=== PATIENT | male | born 1955 | race Caucasian/White ===

== ENCOUNTER 2020-01-02 09:05 | Outpatient (REF) | payer MEDICARE, SELFPAY ==
[2020-01-02 09:57] LABS: MANUAL DIFF FLAG NO
[2020-01-02 10:21] LABS: Basophils Percent Auto 0.5 % (0-2); Eosinophils Absolute Auto 0.1 X10*3/uL (0.0-0.4); Eosinophils Percent Auto 2.8 % (0-4); Hematocrit 46.1 % (42-52); Imm Gran Abs Auto 0.01 X10*3/uL (0.00-0.03); Imm Gran Pct Auto 0.3 % (0.0-0.4); Lymphocytes Absolute Auto 1.3 X10*3/uL (1.2-4.9); Lymphocytes Percent Auto 31.5 % (20-40); Mean Corpuscular HGB Conc 32.5 g/dl (31.0-36.0); Mean Corpuscular Hemoglobin 30.4 pg (27.0-33.0); Mean Corpuscular Volume 93.3 fL (80-98); Mean Platelet Volume 9.4 fL (9.4-12.4); Monocytes Absolute Auto 0.3 X10*3/uL (0.1-1.2); Monocytes Percent Auto 7.8 % (2-11); Neutrophils Absolute Auto 2.3 X10*3/uL (2.0-8.3); Neutrophils Percent Auto 57.1 % (45-73); Platelet Count 260 X10*3/uL (160-400); Red Blood Count 4.94 X10*6/uL (4.60-5.80); Red Cell Distribution Width 12.6 % (11.0-16.0)
[2020-01-02 11:13] LABS: Alanine Aminotransferase 25 U/L (0-40); Albumin Level 4.1 g/dL (3.5-5.0); Alkaline Phosphatase 100 U/L (39-117); Anion Gap 10 (12-20); Aspartate Amino Transferase 18 U/L (5-37); Bilirubin Total 1.7 mg/dL (0.0-1.0); Blood Urea Nitrogen 19 mg/dL (9-16); Carbon Dioxide 29 mmol/L (22-29); Chloride 106 mmol/L (96-108); Cholesterol 129 mg/dL; Estimated Glomerular Filt Rate > 60; Glucose Fasting 96 mg/dL (60-99); HDL Cholesterol 42 mg/dL; LDL Cholesterol Calculated 65 mg/dl; Potassium 4.7 mmol/l (3.3-5.1); Sodium 140 mmol/L (135-145); Total Protein 6.7 g/dL (6.5-8.0); Triglycerides 111 mg/dL
[2020-01-02 11:38] LABS: Vitamin D 25-OH Total 38.1 ng/mL (>30)
[2020-01-04 05:11] LABS: Folate 9.7 ng/mL (> or = 4.0); Vitamin B12 363 pg/mL (200-900)
== END 2020-01-02 09:06 | disposition home or self-care (01) ==
LOC: HO.LAB 09:05
PROVIDERS: PCP Internal Medicine; Visit Provider Internal Medicine
DX: E78.5 Hyperlipidemia, unspecified (principal); E53.8 Deficiency of other specified B group vitamins; R20.2 Paresthesia of skin; K50.90 Crohn's disease, unspecified, without complications; E55.9 Vitamin D deficiency, unspecified
CPT/HCPCS: 36415; 80053; 80061; 82306; 82607; 82746; 85025

== ENCOUNTER 2020-04-21 07:30 | Outpatient (REF) | payer MEDICARE, SELFPAY ==
[2020-04-21 07:58] LABS: MANUAL DIFF FLAG NO
[2020-04-21 08:06] LABS: Basophils Percent Auto 0.4 % (0-2); Eosinophils Absolute Auto 0.1 X10*3/uL (0.0-0.4); Eosinophils Percent Auto 1.9 % (0-4); Hematocrit 48.2 % (42-52); Hemoglobin 16.2 g/dl (14.0-18.0); Lymphocytes Absolute Auto 1.6 X10*3/uL (1.2-4.9); Lymphocytes Percent Auto 33.4 % (20-40); Mean Corpuscular HGB Conc 33.6 g/dl (31.0-36.0); Mean Corpuscular Hemoglobin 30.9 pg (27.0-33.0); Mean Corpuscular Volume 91.8 fL (80-98); Mean Platelet Volume 9.1 fL (9.4-12.4); Monocytes Absolute Auto 0.5 X10*3/uL (0.1-1.2); Monocytes Percent Auto 9.8 % (2-11); Neutrophils Absolute Auto 2.6 X10*3/uL (2.0-8.3); Neutrophils Percent Auto 54.5 % (45-73); Platelet Count 278 X10*3/uL (160-400); Red Blood Count 5.25 X10*6/uL (4.60-5.80); Red Cell Distribution Width 12.7 % (11.0-16.0); White Blood Count 4.7 X10*3/uL (4.8-10.8)
[2020-04-21 08:20] LABS: Alanine Aminotransferase 29 U/L (0-40); Albumin Level 4.3 g/dL (3.5-5.0); Alkaline Phosphatase 111 U/L (39-117); Anion Gap 10 (12-20); Aspartate Amino Transferase 20 U/L (5-37); Bilirubin Total 1.8 mg/dL (0.0-1.0); Blood Urea Nitrogen 19 mg/dL (9-16); Calcium 9.2 mg/dL (8.4-10.2); Carbon Dioxide 28 mmol/L (22-29); Chloride 105 mmol/L (96-108); Cholesterol 140 mg/dL; Estimated Glomerular Filt Rate > 60; Glucose Fasting 109 mg/dL (60-99); HDL Cholesterol 46 mg/dL; LDL Cholesterol Calculated 70 mg/dl; Potassium 4.4 mmol/L (3.3-5.1); Sodium 139 mmol/L (135-145); Triglycerides 121 mg/dL
[2020-04-21 08:40] LABS: TSH reflex Free T4 1.29 uIU/mL (0.32-4.0)
[2020-04-21 10:00] LABS: Folate 11.8 ng/mL (> or = 4.0); Vitamin B12 357 pg/mL (200-900)
== END 2020-04-21 07:31 | disposition home or self-care (01) ==
LOC: HO.LAB 07:30
PROVIDERS: Visit Provider Internal Medicine
DX: D51.0 Vitamin B12 deficiency anemia due to intrinsic factor deficiency (principal); K50.919 Crohn's disease, unspecified, with unspecified complications; E78.00 Pure hypercholesterolemia, unspecified; E66.3 Overweight
CPT/HCPCS: 36415; 80053; 80061; 82607; 82746; 84443; 85025

== ENCOUNTER → 2020-06-22 08:14 | Outpatient (REF) | payer MEDICARE, SELFPAY ==
--- NOTE | ~2020-06-22 | CT_ITS ---
EXAMINATION: CT ANGIOGRAM CHEST CLINICAL INFORMATION: 64-year-old male with a history of a bicuspid aortic valve and ascending aortic aneurysm. Follow-up study. COMPARISON: Multiple CTAs of the chest, most recent 10/02/2019. TECHNIQUE: Multiple axial images were obtained through the chest after the administration of 70 mL of Omnipaque 350 intravenous contrast. Extensive vascular post-processing including two-dimensional and three-dimensional reformatted images were created and reviewed on an independent workstation. DLP: 161 mGy-cm FINDINGS: Plaster Maker: Unremarkable Heart/Aorta: The heart is enlarged. There does appear to be a bicuspid aortic valve. The coronary arteries appear patent. The ascending thoracic aorta is enlarged but stable in size measuring up to 4.5 x 4.6 cm in the midportion. The ascending aorta tapers to normal caliber at the level of the arch. There is no evidence of aortic dissection, intramural hematoma, or atherosclerotic penetrating ulcer. There is a two-vessel aortic arch. The arch vessels are patent. The aortic arch measures 2.8 x 2.7 cm in diameter. The descending thoracic aorta is normal in caliber measuring 2.8 x 3.0 cm just below the level catracho. Other Cardiovascular: The pulmonary arteries are patent and normal in caliber. There is no pericardial effusion or pericardial thickening. Mediastinum/Cheryl: There are no pathologically enlarged mediastinal or hilar lymph nodes. Pleura: The pleural surfaces are normal bilaterally. There is no pleural effusion. There is no pneumothorax. Lungs: The lung parenchyma is normal bilaterally. There is no pulmonary parenchymal mass, consolidation, ground-glass attenuation, or discrete suspicious pulmonary nodule. Airways: The central airways are patent. The peripheral airways are normal. There is no bronchiectasis. Upper Abdomen: The incompletely imaged upper abdomen is unremarkable. Musculoskeletal: There is no aggressive osseous lesion. The structures of the chest wall, including the bones, are normal for age. CT/CT angio chest IMPRESSION: Stable ascending thoracic aortic aneurysm with a maximum diameter of 4.6 cm. The maximum normal diameter of the ascending aorta for a patient this age is 4.2 cm. Normal aortic diameters (in millimeters) Ascending aorta: 31+0.16 x age. Descending aorta: 21+0.16 x age. Reference: Scandinavian Cardiovascular J 2005; 40 (3): 175-178.
--- NOTE | 2020-06-22 08:30 | CA_ITS ---
Transthoracic Echocardiogram Patient (Last, First, Middle): Jasen White A Gender: Male Date of : 1955 Age: 64 Procedure Date: 06/22/2020 Procedure Type: Transthoracic Echocardiogram Location: OP Height: 185.42 cm Weight: 86.18 kg BSA: 2.11 m2 Heart Rate: bpm BP: 110 / 60 mmHg [employer]: DIOGENES Ortega MD: Efraín Sanford MD [employer]ourer: Dez Holder MD Symptoms: I71.2 ASCENDING AA, Q23.1 BISCUSPID AV Study Quality: Good ECG Rhythm: Sinus Conclusions: - 1. Moderately dilated ascending aorta at 4.5 centimetres 2. Normal LV systolic and diastolic function 3. Bicuspid aortic valve with mild aortic regurgitation 4. Normal RV systolic pressure 5. No pericardial effusion Findings Left Ventricle Normal left ventricular size, thickness, and systolic function. The visually estimated ejection fraction is between 60-65%. Diastolic function is normal for age. Right Ventricle Normal right ventricular cavity size and systolic function. Atria Both atria are normal in size. There is no evidence of interatrial shunt. Aortic Valve There is a bicuspid aortic valve. There is no aortic valve stenosis. There is mild aortic valve regurgitation. Mitral Valve Normal mitral valve structure and function. There is trace mitral valve regurgitation. There is no mitral valve stenosis. Pulmonic Valve The pulmonic valve is likely normal. Tricuspid Valve Normal tricuspid valve structure. There is trace tricuspid valve regurgitation. The right ventricular systolic pressure is normal. The right ventricular systolic pressure is 15 mmHg. Normal right atrial pressure. There is no evidence of pulmonary hypertension. Great Vessels The pulmonary artery was not well visualized. There is moderate dilatation of the ascending aorta measuring 4.50 cm. Venous The inferior vena cava is normal in size and collapses greater than 50% with inspiration. Pericardium/Pleural There is no evidence of pericardial effusion. Prior Study Comparison No significant change compared to prior study dated: 09/28/2019. Measurements 2D Linear Measurements IVSd: 1.16 0.6-0.9/0.6-1.0 cm LVIDd: 4.15 3.9-5.3/4.2-5.9 cm LVIDd Index: 1.97 2.4-3.2/2.2-3.1 cm/m2 LVIDs: 2.67 2.0-3.6 cm LVPWd: 1.10 0.7-1.1 cm Ao Root: 4.30 2.1-3.5 cm LA Diam: 3.10 2.7-3.8/3.0-4.0 cm LAIDs Index: 1.47 1.5-2.3 cm/m2 LV Mass: 199.58 67-162/88-224 g LV Mass Index: 94.59 43-95/49-115 g/m2 LVOT Diam: 2.40 3.0+(-)1.3 cm 2D Systolic Function EF 4C: 66.90 >55% EF 2C: 55.10 >55% EF BiP: 62.90 >55% Mitral Valve MV Pk E: 0.83 MV PK A: 0.56 MV Decel Time: 365.00 E/A: 1.50 E'Lateral: 9.57 E'Medial: 9.25 E/E' Med: 9.00 E/E' Lat: 8.70 PHT: 107.00 MVA PHT: 2.06 Decel [place]: 2.28 Aortic Valve AoV Pk Blake: 1.78 AoV Mn Blake: 1.13 AoV VTI: 0.36 AoV Pk Grad: 13.00 Aov Mn Grad: 6.00 MAGNUS Cont.VTI: 3.18 LVOT LVOT Pk Blake: 1.05 LVOT Mn Blake: 0.73 LVOT VTI: 0.25 LVOT Pk Grad: 4.00 LVOT Mn Grad: 2.00 LVOT Diam: 2.40 LVOT Area: 4.52 Diastolic Function MV Pk E: 0.83 MV Pk A: 0.56 E/A: 1.50 E'Medial: 9.25 E/E' Med: 9.00 E' Laterial: 9.57 E/E' Lat: 8.70 Tricuspid Valve TR Pk Blake: 1.75 TR Pk Grad: 12.00 RA Press: 3.00 RVSP: 15.00 Great Vessels Aorta Ao Root-2D: 4.30 2.0-3.7 cm Ao Asc: 4.50 2.1-3.4 cm Ao Arch: 3.70 Updated in Other Vendor System with Status of Final Dez Holder MD electronically signed on 06/22/2020 5:36:46 PM with status of Final
== END ==
LOC: HO.CARD 08:14
PROVIDERS: Visit Provider Internal Medicine
DX: I71.2 Thoracic aortic aneurysm, without rupture (principal); Q23.1 Congenital insufficiency of aortic valve
CPT/HCPCS: 71275; 93306; Q9967

== ENCOUNTER → 2020-07-07 08:04 | Outpatient (BNVA) | payer MEDICARE, SELFPAY | PROVIDERS: PCP Internal Medicine; Visit Provider Internal Medicine | DX: I71.2 Thoracic aortic aneurysm, without rupture (principal); Q23.1 Congenital insufficiency of aortic valve | CPT/HCPCS: 93005; 99212 ==

== ENCOUNTER 2020-08-09 06:51 | Outpatient (REF) | payer MEDICARE, SELFPAY ==
[2020-08-09 08:24] LABS: MANUAL DIFF FLAG NO
[2020-08-09 08:39] LABS: Basophils Percent Auto 0.7 % (0-2); Eosinophils Absolute Auto 0.1 X10*3/uL (0.0-0.4); Eosinophils Percent Auto 3.3 % (0-4); Hematocrit 47.5 % (42-52); Hemoglobin 15.6 g/dl (14.0-18.0); Imm Gran Abs Auto 0.01 X10*3/uL (0.00-0.03); Imm Gran Pct Auto 0.2 % (0.0-0.4); Lymphocytes Absolute Auto 1.3 X10*3/uL (1.2-4.9); Lymphocytes Percent Auto 30.3 % (20-40); Mean Corpuscular HGB Conc 32.8 g/dl (31.0-36.0); Mean Corpuscular Hemoglobin 30.3 pg (27.0-33.0); Mean Corpuscular Volume 92.2 fL (80-98); Mean Platelet Volume 9.6 fL (9.4-12.4); Monocytes Absolute Auto 0.4 X10*3/uL (0.1-1.2); Monocytes Percent Auto 8.9 % (2-11); Neutrophils Absolute Auto 2.4 X10*3/uL (2.0-8.3); Neutrophils Percent Auto 56.6 % (45-73); Platelet Count 259 X10*3/uL (160-400); Red Blood Count 5.15 X10*6/uL (4.60-5.80); Red Cell Distribution Width 12.6 % (11.0-16.0); White Blood Count 4.3 X10*3/uL (4.8-10.8)
[2020-08-09 08:56] LABS: Alanine Aminotransferase 25 U/L (0-40); Albumin Level 4.1 g/dL (3.5-5.0); Alkaline Phosphatase 107 U/L (39-117); Anion Gap 12 (12-20); Aspartate Amino Transferase 21 U/L (5-37); Bilirubin Total 1.8 mg/dL (0.0-1.0); Blood Urea Nitrogen 16 mg/dL (9-16); Calcium 9.3 mg/dL (8.4-10.2); Carbon Dioxide 26 mmol/L (22-29); Chloride 105 mmol/L (96-108); Cholesterol 129 mg/dL; Estimated Glomerular Filt Rate > 60; Glucose Fasting 94 mg/dL (60-99); HDL Cholesterol 45 mg/dL; LDL Cholesterol Calculated 64 mg/dl; Potassium 4.5 mmol/L (3.3-5.1); Sodium 138 mmol/L (135-145); Total Protein 6.8 g/dL (6.5-8.0); Triglycerides 101 mg/dL
[2020-08-09 09:37] LABS: Vitamin B12 312 pg/mL (200-900)
== END 2020-08-09 06:52 | disposition home or self-care (01) ==
LOC: HO.LAB 06:51
PROVIDERS: PCP Internal Medicine; Visit Provider Internal Medicine
DX: D51.0 Vitamin B12 deficiency anemia due to intrinsic factor deficiency (principal); K50.919 Crohn's disease, unspecified, with unspecified complications; E78.00 Pure hypercholesterolemia, unspecified; E80.6 Other disorders of bilirubin metabolism; R73.01 Impaired fasting glucose
CPT/HCPCS: 36415; 80053; 80061; 82607; 82746; 85025

== ENCOUNTER 2020-12-10 09:09 | Outpatient (REF) | payer MEDICARE, SELFPAY ==
[2020-12-10 09:39] LABS: MANUAL DIFF FLAG NO
[2020-12-10 09:42] LABS: Basophils Percent Auto 0.5 % (0-2); Eosinophils Absolute Auto 0.2 X10*3/uL (0.0-0.4); Eosinophils Percent Auto 3.7 % (0-4); Hematocrit 48.8 % (42-52); Hemoglobin 15.7 g/dl (14.0-18.0); Imm Gran Abs Auto 0.01 X10*3/uL (0.00-0.03); Imm Gran Pct Auto 0.2 % (0.0-0.4); Lymphocytes Absolute Auto 1.2 X10*3/uL (1.2-4.9); Lymphocytes Percent Auto 28.6 % (20-40); Mean Corpuscular HGB Conc 32.2 g/dl (31.0-36.0); Mean Corpuscular Hemoglobin 29.7 pg (27.0-33.0); Mean Corpuscular Volume 92.4 fL (80-98); Monocytes Absolute Auto 0.4 X10*3/uL (0.1-1.2); Monocytes Percent Auto 8.7 % (2-11); Neutrophils Absolute Auto 2.5 X10*3/uL (2.0-8.3); Neutrophils Percent Auto 58.3 % (45-73); Platelet Count 252 X10*3/uL (160-400); Red Blood Count 5.28 X10*6/uL (4.60-5.80); Red Cell Distribution Width 12.6 % (11.0-16.0); White Blood Count 4.3 X10*3/uL (4.8-10.8)
[2020-12-10 10:02] LABS: Estimated Average Glucose 103 mg/dL; Hemoglobin A1C 129.9534 umol/L; Hemoglobin A1c % 5.2 %
[2020-12-10 10:08] LABS: Alanine Aminotransferase 23 U/L (0-40); Albumin Level 4.2 g/dL (3.5-5.0); Alkaline Phosphatase 97 U/L (39-117); Anion Gap 10 (12-20); Aspartate Amino Transferase 17 U/L (5-37); Bilirubin Total 1.7 mg/dL (0.0-1.0); Blood Urea Nitrogen 16 mg/dL (9-16); Calcium 9.4 mg/dL (8.4-10.2); Carbon Dioxide 26 mmol/L (22-29); Chloride 108 mmol/L (96-108); Cholesterol 132 mg/dL; Estimated Glomerular Filt Rate > 60; Glucose Fasting 104 mg/dL (60-99); HDL Cholesterol 46 mg/dL; LDL Cholesterol Calculated 63 mg/dl; Potassium 4.4 mmol/L (3.3-5.1); Sodium 140 mmol/L (135-145); Triglycerides 116 mg/dL
[2020-12-10 10:29] LABS: TSH reflex Free T4 1.42 uIU/mL (0.32-4.0)
[2020-12-10 10:43] LABS: Appearance Urine CLEAR; Color Urine YELLOW; Glucose Urine UA NEG (NEG); Leukocyte Esterase Urine NEG (NEG); Nitrite Urine NEG (NEG); PH 6.5 (5.0-8.0); Specific Gravity - Urine 1.025 (1.005-1.025); Urine Blood NEG (NEG); Urine Ketones NEG (NEG); Urine Protein NEG (NEG-TRACE)
[2020-12-12 10:13] LABS: Folate 9.3 ng/mL (> or = 4.0); Vitamin B12 289 pg/mL (200-900)
== END 2020-12-10 09:10 | disposition home or self-care (01) ==
LOC: HO.LAB 09:09
PROVIDERS: PCP Internal Medicine; Visit Provider Internal Medicine
DX: D51.0 Vitamin B12 deficiency anemia due to intrinsic factor deficiency (principal); K50.919 Crohn's disease, unspecified, with unspecified complications; E78.00 Pure hypercholesterolemia, unspecified; R73.01 Impaired fasting glucose; E80.6 Other disorders of bilirubin metabolism; E66.3 Overweight; M51.36 Other intervertebral disc degeneration, lumbar region
CPT/HCPCS: 36415; 80053; 80061; 81003; 82607; 82746; 83036; 84443; 85025

== ENCOUNTER 2021-01-05 07:50 | Outpatient (REF) | payer MEDICARE, SELFPAY ==
--- NOTE | ~2021-01-05 | CT_ITS ---
EXAMINATION: CT ANGIOGRAM CHEST CLINICAL INFORMATION: Aneurysm of the ascending aorta. COMPARISON: 06/22/2020 TECHNIQUE: Multiple axial images were obtained through the chest after the administration of 70 mL of Omnipaque 350 intravenous contrast. Extensive vascular post-processing including two-dimensional and three-dimensional reformatted images were created and reviewed on an independent workstation. This CT examination was performed using dose optimization techniques as appropriate, variously including the following: *Automated exposure control *Adjustment of mA and/or kV according to patient size (this includes techniques or standardized protocols for targeted exams where dose is matched to indication/reason for exam; i.e. extremities or head) *Use of iterative reconstruction technique DLP: 188 mGy-cm VASCULAR FINDINGS: Once again seen is aneurysmal dilatation of the ascending aorta. Maximal dimension of the ascending aorta at the level of the right main pulmonary artery is 4.6 cm and is completely unchanged when compared to the prior study. No aortic dissection is seen. A two-vessel branching pattern of the aortic arch is noted with a common trunk of the innominate artery and left carotid artery. The great vessels are widely patent. Although not carried out for evaluation of the pulmonary arteries or pulmonary veins, no abnormalities are seen. Pulmonary artery vasculature not well opacified to evaluate for pulmonary emboli. The small visualized portion of the abdominal aorta is unremarkable. NONVASCULAR FINDINGS: Lungs: The lungs are clear with no evidence of inflammation or worrisome nodules. An unchanged 2 mm calcified granuloma is noted in the left lower lobe ([id number]:361). Mediastinum: The mediastinum is unremarkable. Pleura: There is no pleural effusion. No pleural mass or thickening. Axilla: There is a new enlarged lymph node measuring 1.9 x 1.3 x 1.8 cm in the right axilla. Previously this measured at most 5 mm. A few other smaller lymph nodes are seen. Upper Abdomen: Unremarkable. Osseous Structures: Unremarkable. CT/CT angio chest aorta IMPRESSION: Aneurysmal dilatation of ascending aorta is stable at 4.6 cm. There is a new mildly enlarged right axillary lymph node present measuring 1.9 x 1.3 x 1.8 cm. This should be followed on future studies and correlated with physical exam.
[2021-01-05] MEDS: iohexoL 350 MG/ML 100 ML INFUS..BTL 70 ML IV (08:48)
== END 2021-01-05 07:51 | disposition home or self-care (01) ==
LOC: HO.CT 07:50
PROVIDERS: PCP Internal Medicine; Visit Provider Internal Medicine
DX: I71.2 Thoracic aortic aneurysm, without rupture (principal)
CPT/HCPCS: 71275; Q9967

== ENCOUNTER 2021-01-31 17:56 | Outpatient (REF) | payer MEDICARE, SELFPAY ==
--- NOTE | ~2021-01-31 | MR_ITS ---
EXAMINATION: MR LUMBAR SPINE WITHOUT CONTRAST CLINICAL INFORMATION: Intervertebral disc degeneration COMPARISON: CT scan of the abdomen and pelvis 09/11/2018. MRI scan of the lumbar spine 07/29/2012. TECHNIQUE: MRI of the lumbar spine was obtained using routine sequences without contrast. FINDINGS: VERTEBRAL BODIES AND PARASPINAL STRUCTURES: The study redemonstrates mild retrolistheses of L4 on L5 and L5 on S1. There is narrowing of intervertebral disc height at multiple levels, most severe at L4-L5 and L5-S1. There are degenerative endplate contour changes with edematous signal at L2-L3 toward the right and at L3-L4 posteriorly toward the left. Mild fatty endplate signal changes are seen at L4-L5 and L5-S1. There are Schmorl's nodes at adjacent endplates at multiple levels. Vertebral body heights are maintained. There are no acute fractures. The visualized retroperitoneal and pelvic structures are unremarkable. There are degenerative changes of the sacroiliac joints bilaterally. CONUS MEDULLARIS AND CAUDA EQUINA: Normal, terminating at the level of L1-L2. The lower thoracic spinal cord appears normal. The cauda equina nerve roots appear normal. There is mild fatty signal in a non-thickened filum terminale. SPINAL LEVELS: L1-L2: There is mild bilateral facet arthropathy. Disc contour is normal. There is no central stenosis or foraminal narrowing. L2-L3: There is mild bilateral facet arthropathy with ligamenta flava hypertrophy and facet joint effusions. There is a mild posterior disc protrusion extending into the neural foramina bilaterally without definite exiting nerve root impingement. There is slight narrowing of the subarticular recesses. There is no central stenosis. L3-L4: There is moderate bilateral facet arthropathy with ligamenta flava hypertrophy. There is a posterior disc protrusion extending into the inferior neural foramina bilaterally without definite exiting nerve root impingement. There is narrowing of the left subarticular recess. There is no central stenosis. L4-L5: There is moderate bilateral facet arthropathy. There appear to be sequelae of a right-sided hemilaminectomy There is a broad-based posterior disc protrusion which extends into the neural foramina bilaterally with impingement on the exiting L4 nerve roots. There is mild narrowing of the bilateral subarticular recesses. There is no central stenosis. L5-S1: There is mild bilateral facet arthropathy. There is a posterior disc osteophyte complex with osteophytic spurs extending into the inferior neural foramina bilaterally with mild impingement on the exiting L5 nerve roots. There is no central stenosis. MR/MR lumbar spine wo con IMPRESSION: 1. There appear to be sequelae of a right-sided hemilaminectomy at L4-L5. There is a posterior disc protrusion impinging on the exiting L4 nerve roots and there is mild narrowing of the subarticular recesses. There is no central stenosis. 2. At L5-S1 there is facet arthropathy. There is a posterior disc osteophyte complex with osteophytic spurs extending into the neural foramina with impingement on the exiting L5 nerve roots. There is no stenosis. 3. At L2-L3 there are edematous endplate signal changes. There is mild posterior disc protrusion without foraminal nerve root impingement. There is mild narrowing of the subarticular recesses. There is no central stenosis. 4. Spondylitic and facet arthropathic changes are also demonstrated at other levels as described above.
== END 2021-01-31 17:57 | disposition home or self-care (01) ==
LOC: HO.MRI 17:56
PROVIDERS: Visit Provider Internal Medicine
DX: M51.36 Other intervertebral disc degeneration, lumbar region (principal); M54.17 Radiculopathy, lumbosacral region; R29.898 Other symptoms and signs involving the musculoskeletal system
CPT/HCPCS: 72148

== ENCOUNTER → 2021-02-23 08:05 | Outpatient (BNVA) | payer MEDICARE, SELFPAY | PROVIDERS: PCP Internal Medicine; Referring Provider Internal Medicine; Visit Provider Internal Medicine | DX: I71.2 Thoracic aortic aneurysm, without rupture (principal); Q23.1 Congenital insufficiency of aortic valve; R59.9 Enlarged lymph nodes, unspecified | CPT/HCPCS: 99212 ==

== ENCOUNTER → 2021-03-28 08:47 | Outpatient (BNVA) | payer MEDICARE, SELFPAY | PROVIDERS: PCP Internal Medicine; Referring Provider Internal Medicine; Visit Provider Surgery | DX: R59.9 Enlarged lymph nodes, unspecified (principal) | CPT/HCPCS: 99202 ==

== ENCOUNTER 2021-04-18 08:39 | Outpatient (REF) | payer MEDICARE, SELFPAY ==
--- NOTE | ~2021-04-18 | US_ITS ---
EXAMINATION: US-GUIDED FINE-NEEDLE ASPIRATION CLINICAL INFORMATION: Right axillary enlarged lymph node. COMPARISON: CT chest 01/06/2021 TECHNIQUE: Following explaining ultrasound-guided right axillary lymph node biopsy procedure, benefits and risk, a written consent was obtained. Patient was placed supine and right shoulder raised above the neck. Preliminary ultrasound imaging was performed through the right axillary large lymph node. An optimal site was selected and marked on the skin. The marked skin was cleaned and draped in the usual sterile manner. 1% lidocaine was injected at 2 puncture sites. Initially, a 22-gauge needle attached to a syringe was inserted under sterile ultrasound guidance into the axillary node and a 3-pass biopsy aspiration was performed. Subsequently, an 18-gauge needle was advanced through a slightly medial location and a 2-pass biopsy aspiration was performed. Postprocedure complete hemosiderin achieved and sterile Band-Aid applied at the puncture site. Patient tolerated procedure extremely well. FINDINGS: On preliminary ultrasound imaging, there is a large mixed density axillary lymph node consisting of fluid and solid component. Slightly hemorrhagic fluid was aspirated from this right axillary lymph node. Preliminary pathology confirmed lymph node tissue within the aspirated biopsy. US/US guided fine needle asp IMPRESSION: Successful ultrasound-guided right axillary lymph node fine-needle aspiration biopsy performed.
[2021-04-18] MEDS: Lidocaine HCl 1 % MPF 5 ML VIAL 4 ML SUBCUT (10:18)
== END 2021-04-18 08:40 | disposition home or self-care (01) ==
LOC: HO.US 08:39
PROVIDERS: Radiology Diagnostic Radiology; PCP Internal Medicine; Visit Provider Surgery
DX: R59.0 Localized enlarged lymph nodes (principal); C96.9 Malignant neoplasm of lymphoid, hematopoietic and related tissue, unspecified
CPT/HCPCS: 10005; 36415; 81210; 81272; 81275; 81276; 81311; 81403; 88172; 88173; 88177; 88184; 88185; 88300; 88305; 88341; 88342

== ENCOUNTER → 2021-04-25 09:12 | Outpatient (BNVA) | payer MEDICARE, SELFPAY | PROVIDERS: PCP Internal Medicine; Referring Provider Internal Medicine; Visit Provider Surgery | DX: C43.9 Malignant melanoma of skin, unspecified (principal); C77.3 Secondary and unspecified malignant neoplasm of axilla and upper limb lymph nodes | CPT/HCPCS: 99212 ==

== ENCOUNTER → 2021-05-02 08:45 | Outpatient (BNV) | payer MEDICARE, SELFPAY | PROVIDERS: PCP Internal Medicine; Referring Provider Surgery; Visit Provider Internal Medicine | DX: C43.59 Malignant melanoma of other part of trunk (principal) | CPT/HCPCS: 99204; 99212; 99213; 99214; G2211 ==

== ENCOUNTER 2021-05-02 09:48 | Outpatient (REF) | payer MEDICARE, SELFPAY ==
--- NOTE | ~2021-05-02 | PE_ITS ---
EXAMINATION: Fluorine-18 FDG PET/CT Scan CLINICAL INDICATION: Initial treatment management. Metastatic melanoma, staging. PROCEDURE: 86 minutes following the intravenous administration of 18.0 mCi of fluorine 18 FDG, images of the whole body were obtained using a combined PET/CT scanner with CT scan based attenuation correction. No oral contrast was administered. No intravenous contrast was administered. Transverse, coronal, sagittal, and volume reconstruction projections were obtained. The patient's blood glucose as determined by a finger stick, was 89 mg/dl immediately prior to injection. Total CT exam dose-length product 1113.87 mGy-cm * These CT images were obtained using dose optimization techniques as appropriate, variously including the following: Automated exposure control * Adjustment of mA and/or kV according to patient size (this includes techniques or standardized protocols for targeted exams where dose is matched to indication/reason for exam; i.e. extremities or head) * Use of iterative reconstruction technique COMPARISON: No previous PET/CT scan is available for comparison. CT angiogram of the chest dated 01/05/2021 FINDINGS: (Slice numbers described in this report are numbered superiorly to inferiorly with slice #1 in the head) NECK AND HEAD: No foci of abnormal FDG activity are noted. The distribution of FDG activity is physiological. There is no cervical lymphadenopathy. THORAX: There is intense abnormal FDG activity in an enlarged right axillary lymph node, SUVmax 15.3, slice 123/311. This measures 4.8 x 2.7 cm in largest transverse dimensions on the CT images. No additional foci of abnormal FDG activity are present in the chest. No pulmonary nodules are visualized. A 0.2 cm calcified granuloma visualized in the left lower lobe on the [address] scan is not apparent on these nondiagnostic CT images. That nodule is much too small to be characterized on the FDG PET images. There is no pleural or pericardial fluid, or pneumothorax. There is no mediastinal, supraclavicular or left axillary lymphadenopathy or additional right axillary lymphadenopathy. ABDOMEN AND PELVIS: There is mildly increased FDG activity in the left anterolateral lower lower pelvic musculature in the left groin region, SUVmax 4.5, slice 267/311. This is associated with a soft tissue density in the musculature at this site that measures 2.4 x 2.1 cm in largest transverse dimensions. This is not at all changed in appearance when compared to the CT scan dated 09/11/2018, and probably represents inflammatory changes at the site of postoperative changes probably related to prior left inguinal hernia surgery. No other foci of abnormal FDG activity are present in the abdomen or pelvis. There is mild FDG activity present in the gastrointestinal tract without a suspicious focal component. There is diverticulosis without evidence of diverticulitis. The hollow viscera are otherwise unremarkable. There is a 1.8 x 1.0 cm peripelvic cyst in the upper pole of the left kidney unchanged in appearance from 09/11/2018 CT scan. A nonobstructing 0.3 densely calcified calculus in the upper pole of the right kidney is noted and this also appears unchanged from 09/11/2018. The kidneys are otherwise unremarkable. The liver, gallbladder, spleen, adrenal glands and pancreas are unremarkable. There is no retroperitoneal, mesenteric, pelvic or inguinal lymphadenopathy. A small fat-containing periumbilical hernia is present and there is a small fat-containing right inguinal hernia. MUSCULOSKELETAL: No foci of abnormal FDG activity are present in the osseous structures. There are degenerative changes in the spine but no suspicious sclerotic or lytic lesions are visualized. VASCULAR: There is aneurysmal dilatation of the ascending thoracic aorta, now measuring 5.1 cm in largest AP diameter, slightly larger than on the diagnostic 01/05/2021 CT angiogram of the chest when this measured 4.6 cm. No other significant vascular abnormalities are noted. PET/PET CT fusion whole body IMPRESSION: 1. An intensely FDG avid enlarged right axillary lymph node is most likely malignant in etiology. 2. Mild FDG activity associated with stable appearing soft tissue density in the left inguinal region, most likely due to inflammatory changes, possibly at the site of prior left inguinal hernia surgery. Clinical correlation is recommended. 3. No additional abnormalities suspicious for metastatic or other malignant lesions are noted. 4. Ascending thoracic aortic aneurysm slightly larger than on 01/05/2021, as described above.
== END 2021-05-02 09:49 | disposition home or self-care (01) ==
LOC: HO.PET 09:48
PROVIDERS: Visit Provider Surgery
DX: Z13.89 Encounter for screening for other disorder (principal)

== ENCOUNTER → 2021-05-10 08:24 | Outpatient (REF) | payer MEDICARE, SELFPAY ==
--- NOTE | 2021-05-10 08:26 | CA_ITS ---
Transthoracic Echocardiogram Patient (Last, First, Middle): Jasen White A Gender: Male Date of : 1955 Age: 65 Procedure Date: 05/10/2021 Procedure Type: Transthoracic Echocardiogram Location: OP Height: 182.88 cm Weight: 86.18 kg BSA: 2.08 m2 Heart Rate: bpm BP: 118 / 60 mmHg Edge Molder: Referring MD: Efraín Sanford MD Symptoms: Q23.1 - Congenital insufficiency of aortic valve Study Quality: Fair ECG Rhythm: Sinus Conclusions: - The left ventricular systolic function is normal. The calculated ejection fraction is 60% by biplane method. - There is a bicuspid aortic valve. There is no aortic valve stenosis. There is mild aortic valve regurgitation. - There is mild dilatation of the sinuses of Valsalva measuring 4.10 cm and moderate dilatation of the ascending aorta measuring 4.70 cm. Findings Left Ventricle Normal left ventricular cavity size. There is normal left ventricular wall thickness. The left ventricular systolic function is normal. The calculated ejection fraction is 60% by biplane method. There is no evidence of regional wall motion abnormalities. Diastolic function is normal for age. Right Ventricle Normal right ventricular cavity size and systolic function. Atria Both atria are normal in size. Aortic Valve There is a bicuspid aortic valve. There is no aortic valve stenosis. There is mild aortic valve regurgitation. Mitral Valve The mitral valve appears normal. There is trace mitral valve regurgitation. There is no mitral valve stenosis. Pulmonic Valve The pulmonic valve is likely normal. Tricuspid Valve Normal tricuspid valve structure. There is no tricuspid valve regurgitation. The pulmonary artery systolic pressure is normal. Great Vessels There is mild dilatation of the sinuses of Valsalva measuring 4.10 cm and moderate dilatation of the ascending aorta measuring 4.70 cm. Venous The inferior vena cava is mildly dilated and collapses less than 50% with inspiration. Pericardium/Pleural There is no evidence of pericardial effusion. Prior Study Comparison Changes noted compared to prior study dated: 06/22/2020. Slight increase in ascending aortic size, but could also be technical. Measurements 2D Linear Measurements IVSd: 1.30 0.6-0.9/0.6-1.0 cm LVIDd: 4.85 3.9-5.3/4.2-5.9 cm LVIDd Index: 2.33 2.4-3.2/2.2-3.1 cm/m2 LVIDs: 2.98 2.0-3.6 cm LVPWd: 1.35 0.7-1.1 cm Ao Root: 4.10 2.1-3.5 cm LA Diam: 3.60 2.7-3.8/3.0-4.0 cm LAIDs Index: 1.73 1.5-2.3 cm/m2 LV Mass: 320.10 67-162/88-224 g LV Mass Index: 153.90 43-95/49-115 g/m2 LVOT Diam: 2.60 3.0+(-)1.3 cm 2D Systolic Function EF 4C: 64.20 >55% EF 2C: 57.60 >55% EF BiP: 60.40 >55% Mitral Valve MV Pk E: 0.74 MV PK A: 0.67 MV Decel Time: 222.00 E/A: 1.10 E'Lateral: 8.81 E'Medial: 5.66 E/E' Med: 13.00 E/E' Lat: 8.40 PHT: 65.00 MVA PHT: 3.38 Decel [place]: 3.32 Aortic Valve AoV Pk Blake: 1.80 AoV Mn Blake: 1.24 AoV VTI: 0.43 AoV Pk Grad: 13.00 Aov Mn Grad: 7.00 MAGNUS Cont.VTI: 3.42 LVOT LVOT Pk Blake: 1.10 LVOT Mn Blake: 0.79 LVOT VTI: 0.28 LVOT Pk Grad: 5.00 LVOT Mn Grad: 3.00 LVOT Diam: 2.60 LVOT Area: 5.31 Diastolic Function MV Pk E: 0.74 MV Pk A: 0.67 E/A: 1.10 E'Medial: 5.66 E/E' Med: 13.00 E' Laterial: 8.81 E/E' Lat: 8.40 Right Ventricle TAPSE (mm): 24.00 Tricuspid Valve TR Pk Blake: 1.85 TR Pk Grad: 14.00 RA Press: 15.00 RVSP: 29.00 Great Vessels Aorta Ao Root-2D: 4.10 2.0-3.7 cm Sinus of Valsalva: 4.10 2.0-3.5 cm Ao Asc: 4.70 2.1-3.4 cm Pulmonary Valve PV Pk Blake: 0.90 Peak PV Grad: 3.00 Updated in Other Vendor System with Status of Final Efraín Sanford MD electronically signed on 05/12/2021 3:37:21 PM with status of Final
== END ==
LOC: HO.CARD 08:24
PROVIDERS: PCP Internal Medicine; Visit Provider Internal Medicine Cardiovascular Disease
DX: Q23.1 Congenital insufficiency of aortic valve (principal)
CPT/HCPCS: 93306

== ENCOUNTER 2021-05-15 08:16 | Outpatient (REF) | payer MEDICARE, SELFPAY ==
[2021-05-15 09:48] LABS: MANUAL DIFF FLAG NO
[2021-05-15 10:03] LABS: COVID-19 Test Negative (Negative)
[2021-05-15 10:13] LABS: Basophils Percent Auto 0.4 % (0-2); Eosinophils Absolute Auto 0.1 X10*3/uL (0.0-0.4); Eosinophils Percent Auto 2.6 % (0-4); Hematocrit 46.7 % (42.0-52.0); Hemoglobin 15.6 g/dl (14.0-18.0); Imm Gran Abs Auto 0.01 X10*3/uL (0.00-0.03); Imm Gran Pct Auto 0.2 % (0.0-0.4); Lymphocytes Absolute Auto 1.1 X10*3/uL (1.2-4.9); Lymphocytes Percent Auto 20.9 % (20-40); Mean Corpuscular HGB Conc 33.4 g/dl (31.0-36.0); Mean Corpuscular Hemoglobin 30.4 pg (27.0-33.0); Mean Corpuscular Volume 90.9 fL (80.0-98.0); Mean Platelet Volume 9.2 fL (9.4-12.4); Monocytes Absolute Auto 0.5 X10*3/uL (0.1-1.2); Monocytes Percent Auto 9.6 % (2-11); Neutrophils Absolute Auto 3.5 x10*3/uL (2.0-8.3); Neutrophils Percent Auto 66.3 % (45-73); Platelet Count 249 X10*3/uL (160-400); Red Blood Count 5.14 X10*6/uL (4.60-5.80); Red Cell Distribution Width 12.5 % (11.0-16.0); White Blood Count 5.3 X10*3/uL (4.8-10.8)
[2021-05-15 10:23] LABS: Prothrombin Time 11.2 SEC (9.9-13.0)
[2021-05-15 10:45] LABS: Alanine Aminotransferase 18 U/L (0-40); Albumin Level 4.1 g/dL (3.5-5.0); Alkaline Phosphatase 99 U/L (39-117); Anion Gap 12 (12-20); Aspartate Amino Transferase 14 U/L (5-37); Blood Urea Nitrogen 16 mg/dL (9-16); Calcium 9.8 mg/dL (8.4-10.2); Carbon Dioxide 27 mmol/L (22-29); Chloride 105 mmol/L (96-108); Cholesterol 142 mg/dL; Estimated Glomerular Filt Rate > 60; Glucose Fasting 114 mg/dL (60-99); HDL Cholesterol 44 mg/dL; LDL Cholesterol Calculated 61 mg/dl; Potassium 4.4 mmol/L (3.3-5.1); Sodium 140 mmol/L (135-145); Total Protein 6.9 g/dL (6.5-8.0); Triglycerides 186 mg/dL
[2021-05-15 10:57] LABS: TSH reflex Free T4 1.47 uIU/mL (0.32-4.0); Vitamin D 25-OH Total 28.2 ng/mL (>30)
[2021-05-15 11:00] LABS: Appearance Urine CLEAR; Color Urine YELLOW; Glucose Urine UA NEG (NEG); Leukocyte Esterase Urine NEG (NEG); Nitrite Urine NEG (NEG); Specific Gravity - Urine 1.025 (1.005-1.025); Urine Blood NEG (NEG); Urine Ketones NEG (NEG); Urine Protein NEG (NEG-TRACE)
[2021-05-15 12:07] LABS: Folate 9.1 ng/mL (> or = 4.0); Vitamin B12 336 pg/mL (200-900)
== END 2021-05-15 08:17 | disposition home or self-care (01) ==
LOC: HO.LAB 08:16
PROVIDERS: PCP Internal Medicine; Referring Provider Internal Medicine; Visit Provider Internal Medicine
DX: Z01.810 Encounter for preprocedural cardiovascular examination (principal); Z20.822 Contact with and (suspected) exposure to COVID-19; I10 Essential (primary) hypertension; E55.9 Vitamin D deficiency, unspecified; E78.00 Pure hypercholesterolemia, unspecified; E53.8 Deficiency of other specified B group vitamins; I71.2 Thoracic aortic aneurysm, without rupture; R59.9 Enlarged lymph nodes, unspecified; Q23.1 Congenital insufficiency of aortic valve
CPT/HCPCS: 36415; 80053; 80061; 81003; 82306; 82607; 82746; 84443; 85025; 85610; 87635; 93005; 99212

== ENCOUNTER 2021-05-29 05:57 | Day surgery (SDC) | payer MEDICARE, SELFPAY ==
[2021-05-23 10:26] VITALS: BMI 26.4
--- NOTE | 2021-05-26 08:11 | P.CONAN_ITS ---
Documented by User: Marie Lopez NP 05/26/21 08:18 HPI - Anesthesia Eval Consult details Narrative: 65yo M for Right Axillary Node Dissection Cardiac optimized: Cardiac catheterization with normal coronaries. Cardiac surgery consultation noted. May proceed with lymph node dissection surgery. Low to intermediate cardiac risk. Avoid any lori-operative hypertension. Thoracic surgery cleared (images from PET scan reviewed and does not believe the aneurysm has increased in size) [facility] Active Problems Active Problems: All Active Problems (Updated 05/23/21 @ 10:13 by Roula Gutierrez RN) Left lumbosacral radiculopathy (Acute) Weakness of left lower extremity (Acute) Lymph node enlargement (Acute) Preoperative cardiovascular examination (Acute) Metastatic melanoma (Acute) Hyperpigmented skin lesion (Acute) Bicuspid aortic valve (Acute) Ascending aortic aneurysm (Acute) Hyperbilirubinemia (Acute) Impaired fasting glucose (Acute) Overweight (BMI 25.0-29.9) (Acute) Pernicious anemia (Acute) Degenerative joint disease of cervical spine (Acute) Lumbar degenerative disc disease (Acute) Migraine (Acute) Pure hypercholesterolemia (Acute) Crohn's disease (Acute) Past Medical History Medical History Ascending aortic aneurysm Bicuspid aortic valve COVID-19 vaccine series completed Crohn's disease Degenerative joint disease of cervical spine History of nephrolithiasis History of rectal abscess Hyperbilirubinemia Hyperpigmented skin lesion Impaired fasting glucose Lumbar degenerative disc disease Metastatic melanoma Migraine Overweight (BMI 25.0-29.9) Pernicious anemia Pure hypercholesterolemia Family History Family History Father Medical history unknown Mother Hypertension Diabetes Surgical History Surgical History H/O colonoscopy History of back surgery History of esophagogastroduodenoscopy (EGD) History of inguinal hernia repair History of partial colectomy Hx of cardiac catheterization Social History Social History Housing: House Are you a primary customer care specialist to a significant other at home: No Do you presently have visiting nurse or other home services: No Alcohol intake: current Alcohol intake frequency: a few times a month Alcohol type: hard liquor Patient Tobacco Use Status: Never used Tobacco Tobacco use type: Cigarette Second Hand Smoke Exposure: Yes Use of substances other than those prescribed or required for medical reasons: Yes Substance Use Type Other:: advised to hold pre-op Substance Use Frequency: Occasionally Have you been hit, kicked, punched, or otherwise hurt by someone within the past year? If so, by whom?: No Are you DNR?: No Advance Directives: Yes (HCP) Advance Directives Information Provided: Yes Advance Directives on File: Yes Advance Directives Date on File: 01/08/19 Recently lost weight without trying: No Eating poorly because of decreased appetite: No Nutrition Risks: No Nutritional Risk Poor oral hygiene: No (upper & lower denture) service: No Current occupational status: retired Meds Allergies Allergy/AdvReac Type Severity Reaction Status Date / Time codeine [Codeine] Allergy Severe HIVES,GI Verified 05/29/21 06:06 UPSET Home Medications Medication Instructions Recorded Confirmed Last Taken Type cholestyramine (with sugar) 4 gram 2 g PO DAILY 01/07/20 05/29/21 Unknown History oral powder hydrocodone 7.5 mg-acetaminophen 1 tab PO Q6-8H PRN tab 05/22/21 05/22/21 Unknown History 750 mg tablet Exam Exam Date and Time: May 26, 2021 0811 Height,Weight and Vital Signs: Height 6 ft Weight 88.451 kg Narrative Narrative: EKG 04/2021 sinus rhythm at 66/Min; LVH versus normal variant; cannot exclude old inferior infarct; normal MA/QTc ECHO 04/2021 Conclusions: - The left ventricular systolic function is normal.? The ? calculated ejection fraction is 60% by biplane method. ? - There is a bicuspid aortic valve.? There is no aortic valve? ? stenosis.? There is mild aortic valve regurgitation. ? - There is mild dilatation of the sinuses of Valsalva measuring? 4.10 cm and moderate dilatation of the ascending aorta measuring 4.70 cm.? Assessment and Plan Assessment Anesthesia Assessment: Chart Reviewed Documented by User: Jacky Vazquez MD 05/29/21 07:24 PMFSH Past Medical History Medical History Ascending aortic aneurysm Bicuspid aortic valve COVID-19 vaccine series completed Crohn's disease Degenerative joint disease of cervical spine History of nephrolithiasis History of rectal abscess Hyperbilirubinemia Hyperpigmented skin lesion Impaired fasting glucose Lumbar degenerative disc disease Metastatic melanoma Migraine Overweight (BMI 25.0-29.9) Pernicious anemia Pure hypercholesterolemia Family History Family History Father Medical history unknown Mother Hypertension Diabetes Family history of problems with anesthesia: No Surgical History Surgical History H/O colonoscopy History of back surgery History of esophagogastroduodenoscopy (EGD) History of inguinal hernia repair History of partial colectomy Hx of cardiac catheterization History of Problems with Anesthesia: No Social History Social History Housing: House Are you a primary customer care specialist to a significant other at home: No Do you presently have visiting nurse or other home services: No Alcohol intake: current Alcohol intake frequency: a few times a month Alcohol type: hard liquor Patient Tobacco Use Status: Never used Tobacco Tobacco use type: Cigarette Second Hand Smoke Exposure: Yes Use of substances other than those prescribed or required for medical reasons: Yes Substance Use Type Other:: advised to hold pre-op Substance Use Frequency: Occasionally Have you been hit, kicked, punched, or otherwise hurt by someone within the past year? If so, by whom?: No Are you DNR?: No Advance Directives: Yes (HCP) Advance Directives Information Provided: Yes Advance Directives on File: Yes Advance Directives Date on File: 01/08/19 Recently lost weight without trying: No Eating poorly because of decreased appetite: No Nutrition Risks: No Nutritional Risk Poor oral hygiene: No (upper & lower denture) service: No Current occupational status: retired Meds Allergies Allergy/AdvReac Type Severity Reaction Status Date / Time codeine [Codeine] Allergy Severe HIVES,GI Verified 05/29/21 06:06 UPSET Home Medications Medication Instructions Recorded Confirmed Last Taken Type cholestyramine (with sugar) 4 gram 2 g PO DAILY 01/07/20 05/29/21 Unknown History oral powder hydrocodone 7.5 mg-acetaminophen 1 tab PO Q6-8H PRN tab 05/22/21 05/22/21 Unknown History 750 mg tablet Exam Airway Mallampati Class: II TM Dist: >3cm Neck ROM: Full Denture: Upper and Lower Loose/Missing/Broken Teeth: Yes Heart: [id number] Lungs: cta b/l Assessment and Plan Assessment Anesthesia Assessment: Anesthesia Plan Discussed Final Anesthetic Review Family History of Problems with Anesthesia: No History of Problems with Anesthesia: No NPO: Yes ASA Class: III Final Preanesthetic Review: No Changes in Pt Med Stat, Meds/Allgs Chart Reviewed, Consent Obtained/Reviewed and Anes Risks/Benef Reviewed Patient Risk: Intermediate Procedure Risk: Intermediate Assessment/Block/Sedation in SS: Assess/Block/Sedation-SS Anesthetic Plan Anesthetic Plan: GA and Agree w/ Assess. and Plan Disposition: Standard PACU
[2021-05-29] VITALS (23 sets, daily range): BP systolic 96–139; BP diastolic 46–84; PULSE 57–78; RESP 12–20; TEMP 36.2–36.7; O2SAT 90–98
[2021-05-29] MEDS: Lactated Ringers 1,000 ML 100 ML IVCONT (06:38)
--- NOTE | 2021-05-29 09:16 | P.HPSUR_ITS ---
Pre-Procedural Eval Section A Date of Service: 05/29/21 The patient is an INPATIENT: No Changes since office visit: Yes Patient answered all questions; No Cold of Flu in the past 2 weeks, No New Medical Problems and No Changes in Medication The History & Physical has been completed within 30 days and I have reviewed it.: No Section B Chief Complaint: Metastatic melanoma Relevant Family History (Specify if Yes): No Relevant Social History: None Present Medications: see Short Stay Collaborative assessment Medical History: No relevant PMH History of Previous Operations: No relevant previous surgery Allergies: Allergies Allergy/AdvReac Type Severity Reaction Status Date / Time codeine [Codeine] Allergy Severe HIVES,GI Verified 05/29/21 06:06 UPSET Review of Systems Sugical H&P ROS: Negative: Constitution, Cardiovascular, Respiratory, Neurological, Psychiatric, Hem-Onc, Allergic/Immunologic, Gastrointestinal, Genitourinary, Musculoskeletal, Integumentary, Endocrine and Eyes /Ears/Nose/Throat Exam Surgical H&P Exam: Normal: HEENT, Normal: Heart, Normal: Lungs, Normal: Extremities, Normal: Abdomen, Normal: Skin and Normal: Neurological Plan Diagnosis/Plan: Unchanged I reviewed the pathology, procedure, alternatives and risks of the right axillary node dissection in detail today. He gives his consent for the procedure. I have reviewed the history and physical and performed a pertinent physical examination on my patient. No changes have occurred unless specified.
--- NOTE | 2021-05-29 09:17 | P.OP_ITS ---
Operative Note Operative Note Date of Service: 05/29/21 Narrative: Preoperative diagnosis:Metastatic melanoma right axilla Postoperative diagnosis:same Procedure:Right axillary node dissection Surgeon: Mark Mark MD Division [employer] Chief: Violet Darby PA-C Anesthesia:general LMA Indications for procedure:65 year old male patient found to have an enlarging lymph node in the right axilla, s/p us biopsy, positive for metastatic melanoma. Patient presents today for a right axillary node dissection Operative findings:Multiple enlarged black nodes suggestive of metastatic malignant melanoma Specimen:right axillary node dissection Estimated blood loss:20 mls Complications:none Procedure details: Patient was brought to the OR and placed in a supine position with the right arm extended out. After administering general anesthesia, the right axilla was prepped with chloraprep and draped in a sterile fashion. A surgical timeout was called and the consent confirmed. Patient received preoperative antibiotics and venodyne boots were applied. Local consisting of Sensorcaine 0.5 % was infiltrated and an incision was made along the lower portion of the right axilla. This was carried down to the clavipectoral fascia which was entered and the axillary compartment was exposed. A large black node was immediately identified. Dissection was continued superiorly to the pectoratis muscle and inferiorly to the Lat dorsi muscle. Dissection was continued superiorly to the axillary vein. A superficial axillary vein and artery branch was identified entering the specimen. Dissection was continued posterior to these vessels and the thoracodorsal vessels were identifed. The thoracodorsal nerve and long thoracic nerves were identified and preserved. Dissection was continued over the thoracodorsal vessels and long thoracic nerve from lateral to medial. Dissection continued below the pectoralis minor muscle to include level 2 and 3 nodes. Hemostasis was assured using 3-0 polysorb ties. The specimen was removed and sent to pathology for further examination. Wounds were irrigated with sterile water and adequate hemostasis was assured. A # 7 VITA drain was then placed through a small incision and secured with a 3-0 nylon suture. Clavipectoral fascia was reapproximated with 3-0 Polysorb sutures. Dermis was reapproximated with 3-0 Polysorb and the skin closed with a subcuticular 4-0 Polysorb suture. Sterile dressings were applied. The patient tolerated the procedure well. Sponge, needle and instruments were reported as correct. He was transfered to PACU in stable condition. Breast Axillary Dissection Resection was performed within the boundaries of the axillary vein, chest wall (serratus anterior), and latissimus dorsi: Yes The long thoracic and thoracodorsal nerves were spared during dissection: Yes Attempts were made to spare the intercostobrachial nerves during dissection if possible: Yes If one or more level III nodes is/are removed, then document why: metastatic melanoma General Surg. - Synoptic Notes Breast Axillary Dissection Resection was performed within the boundaries of the axillary vein, chest wall (serratus anterior), and latissimus dorsi: Yes The long thoracic and thoracodorsal nerves were spared during dissection: Yes Attempts were made to spare the intercostobrachial nerves during dissection if possible: Yes If one or more level III nodes is/are removed, then document why: metastatic melanoma
[2021-05-29] MEDS: fentaNYL citrate/PF 100 MCG/2 ML VIAL 50 MCG IVPUSH ×2 (09:50→09:59)
[2021-05-29] MEDS: oxyCODONE HCl Immed Release 5 MG TABLET 10 MG PO (09:50)
[2021-05-29] MEDS: HYDROmorphone HCl 0.5 MG/0.5 ML SYRINGE IVPUSH ×2 (10:16→10:27)
--- NOTE | 2021-05-29 11:41 | PC.NURSE ---
attempted to get patient up and dressed became lightheaded. Assisted back to stretcher to rest. soa2 95% RA HR 63. Continue to monitor
[2021-05-29] MEDS: ondansetron HCL 4 MG/2 ML VIAL IVPUSH (12:21)
--- NOTE | 2021-05-29 13:17 | PC.NURSE ---
patient remains naeseated medicated with phenergan
== END 2021-05-29 14:24 | disposition home or self-care (01) ==
PROVIDERS: PCP Internal Medicine; Visit Provider Surgery
PROC: (CPT 38740; principal; 2021-05-29 07:30)
DX: C77.3 Secondary and unspecified malignant neoplasm of axilla and upper limb lymph nodes (principal); C80.1 Malignant (primary) neoplasm, unspecified; R59.0 Localized enlarged lymph nodes; E78.00 Pure hypercholesterolemia, unspecified; I71.2 Thoracic aortic aneurysm, without rupture; Q23.1 Congenital insufficiency of aortic valve; Z98.890 Other specified postprocedural states; Z79.899 Other long term (current) drug therapy; Z88.8 Allergy status to other drugs, medicaments and biological substances; Z87.891 Personal history of nicotine dependence
CPT/HCPCS: 38740; 88307; J0690; J1100; J1170; J2250; J2405; J2550; J3010

== ENCOUNTER → 2021-06-06 09:54 | Outpatient (BNVA) | payer MEDICARE, SELFPAY | PROVIDERS: PCP Internal Medicine; Referring Provider Internal Medicine; Visit Provider Surgery | DX: Z48.3 Aftercare following surgery for neoplasm (principal); C79.9 Secondary malignant neoplasm of unspecified site | CPT/HCPCS: 99212 ==

== ENCOUNTER 2021-06-27 09:11 | Outpatient (REF) | payer MEDICARE, SELFPAY ==
--- NOTE | ~2021-06-27 | CT_ITS ---
EXAMINATION: CT ANGIOGRAM CHEST CLINICAL INFORMATION: Thoracic aortic aneurysm COMPARISON: CTA chest on 01/05/2021, PET/CT on 05/02/2021 TECHNIQUE: Multiple axial images were obtained through the chest after the administration of 70 mL of Omnipaque 350 intravenous contrast. Extensive vascular post-processing including two-dimensional and three-dimensional reformatted images were created and reviewed on an independent workstation. This CT examination was performed using dose optimization techniques as appropriate, variously including the following: *Automated exposure control *Adjustment of mA and/or kV according to patient size (this includes techniques or standardized protocols for targeted exams where dose is matched to indication/reason for exam; i.e. extremities or head) *Use of iterative reconstruction technique DLP: 157 mGy-cm FINDINGS: Heart/Aorta: The heart is globally normal in size. The coronary arteries arise from the expected coronary sinuses; there is no anomaly of coronary arterial origin. The thoracic aorta is enlarged. There is no evidence of aortic dissection, intramural hematoma, or atherosclerotic penetrating ulcer. There is a two-vessel aortic arch. The thoracic aorta measures up to 4.6 cm in the midportion. Other Cardiovascular: The main pulmonary artery is normal in caliber. The well opacified portions of the pulmonary arterial system are patent. There is no pericardial effusion or pericardial thickening. Mediastinum/Cheryl: There are no pathologically enlarged mediastinal or hilar lymph nodes. Pleura: The pleural surfaces are normal bilaterally. There is no pleural effusion. There is no pneumothorax. Lungs: The lung parenchyma is normal bilaterally. There is no pulmonary parenchymal mass, consolidation, ground-glass attenuation, or discrete suspicious pulmonary nodule. Calcified granuloma in the left lower lobe. Airways: The central airways are patent. The peripheral airways are normal. There is no bronchiectasis. Upper Abdomen: The incompletely imaged upper abdomen is unremarkable. Musculoskeletal: There is no aggressive osseous lesion. The structures of the chest wall, including the bones, are normal for age. In the right axilla, there is a 4.5 x 4.1 cm low-density fluid collection with surrounding soft tissue stranding. CT/CT angio chest aorta IMPRESSION: 1. Stable ascending thoracic aortic aneurysm measuring 4.6 cm. 2. Low-density fluid collection in the right axilla in the area of the prior enlarged lymph nodes may be a postoperative seroma/lymphocele after excision. Recommend correlation with surgical history.
[2021-06-27] MEDS: iohexoL 350 MG/ML 100 ML INFUS..BTL IV (09:59)
== END 2021-06-27 09:12 | disposition home or self-care (01) ==
LOC: HO.CT 09:11
PROVIDERS: PCP Internal Medicine; Visit Provider Internal Medicine
DX: I71.2 Thoracic aortic aneurysm, without rupture (principal)
CPT/HCPCS: 71275; Q9967

== ENCOUNTER → 2021-07-07 12:55 | Outpatient (BNVA) | payer MEDICARE, SELFPAY | PROVIDERS: PCP Internal Medicine; Referring Provider Internal Medicine; Visit Provider Surgery | DX: Z48.817 Encounter for surgical aftercare following surgery on the skin and subcutaneous tissue (principal); Z87.2 Personal history of diseases of the skin and subcutaneous tissue | CPT/HCPCS: 99211 ==

== ENCOUNTER → 2021-08-31 08:04 | Outpatient (BNVA) | payer MEDICARE, SELFPAY | PROVIDERS: PCP Internal Medicine; Referring Provider Internal Medicine; Visit Provider Internal Medicine | DX: Q23.1 Congenital insufficiency of aortic valve (principal); I71.2 Thoracic aortic aneurysm, without rupture | CPT/HCPCS: 99212 ==

== ENCOUNTER 2021-09-04 08:51 | Outpatient (REF) | payer MEDICARE, SELFPAY ==
--- NOTE | ~2021-09-04 | XR_ITS ---
EXAMINATION: XR CHEST CLINICAL INFORMATION: Persistent cough COMPARISON: Chest radiograph 06/04/2014, CT chest for 03/06/2022 TECHNIQUE: 2 views of the chest were obtained. FINDINGS: Fine linear scar left lateral base similar to prior exams. Lungs otherwise clear. Vascularity normal. Heart size normal. Costophrenic sulci are clear. The hilar and mediastinal contours and bony structures are unremarkable. XR/XR chest 2V IMPRESSION: -No infiltrate or effusion. -Fine linear scar left lateral base.
== END 2021-09-04 08:52 | disposition home or self-care (01) ==
LOC: HO.XRAY 08:51
PROVIDERS: PCP Internal Medicine; Visit Provider Internal Medicine
DX: R05.9 Cough, unspecified (principal)
CPT/HCPCS: 71046

== ENCOUNTER → 2021-09-05 07:23 | Outpatient (REF) | payer MEDICARE, SELFPAY ==
--- NOTE | 2021-09-05 07:25 | CA_ITS ---
Transthoracic Echocardiogram Patient (Last, First, Middle): Jasen White A Gender: Male Date of : 1955 Age: 65 Procedure Date: 09/05/2021 Procedure Type: Transthoracic Echocardiogram Location: OP Height: 182.88 cm Weight: 87.09 kg BSA: 2.09 m2 Heart Rate: bpm BP: 124 / 78 mmHg Test Architect: JULIEN Referring MD: Cate Treviño MD Symptoms: on cardiotoxic meds Study Quality: Adequate Conclusions: - Normal LV systolic and diastolic function with LVEF of 60 65% Findings Left Ventricle Normal left ventricular size, thickness, and systolic function. The visually estimated ejection fraction is between 60-65%. Diastolic function is normal for age. Peak GLS is -22.3%, within normal limits Prior Study Comparison No significant change compared to prior study dated: 05/10/2021. Measurements 2D Linear Measurements IVSd: 1.18 0.6-0.9/0.6-1.0 cm LVIDd: 4.94 3.9-5.3/4.2-5.9 cm LVIDd Index: 2.36 2.4-3.2/2.2-3.1 cm/m2 LVIDs: 3.36 2.0-3.6 cm LVPWd: 1.20 0.7-1.1 cm LA Diam: 3.10 2.7-3.8/3.0-4.0 cm LAIDs Index: 1.48 1.5-2.3 cm/m2 LV Mass: 282.54 67-162/88-224 g LV Mass Index: 135.18 43-95/49-115 g/m2 2D Systolic Function EF 4C: 60.50 >55% EF 2C: 64.10 >55% EF BiP: 62.60 >55% Mitral Valve MV Pk E: 0.89 MV PK A: 0.58 MV Decel Time: 280.00 E/A: 1.50 E'Lateral: 8.27 E'Medial: 7.62 E/E' Med: 11.70 E/E' Lat: 10.80 PHT: 82.00 MVA PHT: 2.68 Decel [place]: 3.18 Diastolic Function MV Pk E: 0.89 MV Pk A: 0.58 E/A: 1.50 E'Medial: 7.62 E/E' Med: 11.70 E' Laterial: 8.27 E/E' Lat: 10.80 Tricuspid Valve TR Pk [place]: 1.93 TR Pk Grad: 15.00 Updated in Other Vendor System with Status of Final Dez Holder MD electronically signed on 09/05/2021 4:29:26 PM with status of Final
== END ==
LOC: HO.CARD 07:23
PROVIDERS: PCP Internal Medicine; Visit Provider Internal Medicine
DX: C79.9 Secondary malignant neoplasm of unspecified site (principal)
CPT/HCPCS: 93308; 93356

== ENCOUNTER 2021-09-29 07:19 | Outpatient (REF) | payer MEDICARE, SELFPAY ==
[2021-09-29 07:36] LABS: MANUAL DIFF FLAG NO
[2021-09-29 08:13] LABS: Basophils Percent Auto 0.6 % (0-2); Eosinophils Absolute Auto 0.3 X10*3/uL (0.0-0.4); Eosinophils Percent Auto 5.9 % (0-4); Hematocrit 44.6 % (42.0-52.0); Hemoglobin 14.8 g/dl (14.0-18.0); Imm Gran Abs Auto 0.01 X10*3/uL (0.00-0.03); Imm Gran Pct Auto 0.2 % (0.0-0.4); Lymphocytes Absolute Auto 1.5 X10*3/uL (1.2-4.9); Lymphocytes Percent Auto 31.2 % (20-40); Mean Corpuscular HGB Conc 33.2 g/dl (31.0-36.0); Mean Corpuscular Hemoglobin 30.8 pg (27.0-33.0); Mean Corpuscular Volume 92.9 fL (80.0-98.0); Monocytes Absolute Auto 0.4 X10*3/uL (0.1-1.2); Monocytes Percent Auto 7.9 % (2-11); Neutrophils Absolute Auto 2.7 x10*3/uL (2.0-8.3); Neutrophils Percent Auto 54.2 % (45-73); Platelet Count 232 X10*3/uL (160-400); Red Cell Distribution Width 13.3 % (11.0-16.0); White Blood Count 4.9 X10*3/uL (4.8-10.8)
[2021-09-29 09:03] LABS: Alanine Aminotransferase 21 U/L (0-40); Albumin Level 3.7 g/dL (3.5-5.0); Alkaline Phosphatase 116 U/L (39-117); Anion Gap 10 (12-20); Aspartate Amino Transferase 20 U/L (5-37); Bilirubin Total 0.7 mg/dL (0.0-1.0); Blood Urea Nitrogen 21 mg/dL (9-16); Calcium 8.5 mg/dL (8.4-10.2); Carbon Dioxide 27 mmol/L (22-29); Chloride 107 mmol/L (96-108); Cholesterol 155 mg/dL; Estimated Glomerular Filt Rate > 60; Glucose Fasting 102 mg/dL (60-99); HDL Cholesterol 53 mg/dL; LDL Cholesterol Calculated 87 mg/dl; Potassium 4.3 mmol/L (3.3-5.1); Sodium 140 mmol/L (135-145); Total Protein 6.4 g/dL (6.5-8.0); Triglycerides 79 mg/dL
[2021-09-29 09:08] LABS: TSH reflex Free T4 2.27 uIU/mL (0.32-4.0); Vitamin D 25-OH Total 31.6 ng/mL (>30)
[2021-09-29 09:21] LABS: Appearance Urine CLEAR; Color Urine YELLOW; Glucose Urine UA NEG (NEG); Leukocyte Esterase Urine NEG (NEG); Nitrite Urine NEG (NEG); Specific Gravity - Urine >= 1.030 (1.005-1.025); Urine Blood NEG (NEG); Urine Ketones NEG (NEG); Urine Protein NEG (NEG-TRACE)
== END 2021-09-29 07:20 | disposition home or self-care (01) ==
LOC: HO.LAB 07:19
PROVIDERS: PCP Internal Medicine; Visit Provider Internal Medicine
DX: E78.00 Pure hypercholesterolemia, unspecified (principal); E55.9 Vitamin D deficiency, unspecified; I10 Essential (primary) hypertension
CPT/HCPCS: 36415; 80053; 80061; 81003; 82306; 84443; 85025

== ENCOUNTER 2021-10-23 09:57 | Outpatient (REF) | payer MEDICARE, SELFPAY ==
--- NOTE | ~2021-10-23 | US_ITS ---
EXAMINATION: US VENOUS WITH DOPPLER UPPER EXTREMITY, RIGHT CLINICAL INFORMATION: Swelling. Status post right axillary dissection. COMPARISON: None. TECHNIQUE: Ultrasound of the upper extremity is performed using compression sonography and color and pulse Doppler flow with assessment of augmentation of flow. There is also imaging and Doppler assessment of the jugular and subclavian veins. Spectral analysis with color-flow imaging is performed. FINDINGS: There is slow flow and thrombus visualized occupying the right subclavian vein suggestive of partial occlusion. The right axillary, brachial, cubital, and radial and ulnar veins are patent. The right internal jugular vein is patent. Right cephalic and basilic veins are patent. There is no visible deep or superficial thrombophlebitis. If the patient's symptoms progress, a followup ultrasound in 5 -7 days might be of value to exclude proximal propagation from a nonvisualized distal arm vein. 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 The right internal jugular and rest of the right upper extremity veins are patent. Results were called by phone and discussed with Dr. Treviño at 11:00 AM.
== END 2021-10-23 09:58 | disposition home or self-care (01) ==
LOC: HO.US 09:57
PROVIDERS: Visit Provider Internal Medicine
DX: R60.0 Localized edema (principal); M79.601 Pain in right arm; M79.89 Other specified soft tissue disorders
CPT/HCPCS: 93971

== ENCOUNTER 2021-11-02 14:47 | Outpatient (REF) | payer MEDICARE, SELFPAY ==
--- NOTE | ~2021-11-02 | US_ITS ---
EXAMINATION: US VENOUS WITH DOPPLER UPPER EXTREMITY, RIGHT CLINICAL INFORMATION: Follow-up DVT. COMPARISON: 10/23/2021. TECHNIQUE: Ultrasound of the upper extremity is performed using compression sonography and color and pulse Doppler flow with assessment of augmentation of flow. There is also imaging and Doppler assessment of the jugular and subclavian veins. Spectral analysis with color-flow imaging is performed. FINDINGS: Respiratory variation, normal compression, and augmented flow are noted in the including the internal jugular, subclavian, axillary, brachial, basilic, and radial and ulnar veins. There is slow flow in the right subclavian vein but the vein is patent. There is no visible deep or superficial thrombophlebitis. US/US venous duplex UE RT IMPRESSION: No DVT demonstrated in the right upper extremity. There is slow flow in the right subclavian vein but the vein is patent.
== END 2021-11-02 14:48 | disposition home or self-care (01) ==
LOC: HO.US 14:47
PROVIDERS: PCP Internal Medicine; Visit Provider Internal Medicine Medical Oncology
DX: I82.621 Acute embolism and thrombosis of deep veins of right upper extremity (principal)
CPT/HCPCS: 93971

== ENCOUNTER 2022-02-02 15:17 | Inpatient (IN) | payer MEDICARE, SELFPAY ==
--- NOTE | ~2022-02-02 | CT_ITS ---
EXAMINATION: CT ABDOMEN AND PELVIS WITHOUT CONTRAST CLINICAL INFORMATION: Lower abdominal pain. History of stones and small bowel obstruction as well as Crohn's disease. COMPARISON: CT abdomen pelvis 09/11/2018 TECHNIQUE: Multidetector volumetric imaging was performed from the superior aspect of the liver through the pubic symphysis. Sagittal and coronal reformatted images were obtained on the technologist's workstation. This CT examination was performed using dose optimization techniques as appropriate, variously including the following: *Automated exposure control *Adjustment of mA and/or kV according to patient size (this includes techniques or standardized protocols for targeted exams where dose is matched to indication/reason for exam; i.e. extremities or head) *Use of iterative reconstruction technique DLP: 676 mGy-cm FINDINGS: LUNG BASES: Minimal subsegmental atelectasis in the lung bases. LIVER, GALLBLADDER, AND BILIARY TREE: Normal hepatic attenuation. Subcentimeter hypodense lesion in the lateral segment left liver lobe likely a tiny cyst but too small to characterize. No other liver lesion. No biliary ductal dilation. The gallbladder is unremarkable with no evidence of radiopaque gallstones, gallbladder wall thickening, or obvious pericholecystic inflammatory changes. PANCREAS: Unremarkable. SPLEEN: Unremarkable. ADRENAL GLANDS: Unremarkable. KIDNEYS AND URETERS: 2 mm nonobstructing right upper pole renal calculus. No additional renal calculi. No hydronephrosis. Small left-sided parapelvic renal cysts. Couple small low-density hypodense right renal lesions, likely tiny cysts at the limited assessment. Mild symmetric bilateral perirenal fascial stranding/edema, unchanged and nonspecific. BLADDER: Unremarkable. GASTROINTESTINAL TRACT: Colonic diverticulosis. No evidence of acute diverticulitis. Status post prior ileocecectomy. There is short segment chronic mural thickening of the neoterminal ileum with submucosal fat deposition. The immediately adjacent neoterminal ileum is distended with fluid or semisolid material measuring 4.5 cm in diameter. There are nondilated fluid-filled bowel loops slightly more proximal to this. Mild mesenteric edema in the right lower quadrant. No additional bowel wall thickening. No free air. Trace ascites tracking into the pelvis. ABDOMINAL WALL: Umbilical hernia containing a small amount of free fluid. Status post left inguinal herniorrhaphy. Small fat-containing right inguinal hernia. LYMPH NODES: No lymphadenopathy. VASCULAR: Normal caliber bilaterally tortuous abdominal aorta. PELVIC VISCERA: Unremarkable. OSSEOUS STRUCTURES: No acute fracture or suspicious osseous lesion. Multilevel degenerative disc disease most advanced at L4-L5 and L5-S1. CT/CT abdomen pelvis wo IV con IMPRESSION: 1. Status post ileocecectomy with chronic mural thickening of the neoterminal ileum compatible with known Crohn's disease. The immediately adjacent medial terminal ileum is distended measuring up to 4.5 cm in diameter with fluid-filled nondilated small bowel loops slightly proximal to this. Findings are concerning for low-grade partial small bowel obstruction or early developing obstruction presumably from fibrostenotic Crohn's disease. 2. Colonic diverticulosis. No evidence of acute diverticulitis. 3. 2 mm nonobstructing right upper pole renal calculus. No hydronephrosis. 4. Trace ascites and mild right lower quadrant mesenteric edema.
--- NOTE | ~2022-02-02 | FL_ITS ---
EXAMINATION: FL SMALL BOWEL SERIES CLINICAL INFORMATION: Partial small bowel obstruction. History of Crohn's disease and previous ileocecectomy COMPARISON: Previous CT of the abdomen and pelvis most recent 02/02/2022 TECHNIQUE: Following a bank messenger image of the abdomen, Gastrografin contrast was administered orally, and interval abdominal radiographs were performed to assess for contrast progression through the small bowel at 30 and 45 minutes. FINDINGS: Lead Painter image of the abdomen demonstrates a normal bowel gas pattern. There are surgical staple line seen in the right mid abdomen. There is normal transit time of contrast material through the small bowel, with contrast present in the colon by 30 minutes. No evidence of bowel dilatation. No evidence of active laboratory bowel disease is seen. There is a 6 stool in the colon. There is no evidence of free air. There are mild degenerative changes of the spine and hip joints. FLUOROSCOPY TIME: No fluoroscopy performed. 9 overhead images obtained. FL/FL small bowel follow through IMPRESSION: No evidence of small bowel obstruction.
[2022-02-02 15:20] VITALS: BP 125/76; PULSE 82; RESP 22; TEMP 36.8; O2SAT 99; BMI 25.7
--- NOTE | 2022-02-02 16:00 | ECG_ITS ---
Test Reason : STOMACH PAIN Blood Pressure : / mmHG Vent. Rate : 060 BPM Atrial Rate : 060 BPM P-R Int : 182 ms QRS Dur : 094 ms QT Int : 406 ms P-R-T Axes : 036 -11 026 degrees QTc Int : 406 ms Normal sinus rhythm Left axis deviation Otherwise normal ECG When compared with ECG of 07-JAN-2019 07:54, No significant changes seen Referred By: Luiza Rao Electronically Signed By:ABDIRAHMAN LEWIS MD
--- NOTE | 2022-02-02 16:17 | ED.ABDPAIN ---
HPI - Abdominal Pain General Chief Complaint: Abdominal Pain Stated Complaint: Stomach Pain Time Seen by Provider: 02/02/22 15:48 Source: patient Mode of arrival: ambulatory Limitations: no limitations History of Present Illness HPI narrative: Patient comes to the emergency room complaining of severe abdominal pain in both lower quadrants. Patient states it started approximately 6 hours ago, very sudden, constant, nonradiating. Patient has history of kidney stones and small bowel obstructions, patient states that the pain feels like both. Patient denies any vomiting or diarrhea, a bit nauseous. Patient denies fever chills, no hematuria or dysuria, no chest pain or shortness of breath. Denies flank pain Related Data Home Medications Medication Instructions Recorded Confirmed cholestyramine (with sugar) 4 gram 4 g PO DAILY 01/07/20 02/02/22 oral powder (Questran) tamsulosin 0.4 mg capsule 1 cap PO BEDTIME 02/02/22 02/02/22 trametinib 2 mg tablet 2 mg PO BEDTIME 02/02/22 02/02/22 Previous Rx's Medication Instructions Recorded atorvastatin 20 mg tablet 20 mg PO DAILY 90 days #90 tabs 01/20/21 cyanocobalamin (vitamin B-12) 1,000 mcg IM Q4W 90 days #3 mL 09/14/21 1,000 mcg/mL injection solution apixaban 5 mg tablet (Eliquis) 5 mg PO BID #60 tabs 11/07/21 dabrafenib 75 mg capsule (Tafinlar) 150 mg PO BID #120 caps 01/31/22 Allergies Allergy/AdvReac Type Severity Reaction Status Date / Time codeine [Codeine] Allergy Severe HIVES,GI Verified 02/02/22 15:23 UPSET Review of Systems Review of Systems Constitutional : No Weight loss, No Fever, No Chills, No Night Sweats, No Fatigue, No Malaise ENT/Mouth : No Hearing loss, No Ear Pain, No Nasal Congestion, No Sinus Pain, No Hoarseness, No sore throat, No Rhinorrhea, No Swallowing Difficulty Eyes: No Eye Pain, No Swelling, No Redness, No Foreign Body, No Discharge, No Vision Changes Cardiovascular : No Chest Pain, No SOB, No Dyspnea on Exertion, No Orthopnea, No Edema, No Palpitations Respiratory : No Cough, No Sputum, No Wheezing, No Smoke Exposure, No Dyspnea Gastrointestinal : complaining of nausea, no vomiting or diarrhea, no constipation or diarrhea, complaining of bilateral lower quadrant pain, severe, nonradiating Genitourinary : no irregular bleeding, No Dysuria, No Urinary Frequency, No Hematuria, No Urinary Incontinence, No Urgency, No Flank Pain, No Urinary Flow Changes, No Hesitancy Musculoskeletal : No joint pain, No Myalgias, No Joint Swelling Skin : No Skin Lesions, No rash Neuro : No Weakness, No Numbness, No Paresthesias, No Loss of Consciousness, No Dizziness, No Headache Psych : No Anxiety/Panic, No Depression, No SI/HI/AH/VH, No Social Issues, Heme/Lymph: No Bruising, No Bleeding,No Lymphadenopathy Endocrine : No Polyuria, No Polydipsia, No Temperature Intolerance [facility] Past Medical History Medical History Ascending aortic aneurysm Bicuspid aortic valve COVID-19 vaccine series completed Crohn's disease Degenerative joint disease of cervical spine History of nephrolithiasis History of rectal abscess Hyperbilirubinemia Hyperpigmented skin lesion Impaired fasting glucose Lumbar degenerative disc disease Metastatic melanoma Migraine Overweight (BMI 25.0-29.9) Pernicious anemia Pure hypercholesterolemia Surgical History H/O colonoscopy History of back surgery History of esophagogastroduodenoscopy (EGD) History of inguinal hernia repair History of lymph node excision History of partial colectomy Hx of cardiac catheterization Family History Family History Father Medical history unknown Mother Hypertension Diabetes Social History Social History Household Members: Spouse Housing: House Are you a primary manager critical care unit to a significant other at home: No Do you presently have visiting nurse or other home services: No Alcohol intake: current Alcohol intake frequency: a few times a month Alcohol type: hard liquor Patient Tobacco Use Status: Never used Tobacco Tobacco use type: Cigarette Second Hand Smoke Exposure: Yes Substance Use Type: Marijuana Advance Directives: Yes Advance Directives Information Provided: No Advance Directives on File: No Advance Directives Date on File: 01/08/19 service: No Current occupational status: retired Cognitive needs: No Hearing needs: No Vision needs: Yes Physical Exam ED Vital Signs: Vital Signs - 24 hr 02/02/22 15:20 Temperature 98.3 F Pulse Rate 82 Respiratory Rate 22 H Blood Pressure 125/76 Pulse Oximetry 99 Oxygen Delivery Method Room Air BMI result Body Mass Index 25.7 Const Other: Appearance: Alert. Oriented X3. seems uncomfortable Eyes: Pupils equal, round and reactive to light. ENT: Pharynx normal. Neck: Normal inspection. Neck supple. No lymph nodes noted. No crepitus CVS: Normal heart rate and rhythm. Pulses normal. Normal S1 and S2 Respiratory: No respiratory distress. Breath sounds normal. No Wheezing. No rales Abdomen: Soft , complaining of tenderness to palpation in bilateral lower quadrants, no guarding, no rebound Skin: Skin warm and dry. Normal skin color. Normal skin turgor. Extremities: No lower extremity edema. No Lacerations. No Rash Neuro: Oriented X 3. No motor deficit. No sensory deficit. Moving all extremities. No slurred speech. CN 2 through 12 grossly intact Psych: calm, cooperative, normal affect Course Course Course Narrative: patient is receiving IV fluids, Zofran and morphine. All of patient's labs and imaging pending. patient may have a baking of a small-bowel obstruction. Patient will be admitted. Patient may also have a possible Crohn's exacerbation. I discussed the patient with Dr. Bowie, we will give 60 mg of methylprednisolone, no more steroids, patient will be evaluated by Gastroenterology in the morning. If the patient vomits throughout the night, he may need an NG tube, if patient has diarrhea, she will need stool cultures at this time, patient feels much better, not nauseous, has not vomited, no diarrhea. Dr. Flores will be admitting the patient Medications Administered Discontinued Medications Generic Name Dose Route Start Last Admin Trade Name Freq PRN Reason Stop Dose Admin Sodium Chloride 1,000 mls @ 999 mls/hr 02/02/22 16:00 02/02/22 17:34 Ns IVCONT 02/02/22 17:00 Infused .Q1H1M ONE Infusion Methylprednisolone Sodium Succinate 60 mg 02/02/22 20:19 02/02/22 20:31 Methylprednisolone Sod Succ 125 Mg/2 Ml Vial IVPUSH 02/02/22 20:20 60 mg ONCE ONE Administration Morphine Sulfate 4 mg 02/02/22 16:00 02/02/22 16:30 Morphine Sulfate 4 Mg/Ml Cartridge IVPUSH 02/02/22 16:01 4 mg ONCE ONE Administration Protocol Ondansetron HCl 4 mg 02/02/22 16:00 02/02/22 16:31 Ondansetron Hcl 4 Mg/2 Ml Vial IVPUSH 02/02/22 16:01 4 mg ONCE ONE Administration MDM - Abdominal Pain Lab Data Result diagrams: 02/02/22 17:21 02/02/22 17:21 Labs: Lab Results 02/02/22 02/02/22 02/02/22 Range/Units 17:21 17:21 17:22 WBC 8.1 (4.8-10.8) X10*3/uL RBC 4.42 L (4.60-5.80) X10*6/uL Hgb 13.5 L (14.0-18.0) g/dl Hct 41.6 L (42.0-52.0) % MCV 94.1 (80.0-98.0) fL MCH 30.5 (27.0-33.0) pg MCHC 32.5 (31.0-36.0) g/dl RDW 12.8 (11.0-16.0) % Plt Count 230 (160-400) X10*3/uL MPV 9.1 L (9.4-12.4) fL Immature Gran % (Auto) 0.4 (0.0-0.4) % Neut % (Auto) 79.6 H (45-73) % Lymph % (Auto) 11.6 L (20-40) % [place] % (Auto) 7.4 (2-11) % Eos % (Auto) 0.9 (0-4) % Baso % (Auto) 0.1 (0-2) % Lymph # (Auto) 0.9 L (1.2-4.9) X10*3/uL [place] # (Auto) 0.6 (0.1-1.2) X10*3/uL Eos # (Auto) 0.1 (0.0-0.4) X10*3/uL Baso # (Auto) 0.0 (0.0-0.2) X10*3/uL Abs Immat Gran (auto) 0.03 (0.00-0.03) X10*3/uL Absolute Neuts (auto) 6.5 (2.0-8.3) x10*3/uL Absolute Nucleated RBC 0.000 (0.0-0.012) X10*3/uL Nucleated RBC % (auto) 0.0 (0.0-0.2) /100WBC Sodium 141 (135-145) mmol/L Potassium 4.1 (3.3-5.1) mmol/L Chloride 109 H (96-108) mmol/L Carbon Dioxide 25 (22-29) mmol/L Anion Gap 11 L (12-20) BUN 16 (9-16) mg/dL Creatinine 0.89 (0.5-1.4) mg/dL Estim Creat Clear Calc 87.1 Estimated GFR > 60 Random Glucose 98 (60-115) mg/dL Lactic Acid (0.5-2.0) mmol/L Calcium 8.3 L D (8.4-10.2) mg/dL Total Bilirubin 0.4 (0.0-1.0) mg/dL Direct Bilirubin < 0.2 (0.0-0.5) mg/dL AST 17 (5-37) U/L ALT 14 (0-40) U/L Alkaline Phosphatase 96 (39-117) U/L C-Reactive Protein 0.26 (< or = 0.50) mg/dL Total Protein 5.7 L (6.5-8.0) g/dL Albumin 3.2 L (3.5-5.0) g/dL Urine Color Urine Appearance Urine pH (5.0-9.0) Ur Specific [place] (1.005-1.025) Urine Protein (Neg-Trace) mg/dL Urine Glucose (UA) (Negative) mg/dL Urine Ketones (Negative) mg/dL Urine Blood (Negative) Urine Nitrite (Negative) Ur Leukocyte Esterase (Negative) COVID-19 ([facility]OBERT) Negative (Negative) COVID-19 Clin Com See Note 02/02/22 02/02/22 Range/Units 17:24 18:13 WBC (4.8-10.8) X10*3/uL RBC (4.60-5.80) X10*6/uL Hgb (14.0-18.0) g/dl Hct (42.0-52.0) % MCV (80.0-98.0) fL MCH (27.0-33.0) pg MCHC (31.0-36.0) g/dl RDW (11.0-16.0) % Plt Count (160-400) X10*3/uL MPV (9.4-12.4) fL Immature Gran % (Auto) (0.0-0.4) % Neut % (Auto) (45-73) % Lymph % (Auto) (20-40) % [place] % (Auto) (2-11) % Eos % (Auto) (0-4) % Baso % (Auto) (0-2) % Lymph # (Auto) (1.2-4.9) X10*3/uL [place] # (Auto) (0.1-1.2) X10*3/uL Eos # (Auto) (0.0-0.4) X10*3/uL Baso # (Auto) (0.0-0.2) X10*3/uL Abs Immat Gran (auto) (0.00-0.03) X10*3/uL Absolute Neuts (auto) (2.0-8.3) x10*3/uL Absolute Nucleated RBC (0.0-0.012) X10*3/uL Nucleated RBC % (auto) (0.0-0.2) /100WBC Sodium (135-145) mmol/L Potassium (3.3-5.1) mmol/L Chloride (96-108) mmol/L Carbon Dioxide (22-29) mmol/L Anion Gap (12-20) BUN (9-16) mg/dL Creatinine (0.5-1.4) mg/dL Estim Creat Clear Calc Estimated GFR Random Glucose (60-115) mg/dL Lactic Acid 1.1 (0.5-2.0) mmol/L Calcium (8.4-10.2) mg/dL Total Bilirubin (0.0-1.0) mg/dL Direct Bilirubin (0.0-0.5) mg/dL AST (5-37) U/L ALT (0-40) U/L Alkaline Phosphatase (39-117) U/L C-Reactive Protein (< or = 0.50) mg/dL Total Protein (6.5-8.0) g/dL Albumin (3.5-5.0) g/dL Urine Color Yellow Urine Appearance Cloudy Urine pH 7.0 (5.0-9.0) Ur Specific [place] 1.020 (1.005-1.025) Urine Protein Negative (Neg-Trace) mg/dL Urine Glucose (UA) Negative (Negative) mg/dL Urine Ketones Negative (Negative) mg/dL Urine Blood Negative (Negative) Urine Nitrite Negative (Negative) Ur Leukocyte Esterase Negative (Negative) COVID-19 ([facility]ERT) (Negative) COVID-19 Clin Com Discharge Plan Discharge Clinical Impression: Exacerbation of Crohn's disease, SBO (small bowel obstruction) Patient Disposition: Admitted As Inpatient
[2022-02-02] MEDS: Morphine Sulfate 4 MG/ML CARTRIDGE IVPUSH (16:30)
[2022-02-02] MEDS: ondansetron HCL 4 MG/2 ML VIAL IVPUSH (16:31)
[2022-02-02] MEDS: 0.9 % Sodium Chloride 1,000 ML 999 ML IVCONT (16:31)
[2022-02-02 17:32] LABS: MANUAL DIFF FLAG NO
[2022-02-02 17:42] LABS: Basophils Percent Auto 0.1 % (0-2); Eosinophils Absolute Auto 0.1 X10*3/uL (0.0-0.4); Eosinophils Percent Auto 0.9 % (0-4); Hematocrit 41.6 % (42.0-52.0); Hemoglobin 13.5 g/dl (14.0-18.0); Imm Gran Abs Auto 0.03 X10*3/uL (0.00-0.03); Imm Gran Pct Auto 0.4 % (0.0-0.4); Lymphocytes Absolute Auto 0.9 X10*3/uL (1.2-4.9); Lymphocytes Percent Auto 11.6 % (20-40); Mean Corpuscular HGB Conc 32.5 g/dl (31.0-36.0); Mean Corpuscular Hemoglobin 30.5 pg (27.0-33.0); Mean Corpuscular Volume 94.1 fL (80.0-98.0); Mean Platelet Volume 9.1 fL (9.4-12.4); Monocytes Absolute Auto 0.6 X10*3/uL (0.1-1.2); Monocytes Percent Auto 7.4 % (2-11); Neutrophils Absolute Auto 6.5 x10*3/uL (2.0-8.3); Neutrophils Percent Auto 79.6 % (45-73); Platelet Count 230 X10*3/uL (160-400); Red Blood Count 4.42 X10*6/uL (4.60-5.80); Red Cell Distribution Width 12.8 % (11.0-16.0); White Blood Count 8.1 X10*3/uL (4.8-10.8)
[2022-02-02 17:48] LABS: Lactic Acid 1.1 mmol/L (0.5-2.0)
[2022-02-02 17:53] LABS: Alanine Aminotransferase 14 U/L (0-40); Albumin Level 3.2 g/dL (3.5-5.0); Alkaline Phosphatase 96 U/L (39-117); Anion Gap 11 (12-20); Aspartate Amino Transferase 17 U/L (5-37); Bilirubin Direct < 0.2 mg/dL (0.0-0.5); Bilirubin Total 0.4 mg/dL (0.0-1.0); Blood Urea Nitrogen 16 mg/dL (9-16); Calcium 8.3 mg/dL (8.4-10.2); Carbon Dioxide 25 mmol/L (22-29); Chloride 109 mmol/L (96-108); Creatinine Clr Calc Pharmacy 87.1; Estimated Glomerular Filt Rate > 60; Glucose Random 98 mg/dL (60-115); Potassium 4.1 mmol/L (3.3-5.1); Sodium 141 mmol/L (135-145); Total Protein 5.7 g/dL (6.5-8.0)
[2022-02-02 18:10] LABS: COVID-19 Test Negative (Negative); IDNOW Serial# 16C4AD1C
[2022-02-02 18:21] LABS: Appearance Urine Cloudy; Color Urine Yellow; Glucose Urine UA Negative (Negative); Leukocyte Esterase Urine Negative (Negative); Nitrite Urine Negative (Negative); Urine Blood Negative (Negative); Urine Ketones Negative (Negative); Urine Protein Negative (Neg-Trace)
[2022-02-02 20:00] VITALS: BP 108/62; PULSE 64; TEMP 36.7; O2SAT 96
--- NOTE | 2022-02-02 20:14 | PHA.MEDREC ---
Pharmacy Consult ? Medication Reconciliation Pharmacy has completed the medication reconciliation.
[2022-02-02] MEDS: methylPREDNISolone Sod Succ 125 MG/2 ML VIAL 60 MG IVPUSH (20:31)
[2022-02-02 20:36] LABS: C Reactive Protein 0.26 mg/dL (< or = 0.50)
--- NOTE | 2022-02-02 20:41 | PM.IMHP ---
History of Present Illness Date of Service: 02/02/22 Chief Complaint: Abdominal Pain This is a 66-year-old male with pertinent history of malignant melanoma, Crohn's disease, DVT on Eliquis, mixed hyperlipidemia who presents to the emergency department for evaluation of abdominal discomfort. Patient states it started around 11:00, Sudden in onset, sharp, located in bilateral lower quadrant, nonradiating and progressive. Patient states he has a history of Crohn's disease and it felt like it although it was much worse this time. Unable to take p.o. intake due to the pain and states he has not had anything throughout the day. No relieving factors. Patient denies nausea, vomiting, fever, chills, chest discomfort, palpitations, shortness of breath, changes in urinary or bowel habits. In the ER, imaging was concerning for low-grade partial small-bowel obstruction from fibrostenotic Crohn's disease. Review of Systems Constitutional: Constitutional: Reports no additional constitutional complaints Cardiovascular: Cardiovascular: Reports no additional cardiovascular complaints Respiratory: Respiratory: Reports no additional respiratory complaints Gastrointestinal: Gastrointestinal: Reports abdominal pain Genitourinary: Genitourinary: Reports no additional male genitourinary complaints [facility] Medical History Ascending aortic aneurysm Bicuspid aortic valve COVID-19 vaccine series completed Crohn's disease Degenerative joint disease of cervical spine History of nephrolithiasis History of rectal abscess Hyperbilirubinemia Hyperpigmented skin lesion Impaired fasting glucose Lumbar degenerative disc disease Metastatic melanoma Migraine Overweight (BMI 25.0-29.9) Pernicious anemia Pure hypercholesterolemia Family History Father Medical history unknown Mother Hypertension Diabetes Surgical History H/O colonoscopy History of back surgery History of esophagogastroduodenoscopy (EGD) History of inguinal hernia repair History of lymph node excision History of partial colectomy Hx of cardiac catheterization Social History Household Members: Spouse Housing: House Are you a primary home care scheduler to a significant other at home: No Do you presently have visiting nurse or other home services: No Alcohol intake: current Alcohol intake frequency: a few times a month Alcohol type: hard liquor Patient Tobacco Use Status: Never used Tobacco Tobacco use type: Cigarette Second Hand Smoke Exposure: Yes Substance Use Type: Marijuana Advance Directives: Yes Advance Directives Information Provided: No Advance Directives on File: No Advance Directives Date on File: 01/08/19 service: No Current occupational status: retired Cognitive needs: No Hearing needs: No Vision needs: Yes Meds Allergies Allergy/AdvReac Type Severity Reaction Status Date / Time codeine [Codeine] Allergy Severe HIVES,GI Verified 02/02/22 15:23 UPSET Active Medications: Current Medications Acetaminophen (Acetaminophen 325 Mg Tablet) 650 mg PO Q6H PRN PRN Reason: Pain, Mild (Pain Scale 1-3) Melatonin (Melatonin 3 Mg Tablet) 6 mg PO BEDTIME PRN PRN Reason: Insomnia Morphine Sulfate (Morphine Sulfate 4 Mg/Ml Cartridge) 4 mg IVPUSH Q4H PRN; Protocol PRN Reason: Pain, Severe (Pain Scale 7-10) Ondansetron HCl (Ondansetron Hcl 4 Mg/2 Ml Vial) 4 mg IVPUSH Q8H PRN PRN Reason: Nausea and Vomiting Pharmacy Consult (Consult Rx Perform Med Rec) 1 each MISCELLANE ONCE PRN PRN Reason: Consult order Sodium Chloride (0.9 % Sodium Chloride Flush 3 Ml Syringe) 3 ml IVFLUSH [facility] Home Medications Medication Instructions Recorded Confirmed Last Taken Type cholestyramine (with sugar) 4 gram 4 g PO DAILY 01/07/20 02/02/22 02/02/22 History oral powder (Questran) tamsulosin 0.4 mg capsule 1 cap PO BEDTIME 02/02/22 02/02/22 02/01/22 History trametinib 2 mg tablet 2 mg PO BEDTIME 02/02/22 02/02/22 02/01/22 History Physical Exam Vital Signs and Narrative: Vital Signs: Last Vital Signs Temp 98.0 F 02/02/22 20:00 Pulse 64 02/02/22 20:00 Resp 22 H 02/02/22 15:20 BP 108/62 02/02/22 20:00 Pulse Ox 96 02/02/22 20:00 O2 Del Method 02/02/22 20:00 BMI result Body Mass Index 25.7 Middle-aged male lying in bed in no distress Neck supple, no JVD Regular rate and rhythm, S1-S2 heard Regular breath sounds bilaterally, no wheezing or crackles appreciated Abdomen soft nontender, no guarding, no rigidity , no rebound tenderness Patient is awake, alert and oriented to self, place, time and person ; no focal motor deficit Psych: Normal mood No pedal edema Results Labs CBC and Chem 7: 02/02/22 17:21 02/02/22 17:21 Labs: Laboratory Results - last 24 hr 02/02/22 02/02/22 02/02/22 17:21 17:21 17:22 MCV 94.1 MCH 30.5 MCHC 32.5 RDW 12.8 Plt Count 230 MPV 9.1 L Immature Gran % (Auto) 0.4 Neut % (Auto) 79.6 H Lymph % (Auto) 11.6 L [place] % (Auto) 7.4 Eos % (Auto) 0.9 Baso % (Auto) 0.1 Lymph # (Auto) 0.9 L [place] # (Auto) 0.6 Eos # (Auto) 0.1 Baso # (Auto) 0.0 Abs Immat Gran (auto) 0.03 Absolute Neuts (auto) 6.5 Absolute Nucleated RBC 0.000 Nucleated RBC % (auto) 0.0 Anion Gap 11 L Estim Creat Clear Calc 87.1 Estimated GFR > 60 Random Glucose 98 Lactic Acid Calcium 8.3 L D Total Bilirubin 0.4 Direct Bilirubin < 0.2 AST 17 ALT 14 Alkaline Phosphatase 96 C-Reactive Protein 0.26 Total Protein 5.7 L Albumin 3.2 L Urine Color Urine Appearance Urine pH Ur Specific [place] Urine Protein Urine Glucose (UA) Urine Ketones Urine Blood Urine Nitrite Ur Leukocyte Esterase COVID-19 ([facility]ERT) Negative COVID-19 Clin Com See Note 02/02/22 02/02/22 17:24 18:13 MCV MCH MCHC RDW Plt Count MPV Immature Gran % (Auto) Neut % (Auto) Lymph % (Auto) [place] % (Auto) Eos % (Auto) Baso % (Auto) Lymph # (Auto) [place] # (Auto) Eos # (Auto) Baso # (Auto) Abs Immat Gran (auto) Absolute Neuts (auto) Absolute Nucleated RBC Nucleated RBC % (auto) Anion Gap Estim Creat Clear Calc Estimated GFR Random Glucose Lactic Acid 1.1 Calcium Total Bilirubin Direct Bilirubin AST ALT Alkaline Phosphatase C-Reactive Protein Total Protein Albumin Urine Color Yellow Urine Appearance Cloudy Urine pH 7.0 Ur Specific [place] 1.020 Urine Protein Negative Urine Glucose (UA) Negative Urine Ketones Negative Urine Blood Negative Urine Nitrite Negative Ur Leukocyte Esterase Negative COVID-19 ([facility]OBERT) COVID-19 Clin Com Imaging Radiologist's Impressions: Impressions Abdomen/Pelvis CT 02/02/22 17:52 IMPRESSION: 1. Status post ileocecectomy with chronic mural thickening of the neoterminal ileum compatible with known Crohn's disease. The immediately adjacent medial terminal ileum is distended measuring up to 4.5 cm in diameter with fluid-filled nondilated small bowel loops slightly proximal to this. Findings are concerning for low-grade partial small bowel obstruction or early developing obstruction presumably from fibrostenotic Crohn's disease. 2. Colonic diverticulosis. No evidence of acute diverticulitis. 3. 2 mm nonobstructing right upper pole renal calculus. No hydronephrosis. 4. Trace ascites and mild right lower quadrant mesenteric edema. Assessment and Plan (1) Small bowel obstruction: Status: Acute (2) Crohn's disease: Qualifiers: Digestive disease complication type: unspecified complication Gastrointestinal tract location: unspecified location Qualified Code(s): K50.919 - Crohn's disease, unspecified, with unspecified complications Status: Acute (3) DVT (deep venous thrombosis): Status: Acute (4) Pure hypercholesterolemia: Status: Acute (5) Metastatic melanoma: Status: Chronic Plan This is a 66-year-old male with pertinent history of malignant melanoma, Crohn's disease, DVT on Eliquis, mixed hyperlipidemia who presents to the emergency department for evaluation of abdominal discomfort. #. Partial SBO due to Crohn's disease -Will admit patient for conservative management. Resuscitated with IV crystalloids in the ER. Ordered IV Solu-Medrol 60 mg x 1. GI was consulted from the ER, appreciate assistance. Defer NG tube as patient without nausea/ vomiting. Will keep NPO for bowel rest, advance as tolerated. #. Malignant melanoma -continue trametinib and tafinlar. #. H/o of DVT -on eliquis #. BPH -on flomax #. HLD -on statin. on cholestyramine DVT prophylaxis: Eliquis Full code NPO Admit as inpatient and will require two night minimum hospital stay for management of SBO in a patient witjh Crohn's disease. GI consult pending Quality Stroke Does the patient have a stroke diagnosis?: No VTE Prior VTE?: Yes VTE Risk Level:: Medical - moderate - high VTE Device Contraindication: Patient Refused VTE Drug Contraindication: N/A - Med Ordered
[2022-02-02 21:13] LABS: Erythrocyte Sedimentation Rate 10 MM/HR (0-15)
[2022-02-02] MEDS: Tamsulosin HCL 0.4 MG CAPSULE PO (21:33)
[2022-02-02] MEDS: Apixaban 5 MG TABLET PO (21:33)
[2022-02-02 22:07] VITALS: BP 125/66; PULSE 61; RESP 17; TEMP 36.6; O2SAT 96
[2022-02-02 22:16] VITALS: BMI 25.8
[2022-02-02] MEDS: 0.9 % Sodium Chloride Flush 3 ML SYRINGE IVFLUSH (22:21)
[2022-02-03] VITALS (7 sets, daily range): BP systolic 109–134; BP diastolic 60–69; PULSE 53–65; RESP 16–19; TEMP 36–36.9; O2SAT 95–96
[2022-02-03 06:33] LABS: MANUAL DIFF FLAG NO
[2022-02-03 06:48] LABS: Basophils Percent Auto 0.2 % (0-2); Hematocrit 40.4 % (42.0-52.0); Hemoglobin 13.3 g/dl (14.0-18.0); Imm Gran Abs Auto 0.01 X10*3/uL (0.00-0.03); Imm Gran Pct Auto 0.2 % (0.0-0.4); Lymphocytes Absolute Auto 0.8 X10*3/uL (1.2-4.9); Lymphocytes Percent Auto 18.6 % (20-40); Mean Corpuscular HGB Conc 32.9 g/dl (31.0-36.0); Mean Corpuscular Hemoglobin 30.8 pg (27.0-33.0); Mean Corpuscular Volume 93.5 fL (80.0-98.0); Mean Platelet Volume 8.8 fL (9.4-12.4); Monocytes Absolute Auto 0.2 X10*3/uL (0.1-1.2); Monocytes Percent Auto 4.4 % (2-11); Neutrophils Absolute Auto 3.2 x10*3/uL (2.0-8.3); Neutrophils Percent Auto 76.6 % (45-73); Platelet Count 240 X10*3/uL (160-400); Red Blood Count 4.32 X10*6/uL (4.60-5.80); White Blood Count 4.1 X10*3/uL (4.8-10.8)
[2022-02-03 07:08] LABS: Anion Gap 10 (12-20); Blood Urea Nitrogen 14 mg/dL (9-16); Calcium 8.4 mg/dL (8.4-10.2); Carbon Dioxide 25 mmol/L (22-29); Chloride 108 mmol/L (96-108); Creatinine Clr Calc Pharmacy 91.2; Estimated Glomerular Filt Rate > 60; Glucose Random 117 mg/dL (60-115); Potassium 4.7 mmol/L (3.3-5.1); Sodium 138 mmol/L (135-145)
[2022-02-03] MEDS: Cholestyramine (With Sugar) 4 GM POWD.PACK PO (09:31)
[2022-02-03] MEDS: Apixaban 5 MG TABLET PO (09:31)
[2022-02-03] MEDS: 0.9 % Sodium Chloride Flush 3 ML SYRINGE IVFLUSH ×3 (09:31→22:06)
[2022-02-03] MEDS: methylPREDNISolone Sod Succ 40 MG/ML VIAL IVPUSH ×2 (09:31→22:03)
[2022-02-03] MEDS: Atorvastatin Calcium 20 MG TABLET PO (09:31)
--- NOTE | 2022-02-03 12:39 | HO.PM.IMPN ---
Subjective Subjective Date of Service: 02/03/22 Interval History: the patient was seen and evaluated this morning Laying in bed, feels comfortable overall Abdominal pain improving with no associated nausea No reported other overnight events. Systemic review: No fever, chills or weakness No chest pain, palpitation No shortness of breath or coughing Improving abdominal pain, nausea or vomiting No urinary symptoms No reported rash Physical Exam Vital Signs: Vital Signs: Last Vital Signs Temp 97.0 F 02/03/22 08:00 Pulse 53 02/03/22 08:00 Resp 18 02/03/22 08:00 BP 110/66 02/03/22 08:00 Pulse Ox 95 02/03/22 08:00 O2 Del Method 02/03/22 08:00 BMI result Body Mass Index 25.8 Const: Other: Constitutional : Awake, interactive, not in distress Neck : Normal inspection, Supple Cardiovascular : RRR, no JVP, no lower extremity edema Respiratory : good bilateral air entry, no crackles, wheezes or rhonchi Gastrointestinal: soft, lax, Normal bowel sounds, left lower quadrant mild tender with palpation Skin : Warm, Dry Neurological : Alert & oriented x3, No focal deficit Objective Data Active Medications Acetaminophen (Acetaminophen 325 Mg Tablet) 650 mg PO Q6H PRN PRN Reason: Pain, Mild (Pain Scale 1-3) Apixaban (Apixaban 5 Mg Tablet) 5 mg PO BID [facility] Last Admin: 02/03/22 09:31 Dose: 5 mg Documented By: [email or web address] Atorvastatin Calcium (Atorvastatin Calcium 20 Mg Tablet) 20 mg PO DAILY [facility] Last Admin: 02/03/22 09:31 Dose: 20 mg Documented By: [email or web address] Cholestyramine Resin (Cholestyramine (With Sugar) 4 Gm Powd.Pack) 4 gm PO DAILY [facility] Last Admin: 02/03/22 09:31 Dose: 4 gm Documented By: [email or web address] Cyanocobalamin (Cyanocobalamin (Vitamin B-12) 1,000 Mcg/Ml Vial) 1,000 mcg IM Q28D [facility] Melatonin (Melatonin 3 Mg Tablet) 6 mg PO BEDTIME PRN PRN Reason: Insomnia Methylprednisolone Sodium Succinate (Methylprednisolone Sod Succ 40 Mg/Ml Vial) 40 mg IVPUSH Q12H [facility] Last Admin: 02/03/22 09:31 Dose: 40 mg Documented By: [email or web address] Morphine Sulfate (Morphine Sulfate 4 Mg/Ml Cartridge) 4 mg IVPUSH Q4H PRN; Protocol PRN Reason: Pain, Severe (Pain Scale 7-10) Non-Formulary Medication (Dabrafenib [Tafinlar]) 150 mg PO BID [facility] Non-Formulary Medication (Trametinib) 2 mg PO BEDTIME [facility] Ondansetron HCl (Ondansetron Hcl 4 Mg/2 Ml Vial) 4 mg IVPUSH Q8H PRN PRN Reason: Nausea and Vomiting Pharmacy Consult (Consult Rx Perform Med Rec) 1 each MISCELLANE ONCE PRN PRN Reason: Consult order Sodium Chloride (0.9 % Sodium Chloride Flush 3 Ml Syringe) 3 ml IVFLUSH QSHIFT [facility] Last Admin: 02/03/22 09:31 Dose: 3 ml Documented By: JORGE Tamsulosin HCl (Tamsulosin Hcl 0.4 Mg Capsule) 0.4 mg PO BEDTIME [facility] Last Admin: 02/02/22 21:33 Dose: 0.4 mg Documented By: WERNER Labs CBC & Chem 7: 02/03/22 06:12 02/03/22 06:12 Labs: Laboratory Results - last 24 hr 02/02/22 02/02/22 02/02/22 17:21 17:21 17:21 MCV 94.1 MCH 30.5 MCHC 32.5 RDW 12.8 Plt Count 230 MPV 9.1 L Immature Gran % (Auto) 0.4 Neut % (Auto) 79.6 H Lymph % (Auto) 11.6 L [place] % (Auto) 7.4 Eos % (Auto) 0.9 Baso % (Auto) 0.1 Lymph # (Auto) 0.9 L [place] # (Auto) 0.6 Eos # (Auto) 0.1 Baso # (Auto) 0.0 Abs Immat Gran (auto) 0.03 Absolute Neuts (auto) 6.5 Absolute Nucleated RBC 0.000 Nucleated RBC % (auto) 0.0 ESR 10 Anion Gap 11 L Estim Creat Clear Calc 87.1 Estimated GFR > 60 Random Glucose 98 Lactic Acid Calcium 8.3 L D Total Bilirubin 0.4 Direct Bilirubin < 0.2 AST 17 ALT 14 Alkaline Phosphatase 96 C-Reactive Protein 0.26 Total Protein 5.7 L Albumin 3.2 L Urine Color Urine Appearance Urine pH Ur Specific [place] Urine Protein Urine Glucose (UA) Urine Ketones Urine Blood Urine Nitrite Ur Leukocyte Esterase COVID-19 ([facility]) COVID-19 Clin Com 02/02/22 02/02/22 02/02/22 17:22 17:24 18:13 MCV MCH MCHC RDW Plt Count MPV Immature Gran % (Auto) Neut % (Auto) Lymph % (Auto) [place] % (Auto) Eos % (Auto) Baso % (Auto) Lymph # (Auto) [place] # (Auto) Eos # (Auto) Baso # (Auto) Abs Immat Gran (auto) Absolute Neuts (auto) Absolute Nucleated RBC Nucleated RBC % (auto) ESR Anion Gap Estim Creat Clear Calc Estimated GFR Random Glucose Lactic Acid 1.1 Calcium Total Bilirubin Direct Bilirubin AST ALT Alkaline Phosphatase C-Reactive Protein Total Protein Albumin Urine Color Yellow Urine Appearance Cloudy Urine pH 7.0 Ur Specific [place] 1.020 Urine Protein Negative Urine Glucose (UA) Negative Urine Ketones Negative Urine Blood Negative Urine Nitrite Negative Ur Leukocyte Esterase Negative COVID-19 ([facility]) Negative COVID-19 Clin Com See Note 02/03/22 02/03/22 06:12 06:12 MCV 93.5 MCH 30.8 MCHC 32.9 RDW 13.0 Plt Count 240 MPV 8.8 L Immature Gran % (Auto) 0.2 Neut % (Auto) 76.6 H Lymph % (Auto) 18.6 L [place] % (Auto) 4.4 Eos % (Auto) 0.0 Baso % (Auto) 0.2 Lymph # (Auto) 0.8 L [place] # (Auto) 0.2 Eos # (Auto) 0.0 Baso # (Auto) 0.0 Abs Immat Gran (auto) 0.01 Absolute Neuts (auto) 3.2 Absolute Nucleated RBC 0.000 Nucleated RBC % (auto) 0.0 ESR Anion Gap 10 L Estim Creat Clear Calc 91.2 Estimated GFR > 60 Random Glucose 117 H Lactic Acid Calcium 8.4 Total Bilirubin Direct Bilirubin AST ALT Alkaline Phosphatase C-Reactive Protein Total Protein Albumin Urine Color Urine Appearance Urine pH Ur Specific [place] Urine Protein Urine Glucose (UA) Urine Ketones Urine Blood Urine Nitrite Ur Leukocyte Esterase COVID-19 ([facility]) COVID-19 Clin Com Assessment and Plan (1) Exacerbation of Crohn's disease: Status: Acute (2) Small bowel obstruction: Status: Acute Plan This is a 66-year-old male with pertinent history of malignant melanoma, Crohn's disease, DVT on Eliquis, mixed hyperlipidemia who presents to the emergency department for evaluation of abdominal discomfort. # Partial SBO due to Crohn's disease flare up Continue gentle hydration Continue IV steroids Pending GI consult Start clear liquids and monitor response Zofran for nausea # Malignant melanoma continue trametinib and tafinlar. # H/o of DVT Continue eliquis # BPH Continue flomax # HLD Continue statin. on cholestyramine DVT prophylaxis: Eliquis The patient will need overnight hospital stay for management of SBO in a patient witjh Crohn's disease. GI consult pending Quality Stroke Does the patient have a stroke diagnosis?: No VTE Prior VTE?: Yes VTE Risk Level:: Medical - moderate - high VTE Device Contraindication: Patient Refused VTE Drug Contraindication: N/A - Med Ordered
--- NOTE | 2022-02-03 13:12 | P.CNGI_ITS ---
History of Present Illness Data of Consult Service Date: 02/03/22 Requesting physician: Brad Flores Primary Care Provider: Anil Luna MD [facility] Reason for consult: Partial SBO This is a 66y.o M with PMH of Crohn's disease s/p ileocecectomy in , histological remission 06/2019 not on any therapy, recently metastatic melanoma to axillary node on Dabrafenib 150 b.i.d. plus trametinib 2 mg since 07/07, DVT 10/2021 on Eliquis, who presented to the hospital for abdominal pain and was found to have partial small bowel obstruction. Patient reports having gradual onset of abdominal pain and cramping yesterday morning around 11 am. He initially attributed it to having a different breakfast that day. However gradually through the day the pain progressed and became localised to RLQ, associated with nausea and constipation. He typically has to take cholestyramine to avoid diarrhea. Has only been able to pass some flatus. He presented to the ER last evening due to severity of pain as he thought he had a kidney stone. Reports some improvement of pain spontaeously within a few hours of arriving to the hospital and then had further relief with morphine. On initial presentation was noted to be hemodynamically stable and afebrile. Labs notable for leukopenia and anemia. Inflammatory markers ESR and CRP normal. Imaging shows rico-TI stricture as transition point with prox small bowel dilation. In terms of Crohns disease, longstanding history diagnosed > 30 y ago. Required ileocecectomy for what sounds like a SBO when he was 33 y.o Recalls taking Imuran for a few years post-op but for the past 30 y has only required intermittent systemic steroids for flares. Last colo 2019 noted ileocolonic anastomosis but neoterminal ileum could not be identified/intubated. Path with histological remission/no chronic colitis. Strong fam hx of crohns disease (sister, daughter). No fam hx of CRC. Review of Systems Review of Systems: Yes all other systems are reviewed and are negative [facility] Past Medical History Medical History Ascending aortic aneurysm Bicuspid aortic valve COVID-19 vaccine series completed Crohn's disease Degenerative joint disease of cervical spine History of nephrolithiasis History of rectal abscess Hyperbilirubinemia Hyperpigmented skin lesion Impaired fasting glucose Lumbar degenerative disc disease Metastatic melanoma Migraine Overweight (BMI 25.0-29.9) Pernicious anemia Pure hypercholesterolemia Family History Family History Father Medical history unknown Mother Hypertension Diabetes Surgical History Surgical History H/O colonoscopy History of back surgery History of esophagogastroduodenoscopy (EGD) History of inguinal hernia repair History of lymph node excision History of partial colectomy Hx of cardiac catheterization Social History Social History Household Members: Spouse Housing: House Are you a primary care provider to a significant other at home: No Do you presently have visiting nurse or other home services: No Alcohol intake: current Alcohol intake frequency: a few times a month Alcohol type: hard liquor Patient Tobacco Use Status: Never used Tobacco Tobacco use type: Cigarette Second Hand Smoke Exposure: Yes Substance Use Type: Marijuana Advance Directives Date on File: 01/08/19 service: No Current occupational status: retired Cognitive needs: No Hearing needs: No Vision needs: Yes Meds Allergies Allergy/AdvReac Type Severity Reaction Status Date / Time codeine [Codeine] Allergy Severe HIVES,GI Verified 02/02/22 15:23 UPSET Active Medications: Current Medications Acetaminophen (Acetaminophen 325 Mg Tablet) 650 mg PO Q6H PRN PRN Reason: Pain, Mild (Pain Scale 1-3) Apixaban (Apixaban 5 Mg Tablet) 5 mg PO BID [facility] Last Admin: 02/03/22 09:31 Dose: 5 mg Atorvastatin Calcium (Atorvastatin Calcium 20 Mg Tablet) 20 mg PO DAILY [facility] Last Admin: 02/03/22 09:31 Dose: 20 mg Cholestyramine Resin (Cholestyramine (With Sugar) 4 Gm Powd.Pack) 4 gm PO DAILY [facility] Last Admin: 02/03/22 09:31 Dose: 4 gm Cyanocobalamin (Cyanocobalamin (Vitamin B-12) 1,000 Mcg/Ml Vial) 1,000 mcg IM Q28D [facility] Melatonin (Melatonin 3 Mg Tablet) 6 mg PO BEDTIME PRN PRN Reason: Insomnia Methylprednisolone Sodium Succinate (Methylprednisolone Sod Succ 40 Mg/Ml Vial) 40 mg IVPUSH Q12H [facility] Last Admin: 02/03/22 09:31 Dose: 40 mg Morphine Sulfate (Morphine Sulfate 4 Mg/Ml Cartridge) 4 mg IVPUSH Q4H PRN; Protocol PRN Reason: Pain, Severe (Pain Scale 7-10) Non-Formulary Medication (Dabrafenib [Tafinlar]) 150 mg PO BID [facility] Non-Formulary Medication (Trametinib) 2 mg PO BEDTIME [facility] Ondansetron HCl (Ondansetron Hcl 4 Mg/2 Ml Vial) 4 mg IVPUSH Q8H PRN PRN Reason: Nausea and Vomiting Pharmacy Consult (Consult Rx Perform Med Rec) 1 each MISCELLANE ONCE PRN PRN Reason: Consult order Sodium Chloride (0.9 % Sodium Chloride Flush 3 Ml Syringe) 3 ml IVFLUSH QSHIFT [facility] Last Admin: 02/03/22 09:31 Dose: 3 ml Tamsulosin HCl (Tamsulosin Hcl 0.4 Mg Capsule) 0.4 mg PO BEDTIME [facility] Last Admin: 02/02/22 21:33 Dose: 0.4 mg Home Medications Medication Instructions Recorded Confirmed Last Taken Type cholestyramine (with sugar) 4 gram 4 g PO DAILY 01/07/20 02/02/22 02/02/22 History oral powder (Questran) tamsulosin 0.4 mg capsule 1 cap PO BEDTIME 02/02/22 02/02/22 02/01/22 History trametinib 2 mg tablet 2 mg PO BEDTIME 02/02/22 02/02/22 02/01/22 History Physical Exam Vital Signs: Vital Signs: Last Vital Signs Temp 98.0 F 02/03/22 12:00 Pulse 63 02/03/22 12:00 Resp 18 02/03/22 12:00 BP 120/69 02/03/22 12:00 Pulse Ox 96 02/03/22 12:00 O2 Del Method 02/03/22 12:00 BMI result Body Mass Index 25.8 Gen appear: Non toxic appearing HEENT: no icterus, no cervical lymphadenopathy Chest: No overt resp distress Abd: soft, tender to palpation in RLQ with voluntary guarding, mildly distended Psych: Stable affect, answering questions appropriately Neuro: A/Ox3 noted to move all extremities spontaneously Ext: no peripheral edema Results Labs CBC & Chem 7: 02/03/22 06:12 02/03/22 06:12 Labs: Short CBC 02/02/22 02/03/22 Range/Units 17:21 06:12 WBC 8.1 4.1 L (4.8-10.8) X10*3/uL Hgb 13.5 L 13.3 L (14.0-18.0) g/dl Hct 41.6 L 40.4 L (42.0-52.0) % Plt Count 230 240 (160-400) X10*3/uL BMP 02/02/22 02/03/22 17:21 06:12 Sodium 141 138 Potassium 4.1 4.7 Chloride 109 H 108 Carbon Dioxide 25 25 BUN 16 14 Creatinine 0.89 0.85 Calcium 8.3 L D 8.4 Liver Function 02/02/22 Range/Units 17:21 Total Bilirubin 0.4 (0.0-1.0) mg/dL Direct Bilirubin < 0.2 (0.0-0.5) mg/dL AST 17 (5-37) U/L ALT 14 (0-40) U/L Alkaline Phosphatase 96 (39-117) U/L Albumin 3.2 L (3.5-5.0) g/dL Urine 02/02/22 Range/Units 18:13 Urine Color Yellow Urine Appearance Cloudy Urine pH 7.0 (5.0-9.0) Ur Specific [place] 1.020 (1.005-1.025) Urine Protein Negative (Neg-Trace) mg/dL Urine Glucose (UA) Negative (Negative) mg/dL Assessment and Plan (1) SBO (small bowel obstruction): Status: Acute (2) Crohn's disease: Qualifiers: Digestive disease complication type: unspecified complication Gastrointestinal tract location: unspecified location Qualified Code(s): K50.919 - Crohn's disease, unspecified, with unspecified complications Status: Acute Plan Overall presentation consistent with partial small bowel obstruction secondary to fibrostenotic stricture of rico-TI. No evidence of acute inflammatory process based on labs and imaging. Recommend NPO and serial abd exams. NGT placement if develops nausea/vomiting. Low threshold to reimage for change in abd exam to r/o small bowel ischemia. Okay to continue IV methylpred for now at 40 to 60mg/day. However if there is no improvement in 24-48h may need surgical intervention for the fibrotic stricture. DVT prophylaxis. Thank you for allowing me to participate in his care. Please do not hesitate to contact for any questions or concerns. Procedures Date of Service Date of Service: 02/03/22
--- NOTE | 2022-02-03 13:44 | PM.CNGS ---
History of Present Illness Consult details Consult date: 02/03/22 Reason for consult: abdominal pain Requesting physician: Ramos Fofana Narrative: 66-year-old gentleman with a history of Crohn's disease and melanoma who presents with a bowel obstruction. He has a PMH of Crohn's disease s/p ileocecectomy around age [age]y , histological remission 06/2019 not on any therapy, recently metastatic melanoma to axillary node on Dabrafenib 150 b.i.d. plus trametinib 2 mg since 07/07, new DVT 10/2021 on Eliquis, who presented to the hospital for abdominal pain and was found to have partial small bowel obstruction. He has been taking cholestyramine intermittently to control his diarrhea prn and not chronically on any immunosuppressive agent. Patient reports that yesterday he had acute onset of abdominal pain similar to his kidney stones, however in his abdomen. He denies any nausea or vomiting and, at this time, he denies any diarrhea, rectal bleeding, flatus or bowel movements at all. He is on a clear liquid diet and while he is tolerating and he notes ongoing pain. He is on Eliquis for new DVT Oct 2021. Review of Systems Review of Systems: Yes all other systems are reviewed and are negative Constitutional: Constitutional: Reports as per HPI [facility] Past Medical History Medical History Ascending aortic aneurysm Bicuspid aortic valve COVID-19 vaccine series completed Crohn's disease Degenerative joint disease of cervical spine History of nephrolithiasis History of rectal abscess Hyperbilirubinemia Hyperpigmented skin lesion Impaired fasting glucose Lumbar degenerative disc disease Metastatic melanoma Migraine Overweight (BMI 25.0-29.9) Pernicious anemia Pure hypercholesterolemia Family History Family History Father Medical history unknown Mother Hypertension Diabetes Surgical History Surgical History H/O colonoscopy History of back surgery History of esophagogastroduodenoscopy (EGD) History of inguinal hernia repair History of lymph node excision History of partial colectomy Hx of cardiac catheterization Social History Social History Household Members: Spouse Housing: House Are you a primary daycare provider to a significant other at home: No Do you presently have visiting nurse or other home services: No Alcohol intake: current Alcohol intake frequency: a few times a month Alcohol type: hard liquor Patient Tobacco Use Status: Never used Tobacco Tobacco use type: Cigarette Second Hand Smoke Exposure: Yes Substance Use Type: Marijuana Advance Directives Date on File: 01/08/19 service: No Current occupational status: retired Cognitive needs: No Hearing needs: No Vision needs: Yes Meds Allergies Allergy/AdvReac Type Severity Reaction Status Date / Time codeine [Codeine] Allergy Severe HIVES,GI Verified 02/02/22 15:23 UPSET Active Medications: Current Medications Acetaminophen (Acetaminophen 325 Mg Tablet) 650 mg PO Q6H PRN PRN Reason: Pain, Mild (Pain Scale 1-3) Apixaban (Apixaban 5 Mg Tablet) 5 mg PO BID [facility] Last Admin: 02/03/22 09:31 Dose: 5 mg Atorvastatin Calcium (Atorvastatin Calcium 20 Mg Tablet) 20 mg PO DAILY [facility] Last Admin: 02/03/22 09:31 Dose: 20 mg Cholestyramine Resin (Cholestyramine (With Sugar) 4 Gm Powd.Pack) 4 gm PO DAILY [facility] Last Admin: 02/03/22 09:31 Dose: 4 gm Cyanocobalamin (Cyanocobalamin (Vitamin B-12) 1,000 Mcg/Ml Vial) 1,000 mcg IM Q28D [facility] Melatonin (Melatonin 3 Mg Tablet) 6 mg PO BEDTIME PRN PRN Reason: Insomnia Methylprednisolone Sodium Succinate (Methylprednisolone Sod Succ 40 Mg/Ml Vial) 40 mg IVPUSH Q12H [facility] Last Admin: 02/03/22 09:31 Dose: 40 mg Morphine Sulfate (Morphine Sulfate 4 Mg/Ml Cartridge) 4 mg IVPUSH Q4H PRN; Protocol PRN Reason: Pain, Severe (Pain Scale 7-10) Non-Formulary Medication (Dabrafenib [Tafinlar]) 150 mg PO BID [facility] Non-Formulary Medication (Trametinib) 2 mg PO BEDTIME [facility] Ondansetron HCl (Ondansetron Hcl 4 Mg/2 Ml Vial) 4 mg IVPUSH Q8H PRN PRN Reason: Nausea and Vomiting Pharmacy Consult (Consult Rx Perform Med Rec) 1 each MISCELLANE ONCE PRN PRN Reason: Consult order Sodium Chloride (0.9 % Sodium Chloride Flush 3 Ml Syringe) 3 ml IVFLUSH QSHIFT [facility] Last Admin: 02/03/22 09:31 Dose: 3 ml Tamsulosin HCl (Tamsulosin Hcl 0.4 Mg Capsule) 0.4 mg PO BEDTIME [facility] Last Admin: 02/02/22 21:33 Dose: 0.4 mg Home Medications Medication Instructions Recorded Confirmed Last Taken Type cholestyramine (with sugar) 4 gram 4 g PO DAILY 01/07/20 02/02/22 02/02/22 History oral powder (Questran) tamsulosin 0.4 mg capsule 1 cap PO BEDTIME 02/02/22 02/02/22 02/01/22 History trametinib 2 mg tablet 2 mg PO BEDTIME 02/02/22 02/02/22 02/01/22 History Physical Exam Vital Signs: Vital Signs: Last Vital Signs Temp 98.0 F 02/03/22 12:00 Pulse 63 02/03/22 12:00 Resp 18 02/03/22 12:00 BP 120/69 02/03/22 12:00 Pulse Ox 96 02/03/22 12:00 O2 Del Method 02/03/22 12:00 BMI result Body Mass Index 25.8 The patient is non-toxic & in good spirits NC/AT, PERRLA, EOMI Mood, affect & judgment all appear appropriate Sclera anicteric conjunctiva pink and moist Oropharynx is clear with no aphthous ulcers, Mallampati class 3, mucous membranes moist Neck is supple with no masses, adenopathy or bruits Heart is regular, normal S1-S2 no rubs or murmurs Lungs are clear and equal anteriorly with no audible wheezing, rubs or dullness to percussion Abdomen is overweight with no demonstrable hernias. No HSM, rebound, rigidity, guarding, masses or bruits are present. Rectal exam is deferred Skin has good turgor and is free of rashes Extremities free of cyanosis clubbing edema Results Labs Result diagrams: 02/03/22 06:12 02/03/22 06:12 Labs: Abnormal lab results 02/02/22 02/02/22 02/03/22 Range/Units 17:21 17:21 06:12 WBC 4.1 L (4.8-10.8) X10*3/uL RBC 4.42 L 4.32 L (4.60-5.80) X10*6/uL Hgb 13.5 L 13.3 L (14.0-18.0) g/dl Hct 41.6 L 40.4 L (42.0-52.0) % MPV 9.1 L 8.8 L (9.4-12.4) fL Neut % (Auto) 79.6 H 76.6 H (45-73) % Lymph % (Auto) 11.6 L 18.6 L (20-40) % Lymph # (Auto) 0.9 L 0.8 L (1.2-4.9) X10*3/uL Chloride 109 H (96-108) mmol/L Anion Gap 11 L (12-20) Random Glucose (60-115) mg/dL Calcium 8.3 L D (8.4-10.2) mg/dL Total Protein 5.7 L (6.5-8.0) g/dL Albumin 3.2 L (3.5-5.0) g/dL 02/03/22 Range/Units 06:12 WBC (4.8-10.8) X10*3/uL RBC (4.60-5.80) X10*6/uL Hgb (14.0-18.0) g/dl Hct (42.0-52.0) % MPV (9.4-12.4) fL Neut % (Auto) (45-73) % Lymph % (Auto) (20-40) % Lymph # (Auto) (1.2-4.9) X10*3/uL Chloride (96-108) mmol/L Anion Gap 10 L (12-20) Random Glucose 117 H (60-115) mg/dL Calcium (8.4-10.2) mg/dL Total Protein (6.5-8.0) g/dL Albumin (3.5-5.0) g/dL Short CBC 02/02/22 02/03/22 Range/Units 17:21 06:12 WBC 8.1 4.1 L (4.8-10.8) X10*3/uL Hgb 13.5 L 13.3 L (14.0-18.0) g/dl Hct 41.6 L 40.4 L (42.0-52.0) % Plt Count 230 240 (160-400) X10*3/uL BMP 02/02/22 02/03/22 17:21 06:12 Sodium 141 138 Potassium 4.1 4.7 Chloride 109 H 108 Carbon Dioxide 25 25 BUN 16 14 Creatinine 0.89 0.85 Calcium 8.3 L D 8.4 Liver Function 02/02/22 Range/Units 17:21 Total Bilirubin 0.4 (0.0-1.0) mg/dL Direct Bilirubin < 0.2 (0.0-0.5) mg/dL AST 17 (5-37) U/L ALT 14 (0-40) U/L Alkaline Phosphatase 96 (39-117) U/L Albumin 3.2 L (3.5-5.0) g/dL Urine 02/02/22 Range/Units 18:13 Urine Color Yellow Urine Appearance Cloudy Urine pH 7.0 (5.0-9.0) Ur Specific [place] 1.020 (1.005-1.025) Urine Protein Negative (Neg-Trace) mg/dL Urine Glucose (UA) Negative (Negative) mg/dL All other labs normal. Imaging Abdomen CT scan report/results: report reviewed and image reviewed CT scan - pelvis: report reviewed and image reviewed Assessment and Plan (1) Exacerbation of Crohn's disease: Status: Acute (2) SBO (small bowel obstruction): Status: Acute (3) Small bowel obstruction: Status: Acute (4) DVT (deep venous thrombosis): Status: Acute (5) Metastatic melanoma: Status: Chronic (6) Bicuspid aortic valve: Status: Acute (7) Overweight (BMI 25.0-29.9): Status: Acute (8) Anticoagulation adequate: Status: Acute Plan The patient is anticoagulated due to his recent DVT diagnosis in October, & nhas been transitioned to Lovenox. At this time, I would recommend non-operative management to allow the steroids to work & the pt to declare himself. His comorbidities increase operative risk. He may have a high-grade stricture in the ileal region that might require resection/plasty, or adhesiolysis depending on clinical progress. Agree with Dr. Hartman. Call for worsening abd pain, vomiting or questions. Would keep him NPO except for meds; IV hydration. Crohn's management as per Dr. Hartman/GI. NG tube for bloating/vomiting. Will follow. Procedures Date of Service Date of Service: 02/03/22
--- NOTE | 2022-02-03 14:25 | MHC.CM.PN ---
PT REPORTS HE LIVES AT HOME WITH HIS AND IS INDEPENDENT WITH CARE PT DENIES USE OF DME OR HOME SERVICES PT HAS A HCP ON FILE HE IS COVID [id number], NO BOOSTER PCP: KEN YANEZ DELIVERED CURRENT DCP, HOME NO SERVICES TO TRANSPORT
[2022-02-03] MEDS: Lactated Ringers 1,000 ML 100 ML IVCONT ×2 (16:20→23:42)
[2022-02-03] MEDS: Enoxaparin Sodium 100 MG/ML SYRINGE 90 MG SUBCUT (22:03)
[2022-02-03] MEDS: Melatonin 3 MG TABLET 6 MG PO (22:04)
[2022-02-03] MEDS: Tamsulosin HCL 0.4 MG CAPSULE PO (22:04)
[2022-02-04 03:11] VITALS: BP 108/56; PULSE 75; RESP 16; TEMP 36.4; O2SAT 93
[2022-02-04 06:24] LABS: Hematocrit 40.5 % (42.0-52.0); Hemoglobin 13.2 g/dl (14.0-18.0); Mean Corpuscular HGB Conc 32.6 g/dl (31.0-36.0); Mean Corpuscular Hemoglobin 30.5 pg (27.0-33.0); Mean Corpuscular Volume 93.5 fL (80.0-98.0); Platelet Count 211 X10*3/uL (160-400); Red Blood Count 4.33 X10*6/uL (4.60-5.80); Red Cell Distribution Width 12.8 % (11.0-16.0); White Blood Count 4.1 X10*3/uL (4.8-10.8)
[2022-02-04 06:48] LABS: Anion Gap 11 (12-20); Blood Urea Nitrogen 12 mg/dL (9-16); Calcium 8.6 mg/dL (8.4-10.2); Carbon Dioxide 25 mmol/L (22-29); Chloride 108 mmol/L (96-108); Creatinine Clr Calc Pharmacy 93.4; Estimated Glomerular Filt Rate > 60; Glucose Random 117 mg/dL (60-115); Potassium 4.3 mmol/L (3.3-5.1); Sodium 140 mmol/L (135-145)
[2022-02-04 08:00] VITALS: BP 122/64; PULSE 58; RESP 16; TEMP 35.8; O2SAT 96
[2022-02-04] MEDS: Enoxaparin Sodium 100 MG/ML SYRINGE 90 MG SUBCUT ×2 (09:20→22:00)
[2022-02-04] MEDS: Lactated Ringers 1,000 ML 100 ML IVCONT ×2 (09:20→19:22)
[2022-02-04] MEDS: Atorvastatin Calcium 20 MG TABLET PO (09:21)
[2022-02-04] MEDS: methylPREDNISolone Sod Succ 40 MG/ML VIAL IVPUSH (09:21)
[2022-02-04 11:09] VITALS: BP 123/65; PULSE 56; RESP 16; TEMP 36.7; O2SAT 96
--- NOTE | 2022-02-04 11:57 | HO.PM.IMPN ---
Subjective Subjective Date of Service: 02/04/22 Interval History: the patient was seen and evaluated this morning Laying in bed, feels comfortable overall Abdominal pain improving with no associated nausea No reported other overnight events. Systemic review: No fever, chills or weakness No chest pain, palpitation No shortness of breath or coughing Improving abdominal pain, nausea or vomiting No urinary symptoms No reported rash Physical Exam Vital Signs: Vital Signs: Last Vital Signs Temp 98.1 F 02/04/22 11:09 Pulse 56 02/04/22 11:09 Resp 16 02/04/22 11:09 BP 123/65 02/04/22 11:09 Pulse Ox 96 02/04/22 11:09 O2 Del Method 02/04/22 11:09 BMI result Body Mass Index 25.8 Const: Other: Constitutional : Awake, interactive, not in distress Neck : Normal inspection, Supple Cardiovascular : RRR, no JVP, no lower extremity edema Respiratory : good bilateral air entry, no crackles, wheezes or rhonchi Gastrointestinal: soft, lax, Normal bowel sounds, left lower quadrant mild tender with palpation Skin : Warm, Dry Neurological : Alert & oriented x3, No focal deficit Objective Data Active Medications Acetaminophen (Acetaminophen 325 Mg Tablet) 650 mg PO Q6H PRN PRN Reason: Pain, Mild (Pain Scale 1-3) Atorvastatin Calcium (Atorvastatin Calcium 20 Mg Tablet) 20 mg PO DAILY [facility] Last Admin: 02/04/22 09:21 Dose: 20 mg Documented By: COTEMA Cholestyramine Resin (Cholestyramine (With Sugar) 4 Gm Powd.Pack) 4 gm PO DAILY@1200 [facility] Last Admin: 02/04/22 11:06 Dose: Not Given Documented By: COTEMA Non-Admin Reason: Patient Refused Cyanocobalamin (Cyanocobalamin (Vitamin B-12) 1,000 Mcg/Ml Vial) 1,000 mcg IM Q28D [facility] Enoxaparin Sodium (Enoxaparin Sodium 100 Mg/Ml Syringe) 90 mg 1 mg/kg (90 mg) SUBCUT Q12H [facility] Last Admin: 02/04/22 09:20 Dose: 90 mg Documented By: COTEMA Lactated Ringer's (Lr) 1,000 mls @ 100 mls/hr IVCONT .Q10H [facility] Last Admin: 02/04/22 09:20 Dose: 100 mls/hr Documented By: JORGE Melatonin (Melatonin 3 Mg Tablet) 6 mg PO BEDTIME PRN PRN Reason: Insomnia Last Admin: 02/03/22 22:04 Dose: 6 mg Documented By: CARROL Methylprednisolone Sodium Succinate (Methylprednisolone Sod Succ 40 Mg/Ml Vial) 40 mg IVPUSH Q12H [facility] Last Admin: 02/04/22 09:21 Dose: 40 mg Documented By: COTEMA Morphine Sulfate (Morphine Sulfate 4 Mg/Ml Cartridge) 4 mg IVPUSH Q4H PRN; Protocol PRN Reason: Pain, Severe (Pain Scale 7-10) Pt Own (Dabrafenib [ Tafinlar] 75 Mg Capsule) 150 mg PO Q12H [facility] Last Admin: 02/04/22 05:57 Dose: 150 mg Documented By: CARROL Pt Own (Trametinib 2 (Mg Tablet)) 2 mg PO BEDTIME [facility] Last Admin: 02/03/22 22:06 Dose: 2 mg Documented By: CARROL Ondansetron HCl (Ondansetron Hcl 4 Mg/2 Ml Vial) 4 mg IVPUSH Q8H PRN PRN Reason: Nausea and Vomiting Pharmacy Consult (Consult Rx Perform Med Rec) 1 each MISCELLANE ONCE PRN PRN Reason: Consult order Sodium Chloride (0.9 % Sodium Chloride Flush 3 Ml Syringe) 3 ml IVFLUSH QSHIFT [facility] Last Admin: 02/04/22 07:11 Dose: Not Given Documented By: JORGE Non-Admin Reason: IV Running Tamsulosin HCl (Tamsulosin Hcl 0.4 Mg Capsule) 0.4 mg PO BEDTIME [facility] Last Admin: 02/03/22 22:04 Dose: 0.4 mg Documented By: CARROL Labs CBC & Chem 7: 02/04/22 06:08 02/04/22 06:08 Labs: Laboratory Results - last 24 hr 02/04/22 02/04/22 06:08 06:08 MCV 93.5 MCH 30.5 MCHC 32.6 RDW 12.8 Plt Count 211 MPV 9.0 L Absolute Nucleated RBC 0.000 Nucleated RBC % (auto) 0.0 Anion Gap 11 L Estim Creat Clear Calc 93.4 Estimated GFR > 60 Random Glucose 117 H Calcium 8.6 Microbiology Microbiology Results: Microbiology 02/02/22 19:59 Blood Culture - Preliminary Blood - Venous No growth after 24 hours. 02/02/22 17:21 Blood Culture - Preliminary Blood - Venous No growth after 24 hours. Assessment and Plan (1) Exacerbation of Crohn's disease: Status: Acute (2) Anticoagulation adequate: Status: Acute (3) SBO (small bowel obstruction): Status: Acute Plan This is a 66-year-old male with pertinent history of malignant melanoma, Crohn's disease, DVT on Eliquis, mixed hyperlipidemia who presents to the emergency department for evaluation of abdominal discomfort. # Partial SBO due to Crohn's disease flare up Continue gentle hydration Continue IV steroids GI input appreciated, continue steroids in CT surgery evaluation for possible fibrotic stricture Changed to NPO Surgery input appreciated, monitor for need of intervention for stricture Zofran for nausea # Malignant melanoma continue trametinib and tafinlar. # H/o of DVT Continue eliquis # BPH Continue flomax # HLD Continue statin. on cholestyramine DVT prophylaxis: Eliquis The patient will need overnight hospital stay for management of SBO in a patient [facility] Crohn's disease Quality Stroke Does the patient have a stroke diagnosis?: No VTE Prior VTE?: Yes VTE Risk Level:: Medical - moderate - high VTE Device Contraindication: Patient Refused VTE Drug Contraindication: N/A - Med Ordered
--- NOTE | 2022-02-04 15:34 | PM.GIPN ---
Subjective Subjective Date of Service: 02/04/22 Interval History: Reports improvement in abd pain wth bowel rest but continues with constipation and passing minimal flatus. No nausea or vomiting. Critical Care Time (minutes): 0 Physical Exam Vital Signs: Vital Signs: Last Vital Signs Temp 98.1 F 02/04/22 11:09 Pulse 56 02/04/22 11:09 Resp 16 02/04/22 11:09 BP 123/65 02/04/22 11:09 Pulse Ox 96 02/04/22 11:09 O2 Del Method 02/04/22 11:09 BMI result Body Mass Index 25.8 Gen appear: NAD Abd: soft, distended, nontender, bowel sounds + Objective Data Labs CBC & Chem 7: 02/04/22 06:08 02/04/22 06:08 Labs: Laboratory Results - last 24 hr 02/04/22 02/04/22 06:08 06:08 WBC 4.1 L RBC 4.33 L Hgb 13.2 L Hct 40.5 L MCV 93.5 MCH 30.5 MCHC 32.6 RDW 12.8 Plt Count 211 MPV 9.0 L Absolute Nucleated RBC 0.000 Nucleated RBC % (auto) 0.0 Sodium 140 Potassium 4.3 Chloride 108 Carbon Dioxide 25 Anion Gap 11 L BUN 12 Creatinine 0.83 Estim Creat Clear Calc 93.4 Estimated GFR > 60 Random Glucose 117 H Calcium 8.6 Microbiology Microbiology Results: Microbiology 02/02/22 19:59 Blood - Venous Blood Culture - Preliminary No growth after 24 hours. 02/02/22 17:21 Blood - Venous Blood Culture - Preliminary No growth after 24 hours. Procedures Date of Service Date of Service: 02/04/22 Progress Note: A&P Assessment and plan (1) SBO (small bowel obstruction): Status: Acute (2) Crohn's disease: Status: Acute Plan Without significant improvement from before. Cont NPO and serial abd exams. NGT placement if develops nausea/vomiting. Recommend interval imaging, SBFT vs contrasted CT - deferred to surgery Continue IV methylpred for now at 40mg/day. Discontinue cholestyramine DVT prophylaxis. Time Spent With Patient Time: Total time spent is greater than 50% in coordination of care (as documented) at patient's floor/unit and/or counseling patient: Quality Stroke Does the patient have a stroke diagnosis?: No VTE Prior VTE?: Yes VTE Risk Level:: Medical - moderate - high VTE Device Contraindication: Patient Refused VTE Drug Contraindication: N/A - Med Ordered
--- NOTE | 2022-02-04 15:37 | P.PNGS_ITS ---
Subjective Subjective Date of Service: 02/04/22 Patient reports: no new complaints Interval history: The patient reports that he has had some flatus in the past 24 hours but no bowel movement. Overall, he is a little better but still having crampy abdominal pain with no nausea or vomiting. He is still NPO. He otherwise denies interval change including chest pain, difficulty breathing or shortness of breath. Physical Exam Vital Signs: Vital Signs: Last Vital Signs Temp 98.1 F 02/04/22 11:09 Pulse 56 02/04/22 11:09 Resp 16 02/04/22 11:09 BP 123/65 02/04/22 11:09 Pulse Ox 96 02/04/22 11:09 O2 Del Method 02/04/22 11:09 BMI result Body Mass Index 25.8 Abdomen remains overweight distended with tympany but no rebound, rigidity or guarding His right paramedian RLQ incision is well healed without any obvious hernia His umbilical hernia remains reducible and minimally tender. He is nontoxic and is sclera are anicteric Objective Data Active Medications Acetaminophen (Acetaminophen 325 Mg Tablet) 650 mg PO Q6H PRN PRN Reason: Pain, Mild (Pain Scale 1-3) Atorvastatin Calcium (Atorvastatin Calcium 20 Mg Tablet) 20 mg PO DAILY [facility] Last Admin: 02/04/22 09:21 Dose: 20 mg Documented By: COTEMA Enoxaparin Sodium (Enoxaparin Sodium 100 Mg/Ml Syringe) 90 mg 1 mg/kg (90 mg) SUBCUT Q12H [facility] Last Admin: 02/04/22 09:20 Dose: 90 mg Documented By: COTEMA Lactated Ringer's (Lr) 1,000 mls @ 100 mls/hr IVCONT .Q10H [facility] Last Admin: 02/04/22 09:20 Dose: 100 mls/hr Documented By: COTEMA Melatonin (Melatonin 3 Mg Tablet) 6 mg PO BEDTIME PRN PRN Reason: Insomnia Last Admin: 02/03/22 22:04 Dose: 6 mg Documented By: CARROL Methylprednisolone Sodium Succinate (Methylprednisolone Sod Succ 40 Mg/Ml Vial) 40 mg IVPUSH Q12H [facility] Last Admin: 02/04/22 09:21 Dose: 40 mg Documented By: COTEMA Morphine Sulfate (Morphine Sulfate 4 Mg/Ml Cartridge) 4 mg IVPUSH Q4H PRN; Protocol PRN Reason: Pain, Severe (Pain Scale 7-10) Pt Own (Dabrafenib [ Tafinlar] 75 Mg Capsule) 150 mg PO Q12H [facility] Last Admin: 02/04/22 05:57 Dose: 150 mg Documented By: CARROL Pt Own (Trametinib 2 (Mg Tablet)) 2 mg PO BEDTIME [facility] Last Admin: 02/03/22 22:06 Dose: 2 mg Documented By: CARROL Ondansetron HCl (Ondansetron Hcl 4 Mg/2 Ml Vial) 4 mg IVPUSH Q8H PRN PRN Reason: Nausea and Vomiting Pharmacy Consult (Consult Rx Perform Med Rec) 1 each MISCELLANE ONCE PRN PRN Reason: Consult order Sodium Chloride (0.9 % Sodium Chloride Flush 3 Ml Syringe) 3 ml IVFLUSH QSHIFT [facility] Last Admin: 02/04/22 14:44 Dose: Not Given Documented By: COTEMA Non-Admin Reason: IV Running Tamsulosin HCl (Tamsulosin Hcl 0.4 Mg Capsule) 0.4 mg PO BEDTIME [facility] Last Admin: 02/03/22 22:04 Dose: 0.4 mg Documented By: CARROL Labs CBC & Chem 7: 02/04/22 06:08 02/04/22 06:08 Labs: Laboratory Results - last 24 hr 02/04/22 02/04/22 06:08 06:08 MCV 93.5 MCH 30.5 MCHC 32.6 RDW 12.8 Plt Count 211 MPV 9.0 L Absolute Nucleated RBC 0.000 Nucleated RBC % (auto) 0.0 Anion Gap 11 L Estim Creat Clear Calc 93.4 Estimated GFR > 60 Random Glucose 117 H Calcium 8.6 Microbiology Microbiology Results: Microbiology 02/02/22 19:59 Blood Culture - Preliminary Blood - Venous No growth after 24 hours. 02/02/22 17:21 Blood Culture - Preliminary Blood - Venous No growth after 24 hours. Procedures Date of Service Date of Service: 02/04/22 Progress Note: A&P Assessment and plan (1) Anticoagulation adequate: Status: Acute (2) Exacerbation of Crohn's disease: Status: Acute (3) SBO (small bowel obstruction): Status: Acute (4) Small bowel obstruction: Status: Acute (5) DVT (deep venous thrombosis): Status: Acute Plan While the patient has had some flatus, it is unclear whether or not the steroids are working at this time. Will allow and other 24 hours and if he is not experiencing any decreased abdominal bloating or bowel movement, will order a Gastrografin small-bowel study for tomorrow, 02/05/2022. If the patient decompensates in the meantime, I should be contacted to reassess operative intervention. Differential remains adhesive band versus Crohn's stricture, less likely would be metastatic melanoma since there is no evidence of a mass on CT, however, this is a possibility. Time Spent With Patient Time: Total time spent is greater than 50% in coordination of care (as documented) at patient's floor/unit and/or counseling patient: Quality Stroke Does the patient have a stroke diagnosis?: No VTE Prior VTE?: Yes VTE Risk Level:: Medical - moderate - high VTE Device Contraindication: Patient Refused VTE Drug Contraindication: N/A - Med Ordered
[2022-02-04 15:44] VITALS: BP 129/78; PULSE 63; RESP 16; TEMP 36.5; O2SAT 95
[2022-02-04 19:49] VITALS: BP 140/74; PULSE 56; RESP 12; TEMP 36.8; O2SAT 97
[2022-02-04] MEDS: Melatonin 3 MG TABLET 6 MG PO (21:59)
[2022-02-04] MEDS: Tamsulosin HCL 0.4 MG CAPSULE PO (22:00)
[2022-02-04 23:52] VITALS: BP 130/66; PULSE 53; RESP 16; TEMP 36.7; O2SAT 95
[2022-02-05] MEDS: Lactated Ringers 1,000 ML 100 ML IVCONT (03:03)
[2022-02-05 03:37] VITALS: BP 109/67; PULSE 63; RESP 16; TEMP 36.2; O2SAT 95
[2022-02-05 06:38] LABS: Hematocrit 39.1 % (42.0-52.0); Mean Corpuscular HGB Conc 33.2 g/dl (31.0-36.0); Mean Corpuscular Hemoglobin 30.7 pg (27.0-33.0); Mean Corpuscular Volume 92.4 fL (80.0-98.0); Mean Platelet Volume 9.4 fL (9.4-12.4); Platelet Count 197 X10*3/uL (160-400); Red Blood Count 4.23 X10*6/uL (4.60-5.80); Red Cell Distribution Width 12.5 % (11.0-16.0); White Blood Count 3.9 X10*3/uL (4.8-10.8)
[2022-02-05 07:06] LABS: Anion Gap 10 (12-20); Blood Urea Nitrogen 13 mg/dL (9-16); Calcium 8.4 mg/dL (8.4-10.2); Carbon Dioxide 29 mmol/L (22-29); Chloride 106 mmol/L (96-108); Creatinine Clr Calc Pharmacy 95.8; Estimated Glomerular Filt Rate > 60; Glucose Random 84 mg/dL (60-115); Sodium 141 mmol/L (135-145)
--- NOTE | 2022-02-05 07:47 | PM.PNGS ---
Subjective Subjective Date of Service: 02/05/22 Patient reports: no new complaints, feels better and no bowel movement Interval history: The patient reports that overall, he is feeling better. He has had some flatus but still no bowel movement yet. He reports no bloating, nausea or vomiting. He is actually hungry and asking with the next step is regarding his personal history of Crohn's that was quiescent on endoscopic biopsy, history of ileocecectomy, and recent diagnosis of melanoma being treated. I explained to the patient that I would like to obtain a Gastrografin small-bowel follow-through and it has been ordered. We discussed the pros and cons and reasons. I also offered input from Dr. Mark, who had operated on the patient for his melanoma, but the patient declined this at this point stating he was comfortable with my plan in his care. Physical Exam Vital Signs: Vital Signs: Last Vital Signs Temp 97.1 F 02/05/22 03:37 Pulse 63 02/05/22 03:37 Resp 16 02/05/22 03:37 BP 109/67 02/05/22 03:37 Pulse Ox 95 02/05/22 03:37 O2 Del Method 02/05/22 03:37 BMI result Body Mass Index 25.8 Patient is nontoxic and in good spirits Sclera remain anicteric PERRLA, EOMI Abdomen is soft with some tympany but no peritoneal sign to percussion. Vague, non localized discomfort is noted in the lower abdomen, particularly in the right lower quadrant. No incisional hernia is present in the patient's right paramedian incision. His umbilical hernia remains soft, nontender and reducible and no inguinal hernia appreciated on today's exam. Objective Data Active Medications Acetaminophen (Acetaminophen 325 Mg Tablet) 650 mg PO Q6H PRN PRN Reason: Pain, Mild (Pain Scale 1-3) Atorvastatin Calcium (Atorvastatin Calcium 20 Mg Tablet) 20 mg PO DAILY [facility] Last Admin: 02/04/22 09:21 Dose: 20 mg Documented By: COTEMA Enoxaparin Sodium (Enoxaparin Sodium 100 Mg/Ml Syringe) 90 mg 1 mg/kg (90 mg) SUBCUT Q12H [facility] Last Admin: 02/04/22 22:00 Dose: 90 mg Documented By: CARROL Lactated Ringer's (Lr) 1,000 mls @ 100 mls/hr IVCONT .Q10H [facility] Last Admin: 02/05/22 03:03 Dose: 100 mls/hr Documented By: CARROL Melatonin (Melatonin 3 Mg Tablet) 6 mg PO BEDTIME PRN PRN Reason: Insomnia Last Admin: 02/04/22 21:59 Dose: 6 mg Documented By: CARROL Methylprednisolone Sodium Succinate (Methylprednisolone Sod Succ 40 Mg/Ml Vial) 40 mg IVPUSH Q24H [facility] Morphine Sulfate (Morphine Sulfate 2 Mg/Ml Cartridge) 4 mg IVPUSH Q4H PRN; Protocol PRN Reason: Pain, Severe (Pain Scale 7-10) Pt Own (Dabrafenib [ Tafinlar] 75 Mg Capsule) 150 mg PO Q12H [facility] Last Admin: 02/05/22 06:05 Dose: 150 mg Documented By: CARROL Pt Own (Trametinib 2 (Mg Tablet)) 2 mg PO BEDTIME [facility] Last Admin: 02/04/22 22:01 Dose: 2 mg Documented By: CARROL Ondansetron HCl (Ondansetron Hcl 4 Mg/2 Ml Vial) 4 mg IVPUSH Q8H PRN PRN Reason: Nausea and Vomiting Pharmacy Consult (Consult Rx Perform Med Rec) 1 each MISCELLANE ONCE PRN PRN Reason: Consult order Sodium Chloride (0.9 % Sodium Chloride Flush 3 Ml Syringe) 3 ml IVFLUSH QSHIFT [facility] Last Admin: 02/04/22 22:01 Dose: Not Given Documented By: CARROL Non-Admin Reason: IV Running Tamsulosin HCl (Tamsulosin Hcl 0.4 Mg Capsule) 0.4 mg PO BEDTIME [facility] Last Admin: 02/04/22 22:00 Dose: 0.4 mg Documented By: CARROL Labs CBC & Chem 7: 02/05/22 05:42 02/05/22 05:42 Labs: Laboratory Results - last 24 hr 02/05/22 02/05/22 05:42 05:42 MCV 92.4 MCH 30.7 MCHC 33.2 RDW 12.5 Plt Count 197 MPV 9.4 Absolute Nucleated RBC 0.000 Nucleated RBC % (auto) 0.0 Anion Gap 10 L Estim Creat Clear Calc 95.8 Estimated GFR > 60 Random Glucose 84 Calcium 8.4 Microbiology Microbiology Results: Microbiology 02/02/22 19:59 Blood Culture - Preliminary Blood - Venous No growth after 48 hours. 02/02/22 17:21 Blood Culture - Preliminary Blood - Venous No growth after 48 hours. Procedures Date of Service Date of Service: 02/05/22 Progress Note: A&P Assessment and plan (1) Anticoagulation adequate: Status: Acute (2) Exacerbation of Crohn's disease: Status: Acute (3) SBO (small bowel obstruction): Status: Acute (4) Small bowel obstruction: Status: Acute (5) DVT (deep venous thrombosis): Status: Acute Plan I have ordered a Gastrografin small-bowel follow-through. The other option of just an empiric trial of clears was offered to the patient but given the need to discern whether not he needs operative intervention, the patient is deferring to my judgment. Continue NPO except for the Gastrografin study. Will reassess patient later today. Please contact me if he has worsening abdominal pain bloating or vomiting during the study. Time Spent With Patient Time: Total time spent is greater than 50% in coordination of care (as documented) at patient's floor/unit and/or counseling patient: Quality Stroke Does the patient have a stroke diagnosis?: No VTE Prior VTE?: Yes VTE Risk Level:: Medical - moderate - high VTE Device Contraindication: Patient Refused VTE Drug Contraindication: N/A - Med Ordered
[2022-02-05] MEDS: methylPREDNISolone Sod Succ 40 MG/ML VIAL IVPUSH (08:03)
[2022-02-05 08:19] VITALS: BP 114/64; PULSE 51; RESP 18; TEMP 35.9; O2SAT 95
[2022-02-05 11:45] VITALS: BP 121/67; PULSE 52; RESP 18; TEMP 36.2; O2SAT 93
--- NOTE | 2022-02-05 13:01 | P.PNIM_ITS ---
Subjective Subjective Date of Service: 02/06/22 Interval History: the patient was seen and evaluated this morning Laying in bed, feels comfortable overall Abdominal pain improving with no associated nausea not passing much of gas No reported other overnight events. Systemic review: No fever, chills or weakness No chest pain, palpitation No shortness of breath or coughing Improving abdominal pain, nausea or vomiting No urinary symptoms No reported rash Physical Exam Vital Signs: Vital Signs: Last Vital Signs Temp 97.2 F 02/05/22 11:45 Pulse 52 02/05/22 11:45 Resp 18 02/05/22 11:45 BP 121/67 02/05/22 11:45 Pulse Ox 93 02/05/22 11:45 O2 Del Method 02/05/22 11:45 BMI result Body Mass Index 25.8 Const: Other: Constitutional : Awake, interactive, not in distress Neck : Normal inspection, Supple Cardiovascular : RRR, no JVP, no lower extremity edema Respiratory : good bilateral air entry, no crackles, wheezes or rhonchi Gastrointestinal: soft, lax, Normal bowel sounds, left lower quadrant mild tend er with palpation Skin : Warm, Dry Neurological : Alert & oriented x3, No focal deficit Objective Data Active Medications Acetaminophen (Acetaminophen 325 Mg Tablet) 650 mg PO Q6H PRN PRN Reason: Pain, Mild (Pain Scale 1-3) Atorvastatin Calcium (Atorvastatin Calcium 20 Mg Tablet) 20 mg PO DAILY [facility] Last Admin: 02/05/22 08:03 Dose: Not Given Documented By: OREN Non-Admin Reason: NPO Enoxaparin Sodium (Enoxaparin Sodium 100 Mg/Ml Syringe) 90 mg 1 mg/kg (90 mg) SUBCUT Q12H [facility] Last Admin: 02/05/22 08:04 Dose: Not Given Documented By: OREN Non-Admin Reason: POSS. SURGERY Lactated Ringer's (Lr) 1,000 mls @ 100 mls/hr IVCONT .Q10H [facility] Last Infusion: 02/05/22 09:23 Dose: 0 mls/hr Documented By: OREN Melatonin (Melatonin 3 Mg Tablet) 6 mg PO BEDTIME PRN PRN Reason: Insomnia Last Admin: 02/04/22 21:59 Dose: 6 mg Documented By: CARROL Methylprednisolone Sodium Succinate (Methylprednisolone Sod Succ 40 Mg/Ml Vial) 40 mg IVPUSH Q24H [facility] Last Admin: 02/05/22 08:03 Dose: 40 mg Documented By: OREN Morphine Sulfate (Morphine Sulfate 2 Mg/Ml Cartridge) 4 mg IVPUSH Q4H PRN; Protocol PRN Reason: Pain, Severe (Pain Scale 7-10) Pt Own (Dabrafenib [ Tafinlar] 75 Mg Capsule) 150 mg PO Q12H [facility] Last Admin: 02/05/22 06:05 Dose: 150 mg Documented By: CARROL Pt Own (Trametinib 2 (Mg Tablet)) 2 mg PO BEDTIME [facility] Last Admin: 02/04/22 22:01 Dose: 2 mg Documented By: CARROL Ondansetron HCl (Ondansetron Hcl 4 Mg/2 Ml Vial) 4 mg IVPUSH Q8H PRN PRN Reason: Nausea and Vomiting Pharmacy Consult (Consult Rx Perform Med Rec) 1 each MISCELLANE ONCE PRN PRN Reason: Consult order Sodium Chloride (0.9 % Sodium Chloride Flush 3 Ml Syringe) 3 ml IVFLUSH QSHIFT [facility] Last Admin: 02/05/22 08:03 Dose: Not Given Documented By: OREN Non-Admin Reason: IV Running Tamsulosin HCl (Tamsulosin Hcl 0.4 Mg Capsule) 0.4 mg PO BEDTIME [facility] Last Admin: 02/04/22 22:00 Dose: 0.4 mg Documented By: CARROL Labs CBC & Chem 7: 02/05/22 05:42 02/05/22 05:42 Labs: Laboratory Results - last 24 hr 02/05/22 02/05/22 05:42 05:42 MCV 92.4 MCH 30.7 MCHC 33.2 RDW 12.5 Plt Count 197 MPV 9.4 Absolute Nucleated RBC 0.000 Nucleated RBC % (auto) 0.0 Anion Gap 10 L Estim Creat Clear Calc 95.8 Estimated GFR > 60 Random Glucose 84 Calcium 8.4 Microbiology Microbiology Results: Microbiology 02/02/22 19:59 Blood Culture - Preliminary Blood - Venous No growth after 48 hours. 02/02/22 17:21 Blood Culture - Preliminary Blood - Venous No growth after 48 hours. Assessment and Plan (1) Exacerbation of Crohn's disease: Status: Acute (2) SBO (small bowel obstruction): Status: Resolved Plan This is a 66-year-old male with pertinent history of malignant melanoma, Crohn's disease, DVT on Eliquis, mixed hyperlipidemia who presents to the emergency department for evaluation of abdominal discomfort. # Partial SBO due to Crohn's disease flare up Continue gentle hydration Continue IV steroids GI input appreciated, continue steroids in CT surgery evaluation for possible fibrotic stricture NPO Surgery input appreciated, monitor for need of intervention for stricture, to do SBFT Zofran for nausea # Malignant melanoma continue trametinib and tafinlar. # H/o of DVT Continue eliquis # BPH Continue flomax # HLD Continue statin. on cholestyramine DVT prophylaxis: Eliquis The patient will need overnight hospital stay for management of SBO in a patient witjh Crohn's disease Quality Stroke Does the patient have a stroke diagnosis?: No VTE Prior VTE?: Yes VTE Risk Level:: Medical - moderate - high VTE Device Contraindication: Patient Refused VTE Drug Contraindication: N/A - Med Ordered
--- NOTE | 2022-02-05 15:15 | MHC.CM.PN ---
Addendum entered by Katharine Corona RN 02/06/22 12:37: PATIENT IS RETURNING HOME TODAY WITH NO NEED FOR SERVICES. IMM 02/05 IN CHART IS ON HER WAY TO TRANSPORT Original Note: POSSIBLE DISCHARGE BY Saturday02/07/22
[2022-02-05 15:31] VITALS: BP 128/66; PULSE 54; RESP 20; TEMP 36.2; O2SAT 95
--- NOTE | 2022-02-05 15:43 | PM.GIPN ---
Subjective Subjective Date of Service: 02/05/22 Interval History: Reports no abd pain. Had SBFT earlier today. Has had 13 BMs since then. Critical Care Time (minutes): 0 Physical Exam Vital Signs: Vital Signs: Last Vital Signs Temp 97.1 F 02/05/22 15:31 Pulse 54 02/05/22 15:31 Resp 20 02/05/22 15:31 BP 128/66 02/05/22 15:31 Pulse Ox 95 02/05/22 15:31 O2 Del Method 02/05/22 15:31 BMI result Body Mass Index 25.8 Gen appear: NAD Abd: soft, nontender, nondistended Objective Data Labs CBC & Chem 7: 02/05/22 05:42 02/05/22 05:42 Labs: Laboratory Results - last 24 hr 02/05/22 02/05/22 05:42 05:42 WBC 3.9 L RBC 4.23 L Hgb 13.0 L Hct 39.1 L MCV 92.4 MCH 30.7 MCHC 33.2 RDW 12.5 Plt Count 197 MPV 9.4 Absolute Nucleated RBC 0.000 Nucleated RBC % (auto) 0.0 Sodium 141 Potassium 4.0 Chloride 106 Carbon Dioxide 29 Anion Gap 10 L BUN 13 Creatinine 0.81 Estim Creat Clear Calc 95.8 Estimated GFR > 60 Random Glucose 84 Calcium 8.4 Imaging Small bowel follow through: Radiologist's impression: There is normal transit time of contrast material through the small bowel, with contrast present in the colon by 30 minutes. No evidence of bowel dilatation. No evidence of active laboratory bowel disease is seen. There is a 6 stool in the colon. There is no evidence of free air. There are mild degenerative changes of the spine and hip joints. Microbiology Microbiology Results: Microbiology 02/02/22 19:59 Blood - Venous Blood Culture - Preliminary No growth after 48 hours. 02/02/22 17:21 Blood - Venous Blood Culture - Preliminary No growth after 48 hours. Procedures Date of Service Date of Service: 02/05/22 Progress Note: A&P Assessment and plan (1) SBO (small bowel obstruction): Status: Resolved (2) Crohn's disease: Status: Chronic Plan Gastrograffin SBFT shows resolution of partial SBO. Pt clinically improved as well. Can be started on low residue diet Switch to PO prednisone 40mg - to be continued for 5 days total, followed by 10mg taper every 3 days Outpatient GI follow up. Dr Watkins updated. Will sign off. Please call back for questions. Time Spent With Patient Time: Total time spent is greater than 50% in coordination of care (as documented) at patient's floor/unit and/or counseling patient: Quality Stroke Does the patient have a stroke diagnosis?: No VTE Prior VTE?: Yes VTE Risk Level:: Medical - moderate - high VTE Device Contraindication: Patient Refused VTE Drug Contraindication: N/A - Med Ordered
[2022-02-05 19:39] VITALS: BP 117/68; PULSE 62; RESP 18; TEMP 36.4; O2SAT 95
[2022-02-05] MEDS: Tamsulosin HCL 0.4 MG CAPSULE PO (20:40)
[2022-02-05] MEDS: 0.9 % Sodium Chloride Flush 3 ML SYRINGE IVFLUSH (20:40)
[2022-02-05] MEDS: Enoxaparin Sodium 100 MG/ML SYRINGE 90 MG SUBCUT (20:40)
[2022-02-06] VITALS: BP 103/57; PULSE 62; RESP 18; TEMP 36.2; O2SAT 96
[2022-02-06 04:00] VITALS: BP 120/62; PULSE 62; RESP 18; TEMP 36.5; O2SAT 96
[2022-02-06] MEDS: Enoxaparin Sodium 100 MG/ML SYRINGE 90 MG SUBCUT (07:23)
[2022-02-06] MEDS: 0.9 % Sodium Chloride Flush 3 ML SYRINGE IVFLUSH (07:23)
[2022-02-06] MEDS: predniSONE 20 MG TABLET 40 MG PO (07:24)
[2022-02-06] MEDS: Atorvastatin Calcium 20 MG TABLET PO (07:24)
[2022-02-06 07:50] VITALS: BP 129/71; PULSE 53; RESP 18; TEMP 36.4; O2SAT 98
--- NOTE | 2022-02-06 07:51 | PM.PNGS ---
Subjective Subjective Date of Service: 02/06/22 Patient reports: feels better, tolerating liquids well, flatus and bowel movement Interval history: The patient reports that he is doing well and has continued to pass gas. He tolerated clear liquids and had several episodes of diarrhea from the Gastrografin study yesterday. He otherwise denies new complaints of chest pain, difficulty breathing, shortness of breath or new problems. He is anxious to hopefully go home today. Physical Exam Vital Signs: Vital Signs: Last Vital Signs Temp 97.7 F 02/06/22 04:00 Pulse 62 02/06/22 04:00 Resp 18 02/06/22 04:00 BP 120/62 02/06/22 04:00 Pulse Ox 96 02/06/22 04:00 O2 Del Method 02/06/22 04:00 BMI result Body Mass Index 25.8 On exam he is nontoxic he is in good spirits and is sclera are anicteric PERLLA, EOMI His abdomen is soft with no tenderness, rebound, rigidity, guarding or peritoneal sign. His umbilical hernia remains reducible and nontender. Objective Data Active Medications Acetaminophen (Acetaminophen 325 Mg Tablet) 650 mg PO Q6H PRN PRN Reason: Pain, Mild (Pain Scale 1-3) Atorvastatin Calcium (Atorvastatin Calcium 20 Mg Tablet) 20 mg PO DAILY [facility] Last Admin: 02/06/22 07:24 Dose: 20 mg Documented By: BRANDY Enoxaparin Sodium (Enoxaparin Sodium 100 Mg/Ml Syringe) 90 mg 1 mg/kg (90 mg) SUBCUT Q12H [facility] Last Admin: 02/06/22 07:23 Dose: 90 mg Documented By: BRANDY Melatonin (Melatonin 3 Mg Tablet) 6 mg PO BEDTIME PRN PRN Reason: Insomnia Last Admin: 02/04/22 21:59 Dose: 6 mg Documented By: CARROL Morphine Sulfate (Morphine Sulfate 2 Mg/Ml Cartridge) 4 mg IVPUSH Q4H PRN; Protocol PRN Reason: Pain, Severe (Pain Scale 7-10) Pt Own (Dabrafenib [ Tafinlar] 75 Mg Capsule) 150 mg PO Q12H [facility] Last Admin: 02/06/22 05:57 Dose: 150 mg Documented By: LUBA Pt Own (Trametinib 2 (Mg Tablet)) 2 mg PO BEDTIME [facility] Last Admin: 02/05/22 20:39 Dose: 2 mg Documented By: LUBA Ondansetron HCl (Ondansetron Hcl 4 Mg/2 Ml Vial) 4 mg IVPUSH Q8H PRN PRN Reason: Nausea and Vomiting Pharmacy Consult (Consult Rx Perform Med Rec) 1 each MISCELLANE ONCE PRN PRN Reason: Consult order Prednisone (Prednisone 20 Mg Tablet) 40 mg PO DAILY [facility] Last Admin: 02/06/22 07:24 Dose: 40 mg Documented By: BRANDY Sodium Chloride (0.9 % Sodium Chloride Flush 3 Ml Syringe) 3 ml IVFLUSH QSHIFT [facility] Last Admin: 02/06/22 07:23 Dose: 3 ml Documented By: BRANDY Tamsulosin HCl (Tamsulosin Hcl 0.4 Mg Capsule) 0.4 mg PO BEDTIME [facility] Last Admin: 02/05/22 20:40 Dose: 0.4 mg Documented By: LUBA Labs CBC & Chem 7: 02/05/22 05:42 02/05/22 05:42 Procedures Date of Service Date of Service: 02/06/22 Progress Note: A&P Assessment and plan (1) Anticoagulation adequate: Status: Acute (2) Exacerbation of Crohn's disease: Status: Acute (3) SBO (small bowel obstruction): Status: Resolved (4) Small bowel obstruction: Status: Acute (5) DVT (deep venous thrombosis): Status: Acute Plan I have written to advance to regular diet and the patient count likely be discharged on his home medicines later today. The option of following up with myself or Dr. Mark was discussed. Patient's main question was whether not this was a bowel obstruction related to scar tissue or his Crohn's disease. Explained that we cannot discern based on the information in the only way to tell would really be with an operation which could cause scar tissue, so that would be avoided for the time being. Given that is Crohn's disease has been quiescent, this will remain on clear. The benefit to lysis of adhesions and elective setting is unclear and I would not recommended given the patient's comorbidities at this time. Patient's questions seemed to be satisfactorily answered. If his symptoms return, unfortunately he may need to deal with this again in the future, his questions seemed to be satisfactorily answered. Time Spent With Patient Time: Total time spent is greater than 50% in coordination of care (as documented) at patient's floor/unit and/or counseling patient: Quality Stroke Does the patient have a stroke diagnosis?: No VTE Prior VTE?: Yes VTE Risk Level:: Medical - moderate - high VTE Device Contraindication: Patient Refused VTE Drug Contraindication: N/A - Med Ordered
[2022-02-06 11:39] VITALS: BP 100/60; PULSE 70; RESP 18; TEMP 37.1; O2SAT 93
--- NOTE | 2022-02-06 11:45 | P.DS_ITS ---
DS: Providers Provider Date of Service: 02/06/22 Date of admission: 02/02/22 19:46 Primary care physician: Anil Luna MD Consults: 02/02/22 20:42 Consult to Gastroenterology Routine Consulting Provider: Milla Hartman Reason for consultation: Crohn's disease flare Has provider been notified: Yes 02/03/22 13:26 Consult to General Surgery Routine Consulting Provider: Karthik Arroyo Reason for consultation: SBO on crohns disease for eval and rec DS: Diagnosis Discharge Diagnosis (1) Exacerbation of Crohn's disease: Status: Acute (2) SBO (small bowel obstruction): Status: Resolved DS: Summary Hospital Course Hospital Course: Admission note HPI This is a 66-year-old male with pertinent history of malignant melanoma, Crohn's disease, DVT on Eliquis, mixed hyperlipidemia who presents to the emergency department for evaluation of abdominal discomfort.? Patient states it started around 11:00, ? Sudden in onset, sharp, located in bilateral lower quadrant, nonradiating and progressive.? Patient states he has a history of Crohn's disease and it felt like it although it was much worse this time.? Unable to take p.o. intake due to the pain and states he has not had anything throughout the day.? No relieving factors.? Patient denies nausea, vomiting, fever, chills, chest discomfort, palpitations, shortness of breath, changes in urinary or bowel habits. In the ER, imaging was concerning for low-grade partial small-bowel obstruction from fibrostenotic Crohn's disease. Hospital course The patient was admitted for evaluation of Partial SBO due to Crohn's disease flare up reported on CT scan of the abdomen. Treated mainly with IV fluid, steroids and bowel rest as the patient was evaluated by flight test mechanic and surgeon who recommended no intervention needed. Concerns for possible fibrotic stricture. A study of SBFT was done showing patent intestine with good movement. Diet was started with good tolerance and advanced to regular. GI recommended tapering dose of prednisone at time of discharge with a plan to follow-up with Dr. Watkins as outpatient. Continue tappering dose prednisone as prescribed To follow up with Dr Watkins as outpatient advance your diet slowly at home and target soft food and more liquids Time Spent with Patient Time attestation: Total time spent providing and/or coordinating discharge services: Discharge coordination time: Greater than 30 minutes Quality: Safe Use of Opioids Does Pt have an Active Cancer Diagnosis on the Problem List?: Yes Opioid Measure Date for [facility] Report: 01/07/22 Opioid Measure Time for [facility] Report: 11:51 Quality: Stroke Does the patient have a stroke diagnosis?: No Physical Exam Vital Signs: Vital Signs: Last Vital Signs Temp 98.7 F 02/06/22 11:39 Pulse 70 02/06/22 11:39 Resp 18 02/06/22 11:39 BP 100/60 02/06/22 11:39 Pulse Ox 93 02/06/22 11:39 O2 Del Method 02/06/22 11:39 BMI result Body Mass Index 25.8 Const: Other: Constitutional : Awake, interactive, not in distress Neck : Normal inspection, Supple Cardiovascular : RRR, no JVP, no lower extremity edema Respiratory : good bilateral air entry, no crackles, wheezes or rhonchi Gastrointestinal: soft, lax, Normal bowel sounds, no tenderness with palpation Skin : Warm, Dry Neurological : Alert & oriented x3, No focal deficit DS: Data Data Completed and Pending Labs on day of discharge: Preliminary micro results at discharge 02/02/22 19:59 Blood Culture - Preliminary Blood - Venous No growth after 48 hours. 02/02/22 17:21 Blood Culture - Preliminary Blood - Venous No growth after [address] scan - abdomen: Radiologist's impression: ITS Impressions Abdomen/Pelvis CT 02/02/22 17:52 IMPRESSION: 1. Status post ileocecectomy with chronic mural thickening of the neoterminal ileum compatible with known Crohn's disease. The immediately adjacent medial terminal ileum is distended measuring up to 4.5 cm in diameter with fluid-filled nondilated small bowel loops slightly proximal to this. Findings are concerning for low-grade partial small bowel obstruction or early developing obstruction presumably from fibrostenotic Crohn's disease. 2. Colonic diverticulosis. No evidence of acute diverticulitis. 3. 2 mm nonobstructing right upper pole renal calculus. No hydronephrosis. 4. Trace ascites and mild right lower quadrant mesenteric edema. Upper GI and Small Bowel X-Ray 02/05/22 11:00 IMPRESSION: No evidence of small bowel obstruction. Discharge Plan Discharge Anticipated Discharge Date/Time: 02/06/22 11:35 Patient Disposition: Home, Self-Care Discharge Diagnosis: Small-bowel obstruction from Crohn's disease exacerbation Referrals: Anil Luna MD [Primary Care Provider] - 1 Week Discharge Medications: New prednisone 10 mg tablet See Taper PO DAILY Qty: 30 0RF Taper: Prednisone 40 mg daily for 3 Days and 0 Hour 30 mg daily for 3 Days and 0 Hour 20 mg daily for 3 Days and 0 Hour 10 mg daily for 3 Days and 0 Hour Continued Eliquis 5 mg Tablet 5 mg PO BID Qty: 60 6RF Tafinlar 75 mg Capsule 150 mg PO BID Qty: 120 3RF Rx Instructions: administer approximately 12 hours apart tamsulosin 0.4 mg capsule 1 cap PO BEDTIME trametinib 2 mg tablet 2 mg PO BEDTIME Rx Instructions: must be taken on empty stomach, at least 1 hr before or 2-3 hrs after meal/ food cholestyramine (with sugar) [Questran] 4 gram powder 4 g PO DAILY atorvastatin 20 mg tablet 20 mg PO DAILY 90 Days Qty: 90 3RF cyanocobalamin (vitamin B-12) 1,000 mcg/mL solution 1,000 mcg IM Q4W 90 Days Qty: 3 2RF Discharge Orders: Discharge Order (Routine); Ordered 02/06/22 Ordered By: Ramos Fofana Diet: Advance to usual diet Activity on Discharge: As tolerated Stand Alone Forms: Patient Portal Discharge page Care Plan Goals: Read below Health Concerns: Read below Plan of Treatment: Read below Assessment: You were admitted for evaluation of abdominal pain. images were concerning for possible intestinal obstruction and crohns disease exacerbation treated with IV fluids, steroids and bowel rest with good reponse over the course of hospital stay as you wre evaluated by surgery and GI. your diet was advanced with good tolerance as follow-through study showed patent bowels. Continue tappering dose prednisone as prescribed To follow up with Dr Watkins as outpatient advance your diet slowly at home and target soft food and more liquids
== END 2022-02-06 13:00 | disposition home or self-care (01) | DRG 386 ==
LOC: HO.ED 15:48 → HO.EDOVER 20:06 → HO.S3 20:10
PROVIDERS: Admitting Provider Student in an Organized Health Care Education/Training Program; Emergency Provider Emergency Medicine; PCP Internal Medicine; Visit Provider Student in an Organized Health Care Education/Training Program
DX: K50.912 Crohn's disease, unspecified, with intestinal obstruction (principal); Q23.1 Congenital insufficiency of aortic valve; E78.2 Mixed hyperlipidemia; N40.0 Benign prostatic hyperplasia without lower urinary tract symptoms; C43.9 Malignant melanoma of skin, unspecified; K42.9 Umbilical hernia without obstruction or gangrene; E66.3 Overweight; Z68.25 Body mass index [BMI] 25.0-25.9, adult; Z20.822 Contact with and (suspected) exposure to COVID-19; Z87.442 Personal history of urinary calculi; Z86.718 Personal history of other venous thrombosis and embolism; Z88.5 Allergy status to narcotic agent; Z79.01 Long term (current) use of anticoagulants; Z79.899 Other long term (current) drug therapy
CPT/HCPCS: 36415; 74176; 74250; 80048; 80076; 81003; 83605; 85025; 85027; 85652; 86140; 87040; 87635; 93005; 99285; J1650; J2270; J2405; J2920; J2930

== ENCOUNTER → 2022-02-15 08:07 | Outpatient (REF) | payer MEDICARE, SELFPAY ==
--- NOTE | 2022-02-15 08:09 | CA_ITS ---
Transthoracic Echocardiogram Patient (Last, First, Middle): Jasen White A Gender: Male Date of : 1955 Age: 66 Procedure Date: 02/15/2022 Procedure Type: Transthoracic Echocardiogram Location: OP Height: 182.88 cm Weight: 86.18 kg BSA: 2.08 m2 Heart Rate: 59 bpm BP: 120 / 68 mmHg Product/Device Technologist: TORIN Referring MD: Efraín Sanford MD Straight Pin Making Machine Operator: Dez Holder MD Symptoms: I71.2 - Thoracic aortic aneurysm, without rupture Study Quality: Adequate ECG Rhythm: Bradycardia Conclusions: - 1. Normal LV systolic and diastolic function 2. Bicuspid aortic valve with mild aortic regurgitation 3. Normal RV systolic pressure 4. Moderately dilated ascending aorta at 4.6 cm on this study 5. No gross pericardial effusion Findings Left Ventricle Normal left ventricular size, thickness, and systolic function. The visually estimated ejection fraction is between 65-70%. Diastolic function is normal for age. Right Ventricle Normal right ventricular cavity size and systolic function. Atria Both atria are normal in size. There is no evidence of interatrial shunt. Aortic Valve There is a bicuspid aortic valve. There is no aortic valve stenosis. There is mild aortic valve regurgitation. Mitral Valve Normal mitral valve structure and function. There is no mitral valve regurgitation. There is no mitral valve stenosis. Pulmonic Valve The pulmonic valve is likely normal. Tricuspid Valve Normal tricuspid valve structure. There is trace tricuspid valve regurgitation. The right ventricular systolic pressure is normal. The right ventricular systolic pressure is 27 mmHg. Normal right atrial pressure. There is no evidence of pulmonary hypertension. Great Vessels The pulmonary artery was not well visualized. There is moderate dilatation of the ascending aorta measuring 4.60 cm. Venous The inferior vena cava is normal in size and collapses greater than 50% with inspiration. Pericardium/Pleural There is no evidence of pericardial effusion. Prior Study Comparison No significant change compared to prior study dated: 09/05/2021. Measurements 2D Linear Measurements IVSd: 0.77 0.6-0.9/0.6-1.0 cm LVIDd: 5.69 3.9-5.3/4.2-5.9 cm LVIDd Index: 2.74 2.4-3.2/2.2-3.1 cm/m2 LVIDs: 2.92 2.0-3.6 cm LVPWd: 0.69 0.7-1.1 cm LA Diam: 3.30 2.7-3.8/3.0-4.0 cm LAIDs Index: 1.59 1.5-2.3 cm/m2 LV Mass: 188.56 67-162/88-224 g LV Mass Index: 90.65 43-95/49-115 g/m2 LVOT Diam: 2.50 3.0+(-)1.3 cm 2D Systolic Function EF 4C: 66.10 >55% EF 2C: 66.90 >55% EF BiP: 66.60 >55% Mitral Valve MV Pk E: 0.96 MV PK A: 0.64 MV Decel Time: 219.00 E/A: 1.50 E'Lateral: 7.83 E'Medial: 8.16 E/E' Med: 11.70 E/E' Lat: 12.20 PHT: 64.00 MVA PHT: 3.44 Decel [place]: 4.37 Aortic Valve AoV Pk Blake: 1.66 AoV Mn Blake: 1.20 AoV VTI: 0.34 AoV Pk Grad: 11.00 Aov Mn Grad: 6.00 MAGNUS Cont.VTI: 3.26 LVOT LVOT Pk Blake: 0.94 LVOT Mn Blake: 0.68 LVOT VTI: 0.23 LVOT Pk Grad: 4.00 LVOT Mn Grad: 2.00 LVOT Diam: 2.50 LVOT Area: 4.91 Diastolic Function MV Pk E: 0.96 MV Pk A: 0.64 E/A: 1.50 E'Medial: 8.16 E/E' Med: 11.70 E' Laterial: 7.83 E/E' Lat: 12.20 Right Ventricle TAPSE (mm): 18.20 TVS' Blake: 11.40 Tricuspid Valve TR Pk Blake: 2.18 TR Pk Grad: 19.00 RA Press: 8.00 RVSP: 27.00 Great Vessels Aorta Sinus of Valsalva: 4.10 2.0-3.5 cm Ao Asc: 4.60 2.1-3.4 cm Ao Arch: 3.70 Ao Desc: 1.80 Pulmonary Valve PV Pk Blake: 0.82 Peak PV Grad: 3.00 Updated in Other Vendor System with Status of Final Dez Gallo MD electronically signed on 02/15/2022 2:04:27 PM with status of Final
== END ==
LOC: HO.CARD 08:07
PROVIDERS: Visit Provider Internal Medicine
DX: Q23.1 Congenital insufficiency of aortic valve (principal); I71.20 Thoracic aortic aneurysm, without rupture, unspecified
CPT/HCPCS: 93306

== ENCOUNTER 2022-03-01 07:42 | Outpatient (REF) | payer MEDICARE, SELFPAY ==
--- NOTE | ~2022-03-01 | CT_ITS ---
EXAMINATION: CT ANGIOGRAM OF THE CHEST WITHOUT AND WITH CONTRAST CLINICAL INFORMATION: Thoracic aortic aneurysm, follow-up COMPARISON: CTA from 06/27/2021 TECHNIQUE: Multidetector volumetric CT imaging of the chest was performed before and after the administration of 70 mL of Omnipaque 350 intravenous contrast without immediate adverse reactions. 3D POSTPROCESSING: Multiple 3-D angiographic images were processed from the initial data set by the document imaging specialist at the modality workstation under concurrent physician supervision. DOSE LOWERING TECHNIQUES: This CT examination was performed using dose optimization techniques as appropriate, variously including the following: - Automated exposure control - Adjustment of mA and/or kV according to patient size (this includes techniques or standardized protocols for targeted exams where dose is matched to indication/reason for exam; i.e. extremities or head) - Use of iterative reconstruction technique DLP: 185 mGy-cm. FINDINGS: VASCULAR: ASCENDING AORTA: There is fusiform dilation of the ascending thoracic aorta. The mid segment measures 4.7 x 4.6 cm the transaxial images, previously measuring maximum of 4.7 cm x 4.5 cm at the same location. Aorta is otherwise widely patent without evidence of dissection or significant atherosclerotic plaque AORTIC ARCH: Normal caliber and widely patent without aneurysm or dissection. 2-vessel arch anatomy. The great vessels are patent. DESCENDING AORTA: Normal caliber and widely patent without aneurysm or dissection ABDOMINAL AORTA: Visualized proximal abdominal aorta is normal in caliber. NONVASCULAR: LUNGS: Minimal peripheral groundglass opacity seen in the medial aspect of the right lower lobe and lingula which could represent acute inflammatory or infectious process. No focal airspace consolidation. No suspicious pulmonary nodules seen. Stable calcified granuloma within the left lower lobe MEDIASTINUM: Heart is normal in size. Pericardium is normal. No mediastinal lymphadenopathy PLEURA: There is no pleural effusion. No pleural mass or thickening. ABDOMINAL VISCERA: Unremarkable OSSEOUS STRUCTURES: Unremarkable. CT/CT angio chest aorta IMPRESSION: 1. Stable fusiform aneurysm of the ascending thoracic aorta with maximum diameter 4.7 cm, previously measuring 4.7 cm. 2. Minimal peripheral groundglass opacities seen in the medial aspect of the right lower lobe and lingula which could represent acute inflammatory or infectious process.
[2022-03-01] MEDS: iohexoL 350 MG/ML 100 ML INFUS..BTL 70 ML IV (08:28)
== END 2022-03-01 07:43 | disposition home or self-care (01) ==
LOC: HO.CT 07:42
PROVIDERS: Visit Provider Internal Medicine
DX: I71.20 Thoracic aortic aneurysm, without rupture, unspecified (principal)
CPT/HCPCS: 71275; Q9967

== ENCOUNTER 2022-04-16 14:07 | Outpatient (REF) | payer MEDICARE, SELFPAY ==
[2022-04-16 15:11] LABS: Influenza A PCR NEGATIVE (Negative); Influenza B PCR NEGATIVE (Negative); Resp Syncy Virus RNA Qual PCR NEGATIVE (Negative); SARS COV2 PCR INHOUSE NEGATIVE (Negative)
== END 2022-04-16 14:08 | disposition home or self-care (01) ==
LOC: HO.LAB 14:07
PROVIDERS: PCP Internal Medicine; Visit Provider Internal Medicine
DX: Z20.822 Contact with and (suspected) exposure to COVID-19 (principal); J98.8 Other specified respiratory disorders
CPT/HCPCS: 0241U

== ENCOUNTER → 2022-04-17 08:14 | Outpatient (BNVA) | payer MEDICARE, SELFPAY | PROVIDERS: PCP Internal Medicine; Referring Provider Internal Medicine; Visit Provider Internal Medicine | DX: I71.20 Thoracic aortic aneurysm, without rupture, unspecified (principal); Q23.1 Congenital insufficiency of aortic valve | CPT/HCPCS: 99212 ==

== ENCOUNTER 2022-05-18 10:01 | Day surgery (SDC) | payer MEDICARE, SELFPAY ==
--- NOTE | 2022-05-17 10:24 | HO.ANESPROP2 ---
Documented by User: Marie Lopez NP 05/17/22 10:34 HPI - Anesthesia Eval Consult details Narrative: 66yo M for Colonoscopy Eliquis for hx DVT [place] [facility] [place], bicuspid aortic valve with mild regurg. Stable per 03/2022 OV post echo and coronary CTA. [facility], LAT[facility] Active Problems Active Problems: All Active Problems (Updated 05/17/22 @ 06:26 by Shaila Ramirez RN) Left lumbosacral radiculopathy (Acute) Weakness of left lower extremity (Acute) Lymph node enlargement (Acute) Preoperative cardiovascular examination (Acute) Pain and swelling of right upper extremity (Acute) DVT (deep vein thrombosis) in (Acute) Vitamin B 12 deficiency (Acute) Cough (Acute) Metastatic melanoma (Chronic) Hyperpigmented skin lesion (Acute) Ascending aortic aneurysm (Acute) Hyperbilirubinemia (Acute) Impaired fasting glucose (Acute) Pernicious anemia (Acute) Degenerative joint disease of cervical spine (Acute) Lumbar degenerative disc disease (Acute) Migraine (Acute) Past Medical History Medical History Anticoagulation adequate Ascending aortic aneurysm Bicuspid aortic valve Bowel obstruction Cough COVID-19 vaccine series completed Crohn disease Crohn's disease Degenerative joint disease of cervical spine DVT (deep venous thrombosis) History of nephrolithiasis History of rectal abscess Hyperbilirubinemia Hyperpigmented skin lesion Impaired fasting glucose Lumbar degenerative disc disease Metastatic melanoma Migraine Overweight (BMI 25.0-29.9) Pernicious anemia Pure hypercholesterolemia Family History Family History Father Medical history unknown Mother Hypertension Diabetes Family history of problems with anesthesia: No Surgical History Surgical History H/O colonoscopy History of back surgery History of esophagogastroduodenoscopy (EGD) History of inguinal hernia repair History of lymph node excision History of partial colectomy Hx of cardiac catheterization History of Problems with Anesthesia: No Social History Social History Household Members: Spouse Housing: House Are you a primary healthcare sales representative to a significant other at home: No Do you presently have visiting nurse or other home services: No Alcohol intake: current Alcohol intake frequency: does not drink Alcohol type: hard liquor Patient Tobacco Use Status: Never used Tobacco Tobacco use type: Cigarette Second Hand Smoke Exposure: Yes Substance Use Type: Marijuana Are you DNR?: No Advance Directives: Yes Advance Directives on File: Yes Advance Directives Date on File: 01/08/19 Nutrition Risks: No Nutritional Risk service: No Current occupational status: retired Cognitive needs: No Hearing needs: No Vision needs: Yes Meds Allergies Allergy/AdvReac Type Severity Reaction Status Date / Time codeine [Codeine] Allergy Severe HIVES,GI Verified 05/11/22 13:32 UPSET Home Medications Medication Instructions Recorded Confirmed Last Taken Type cholestyramine (with sugar) 4 gram 4 g PO DAILY 01/07/20 04/17/22 02/02/22 History oral powder (Questran) trametinib 2 mg tablet 2 mg PO BEDTIME 02/02/22 04/17/22 02/01/22 History trametinib 2 mg tablet (Mekinist) 2 mg PO DAILY 05/11/22 Unknown History Exam Exam Date and Time: May 17, 2022 1024 Pertinent Lab Results Pertinent Lab Results: Laboratory Tests 03/28/22 03/28/22 09:01 09:01 WBC 3.2 L Hgb 14.5 Hct 44.3 Plt Count 213 Sodium 139 Potassium 4.1 Chloride 106 Carbon Dioxide 27 BUN 14 Creatinine 0.89 Narrative Narrative: EKG 01/2022 Vent. Rate : 060 BPM ? ? Atrial Rate : 060 BPM ?? P-R Int : 182 ms? QRS Dur : 094 ms ? ? QT Int : 406 ms ? ? ? P-R-T Axes : 036 -11 026 degrees ?? QTc Int : 406 ms ? Normal sinus rhythm Left axis deviation Otherwise normal ECG When compared with ECG of 07-JAN-2019 07:54, No significant changes seen ECHO 02/2022 Conclusions: - 1. Normal LV systolic and diastolic function ? 2. Bicuspid aortic valve with? mild aortic regurgitation ? 3. Normal RV systolic pressure ? 4. Moderately dilated ascending aorta at 4.6 cm on this study? ? 5. No gross pericardial effusion ? ?? Assessment and Plan Assessment Anesthesia Assessment: Chart Reviewed Final Anesthetic Review Family History of Problems with Anesthesia: No History of Problems with Anesthesia: No Documented by User: Unique Longoria MD 05/18/22 12:22 [facility] Past Medical History Medical History Anticoagulation adequate Ascending aortic aneurysm Bicuspid aortic valve Bowel obstruction Cough COVID-19 vaccine series completed Crohn disease Crohn's disease Degenerative joint disease of cervical spine DVT (deep venous thrombosis) History of nephrolithiasis History of rectal abscess Hyperbilirubinemia Hyperpigmented skin lesion Impaired fasting glucose Lumbar degenerative disc disease Metastatic melanoma Migraine Overweight (BMI 25.0-29.9) Pernicious anemia Pure hypercholesterolemia Family History Family History Father Medical history unknown Mother Hypertension Diabetes Surgical History Surgical History H/O colonoscopy History of back surgery History of esophagogastroduodenoscopy (EGD) History of inguinal hernia repair History of lymph node excision History of partial colectomy Hx of cardiac catheterization Social History Social History Household Members: Spouse Housing: House Are you a primary healthcare sales representative to a significant other at home: No Do you presently have visiting nurse or other home services: No Alcohol intake: current Alcohol intake frequency: does not drink Alcohol type: hard liquor Patient Tobacco Use Status: Never used Tobacco Tobacco use type: Cigarette Second Hand Smoke Exposure: Yes Substance Use Type: Marijuana Are you DNR?: No Advance Directives: Yes Advance Directives on File: Yes Advance Directives Date on File: 01/08/19 Nutrition Risks: No Nutritional Risk service: No Current occupational status: retired Cognitive needs: No Hearing needs: No Vision needs: Yes Meds Allergies Allergy/AdvReac Type Severity Reaction Status Date / Time codeine [Codeine] Allergy Severe HIVES,GI Verified 05/11/22 13:32 UPSET Home Medications Medication Instructions Recorded Confirmed Last Taken Type cholestyramine (with sugar) 4 gram 4 g PO DAILY 01/07/20 04/17/22 02/02/22 History oral powder (Questran) trametinib 2 mg tablet 2 mg PO BEDTIME 02/02/22 04/17/22 02/01/22 History trametinib 2 mg tablet (Mekinist) 2 mg PO DAILY 05/11/22 Unknown History Exam Airway Heart: RRR Lungs: CTA Assessment and Plan Final Anesthetic Review ASA Class: III Final Preanesthetic Review: No Changes in Pt Med Stat, Meds/Allgs Chart Reviewed, Consent Obtained/Reviewed and Anes Risks/Benef Reviewed Patient Risk: Intermediate Procedure Risk: Low Anesthetic Plan Anesthetic Plan: MAC: Disposition: Standard PACU
[2022-05-18 06:17] VITALS: BMI 26.4
[2022-05-18 10:09] VITALS: BP 155/71; PULSE 65; RESP 18; TEMP 36.8; O2SAT 98
[2022-05-18] MEDS: Lactated Ringers 1,000 ML 100 ML IVCONT (10:29)
--- NOTE | 2022-05-18 11:23 | MHC.SHP ---
Pre-Procedural Eval Section A Date of Service: 05/18/22 Section B Chief Complaint: crohns Details of Present Illness: see H&P no changes Relevant Family History (Specify if Yes): No Relevant Social History: None Present Medications: see Short Stay Collaborative assessment Medical History: No relevant PMH History of Previous Operations: No relevant previous surgery Allergies: Allergies Allergy/AdvReac Type Severity Reaction Status Date / Time codeine [Codeine] Allergy Severe HIVES,GI Verified 05/11/22 13:32 UPSET Review of Systems Sugical H&P ROS: Negative: Constitution, Cardiovascular, Respiratory, Neurological, Psychiatric, Hem-Onc, Allergic/Immunologic, Gastrointestinal, Genitourinary, Musculoskeletal, Integumentary, Endocrine and Eyes/Ears/Nose/Throat Exam Surgical H&P Exam: Normal: HEENT, Normal: Heart, Normal: Lungs, Normal: Extremities, Normal: Abdomen, Normal: Skin and Normal: Neurological Plan Diagnosis/Plan: Unchanged I have reviewed the history and physical and performed a pertinent physical examination on my patient. No changes have occurred unless specified. Time Spent With Patient Time: Total time managing care of this patient today ____ minutes.
[2022-05-18] MEDS: Scopolamine 1.5 MG PATCH.TD.3 EAR-BEHIND (11:27)
--- NOTE | 2022-05-18 12:11 | P.CONAN_ITS ---
[facility] Active Problems Active Problems: All Active Problems (Updated 05/17/22 @ 06:26 by Shaila Ramirez RN) Left lumbosacral radiculopathy (Acute) Weakness of left lower extremity (Acute) Lymph node enlargement (Acute) Preoperative cardiovascular examination (Acute) Pain and swelling of right upper extremity (Acute) DVT (deep vein thrombosis) in (Acute) Vitamin B 12 deficiency (Acute) Cough (Acute) Metastatic melanoma (Chronic) Hyperpigmented skin lesion (Acute) Ascending aortic aneurysm (Acute) Hyperbilirubinemia (Acute) Impaired fasting glucose (Acute) Pernicious anemia (Acute) Degenerative joint disease of cervical spine (Acute) Lumbar degenerative disc disease (Acute) Migraine (Acute) Past Medical History Medical History Anticoagulation adequate Ascending aortic aneurysm Bicuspid aortic valve Bowel obstruction Cough COVID-19 vaccine series completed Crohn disease Crohn's disease Degenerative joint disease of cervical spine DVT (deep venous thrombosis) History of nephrolithiasis History of rectal abscess Hyperbilirubinemia Hyperpigmented skin lesion Impaired fasting glucose Lumbar degenerative disc disease Metastatic melanoma Migraine Overweight (BMI 25.0-29.9) Pernicious anemia Pure hypercholesterolemia Family History Family History Father Medical history unknown Mother Hypertension Diabetes Family history of problems with anesthesia: No Surgical History Surgical History H/O colonoscopy History of back surgery History of esophagogastroduodenoscopy (EGD) History of inguinal hernia repair History of lymph node excision History of partial colectomy Hx of cardiac catheterization History of Problems with Anesthesia: No Social History Social History Household Members: Spouse Housing: House Are you a primary intensive care ambulance paramedic to a significant other at home: No Do you presently have visiting nurse or other home services: No Alcohol intake: current Alcohol intake frequency: does not drink Alcohol type: hard liquor Patient Tobacco Use Status: Never used Tobacco Tobacco use type: Cigarette Second Hand Smoke Exposure: Yes Substance Use Type: Marijuana Are you DNR?: No Advance Directives: Yes Advance Directives on File: Yes Advance Directives Date on File: 01/08/19 Nutrition Risks: No Nutritional Risk service: No Current occupational status: retired Cognitive needs: No Hearing needs: No Vision needs: Yes Meds Allergies Allergy/AdvReac Type Severity Reaction Status Date / Time codeine [Codeine] Allergy Severe HIVES,GI Verified 05/11/22 13:32 UPSET Active Medications: Current Medications Albuterol Sulfate (Albuterol Sulfate (0.083%) 2.5 Mg/3 Ml Vial.Neb) 2.5 mg INHALE ONCE PRN PRN Reason: Shortness of Breath/Wheezing Lactated Ringer's (Lr) 1,000 mls @ 100 mls/hr IVCONT .Q10H DORY Last Admin: 05/18/22 10:29 Dose: 100 mls/hr Home Medications Medication Instructions Recorded Confirmed Last Taken Type cholestyramine (with sugar) 4 gram 4 g PO DAILY 01/07/20 04/17/22 02/02/22 History oral powder (Questran) trametinib 2 mg tablet 2 mg PO BEDTIME 02/02/22 04/17/22 02/01/22 History trametinib 2 mg tablet (Mekinist) 2 mg PO DAILY 05/11/22 Unknown History Exam Exam Date and Time: May 18, 2022 1211 Height,Weight and Vital Signs: Height 5 ft 11 in Weight 86.183 kg Last Vital Signs Temp 98.3 F 05/18/22 10:09 Pulse 65 05/18/22 10:09 Resp 18 05/18/22 10:09 BP 155/71 H 05/18/22 10:09 Pulse Ox 98 05/18/22 10:09 O2 Del Method 05/18/22 10:09 Airway Mallampati Class: II TM Dist: >3cm Neck ROM: Full Heart: RRR Lungs: CTA Assessment and Plan Final Anesthetic Review Family History of Problems with Anesthesia: No History of Problems with Anesthesia: No ASA Class: III Final Preanesthetic Review: No Changes in Pt Med Stat, Meds/Allgs Chart Reviewed, Consent Obtained/Reviewed and Anes Risks/Benef Reviewed Patient Risk: Intermediate Procedure Risk: Low Anesthetic Plan Anesthetic Plan: MAC: Disposition: Standard PACU
--- NOTE | 2022-05-18 12:19 | PM.OP ---
Brief Operative Note Date of Service: 05/18/22 Pre-op diagnosis: crohns Procedure: colonoscopy Surgeon: Yoel Watkins Anesthesia: MAC Was an Information Security Systems Instructor used for this Procedure?: No Estimated blood loss (mL): 5 Pathology: other Condition: stable Disposition: PACU
[2022-05-18 12:25] VITALS: BP 87/54; PULSE 64; RESP 16; TEMP 36.3; O2SAT 96
--- NOTE | 2022-05-18 12:28 | HO.POSTANES ---
Post Anesthesia Evaluation Post Anesthesia Evaluation Vital Signs: Vital Signs Temp Pulse Resp BP Pulse Ox O2 Del Method 05/18/22 12:25 97.3 F 64 16 87/54 L 96 Room Air 05/18/22 10:09 98.3 F 65 18 155/71 H 98 Room Air Anesthesia: Monitored Mental Status: Awake Pain Control: Satisfactory Nausea/Vomiting: None Hydration: Adequate Anesthesia-Related Issues: No Anes. Related Issues
[2022-05-18 12:40] VITALS: BP 107/68; PULSE 61; RESP 16; TEMP 36.3; O2SAT 96
--- NOTE | 2022-05-18 12:51 | HO.POSTANES ---
Post Anesthesia Evaluation Post Anesthesia Evaluation Vital Signs: Vital Signs Temp Pulse Resp BP Pulse Ox O2 Del Method 05/18/22 12:40 97.3 F 61 16 107/68 96 Room Air 05/18/22 12:25 97.3 F 64 16 87/54 L 96 Room Air 05/18/22 10:09 98.3 F 65 18 155/71 H 98 Room Air Anesthesia: Monitored Mental Status: Awake Pain Control: Satisfactory Nausea/Vomiting: None Hydration: Adequate Anesthesia-Related Issues: No Anes. Related Issues
--- NOTE | 2022-05-19 00:39 | OP_ITS ---
SURGEON: Yoel Watkins MD INDICATIONS: Crohn disease. PREOPERATIVE DIAGNOSIS: POSTOPERATIVE DIAGNOSIS: PROCEDURE PERFORMED: Colonoscopy to the near terminal ilium with balloon dilation and biopsy. ESTIMATED BLOOD LOSS: COMPLICATIONS: ANESTHESIA: Monitored anesthesia care. ASSISTANTS: SPECIMENS: DESCRIPTION OF PROCEDURE: History and physical performed. Procedure was performed on 05/18/2022. The risks and benefits of the procedure were explained to the patient. Informed consent was obtained. The patient was placed in the left lateral decubitus position. A digital rectal exam was performed and was found to be normal. The Olympus pediatric video colonoscope was introduced into the rectum and advanced to the near terminal ilium. Examination was performed. The scope was removed. He tolerated the procedure well and was returned to the recovery area in stable condition. FINDINGS: There was active Crohn disease at the ileocolonic anastomosis with some stricturing. Balloon dilation to 10 and 12 mm was performed through the scope with no immediate complications. The scope was able to be advanced thorough the strictured area following the balloon dilation. There did appear to be active Crohn disease at the anastomosis. Biopsies were obtained from the ileum and from throughout the colon. There appeared to be punctate areas of ulceration consistent with Crohn disease, mainly in the descending, sigmoid, and rectum with relative sparing of the right colon and transverse colon. Retroflexed examination showed small internal hemorrhoids. There was mild sigmoid diverticulosis. IMPRESSION: Crohn disease. RECOMMENDATION: Follow up the biopsy results. MD CELI Caceres/NIKKI / [id number] MTDD
== END 2022-05-18 13:25 | disposition home or self-care (01) ==
PROVIDERS: PCP Internal Medicine; Visit Provider Internal Medicine Gastroenterology
PROC: 0DJD8ZZ Inspection of Lower Intestinal Tract, Via Natural or Artificial Opening Endoscopic (ICD-10-PCS; CPT 45378; principal; 2022-05-18 11:20)
DX: K50.812 Crohn's disease of both small and large intestine with intestinal obstruction (principal); Z98.0 Intestinal bypass and anastomosis status; Z90.49 Acquired absence of other specified parts of digestive tract; K57.30 Diverticulosis of large intestine without perforation or abscess without bleeding; K64.8 Other hemorrhoids; I71.20 Thoracic aortic aneurysm, without rupture, unspecified; G43.109 Migraine with aura, not intractable, without status migrainosus; E78.00 Pure hypercholesterolemia, unspecified; Z79.01 Long term (current) use of anticoagulants; Z86.718 Personal history of other venous thrombosis and embolism; Z85.820 Personal history of malignant melanoma of skin; Z79.899 Other long term (current) drug therapy; Z88.8 Allergy status to other drugs, medicaments and biological substances
CPT/HCPCS: 45380; 45386; 88305; C1726

== ENCOUNTER 2022-06-02 08:14 | Outpatient (REF) | payer MEDICARE, SELFPAY ==
[2022-06-02 09:02] LABS: Appearance Urine Clear; Color Urine Yellow; Glucose Urine UA Negative (Negative); Leukocyte Esterase Urine Negative (Negative); Nitrite Urine Negative (Negative); PH 6.5 (5.0-9.0); Urine Blood Negative (Negative); Urine Ketones Negative (Negative); Urine Protein Negative (Neg-Trace)
[2022-06-02 10:14] LABS: MANUAL DIFF FLAG NO
[2022-06-02 10:22] LABS: Basophils Percent Auto 0.4 % (0-2); Eosinophils Absolute Auto 0.2 X10*3/uL (0.0-0.4); Eosinophils Percent Auto 4.7 % (0-4); Hematocrit 43.7 % (42.0-52.0); Hemoglobin 14.1 g/dl (14.0-18.0); Imm Gran Abs Auto 0.02 X10*3/uL (0.00-0.03); Imm Gran Pct Auto 0.4 % (0.0-0.4); Lymphocytes Absolute Auto 1.3 X10*3/uL (1.2-4.9); Lymphocytes Percent Auto 26.7 % (20-40); Mean Corpuscular HGB Conc 32.3 g/dl (31.0-36.0); Mean Corpuscular Hemoglobin 30.5 pg (27.0-33.0); Mean Corpuscular Volume 94.6 fL (80.0-98.0); Mean Platelet Volume 8.9 fL (9.4-12.4); Monocytes Absolute Auto 0.6 X10*3/uL (0.1-1.2); Monocytes Percent Auto 11.5 % (2-11); Neutrophils Absolute Auto 2.7 x10*3/uL (2.0-8.3); Neutrophils Percent Auto 56.3 % (45-73); Platelet Count 317 X10*3/uL (160-400); Red Blood Count 4.62 X10*6/uL (4.60-5.80); Red Cell Distribution Width 12.8 % (11.0-16.0); White Blood Count 4.9 X10*3/uL (4.8-10.8)
[2022-06-02 10:30] LABS: Estimated Average Glucose 108 mg/dL; Hemoglobin A1c % 5.4 %
[2022-06-02 10:59] LABS: Alanine Aminotransferase 18 U/L (0-40); Albumin Level 3.5 g/dL (3.5-5.0); Alkaline Phosphatase 114 U/L (39-117); Anion Gap 15 (12-20); Aspartate Amino Transferase 20 U/L (5-37); Bilirubin Total 0.6 mg/dL (0.0-1.0); Blood Urea Nitrogen 16 mg/dL (9-16); Calcium 8.8 mg/dL (8.4-10.2); Carbon Dioxide 26 mmol/L (22-29); Chloride 105 mmol/L (96-108); Cholesterol 153 mg/dL; Estimated Glomerular Filt Rate > 60; Glucose Fasting 99 mg/dL (60-99); HDL Cholesterol 44 mg/dL; LDL Cholesterol Calculated 91 mg/dl; Sodium 141 mmol/L (135-145); Total Protein 6.4 g/dL (6.5-8.0); Triglycerides 92 mg/dL
[2022-06-02 11:14] LABS: TSH reflex Free T4 1.45 uIU/mL (0.32-4.0); Vitamin D 25-OH Total 25.5 ng/mL (>30)
== END 2022-06-02 08:15 | disposition home or self-care (01) ==
LOC: HO.LAB 08:14
PROVIDERS: PCP Internal Medicine; Visit Provider Internal Medicine
DX: E78.00 Pure hypercholesterolemia, unspecified (principal); E55.9 Vitamin D deficiency, unspecified; R73.01 Impaired fasting glucose; I10 Essential (primary) hypertension
CPT/HCPCS: 36415; 80053; 80061; 81003; 82306; 83036; 84443; 85025

== ENCOUNTER 2022-07-10 09:13 | Outpatient (REF) | payer MEDICARE, SELFPAY ==
--- NOTE | ~2022-07-10 | PE_ITS ---
EXAMINATION: Fluorine-18 FDG PET/CT Scan CLINICAL INDICATION: Subsequent treatment management. Malignant melanoma, restaging. PROCEDURE: 57 minutes following the intravenous administration of 21.0 mCi of fluorine 18 FDG, images of the whole body were obtained using a combined PET/CT scanner with CT scan based attenuation correction. No oral contrast was administered. No intravenous contrast was administered. Transverse, coronal, sagittal, and volume reconstruction projections were obtained. The patient's blood glucose as determined by a finger stick, was 84 mg/dl immediately prior to injection. Total CT exam dose-length product 1092 mGy-cm * These CT images were obtained using dose optimization techniques as appropriate, variously including the following: Automated exposure control * Adjustment of mA and/or kV according to patient size (this includes techniques or standardized protocols for targeted exams where dose is matched to indication/reason for exam; i.e. extremities or head) * Use of iterative reconstruction technique COMPARISON: The prior PET CT scan dated 05/02/2021 is available for comparison. CT angiogram of the chest dated 03/01/[address] scan of the abdomen and pelvis dated 02/02/2022 are also available for comparison. FINDINGS: (Slice numbers described in this report are numbered superiorly to inferiorly with slice #1 in the head) NECK AND HEAD: No foci of abnormal FDG activity are noted. The distribution of FDG activity is physiological. There is no cervical lymphadenopathy. THORAX: There is weak FDG activity associated with a groundglass opacity in the lingula, SUVmax 1.2, slice 129/267. There is a smaller weakly FDG avid additional groundglass opacity posteriorly in the right lung base, SUVmax 1.7, slice 135/267. These are similar in appearance to the 03/01/2022 CTA of the chest. No additional foci of abnormal FDG activity are present in the chest. No additional pulmonary nodules or other opacities are present. There is no mediastinal, supraclavicular or axillary lymphadenopathy. The intensely FDG avid right axillary lymph node present on the 05/02/[address] scan is no longer present. There is no pleural or pericardial fluid, or pneumothorax. ABDOMEN AND PELVIS: There is a focus of mildly increased FDG activity in the musculature in the left groin unchanged in appearance from 05/02/2021, now showing SUVmax 4.3, slice 257/267 versus SUVmax 4.5 previously. The soft tissue density associated with this has not changed significantly on the CT images, now measuring 2.5 x 2.1 cm in largest transverse dimensions versus 2.4 x 2.1 cm previously. Postsurgical changes with multiple metallic sutures are present in the right lower quadrant cecal region with no associated abnormal FDG activity and unchanged in appearance from 05/02/2021. There is mild FDG activity throughout the gastrointestinal tract without a suspicious focal component. There is diverticulosis without evidence of diverticulitis. The hollow viscera are otherwise unremarkable. The liver, gallbladder, and spleen are unremarkable. A stable peripelvic left renal cyst is markedly FDG photopenic and not significantly changed from 05/02/2021. The kidneys are otherwise unremarkable. The adrenal glands and pancreas are unremarkable. There is no retroperitoneal, mesenteric, pelvic or inguinal lymphadenopathy. Small fat-containing periumbilical and right inguinal hernias are stable from 05/02/2021. MUSCULOSKELETAL: There are no foci of abnormal FDG activity in the osseous structures. There are mild degenerative changes in the spine but no suspicious sclerotic or lytic lesions are present. There is mildly increased activity laterally in the soft tissues of the left ankle and the soft tissues of the right knee. VASCULAR: There is aneurysmal dilatation of the ascending thoracic aorta measuring 4.8 cm in largest AP diameter, not significantly changed from 03/01/2022 chest CTA. PET/PET CT fusion whole body IMPRESSION: 1. The previously visualized intensely FDG avid right axillary lymph node has been resected. There is no residual abnormal FDG activity or lymphadenopathy in this region, or elsewhere. 2. Mild FDG activity in the left groin musculature is unchanged in appearance on either the FDG PET images or the CT images and likely represents inflammatory changes, possibly from prior inguinal hernia surgery. 3. Very weakly FDG avid groundglass pulmonary opacities are not significantly changed from 03/01/2022 and are probably inflammatory in etiology. Clinical correlation is recommended and follow-up with diagnostic CT of the chest in approximately 6 months is recommended to determine stability or resolution. 4. No additional abnormalities suspicious for metastatic or other malignant lesions are noted. 5. Aneurysmal dilatation of the ascending thoracic aorta measuring 4.8 centimeters is not significantly changed from 03/01/2022.
== END 2022-07-10 09:14 | disposition home or self-care (01) ==
LOC: HO.PET 09:13
PROVIDERS: PCP Internal Medicine; Visit Provider Internal Medicine
DX: Z13.89 Encounter for screening for other disorder (principal)

== ENCOUNTER 2022-08-12 18:56 | Emergency (ER) | payer MEDICARE, SELFPAY ==
--- NOTE | ~2022-08-12 | CT_ITS ---
EXAMINATION: CT ABDOMEN AND PELVIS WITHOUT CONTRAST CLINICAL INFORMATION: Abdominal pain with vomiting. History of Crohn's disease and small bowel obstruction COMPARISON: PET/CT 07/10/2022 CT abdomen 01/31/2022 TECHNIQUE: Multidetector volumetric imaging was performed from the superior aspect of the liver through the pubic symphysis. Sagittal and coronal reformatted images were obtained on the technologist's workstation. This CT examination was performed using dose optimization techniques as appropriate, variously including the following: *Automated exposure control *Adjustment of mA and/or kV according to patient size (this includes techniques or standardized protocols for targeted exams where dose is matched to indication/reason for exam; i.e. extremities or head) *Use of iterative reconstruction technique DLP: 627 mGy-cm FINDINGS: LUNG BASES: Atelectasis is present at the lung bases along with some punctate calcified granulomas. LIVER, GALLBLADDER, AND BILIARY TREE: The liver is normal in size, shape, and attenuation. No focal hepatic lesion or biliary ductal dilatation is present. The gallbladder is unremarkable with no evidence of radiopaque gallstones, gallbladder wall thickening, or obvious pericholecystic inflammatory changes. PANCREAS: Unremarkable. SPLEEN: Unremarkable. ADRENAL GLANDS: Unremarkable. KIDNEYS AND URETERS: The kidneys are normal in size, shape, and attenuation. 2 renal calculi are present on the left the largest measuring 3 mm (3:31). No left-sided renal calculi. Bilateral Bosniak class I cysts are present, parapelvic on the left and cortical on the right No hydronephrosis, hydroureter, or ureteral calculi seen. No perinephric stranding. BLADDER: Unremarkable. GASTROINTESTINAL TRACT: The small and large bowel are unremarkable. There is a partial right hemicolectomy. There is dilatation of distal ileal loops with some fecalization but a definite obstructing lesion is not seen. Some inflammatory change is seen in the mesentery around this area. Appearances are quite similar to those seen on 02/02/2022 study but had resolved by the 07/10/2022 PET/CT. The appendix is no longer present. ABDOMINAL WALL: Tiny right inguinal hernia containing only fat along with a small periumbilical hernia containing only fat. LYMPH NODES: No retroperitoneal lymphadenopathy. VASCULAR: Unremarkable. PELVIC VISCERA: There is mild to moderate BPH. Seminal vesicles appear normal. OSSEOUS STRUCTURES: Degenerative changes are present in the spine at L4-L5 and L5-S1. CT/CT abdomen pelvis wo IV con IMPRESSION: 1. There is recurrent enteritis with dilatation and mild edema of distal ileal loops with some fecalization without a definite obstructing lesion is not seen. Appearances are quite similar to those seen on 02/02/2022 study but had resolved by the 07/10/2022 more recent PET/CT. 2. Other incidental findings as described above. Fleischner guidelines were followed.
[2022-08-12 19:01] VITALS: BP 141/80; PULSE 83; RESP 20; TEMP 37; O2SAT 97; BMI 25.8
[2022-08-12 19:15] LABS: MANUAL DIFF FLAG NO
[2022-08-12 19:16] LABS: Basophils Percent Auto 0.3 % (0-2); Eosinophils Absolute Auto 0.1 X10*3/uL (0.0-0.4); Eosinophils Percent Auto 1.1 % (0-4); Hematocrit 47.9 % (42.0-52.0); Hemoglobin 15.8 g/dl (14.0-18.0); Imm Gran Abs Auto 0.02 X10*3/uL (0.00-0.03); Imm Gran Pct Auto 0.3 % (0.0-0.4); Lymphocytes Absolute Auto 1.1 X10*3/uL (1.2-4.9); Lymphocytes Percent Auto 14.5 % (20-40); Mean Corpuscular Hemoglobin 29.7 pg (27.0-33.0); Mean Platelet Volume 8.9 fL (9.4-12.4); Monocytes Absolute Auto 0.5 X10*3/uL (0.1-1.2); Monocytes Percent Auto 6.8 % (2-11); Neutrophils Absolute Auto 5.9 x10*3/uL (2.0-8.3); Platelet Count 259 X10*3/uL (160-400); Red Blood Count 5.32 X10*6/uL (4.60-5.80); Red Cell Distribution Width 12.9 % (11.0-16.0); White Blood Count 7.6 X10*3/uL (4.8-10.8)
[2022-08-12 19:34] LABS: Alanine Aminotransferase 22 U/L (0-40); Alkaline Phosphatase 91 U/L (39-117); Anion Gap 14 (12-20); Aspartate Amino Transferase 17 U/L (5-37); Bilirubin Direct 0.3 mg/dL (0.0-0.5); Bilirubin Total 1.1 mg/dL (0.0-1.0); Blood Urea Nitrogen 15 mg/dL (9-16); Calcium 9.7 mg/dL (8.4-10.2); Carbon Dioxide 22 mmol/L (22-29); Chloride 108 mmol/L (96-108); Creatinine Clr Calc Pharmacy 72.5; Estimated Glomerular Filt Rate > 60; Glucose Random 109 mg/dL (60-115); Lipase 19 U/L (8-78); Potassium 4.1 mmol/L (3.3-5.1); Sodium 140 mmol/L (135-145); Total Protein 7.1 g/dL (6.5-8.0)
--- NOTE | 2022-08-12 20:05 | ED_ITS ---
HPI - Abdominal Pain General Chief Complaint: Abdominal Pain Stated Complaint: abd pain/n/v Time Seen by Provider: 08/12/22 19:57 Source: patient and family (Spouse) Mode of arrival: ambulatory Limitations: no limitations History of Present Illness HPI narrative: 66-year-old male history of Crohn's disease and power section history of partial small bowel obstruction presented today with abdominal pain after lunch, pain started in the mid abdomen at severe 7/10 pain has been getting worse now it is 10/10 constant more to the lower abdomen, had 1 time nonbloody loose stool diarrhea which is normal for the patient, had 1 time vomiting since the episode. Patient history significant for malignant melanoma, Crohn's disease, DVT patient currently not taking AC. Related Data Home Medications Medication Instructions Recorded Confirmed cholestyramine (with sugar) 4 gram 4 g PO DAILY 01/07/20 06/26/22 oral powder (Questran) Previous Rx's Medication Instructions Recorded cyanocobalamin (vitamin B-12) 1,000 mcg IM Q4W 90 days #3 mL 09/14/21 1,000 mcg/mL injection solution atorvastatin 20 mg tablet 20 mg PO DAILY 90 days #90 tabs 02/07/22 apixaban 5 mg tablet (Eliquis) 5 mg PO BID #60 tabs 07/04/22 Allergies Allergy/AdvReac Type Severity Reaction Status Date / Time codeine [Codeine] Allergy Severe HIVES,GI Verified 06/08/22 16:41 UPSET Review of Systems Review of Systems All other systems are reviewed and are negative Constitutional: Reports as per HPI and Reports no additional constitutional complaints Eyes: Reports as per HPI and Reports no additional eye complaints Reports system reviewed and no additional complaints, except as documented Cardiovascular: Reports as per HPI and Reports no additional cardiovascular complaints Respiratory: Reports as per HPI and Reports no additional respiratory complaints Gastrointestinal: Reports as per HPI and Reports no additional gastrointestinal complaints Genitourinary: Reports no additional female genitourinary complaints Musculoskeletal: Reports no additional musculoskeletal complaints Skin/Breast: Reports system reviewed and no additional complaints, except as docu Psychiatric: Reports no additional psychiatric complaints Endocrine: Reports no additional endocrine complaints Hematologic/Lymphatic: Reports no additional hematologic/lymphatic complaints Allergic/Immunologic: Reports no additional allergic/immunologic complaints Reports system reviewed and no additional complaints, except as documented and Reports Abnormal speech present [facility] Past Medical History Medical History Anticoagulation adequate Ascending aortic aneurysm Bicuspid aortic valve Bowel obstruction Cough COVID-19 vaccine series completed Crohn disease Crohn's disease Degenerative joint disease of cervical spine DVT (deep venous thrombosis) History of nephrolithiasis History of rectal abscess Hyperbilirubinemia Hyperpigmented skin lesion Impaired fasting glucose Lumbar degenerative disc disease Metastatic melanoma Migraine Overweight (BMI 25.0-29.9) Pernicious anemia Pure hypercholesterolemia Surgical History H/O colonoscopy History of back surgery History of esophagogastroduodenoscopy (EGD) History of inguinal hernia repair History of lymph node excision History of partial colectomy Hx of cardiac catheterization Family History Family History Father Medical history unknown Mother Hypertension Diabetes Social History Social History Household Members: Spouse Housing: House Are you a primary career advisor to a significant other at home: No Do you presently have visiting nurse or other home services: No Alcohol intake: current Alcohol intake frequency: does not drink Alcohol type: hard liquor Patient Tobacco Use Status: Never used Tobacco Tobacco use type: Cigarette e-Cigarette/Vaping Use: Never Used Second Hand Smoke Exposure: Yes Substance Use Type: Marijuana Advance Directives: Yes Advance Directives Information Provided: No Advance Directives on File: No Advance Directives Date on File: 01/08/19 service: No Current occupational status: retired Cognitive needs: No Hearing needs: No Vision needs: Yes Physical Exam ED Vital Signs: Vital Signs - 24 hr 08/12/22 19:01 08/12/22 20:08 Temperature 98.6 F 97.9 F Pulse Rate 83 73 Respiratory Rate 20 21 H Blood Pressure 141/80 H 153/74 H Pulse Oximetry 97 95 Oxygen Delivery Method Room Air Room Air BMI result Body Mass Index 25.8 Vital signs have been reviewed as appeared to be correct. Blood pressure normal. Heart rate normal. Respiration rate normal. Temperature normal. Oxygen saturation normal. Appearance: Alert. Oriented X3. in acute distress due to severe abdominal pain Head: Normal external exam. Normocephalic. Atraumatic. No Castro signs noted. No raccoon eyes noted Eyes: PERRLA. EOMI. Conjunctiva and sclera normal. Eyelids normal. ENT: TM's Normal. Pharynx normal. Uvula midline. Moist mucous membranes. No trismus noted. No drooling noted. No muffled voice noted. Neck: Normal inspection. Neck supple. FROM. No adenopathy. Thyroid Normal. No meningeal signs. No neck mass noted. CVS: Normal heart rate and rhythm. Heart sound normal. No murmurs noted. Pulses normal throughout. Respiratory: No respiratory distress. Painless inspiration. Breath sounds normal. No wheezes/rales/rhonchi noted. Chest nontender. No accessory muscle usage noted or decreased air movement noted. Abdomen: Soft, diffuse abdominal tenderness, no guarding, no rebound tenderness. Bowel sounds normal in all 4 quadrants. No distention noted. No organomegaly noted. No visible injury noted. Back: No CVA tenderness. Full range of motion noted. Skin: Skin warm and dry. Normal skin color. Normal skin turgor. No rashes/lesions/lacerations noted. Extremities: No lower extremity edema. Extremities exhibit normal range of motion. Extremities nontender. Neuro: Oriented X 3. Cranial nerve exam: II-XII are grossly intact No motor deficit. No sensory deficit. Reflexes normal. Course Course Course Narrative: 66-year-old male came in with severe abdominal pain, patient with history of Crohn's disease and small-bowel obstruction had a history of bowel resection. Pain is controlled with Dilaudid, will admit the patient for interact abdominal pain control. Medical Decision Making Differential Diagnosis Differential Diagnoses: The differential diagnosis associated with the presentation includes (Crohn's disease, small-bowel obstruction, enteritis, dehydration, electrolyte abnormalities, severe anemia.) Admission/Observation Consideration of admission/observation: Escalation of care including admission/o bservation considered Consult Healthcare Provider Management of the patient was discussed with: Hospitalist (Dr. Flores) Lab Data MDM Lab Attestation statement: I reviewed the patient's lab results. 08/12/22 19:12 08/12/22 19:12 Labs: Lab Results 08/12/22 08/12/22 Range/Units 19:12 19:12 WBC 7.6 (4.8-10.8) X10*3/uL RBC 5.32 (4.60-5.80) X10*6/uL Hgb 15.8 (14.0-18.0) g/dl Hct 47.9 (42.0-52.0) % MCV 90.0 (80.0-98.0) fL MCH 29.7 (27.0-33.0) pg MCHC 33.0 (31.0-36.0) g/dl RDW 12.9 (11.0-16.0) % Plt Count 259 (160-400) X10*3/uL MPV 8.9 L (9.4-12.4) fL Immature Gran % (Auto) 0.3 (0.0-0.4) % Neut % (Auto) 77.0 H (45-73) % Lymph % (Auto) 14.5 L (20-40) % Latimer % (Auto) 6.8 (2-11) % Eos % (Auto) 1.1 (0-4) % Baso % (Auto) 0.3 (0-2) % Lymph # (Auto) 1.1 L (1.2-4.9) X10*3/uL Latimer # (Auto) 0.5 (0.1-1.2) X10*3/uL Eos # (Auto) 0.1 (0.0-0.4) X10*3/uL Baso # (Auto) 0.0 (0.0-0.2) X10*3/uL Abs Immat Gran (auto) 0.02 (0.00-0.03) X10*3/uL Absolute Neuts (auto) 5.9 (2.0-8.3) x10*3/uL Absolute Nucleated RBC 0.000 (0.0-0.012) X10*3/uL Nucleated RBC % (auto) 0.0 (0.0-0.2) /100WBC Sodium 140 (135-145) mmol/L Potassium 4.1 (3.3-5.1) mmol/L Chloride 108 (96-108) mmol/L Carbon Dioxide 22 (22-29) mmol/L Anion Gap 14 (12-20) BUN 15 (9-16) mg/dL Creatinine 1.07 (0.5-1.4) mg/dL Estim Creat Clear Calc 72.5 Estimated GFR > 60 Random Glucose 109 (60-115) mg/dL Calcium 9.7 D (8.4-10.2) mg/dL Total Bilirubin 1.1 H (0.0-1.0) mg/dL Direct Bilirubin 0.3 (0.0-0.5) mg/dL AST 17 (5-37) U/L ALT 22 (0-40) U/L Alkaline Phosphatase 91 (39-117) U/L Total Protein 7.1 (6.5-8.0) g/dL Albumin 4.0 (3.5-5.0) g/dL Lipase 19 (8-78) U/L Independent Interpretation I performed an independent interpretation of an: CT Scan (Abdomen and pelvis: Similar to previous CT with no acute intra-abdominal pathology.) Radiology Impression Discussion of test interpretation with radiology: I have reviewed the radiologist's reading. Chronic Conditions Patient?s care impacted by: Other (Crohn's disease, small-bowel obstruction.) Medications Administered Discontinued Medications Generic Name Dose Route Start Last Admin Trade Name Freq PRN Reason Stop Dose Admin Hydromorphone HCl 2 mg 08/12/22 20:03 08/12/22 20:12 Hydromorphone Hcl 2 Mg/Ml Vial IVPUSH 08/12/22 20:04 2 mg ONCE ONE Administration Protocol Sodium Chloride 1,000 mls @ 999 mls/hr 08/12/22 20:03 08/12/22 20:18 Ns IV 08/12/22 21:03 999 mls/hr .Q1H1M ONE Administration Metoclopramide HCl 10 mg 08/12/22 21:04 08/12/22 21:12 Metoclopramide Hcl 10 Mg/2 Ml Vial IVPUSH 08/12/22 21:05 10 mg ONCE ONE Administration Ondansetron HCl 4 mg 08/12/22 20:03 08/12/22 20:16 Ondansetron Hcl 4 Mg/2 Ml Vial IVPUSH 08/12/22 20:04 4 mg ONCE ONE Administration Discharge Plan Discharge Clinical Impression: Intractable abdominal pain, Crohn's disease Patient Disposition: Admitted As Inpatient
[2022-08-12 20:08] VITALS: BP 153/74; PULSE 73; RESP 21; TEMP 36.6; O2SAT 95
[2022-08-12] MEDS: HYDROmorphone HCl 2 MG/ML VIAL IVPUSH (20:12)
--- NOTE | 2022-08-12 20:14 | MHC.EDTECH ---
This Tech assumed care of this PAtient. PT changed into hospital gown and vital signs done. NO BLOOD PRESSURE OR BLOOD WORK ON RIGHT ARM!! No BP sor labs on right side sign hung up on monitor
[2022-08-12] MEDS: ondansetron HCL 4 MG/2 ML VIAL IVPUSH (20:16)
[2022-08-12] MEDS: 0.9 % Sodium Chloride 1,000 ML 999 ML IV (20:18)
--- NOTE | 2022-08-12 20:40 | PC.NURSE ---
this rn assumed care of pt from waiting room @ 1999. iv placed in L AC. pt tolerated well. pt medicated according to may. pt at bedside
[2022-08-12] MEDS: Metoclopramide HCl 10 MG/2 ML VIAL IVPUSH (21:12)
--- NOTE | 2022-08-12 21:35 | PC.NURSE ---
pt continued to have episodes of vomiting after zofran administration. dr nixon made aware. pt medicated according to may.
[2022-08-12 23:11] VITALS: BP 108/60; PULSE 72; RESP 19; O2SAT 95
--- NOTE | 2022-08-12 23:41 | MHC.EDTECH ---
@[id number] patient was accepted by Dr. Villalpando to [address] [address] at [facility]. Nurse to Nurse
--- NOTE | 2022-08-12 23:52 | MHC.EDTECH ---
Radha called @ 1594 spoke with Yosef for a stat transfer to [facility], per , ETA 20 mins
[2022-08-13 01:27] VITALS: BP 101/58; PULSE 66; RESP 17; O2SAT 95
[2022-08-13 02:14] LABS: Appearance Urine Clear; Color Urine Yellow; Glucose Urine UA Negative (Negative); Leukocyte Esterase Urine Negative (Negative); Nitrite Urine Negative (Negative); PH 5.5 (5.0-9.0); Specific Gravity - Urine >= 1.030 (1.005-1.025); UMIC TRIGGER UACC YES; Urine Blood Negative (Negative); Urine Ketones 15 mg/dL (Negative); Urine Protein 30 (1+) mg/dL (Neg-Trace)
[2022-08-13 02:19] LABS: Bacteria Urine None Seen (None Seen); Hyaline Casts Urine 0-2 /LPF (0-2); RBC Urine 0-2 /HPF (0-2); Squamous Epithelial Cell Urine 0-2 /HPF (0-2); WBC Urine 0-5 /HPF (0-5)
--- NOTE | 2022-08-13 03:39 | PC.NURSE ---
per dr nixon if pt remains pain free throughout the night pt okay to be discharged @ 0600 in am. pt sleeping positioned on L side at this time. lights dimmed at this time
[2022-08-13 04:35] VITALS: PULSE 16
[2022-08-13 05:41] VITALS: BP 107/53; PULSE 60; RESP 18; O2SAT 97
--- NOTE | 2022-08-13 06:10 | PC.NURSE ---
this rn to pt bedside. pt states having no pain at this time. pt reports feeling safe to go home. this rn made dr panda aware. pt states will contact for transport home
--- NOTE | 2022-08-13 06:32 | PC.NURSE ---
iv removed at time of discharge. pt reports no pain at this time.vss. skin pwd. pt provided with discharge packet. pt verbalized understanding of discharge plan. pt awaiting ride from
== END 2022-08-13 06:30 | disposition home or self-care (01) ==
PROVIDERS: Emergency Provider Emergency Medicine; PCP Internal Medicine
DX: K50.10 Crohn's disease of large intestine without complications (principal); R10.30 Lower abdominal pain, unspecified; Z79.899 Other long term (current) drug therapy
CPT/HCPCS: 36415; 74176; 80053; 81001; 82248; 83690; 85025; 96361; 96374; 96375; 99284; J1170; J2405; J2765

== ENCOUNTER 2022-09-05 06:39 | Inpatient (IN) | payer MEDICARE, SELFPAY ==
[2022-09-05] VITALS (7 sets, daily range): BP systolic 109–146; BP diastolic 33–114; PULSE 61–96; RESP 12–30; TEMP 36–37.1; O2SAT 90–99; BMI 25.8
--- NOTE | ~2022-09-05 | CT_ITS ---
EXAMINATION: CT ABDOMEN AND PELVIS WITH CONTRAST CLINICAL INFORMATION: History of Crohn's disease with question of small bowel obstruction COMPARISON: 08/12/2022 CT abdomen pelvis TECHNIQUE: Multidetector volumetric images were obtained from the superior aspect of the liver through the pubic symphysis following administration 85 mL of Omnipaque 350 intravenous contrast. Sagittal and coronal reformatted images were obtained on the technologist's workstation. Oral contrast: No This CT examination was performed using dose optimization techniques as appropriate, variously including the following: *Automated exposure control *Adjustment of mA and/or kV according to patient size (this includes techniques or standardized protocols for targeted exams where dose is matched to indication/reason for exam; i.e. extremities or head) *Use of iterative reconstruction technique DLP: 586 mGy-cm FINDINGS: LUNG BASES: Atelectasis is present at the lung bases along with some punctate calcified granulomas. LIVER, GALLBLADDER, AND BILIARY TREE: The liver is normal in size, shape, and attenuation. There is a tiny 3 mm benign cyst in the right lobe of the liver adjacent to the gallbladder that measures water density. No worrisome solid focal hepatic lesion or biliary ductal dilatation is present. There is a small area of nodular thickening at the fundus of the gallbladder evident on this contrast-enhanced exam which could represent a gallbladder polyp. Ultrasound should be performed for further evaluation. The gallbladder is otherwise unremarkable with no evidence of radiopaque gallstones or obvious pericholecystic inflammatory changes. PANCREAS: Unremarkable. SPLEEN: Unremarkable. ADRENAL GLANDS: Unremarkable. KIDNEYS AND URETERS: The kidneys are normal in size, shape, and attenuation. 2 renal calculi are again seen on the right, the largest measuring 3 mm (2:34). No left-sided renal calculi. Bilateral Bosniak class I cysts are again noted, parapelvic on the left and cortical on the right -no additional imaging or follow-up needed. No hydronephrosis, hydroureter, or ureteral calculi seen. No perinephric stranding. BLADDER: Unremarkable. GASTROINTESTINAL TRACT: Again seen is a is a partial right hemicolectomy. There is dilatation of distal ileal loops with some fecalization and the possibility of a stricture at the ileocolic anastomosis is considered to (2:44). The degree of dilatation is a bit more than the prior study. There is a tiny amount of free fluid present in the cul-de-sac. Scattered colonic diverticula are present without evidence of diverticulitis, most prominent in the descending colon. ABDOMINAL WALL: Tiny right inguinal hernia containing only fat along with a small periumbilical hernia containing only fat. LYMPH NODES: No retroperitoneal lymphadenopathy. VASCULAR: Unremarkable. PELVIC VISCERA: There is mild to moderate BPH. Seminal vesicles appear normal. OSSEOUS STRUCTURES: Degenerative changes are present in the spine at L4-L5 and L5-S1. CT/CT abdomen pelvis w IV con IMPRESSION: 1. There is dilatation of distal ileal loops with some fecalization and the possibility of a stricture at the ileocolic anastomosis is considered. The degree of dilatation is a bit more than seen on the prior study. 2. Incidental note made of possible gallbladder polyp/mass, colonic diverticulosis, tiny benign hepatic cyst, nonobstructing right renal calculi, BPH and degenerative changes L4-L5 and L5-S1. Gallbladder ultrasound is recommended for further evaluation.
--- NOTE | 2022-09-05 06:59 | PC.NURSE ---
On initial assessment, pt appears to be in visible discomfort. Sts has history of Crones with last visit x 1 month [employer]. Sts pain feels same or similar to previous episodes. Woke this am at 3 with pain, attempted to have bowel movement, feeling constipated, unable to move bowels. Denies N/V
[2022-09-05 07:43] LABS: MANUAL DIFF FLAG NO
[2022-09-05 08:01] LABS: Lactic Acid 2.3 mmol/L (0.5-2.0)
[2022-09-05 08:03] LABS: Alanine Aminotransferase 18 U/L (0-40); Albumin Level 4.1 g/dL (3.5-5.0); Alkaline Phosphatase 94 U/L (39-117); Anion Gap 16 (12-20); Aspartate Amino Transferase 17 U/L (5-37); Bilirubin Direct 0.4 mg/dL (0.0-0.5); Bilirubin Total 1.8 mg/dL (0.0-1.0); Blood Urea Nitrogen 16 mg/dL (9-16); Calcium 9.6 mg/dL (8.4-10.2); Carbon Dioxide 19 mmol/L (22-29); Chloride 107 mmol/L (96-108); Creatinine Clr Calc Pharmacy 86.2; Estimated Glomerular Filt Rate > 60; Glucose Random 120 mg/dL (60-115); Lipase 21 U/L (8-78); Potassium 4.1 mmol/L (3.3-5.1); Sodium 138 mmol/L (135-145); Total Protein 7.4 g/dL (6.5-8.0)
[2022-09-05 08:05] LABS: Basophils Percent Auto 0.2 % (0-2); Eosinophils Absolute Auto 0.1 X10*3/uL (0.0-0.4); Eosinophils Percent Auto 0.9 % (0-4); Hematocrit 48.3 % (42.0-52.0); Hemoglobin 16.4 g/dl (14.0-18.0); Imm Gran Abs Auto 0.04 X10*3/uL (0.00-0.03); Imm Gran Pct Auto 0.5 % (0.0-0.4); Lymphocytes Absolute Auto 0.9 X10*3/uL (1.2-4.9); Lymphocytes Percent Auto 10.8 % (20-40); Mean Corpuscular Hemoglobin 30.3 pg (27.0-33.0); Mean Corpuscular Volume 89.1 fL (80.0-98.0); Mean Platelet Volume 9.1 fL (9.4-12.4); Monocytes Absolute Auto 0.5 X10*3/uL (0.1-1.2); Monocytes Percent Auto 5.8 % (2-11); Neutrophils Absolute Auto 7.1 x10*3/uL (2.0-8.3); Neutrophils Percent Auto 81.8 % (45-73); Platelet Count 263 X10*3/uL (160-400); Red Blood Count 5.42 X10*6/uL (4.60-5.80); Red Cell Distribution Width 12.6 % (11.0-16.0); White Blood Count 8.6 X10*3/uL (4.8-10.8)
[2022-09-05] MEDS: HYDROmorphone HCl 1 MG/ML SYRINGE IVPUSH ×2 (08:13→10:44)
[2022-09-05] MEDS: ondansetron HCL 4 MG/2 ML VIAL IVPUSH ×2 (08:13→12:43)
[2022-09-05] MEDS: 0.9 % Sodium Chloride 1,000 ML 999 ML IV (08:21)
[2022-09-05] MEDS: Metoclopramide HCl 10 MG/2 ML VIAL IVPUSH ×2 (08:22→15:09)
--- NOTE | 2022-09-05 09:10 | ED_ITS ---
HPI - Abdominal Pain General Chief Complaint: Abdominal Pain Stated Complaint: Stomach Pain Time Seen by Provider: 09/05/22 06:50 Source: patient Limitations: no limitations History of Present Illness HPI narrative: 66-year-old male with history of Crohn's disease presents with severe abdominal pain. Pain started this morning. So the abdominal distention. The pain is generalized. It does not radiate. There is no clear relieving or exacerbating features. Associated with nausea, no vomiting. He did force a bowel movement earlier this morning but is not passing flatus. Patient was having similar pain to previous Crohn's. Pain is described as severe. It is sharp in achy. His intermittently crampy. Pain is a 12/25 Related Data Home Medications Medication Instructions Recorded Confirmed cholestyramine (with sugar) 4 gram 4 g PO DAILY 01/07/20 06/26/22 oral powder (Questran) Previous Rx's Medication Instructions Recorded cyanocobalamin (vitamin B-12) 1,000 mcg IM Q4W 90 days #3 mL 09/14/21 1,000 mcg/mL injection solution atorvastatin 20 mg tablet 20 mg PO DAILY 90 days #90 tabs 02/07/22 apixaban 5 mg tablet (Eliquis) 5 mg PO BID #60 tabs 07/04/22 Allergies Allergy/AdvReac Type Severity Reaction Status Date / Time codeine [Codeine] Allergy Severe HIVES,GI Verified 06/08/22 16:41 UPSET Review of Systems Review of Systems CONSTITUTIONAL: Denies weight loss, fever and chills. HEENT: Denies changes in vision and hearing. RESPIRATORY: Denies SOB and cough. CV: Denies palpitations no CP. GI: See HPI : Denies dysuria and urinary frequency. MSK: Denies myalgia and joint pain. SKIN: Denies rash and pruritus. NEUROLOGICAL: Denies headache and syncope. PSYCHIATRIC: Denies recent changes in mood. Denies anxiety and depression. All other ROS are negative unless in HPI PMFSH Past Medical History Medical History Anticoagulation adequate Ascending aortic aneurysm Bicuspid aortic valve Bowel obstruction Cough COVID-19 vaccine series completed Crohn disease Crohn's disease Degenerative joint disease of cervical spine DVT (deep venous thrombosis) History of nephrolithiasis History of rectal abscess Hyperbilirubinemia Hyperpigmented skin lesion Impaired fasting glucose Lumbar degenerative disc disease Metastatic melanoma Migraine Overweight (BMI 25.0-29.9) Pernicious anemia Pure hypercholesterolemia Surgical History H/O colonoscopy History of back surgery History of esophagogastroduodenoscopy (EGD) History of inguinal hernia repair History of lymph node excision History of partial colectomy Hx of cardiac catheterization Family History Family History Father Medical history unknown Mother Hypertension Diabetes Social History Social History Household Members: Spouse Housing: House Are you a primary director of primary care to a significant other at home: No Do you presently have visiting nurse or other home services: No Alcohol intake: never Patient Tobacco Use Status: Never used Tobacco Tobacco use type: Cigarette Smoked in Last 30 Days: Yes e-Cigarette/Vaping Use: Never Used Second Hand Smoke Exposure: Yes Use of substances other than those prescribed or required for medical reasons: No Substance Use Type: Marijuana Advance Directives: Yes Advance Directives on File: Yes Advance Directives Date on File: 01/08/19 service: No Current occupational status: retired Cognitive needs: No Hearing needs: No Vision needs: Yes Physical Exam ED Vital Signs: Vital Signs - 24 hr 09/05/22 06:40 09/05/22 07:28 09/05/22 09:45 Temperature 96.8 F 96.9 F Pulse Rate 62 67 61 Respiratory Rate 18 17 12 Blood Pressure 134/75 133/68 113/64 Pulse Oximetry 98 99 96 Oxygen Delivery Method Room Air Room Air Room Air 09/05/22 11:54 Temperature Pulse Rate 84 Respiratory Rate 16 Blood Pressure 146/114 H Pulse Oximetry 95 Oxygen Delivery Method Room Air BMI result Body Mass Index 25.8 GEN: Well developed, acute distress, alert, oriented HEENT: Normocephalic, atraumatic, normal external ears, nose appears normal, no oropharyngeal edema or exudates Eyes: Normal to appearance Neck: Supple, no lymphadenopathy Respiratory: Talks in complete sentences, no respiratory distress, clear to auscultation bilaterally Cardiovascular: Regular rate and rhythm, no murmurs rubs or gallops Abdomen: Abdominal distension, guarding, no rebound, umbilical hernia, generalized tenderness Back: No CVA tenderness Extremities: No clubbing cyanosis or edema Neurologic: No focal neurologic deficits, cranial nerves 2-12 intact, strength is 5/5 bilaterally Skin: No rash Course Reevaluation(s) Reevaluation #1: Patient's pain is returned. Given 2nd dose of Dilaudid. He also responded nicely to Reglan earlier. Time: 10:44 Reevaluation #2: Spoke with Dr. Tovar symptoms the past which was treated by gastroenterology was steroids, etc. for his Crohn's colitis as per patient has an NG tube in at this point. I am attempting to contact Dr. Watkins, on-call for Gastroenterology as well the hospitalist Time: 13:02 Reevaluation #3: Patient is doing much better after NG tube placement. I spoke with Dr. Watkins will do consultation. He is recommending Solu-Medrol 125 mg IV with 80 mg q.8 hours. Patient is admitted to the hospitalist service Time: 13:35 Medical Decision Making Medical Decision Making [facility] Narrative: 66-year-old male with history of Crohn's disease, small-bowel obstruction presents with abdominal pain, abdominal distention. Differential diagnosis includes Crohn's flare-up, SBO, ileus, colitis, diverticulitis, pancreatitis, abdominal pain, mesenteric adenitis, epiploic appendagitis, hernia. Plan, laboratory analysis, CT scan abdomen and pelvis, analgesia, antiemetics, frequent re-evaluation. I suspect patient may require hospitalization. Admission/Observation Consideration of admission/observation: Escalation of care including admission/observation considered Lab Data [facility] Lab Attestation statement: I reviewed the patient's lab results. 09/05/22 07:40 09/05/22 07:40 Labs: Lab Results 09/05/22 09/05/22 09/05/22 Range/Units 07:39 07:40 07:40 WBC 8.6 (4.8-10.8) X10*3/uL RBC 5.42 (4.60-5.80) X10*6/uL Hgb 16.4 (14.0-18.0) g/dl Hct 48.3 (42.0-52.0) % MCV 89.1 (80.0-98.0) fL MCH 30.3 (27.0-33.0) pg MCHC 34.0 (31.0-36.0) g/dl RDW 12.6 (11.0-16.0) % Plt Count 263 (160-400) X10*3/uL MPV 9.1 L (9.4-12.4) fL Immature Gran % (Auto) 0.5 H (0.0-0.4) % Neut % (Auto) 81.8 H (45-73) % Lymph % (Auto) 10.8 L (20-40) % [place] % (Auto) 5.8 (2-11) % Eos % (Auto) 0.9 (0-4) % Baso % (Auto) 0.2 (0-2) % Lymph # (Auto) 0.9 L (1.2-4.9) X10*3/uL [place] # (Auto) 0.5 (0.1-1.2) X10*3/uL Eos # (Auto) 0.1 (0.0-0.4) X10*3/uL Baso # (Auto) 0.0 (0.0-0.2) X10*3/uL Abs Immat Gran (auto) 0.04 H (0.00-0.03) X10*3/uL Absolute Neuts (auto) 7.1 (2.0-8.3) x10*3/uL Absolute Nucleated RBC 0.000 (0.0-0.012) X10*3/uL Nucleated RBC % (auto) 0.0 (0.0-0.2) /100WBC Sodium 138 (135-145) mmol/L Potassium 4.1 (3.3-5.1) mmol/L Chloride 107 (96-108) mmol/L Carbon Dioxide 19 L (22-29) mmol/L Anion Gap 16 (12-20) BUN 16 (9-16) mg/dL Creatinine 0.90 (0.5-1.4) mg/dL Estim Creat Clear Calc 86.2 Estimated GFR > 60 Random Glucose 120 H (60-115) mg/dL Lactic Acid 2.3 H* (0.5-2.0) mmol/L Lactic Acid F/U @ 2Hr (0.5-2.0) mmol/L Calcium 9.6 (8.4-10.2) mg/dL Total Bilirubin 1.8 H (0.0-1.0) mg/dL Direct Bilirubin 0.4 (0.0-0.5) mg/dL AST 17 (5-37) U/L ALT 18 (0-40) U/L Alkaline Phosphatase 94 (39-117) U/L Total Protein 7.4 (6.5-8.0) g/dL Albumin 4.1 (3.5-5.0) g/dL Lipase 21 (8-78) U/L 09/05/22 Range/Units 09:57 WBC (4.8-10.8) X10*3/uL RBC (4.60-5.80) X10*6/uL Hgb (14.0-18.0) g/dl Hct (42.0-52.0) % MCV (80.0-98.0) fL MCH (27.0-33.0) pg MCHC (31.0-36.0) g/dl RDW (11.0-16.0) % Plt Count (160-400) X10*3/uL MPV (9.4-12.4) fL Immature Gran % (Auto) (0.0-0.4) % Neut % (Auto) (45-73) % Lymph % (Auto) (20-40) % [place] % (Auto) (2-11) % Eos % (Auto) (0-4) % Baso % (Auto) (0-2) % Lymph # (Auto) (1.2-4.9) X10*3/uL [place] # (Auto) (0.1-1.2) X10*3/uL Eos # (Auto) (0.0-0.4) X10*3/uL Baso # (Auto) (0.0-0.2) X10*3/uL Abs Immat Gran (auto) (0.00-0.03) X10*3/uL Absolute Neuts (auto) (2.0-8.3) x10*3/uL Absolute Nucleated RBC (0.0-0.012) X10*3/uL Nucleated RBC % (auto) (0.0-0.2) /100WBC Sodium (135-145) mmol/L Potassium (3.3-5.1) mmol/L Chloride (96-108) mmol/L Carbon Dioxide (22-29) mmol/L Anion Gap (12-20) BUN (9-16) mg/dL Creatinine (0.5-1.4) mg/dL Estim Creat Clear Calc Estimated GFR Random Glucose (60-115) mg/dL Lactic Acid (0.5-2.0) mmol/L Lactic Acid F/U @ 2Hr 0.9 (0.5-2.0) mmol/L Calcium (8.4-10.2) mg/dL Total Bilirubin (0.0-1.0) mg/dL Direct Bilirubin (0.0-0.5) mg/dL AST (5-37) U/L ALT (0-40) U/L Alkaline Phosphatase (39-117) U/L Total Protein (6.5-8.0) g/dL Albumin (3.5-5.0) g/dL Lipase (8-78) U/L Independent Interpretation I performed an independent interpretation of an: CT Scan (Abdomen pelvis: Likely small-bowel obstruction transition point likely in the proximal small bowel) Radiology Impression Discussion of test interpretation with radiology: I have reviewed the radiologist's reading. Prescription Management I considered prescription management with: Pain Medication Medications Administered Discontinued Medications Generic Name Dose Route Start Last Admin Trade Name Archieq PRN Reason Stop Dose Admin Hydromorphone HCl 1 mg 09/05/22 07:06 09/05/22 08:13 Hydromorphone Hcl 1 Mg/Ml Syringe IVPUSH 09/05/22 07:07 1 mg ONCE ONE Administration Protocol Hydromorphone HCl 1 mg 09/05/22 10:33 09/05/22 10:44 Hydromorphone Hcl 1 Mg/Ml Syringe IVPUSH 09/05/22 10:34 1 mg ONCE ONE Administration Protocol Sodium Chloride 1,000 mls @ 999 mls/hr 09/05/22 07:15 09/05/22 09:25 Ns IV 09/05/22 08:15 Infused .Q1H1M DORY Infusion Iohexol 85 ml 09/05/22 10:29 09/05/22 10:30 Iohexol 350 Mg/Ml 100 Ml Infus..Btl IV 09/05/22 10:30 85 ml ONCE ONE Administration Metoclopramide HCl 10 mg 09/05/22 08:09 09/05/22 08:22 Metoclopramide Hcl 10 Mg/2 Ml Vial IVPUSH 09/05/22 08:10 10 mg ONCE ONE Administration Ondansetron HCl 4 mg 09/05/22 07:06 09/05/22 08:13 Ondansetron Hcl 4 Mg/2 Ml Vial IVPUSH 09/05/22 07:07 4 mg ONCE ONE Administration Ondansetron HCl 4 mg 09/05/22 11:49 09/05/22 12:43 Ondansetron Hcl 4 Mg/2 Ml Vial IVPUSH 09/05/22 11:50 4 mg ONCE ONE Administration Critical Care Time Critical Care Time Total Critical Care Time: 45 Attestation: Approximately 45 minutes of critical care time spent on patient terms of frequen t bedside assessment, Jennifer evaluation, interpretation and medical data, consultation with General surgery, Gastroenterology, hospitalist service, documentation, medical management. All outside of any medical procedures. Discharge Plan Discharge Clinical Impression: Abdominal pain, Small bowel obstruction Patient Disposition: Admitted As Inpatient Prescriptions: No Action Eliquis 5 mg Tablet 5 mg PO BID Qty: 60 6RF cholestyramine (with sugar) [Questran] 4 gram powder 4 g PO DAILY cyanocobalamin (vitamin B-12) 1,000 mcg/mL solution 1,000 mcg IM Q4W 90 Days Qty: 3 2RF atorvastatin 20 mg tablet 20 mg PO DAILY 90 Days Qty: 90 3RF
[2022-09-05 09:43] LABS: Reflex Lactate? Lactic Acid Added
--- NOTE | 2022-09-05 09:45 | PC.NURSE ---
pt drank po contrast.
[2022-09-05 10:11] LABS: ~Lactic Acid-LAB USE ONLY 0.9 mmol/L (0.5-2.0)
[2022-09-05] MEDS: iohexoL 350 MG/ML 100 ML INFUS..BTL 85 ML IV (10:30)
--- NOTE | 2022-09-05 13:13 | PM.IMHP ---
History of Present Illness Date of Service: 09/05/22 Attending physician on admission: Jul[facility] Chief Complaint: Abdominal pain Pt is a 66-year-old male with a PMH significant for?Crohn's disease with previous bowel obstructions, malignant melanoma, previous DVT from chemotherapy meds, and HLD who presents to the ED with? abdominal pain, distension, nausea, and vomiting since this morning. patient states that when he awoke he began experiencing abdominal spasms. Pain would cycle from moderate pain to suddenly severe to then mild, and then start all over again. Pt also experienced nausea and vomiting, and 1 episode of diarrhea. Was not passing flatus. Pt reports these symptoms are similar to those he experienced 2 months ago and in January of last year when he was hospitalized for bowel obstruction related to his Crohn's disease. Currently, patient states that his pain is well controlled in that he had 2 episodes of flatus approximately 15 minutes prior. He has been vomiting a lot, but vomitus is clear and not bilious. Trace amount of output from NGT, clear not bilious. patient denies chest pain/ pressure, palpitations. No shortness of breath. Denies fever, chills. In the ED patient was afebrile and slightly hypertensive at 146/114. Labs were significant for lactic acid of 2.2, bilirubin 1.8. Electrolytes WNL. Renal function baseline. Stable H&H. No leukocytosis. CT?of abdomen/pelvis showed a dilation of distal ileal loops with some fecalization and the possibility of a stricture at the ileocolic anastomosis. Incidental note of possible gallbladder polyp/mass. Pt was treated with ondansetron 4mg x2 doses, hydromorphone 1mg x2 doses, IVF, and metoclopramide 10mg IV. Pt will be admitted to the hospital for treatment further evaluation small-bowel obstruction with NGT IV antiemetics and analgesics. Review of Systems Review of Systems: Severe abdominal pain nausea, vomiting abdominal distension diarrhea denies fever, chills no chest pain/ pressure, palpitations denies shortness of breath [facility] Medical History Anticoagulation adequate Ascending aortic aneurysm Bicuspid aortic valve Bowel obstruction Cough COVID-19 vaccine series completed Crohn disease Crohn's disease Degenerative joint disease of cervical spine DVT (deep venous thrombosis) History of nephrolithiasis History of rectal abscess Hyperbilirubinemia Hyperpigmented skin lesion Impaired fasting glucose Lumbar degenerative disc disease Metastatic melanoma Migraine Overweight (BMI 25.0-29.9) Pernicious anemia Pure hypercholesterolemia Family History Father Medical history unknown Mother Hypertension Diabetes Surgical History H/O colonoscopy History of back surgery History of esophagogastroduodenoscopy (EGD) History of inguinal hernia repair History of lymph node excision History of partial colectomy Hx of cardiac catheterization Social History Household Members: Spouse Housing: House Are you a primary client care representative to a significant other at home: No Do you presently have visiting nurse or other home services: No Alcohol intake: never Patient Tobacco Use Status: Never used Tobacco Tobacco use type: Cigarette Smoked in Last 30 Days: No e-Cigarette/Vaping Use: Never Used Second Hand Smoke Exposure: Yes Use of substances other than those prescribed or required for medical reasons: No Substance Use Type: Marijuana Have you been hit, kicked, punched, or otherwise hurt by someone within the past year? If so, by whom?: No Do you feel safe in your current relationship?: Yes Is there a partner from a previous relationship who is making you feel unsafe now?: No Are you made to feel afraid or neglected: No Advance Directives: Yes Advance Directives on File: Yes Advance Directives Date on File: 01/08/19 Do you have thoughts of harming others: None Do you have a plan to hurt others: No Plan Recently lost weight without trying: No Nutrition Risks: No Nutritional Risk Poor oral hygiene: No service: No Current occupational status: retired Cognitive needs: No Hearing needs: No Vision needs: Yes Meds Allergies Allergy/AdvReac Type Severity Reaction Status Date / Time codeine [Codeine] Allergy Severe HIVES,GI Verified 06/08/22 16:41 UPSET Home Medications Medication Instructions Recorded Confirmed Last Taken Type cholestyramine (with sugar) 4 gram 4 g PO DAILY 01/07/20 09/05/22 02/02/22 History oral powder (Questran) Physical Exam Vital Signs and Narrative: Vital Signs: Last Vital Signs Temp 96.9 F 09/05/22 09:45 Pulse 84 09/05/22 11:54 Resp 16 09/05/22 11:54 BP 146/114 H 09/05/22 11:54 Pulse Ox 95 09/05/22 11:54 O2 Del Method Room Air 09/05/22 11:54 BMI result Body Mass Index 25.8 Constitutional: Alert, NGT in place, in no acute distress. Mental Status: Oriented to person, place and time. Eyes: Pupils are equal, round, and reactive to light. Ear, Nose, and Throat: Oropharynx clear, mucous membranes moist. Ears and nose without deformities. Trachea midline. Respiratory: Mild expiratory wheezing/rhonchi. Cardiovascular: S1, S2 regular. No murmurs, rubs, or gallops. Gastrointestinal: Abdomen firm, non-tender, distended. Small redicible umbilical hernia noted. +Bowel sounds. Neurologic: Cranial nerves II-XII are grossly intact bilaterally. No focal neurological deficits. Moves all extremities spontaneously. Skin: No rashes or lesions noted. Musculoskeletal: No cyanosis or clubbing. Extremities: No edema. Psychiatric: Normal mood and affect. Results Labs 09/05/22 07:40 09/05/22 07:40 Labs: Laboratory Results - last 24 hr 09/05/22 09/05/22 09/05/22 07:39 07:40 07:40 MCV 89.1 MCH 30.3 MCHC 34.0 RDW 12.6 Plt Count 263 MPV 9.1 L Immature Gran % (Auto) 0.5 H Neut % (Auto) 81.8 H Lymph % (Auto) 10.8 L [place] % (Auto) 5.8 Eos % (Auto) 0.9 Baso % (Auto) 0.2 Lymph # (Auto) 0.9 L [place] # (Auto) 0.5 Eos # (Auto) 0.1 Baso # (Auto) 0.0 Abs Immat Gran (auto) 0.04 H Absolute Neuts (auto) 7.1 Absolute Nucleated RBC 0.000 Nucleated RBC % (auto) 0.0 Anion Gap 16 Estim Creat Clear Calc 86.2 Estimated GFR > 60 Random Glucose 120 H Lactic Acid 2.3 H* Lactic Acid F/U @ 2Hr Calcium 9.6 Total Bilirubin 1.8 H Direct Bilirubin 0.4 AST 17 ALT 18 Alkaline Phosphatase 94 Total Protein 7.4 Albumin 4.1 Lipase 21 09/05/22 09:57 MCV MCH MCHC RDW Plt Count MPV Immature Gran % (Auto) Neut % (Auto) Lymph % (Auto) [place] % (Auto) Eos % (Auto) Baso % (Auto) Lymph # (Auto) [place] # (Auto) Eos # (Auto) Baso # (Auto) Abs Immat Gran (auto) Absolute Neuts (auto) Absolute Nucleated RBC Nucleated RBC % (auto) Anion Gap Estim Creat Clear Calc Estimated GFR Random Glucose Lactic Acid Lactic Acid F/U @ 2Hr 0.9 Calcium Total Bilirubin Direct Bilirubin AST ALT Alkaline Phosphatase Total Protein Albumin Lipase Imaging Radiologist's Impressions: Impressions Abdomen/Pelvis CT 09/05/22 10:26 IMPRESSION: 1. There is dilatation of distal ileal loops with some fecalization and the possibility of a stricture at the ileocolic anastomosis is considered. The degree of dilatation is a bit more than seen on the prior study. 2. Incidental note made of possible gallbladder polyp/mass, colonic diverticulosis, tiny benign hepatic cyst, nonobstructing right renal calculi, BPH and degenerative changes L4-L5 and L5-S1. Gallbladder ultrasound is recommended for further evaluation. Assessment and Plan (1) Small bowel obstruction: Status: Acute (2) Abdominal pain: Status: Acute (3) Crohn's disease: Qualifiers: Digestive disease complication type: unspecified complication Gastrointestinal tract location: unspecified location Qualified Code(s): K50.919 - Crohn's disease, unspecified, with unspecified complications Status: Acute Plan Pt is a 66-year-old male with a PMH significant for?Crohn's disease with previous bowel obstructions, malignant melanoma, previous DVT from chemotherapy meds, and HLD who presents to the ED with? abdominal pain, distension, nausea, and vomiting since this morning. patient states that when he awoke he began experiencing abdominal spasms. Small-bowel obstruction Likely secondary to Crohn's disease CT?of abdomen/pelvis showed a dilation of distal ileal loops with some fecalization and the possibility of a stricture at the ileocolic anastomosis Pt reports passing flatus x2 a short time ago, still N/V NGT in place, trace amount of clear output Keep patient NPO IVF: lactated ringers Analgesics for pain management Metoclopramide for anti emetic, patient does not tolerate ondansetron well Hold off on steroids for now, pending GI consult GI consult General surgery consult Lactic acidosis, resolved Secondary to vomiting from SBO, not sepsis No sign of infectious process, abx not indicated Wheezing/rhonchi Pt without COPD or asthma No significant smoking hx Duonebs prn HLD Continue statin hx of DVT Pt with partially occluded right subclavian vein on 10/23/2021 Likely secondary to chemotherapy treatment No longer on Eliquis Full Code Attending:?Dr. Wallace DVT Prophylaxis: Lovenox Pt will require a hospitalization of at least two nights for treatment of?SBO secondary to Crohn's disease with bowel rest, NGT, and IV analgesics and antiemetics. Time Spent With Patient Time: Total time managing care of this patient today ____ minutes. Quality Stroke Does the patient have a stroke diagnosis?: No VTE Prior VTE?: Yes VTE Risk Level:: Medical - moderate - high VTE Device Contraindication: Treatment Not Indicated VTE Drug Contraindication: N/A - Med Ordered
--- NOTE | 2022-09-05 13:38 | P.CONGS_ITS ---
History of Present Illness Consult details Consult date: 09/05/22 <RAQUEL Quezada Last Filed: 09/05/22 15:16> Requesting physician: Iban Villanueva <RAQUEL Quezada Last Filed: 09/05/22 15:16> Narrative: 66-year-old gentleman with a history of Crohn's disease and melanoma who presented to the ED with c/o abdominal pain and vomiting. He has a PMH of Crohn's disease with requiring ileocecectomy around 30 years ago and is currently not on any therapy. Patient reports that he had acute onset of abdominal pain in the right lower quadrant similar to his previous obstructions. Pain is associated with nausea and vomiting. He denies passing flatus but reports a very small BM this morning. He was last seen in the ED in July 2022 for abd pain with a CT that showed recurrent enteritis. His pain resolved and he was sent home and told to follow up with GI however he has not because he reports feeling so well until this morning. He also did undergo colonoscopy with dilation with Dr. Watkins May of this year which did show active Crohn disease at the ileocolonic anastomosis with some stricturing. Work up in the ED included CT scan abd/pelvis with PO contrast which showed dilatation of distal ileal loops with some fecalization and the possibility of a stricture at the ileocolic anastomosis. <RAQUEL Quezada Last Filed: 09/05/22 15:16> Review of Systems Constitutional: Constitutional: Denies chills and Denies fever(s) <RAQUEL Quezada Last Filed: 09/05/22 15:16> ENT: Denies dizziness <RAQUEL Quezada Last Filed: 09/05/22 15:16> Cardiovascular: Cardiovascular: Denies chest pain and Denies dyspnea <RAQUEL Quezada Last Filed: 09/05/22 15:16> Respiratory: Respiratory: Denies dyspnea <RAQUEL Quezada Last Filed: 09/05/22 15:16> Gastrointestinal: Gastrointestinal: Reports as per HPI, Reports nausea, Reports vomiting and Denies hematemesis <RAQUEL Quezada Last Filed: 09/05/22 15:16> Genitourinary: Genitourinary: Denies dysuria <Violet Darby PA-C - Last Filed: 09/05/22 15:16> Integumentary/Breasts: Skin/Breast: Denies rash and Denies jaundice <Violet Darby PA-C - Last Filed: 09/05/22 15:16> Neurologic: Denies dizziness <Violet Darby PA-C - Last Filed: 09/05/22 15:16> [facility] Past Medical History Medical History: Medical History Anticoagulation adequate Ascending aortic aneurysm Bicuspid aortic valve Bowel obstruction Cough COVID-19 vaccine series completed Crohn disease Crohn's disease Degenerative joint disease of cervical spine DVT (deep venous thrombosis) History of nephrolithiasis History of rectal abscess Hyperbilirubinemia Hyperpigmented skin lesion Impaired fasting glucose Lumbar degenerative disc disease Metastatic melanoma Migraine Overweight (BMI 25.0-29.9) Pernicious anemia Pure hypercholesterolemia <Violet Darby PA-C - Last Filed: 09/05/22 15:16> Family History Family History: Family History Father Medical history unknown Mother Hypertension Diabetes <Violet Darby PA-C - Last Filed: 09/05/22 15:16> Surgical History Surgical History: Surgical History H/O colonoscopy History of back surgery History of esophagogastroduodenoscopy (EGD) History of inguinal hernia repair History of lymph node excision History of partial colectomy Hx of cardiac catheterization <RAQUEL Quezada Last Filed: 09/05/22 15:16> Social History Social History: Social History Household Members: Spouse Housing: House Are you a primary chiropractic care to a significant other at home: No Do you presently have visiting nurse or other home services: No Alcohol intake: never Patient Tobacco Use Status: Never used Tobacco Tobacco use type: Cigarette Smoked in Last 30 Days: No e-Cigarette/Vaping Use: Never Used Second Hand Smoke Exposure: Yes Use of substances other than those prescribed or required for medical reasons: No Substance Use Type: Marijuana Currently Displaying Signs/Symptoms of Drug Intoxication Withdrawal: No Have you been hit, kicked, punched, or otherwise hurt by someone within the past year? If so, by whom?: No Do you feel safe in your current relationship?: Yes Is there a partner from a previous relationship who is making you feel unsafe now?: No Are you made to feel afraid or neglected: No Advance Directives: Yes Advance Directives on File: Yes Advance Directives Date on File: 01/08/19 Do you have thoughts of harming others: None Do you have a plan to hurt others: No Plan Recently lost weight without trying: No Nutrition Risks: No Nutritional Risk Poor oral hygiene: No service: No Current occupational status: retired Cognitive needs: No Hearing needs: No Vision needs: Yes <Violet Darby PA-C - Last Filed: 09/05/22 15:16> Meds Allergies/Adverse reactions: Allergies Allergy/AdvReac Type Severity Reaction Status Date / Time codeine [Codeine] Allergy Severe HIVES,GI Verified 06/08/22 16:41 UPSET <Violet Darby PA-C - Last Filed: 09/05/22 15:16> Active Medications: Current Medications Pharmacy Consult (Consult Rx Perform Med Rec) 1 each MISCELLANE ONCE PRN PRN Reason: Consult order <Violet Darby PA-C - Last Filed: 09/05/22 15:16> Home medications: Home Medications Medication Instructions Recorded Confirmed Last Taken Type cholestyramine (with sugar) 4 gram 4 g PO DAILY 01/07/20 09/05/22 02/02/22 History oral powder (Questran) <RAQUEL Quezada Last Filed: 09/05/22 15:16> Physical Exam Vital Signs: Vital Signs: Last Vital Signs Temp 96.9 F 09/05/22 09:45 Pulse 84 09/05/22 11:54 Resp 16 09/05/22 11:54 BP 146/114 H 09/05/22 11:54 Pulse Ox 95 09/05/22 11:54 O2 Del Method Room Air 09/05/22 11:54 BMI result Body Mass Index 25.8 <[facility]deau [facility] Last Filed: 09/05/22 15:16> Const: General: comfortable; No acute distress <[facility] Last Filed: 09/05/22 15:16> Orientation/consciousness: patient oriented x3 <Violet [facility]ixondeau [facility] Last Filed: 09/05/22 15:16> Resp: Effort & Inspection: normal respiratory effort <Violet Darby [facility] Last Filed: 09/05/22 15:16> GI: Inspection: Yes distended, Yes scar (midline ) and Yes visible herniation (soft reducible umbilical hernia) <Violet Mixondeau [facility] Last Filed: 09/05/22 15:16> Palpation (GI): Soft to palpation, Tenderness to palpation present (GI) (mild right sided tenderness), no guarding and not rigid <Violet Mixondeau [facility] Last Filed: 09/05/22 15:16> Percussion: Yes tympanic to percussion <Violet [facility]ixondeau [facility] Last Filed: 09/05/22 15:16> Skin: General skin exam: no rashes or lesions noted <Violet [facility]ixondeau [facility] Last Filed: 09/05/22 15:16> Neuro: General: patient oriented x3 <Violet [facility]ixondeau [facility] Last Filed: 09/05/22 15:16> Results Labs Result diagrams: 09/05/22 07:40 09/05/22 07:40 <Violet [facility]ixondeau [facility] Last Filed: 09/05/22 15:16> Labs: Abnormal lab results 09/05/22 09/05/22 09/05/22 Range/Units 07:39 07:40 07:40 MPV 9.1 L (9.4-12.4) fL Immature Gran % (Auto) 0.5 H (0.0-0.4) % Neut % (Auto) 81.8 H (45-73) % Lymph % (Auto) 10.8 L (20-40) % Lymph # (Auto) 0.9 L (1.2-4.9) X10*3/uL Abs Immat Gran (auto) 0.04 H (0.00-0.03) X10*3/uL Carbon Dioxide 19 L (22-29) mmol/L Random Glucose 120 H (60-115) mg/dL Lactic Acid 2.3 H* (0.5-2.0) mmol/L Total Bilirubin 1.8 H (0.0-1.0) mg/dL Short CBC 09/05/22 Range/Units 07:40 WBC 8.6 (4.8-10.8) X10*3/uL Hgb 16.4 (14.0-18.0) g/dl Hct 48.3 (42.0-52.0) % Plt Count 263 (160-400) X10*3/uL BMP 09/05/22 07:40 Sodium 138 Potassium 4.1 Chloride 107 Carbon Dioxide 19 L BUN 16 Creatinine 0.90 Calcium 9.6 Liver Function 09/05/22 Range/Units 07:40 Total Bilirubin 1.8 H (0.0-1.0) mg/dL Direct Bilirubin 0.4 (0.0-0.5) mg/dL AST 17 (5-37) U/L ALT 18 (0-40) U/L Alkaline Phosphatase 94 (39-117) U/L Albumin 4.1 (3.5-5.0) g/dL All other labs normal. <Violet Darby PA-C - Last Filed: 09/05/22 15:16> Assessment and Plan (1) Small bowel obstruction: Status: Acute <Violet Darby PA-C - Last Filed: 09/05/22 15:16> (2) Crohn's disease: Qualifiers: Digestive disease complication type: unspecified complication Gastrointestinal tract location: unspecified location Qualified Code(s): K50.919 - Crohn's disease, unspecified, with unspecified complications <RAQUEL Quezada Last Filed: 09/05/22 15:16> Status: Acute <RAQUEL Quezada Last Filed: 09/05/22 15:16> 66 year old male with hx of Crohns, ileocecectomy presenting with abdominal pain and vomiting with CT scan showing SBO with stricturing of ileocolic anastomosis. The patient has a very benign exam at this time. Recommend continuing nonoperative measures for now with NGT for decompression, IVF, PRN analgesics for pain. GI consult for treatment of possible Crohns flare, repeat dilation if needed. Will continue to follow. No surgical intervention currently needed. <Violet Darby PA-C - Last Filed: 09/05/22 15:16> Time Spent With Patient Time: Total time managing care of this patient today ____ minutes. <Violet Darby PA-C - Last Filed: 09/05/22 15:16> Procedures Date of Service Date of Service: 09/05/22 <Violet Darby PA-C - Last Filed: 09/05/22 15:16> 09/06/22 <Shayne Tovar MD - Last Filed: 09/06/22 11:11>
--- NOTE | 2022-09-05 14:42 | PHA.MEDREC ---
Pharmacy Consult ? Medication Reconciliation Pharmacy has completed the medication reconciliation. Patient claimed he stopped Eliquis
[2022-09-05] MEDS: methylPREDNISolone Sod Succ 125 MG/2 ML VIAL IVPUSH (15:07)
--- NOTE | 2022-09-05 16:13 | PM.EVENT ---
Event Note Date of Service: 09/05/22 Event Note: GI consult dictated Crohns with obstruction, likely at ileocolonic anastamosis solumedrol ordered. ngt in place, monitor output outpatient management of his Crohns is complicated by his hx of metastatic melanoma. Time Spent With Patient Time: Total time managing care of this patient today ____ minutes.
[2022-09-05] MEDS: Lactated Ringers 1,000 ML 100 ML IVCONT (16:25)
[2022-09-05] MEDS: Enoxaparin Sodium 40 MG/0.4 ML SYRINGE SUBCUT (16:28)
--- NOTE | 2022-09-05 23:21 | CONS_ITS ---
DATE OF SERVICE: 09/05/2022 REFERRING PHYSICIAN: Dr. Villanueva REASON FOR CONSULTATION: Crohn disease with bowel obstruction. PRESENT ILLNESS: The patient is a pleasant 66-year-old man, well known to me from prior evaluation. He has a longstanding history of Crohn disease involving the small and large intestine with his initial surgery, while he was in his 30s. He has had previous treatment with prednisone, mesalamine and Imodium, and underwent ileocolectomy in 05/1989. Currently, he has been treated with Questran. He underwent colonoscopy because of a previous small bowel obstruction that responded to steroids in 01/2022. The colonoscopy was performed in May and showed active Crohn disease at the ileocolonic anastomosis with some stricturing. This was dilated to 12 mm and the scope was able to be advanced through the strictured area without difficulty. The biopsies from that procedure showed inflammatory changes in the terminal ileum and scattered active colitis in the left colon and sigmoid. He has also been diagnosed with melanoma and has declined treatment with biologic agents because of this. He did have one episode of recurrent obstructive symptoms, in July, but the CT was fairly unremarkable and he did not require admission. He awoke this morning at approximately 3 a.m. with symptoms of abdominal pain, cramping, and vomiting, consistent with his previous obstruction. He presented to the emergency room where he was evaluated and CT scanning, which is reviewed, was consistent with an obstructive process. He has been given IV steroids and admitted to the hospital. He has also been seen in consultation by General surgery. During his initial hospitalization in the fall of 2021, he was treated with steroids, with improvement. PAST MEDICAL HISTORY: 1. Crohn disease as above. 2. Metastatic melanoma. 3. DVT. 4. Lumbosacral radiculopathy, left. 5. Ascending aortic aneurysm. 6. Impaired fasting glucose. 7. Pernicious anemia. 8. Migraine headaches. 9. Depression. 10. Bicuspid aortic valve with mild aortic regurgitation. CURRENT MEDICATIONS: Current medication list is reviewed in the chart. ALLERGIES: CODEINE. FAMILY HISTORY: This is reviewed with the patient and is noncontributory. SOCIAL HISTORY: There is no current tobacco, alcohol, or substance abuse. REVIEW OF SYSTEMS: SKIN: No pruritus. HEENT: Negative. CARDIOPULMONARY: No shortness of breath or chest pain. GASTROINTESTINAL: As above. GENITOURINARY: Negative. NEUROPSYCHIATRIC: Negative. PHYSICAL EXAMINATION: GENERAL: Shows a pleasant male, in moderate discomfort, lying on a stretcher in the emergency department. SKIN: Anicteric. HEENT: NG tube is in place with scant drainage. NECK: Without lymphadenopathy or thyromegaly. LUNGS: Clear. Heart: Shows regular rate and rhythm. S1, S2. No murmur. ABDOMEN: Abdomen is distended, although less so per the patient than when he came in. Bowel sounds are present, but diminished. No organomegaly is noted. There is no focal guarding, tenderness, or rebound. There is a well-healed vertical paramedian incision from his prior surgery and an umbilical hernia, which is nontender. EXTREMITIES: Without edema. LABORATORY DATA AND IMAGING STUDIES: Reviewed. IMPRESSION: Crohn disease with small bowel obstruction. He did receive a dose of steroids in the emergency department. I would recommend starting him on IV steroids. If his NG tube does not drain anything significant, it can be discontinued. I would recommend keeping him n.p.o. for now and gradually advancing his diet as his symptoms improve. If he does not improve, he may need surgery. Thanks for asking me to see him. I will follow him in the hospital with you. MD CELI Caceres/NIKKI / [id number]
[2022-09-05] MEDS: methylPREDNISolone Sod Succ 125 MG/2 ML VIAL 30 MG IVPUSH (23:38)
[2022-09-06 02:43] VITALS: BP 110/62; PULSE 73; RESP 16; TEMP 36.6; O2SAT 93
[2022-09-06] MEDS: Lactated Ringers 1,000 ML 100 ML IVCONT ×3 (02:46→21:01)
[2022-09-06 06:32] LABS: Hematocrit 38.4 % (42.0-52.0); Hemoglobin 12.6 g/dl (14.0-18.0); Mean Corpuscular HGB Conc 32.8 g/dl (31.0-36.0); Mean Corpuscular Hemoglobin 30.3 pg (27.0-33.0); Mean Corpuscular Volume 92.3 fL (80.0-98.0); Mean Platelet Volume 9.4 fL (9.4-12.4); Platelet Count 206 X10*3/uL (160-400); Red Blood Count 4.16 X10*6/uL (4.60-5.80); Red Cell Distribution Width 13.1 % (11.0-16.0); White Blood Count 5.4 X10*3/uL (4.8-10.8)
[2022-09-06 06:46] LABS: Anion Gap 13 (12-20); Blood Urea Nitrogen 16 mg/dL (9-16); Calcium 8.4 mg/dL (8.4-10.2); Carbon Dioxide 20 mmol/L (22-29); Chloride 107 mmol/L (96-108); Creatinine Clr Calc Pharmacy 110.8; Estimated Glomerular Filt Rate > 60; Glucose Random 116 mg/dL (60-115); Potassium 4.1 mmol/L (3.3-5.1); Sodium 136 mmol/L (135-145)
[2022-09-06 07:29] VITALS: BP 104/58; PULSE 67; RESP 18; TEMP 36.3; O2SAT 92
--- NOTE | 2022-09-06 07:30 | HO.PM.IMPN ---
Subjective Subjective Date of Service: 09/06/22 Interval History: f/u chron's, bowel obstruction, NGT clamped, has headache and got tylenol for it Physical Exam Vital Signs: Vital Signs: Last Vital Signs Temp 97.9 F 09/06/22 02:43 Pulse 73 09/06/22 02:43 Resp 16 09/06/22 02:43 BP 110/62 09/06/22 02:43 Pulse Ox 93 09/06/22 02:43 O2 Del Method Room Air 09/06/22 02:43 BMI result Body Mass Index 25.8 Const: Other: General: AO X 3, no acute distress Resp: CTA bilateral CVS: S1,S2,RRR GI: +BS, NT,mild distention Skin: No rash Neuro: motor grossly intact Psych: appropriate affect Objective Data Active Medications Albuterol/Ipratropium (Albuterol/Iprat 2.5/0.5mg 3 Ml Ampul.Neb) 3 ml INHALE RQ4H WHILE AWAKE PRN PRN Reason: Shortness of Breath/Wheezing Enoxaparin Sodium (Enoxaparin Sodium 40 Mg/0.4 Ml Syringe) 40 mg SUBCUT Q24H [facility] Last Admin: 09/05/22 16:28 Dose: 40 mg Documented By: FADUMO Lactated Ringer's (Lr) 1,000 mls @ 100 mls/hr IVCONT .Q10H [facility] Last Admin: 09/06/22 02:46 Dose: 100 mls/hr Documented By: BEBE Methylprednisolone Sodium Succinate (Methylprednisolone Sod Succ 125 Mg/2 Ml Vial) 30 mg IVPUSH Q12H [facility] Last Admin: 09/05/22 23:38 Dose: 30 mg Documented By: BORA Metoclopramide HCl (Metoclopramide Hcl 10 Mg/2 Ml Vial) 10 mg IVPUSH Q6H PRN PRN Reason: Nausea and Vomiting Morphine Sulfate (Morphine Sulfate 4 Mg/Ml Cartridge) 4 mg IVPUSH Q4H PRN; Protocol PRN Reason: Pain, Severe (Pain Scale 7-10) Pharmacy Consult (Consult Rx Perform Med Rec) 1 each MISCELLANE ONCE PRN PRN Reason: Consult order Sodium Chloride (0.9 % Sodium Chloride Flush 3 Ml Syringe) 3 ml IVFLUSH QSHIFT [facility] Last Admin: 09/06/22 07:12 Dose: Not Given Documented By: ASTER Non-Admin Reason: IV Running Labs 09/06/22 05:55 09/06/22 05:55 Labs: Laboratory Results - last 24 hr 09/05/22 09/05/22 09/05/22 07:39 07:40 07:40 MCV 89.1 MCH 30.3 MCHC 34.0 RDW 12.6 Plt Count 263 MPV 9.1 L Immature Gran % (Auto) 0.5 H Neut % (Auto) 81.8 H Lymph % (Auto) 10.8 L [place] % (Auto) 5.8 Eos % (Auto) 0.9 Baso % (Auto) 0.2 Lymph # (Auto) 0.9 L [place] # (Auto) 0.5 Eos # (Auto) 0.1 Baso # (Auto) 0.0 Abs Immat Gran (auto) 0.04 H Absolute Neuts (auto) 7.1 Absolute Nucleated RBC 0.000 Nucleated RBC % (auto) 0.0 Anion Gap 16 Estim Creat Clear Calc 86.2 Estimated GFR > 60 Random Glucose 120 H Lactic Acid 2.3 H* Lactic Acid F/U @ 2Hr Calcium 9.6 Total Bilirubin 1.8 H Direct Bilirubin 0.4 AST 17 ALT 18 Alkaline Phosphatase 94 Total Protein 7.4 Albumin 4.1 Lipase 09/05/22 09/06/22 09/06/22 09:57 05:55 05:55 MCV 92.3 MCH 30.3 MCHC 32.8 RDW 13.1 Plt Count 206 MPV 9.4 Immature Gran % (Auto) Neut % (Auto) Lymph % (Auto) [place] % (Auto) Eos % (Auto) Baso % (Auto) Lymph # (Auto) [place] # (Auto) Eos # (Auto) Baso # (Auto) Abs Immat Gran (auto) Absolute Neuts (auto) Absolute Nucleated RBC 0.000 Nucleated RBC % (auto) 0.0 Anion Gap 13 Estim Creat Clear Calc 110.8 Estimated GFR > 60 Random Glucose 116 H Lactic Acid Lactic Acid F/U @ 2Hr 0.9 Calcium 8.4 D Total Bilirubin Direct Bilirubin AST ALT Alkaline Phosphatase Total Protein Albumin Lipase Assessment and Plan (1) Crohn's disease: Status: Acute (2) Small bowel obstruction: Status: Acute Plan Pt is a 66-year-old male with a PMH significant for?Crohn's disease with previous bowel obstructions, malignant melanoma, previous DVT from chemotherapy meds, and HLD who presents to the ED with? abdominal pain, distension, nausea, and vomiting since this morning. patient states that when he awoke he began experiencing abdominal spasms. Small-bowel obstruction likely related to ikely at ileocolonic anastamosis -conservative management with NGT, bowel rest, surgery following Acute Lactic acidosis, resolved, not due to sepsis crohn's --on iv steroid, gi following COPD--no acute exacerbation HLD Continue statin hx of DVT--previously treated with eliquis Full Code DVT Prophylaxis: Lovenox Need for inpatient: management of SBO with NGT and surgical follow ups. Time Spent With Patient Time: Total time managing care of this patient today ____ minutes. Quality Stroke Does the patient have a stroke diagnosis?: No VTE Prior VTE?: Yes VTE Risk Level:: Medical - moderate - high VTE Device Contraindication: Treatment Not Indicated VTE Drug Contraindication: N/A - Med Ordered
--- NOTE | 2022-09-06 08:25 | P.PNGS_ITS ---
Subjective Subjective Date of Service: 09/06/22 <Violet Darby PA-C - Last Filed: 09/06/22 08:38> 09/06/22 <Shayne Tovar MD - Last Filed: 09/06/22 11:12> Interval history: Feels overall improved this morning but c/o headache. Denies abdominal pain, nausea. He feels less bloated this morning. No significant output in suction cannister, and reports minimal output after insertion. Denies flatus. Has not been out of bed. <Violet Darby PA-C - Last Filed: 09/06/22 08:38> Physical Exam Vital Signs: Vital Signs: Last Vital Signs Temp 97.3 F 09/06/22 07:29 Pulse 67 09/06/22 07:29 Resp 18 09/06/22 07:29 BP 104/58 L 09/06/22 07:29 Pulse Ox 92 09/06/22 07:29 O2 Del Method Room Air 09/06/22 07:29 BMI result Body Mass Index 25.8 <Violet Darby PA-C - Last Filed: 09/06/22 08:38> Const: General: comfortable, no acute distress and alert <RAQUEL Quezada Last Filed: 09/06/22 08:38> Orientation/consciousness: patient oriented x3 <RAQUEL Quezada Last Filed: 09/06/22 08:38> HEENT: Other: NGT in place, scant bilious output drained <RAQUEL Quezada Last Filed: 09/06/22 08:38> Resp: Effort & Inspection: normal respiratory effort <RAQUEL Quezada Last Filed: 09/06/22 08:38> GI: Inspection: Yes distended (softly, decreased) <KARMA Quezada Last Filed: 09/06/22 08:38> Palpation (GI): Soft to palpation, nontender, no guarding and not rigid <RAQUEL Quezada Last Filed: 09/06/22 08:38> Percussion: Yes tympanic to percussion <RAQUEL Quezada Filed: 09/06/22 08:38> Skin: General skin exam: no rashes or lesions noted <RAQUEL Quezada Last Filed: 09/06/22 08:38> Neuro: General: patient oriented x3 and moves all extremities <RAQUEL Quezada Last Filed: 09/06/22 08:38> Objective Data Active Medications Acetaminophen (Acetaminophen 325 Mg Tablet) 650 mg PO Q6H PRN PRN Reason: headache, pain, fever Albuterol/Ipratropium (Albuterol/Iprat 2.5/0.5mg 3 Ml Ampul.Neb) 3 ml INHALE RQ4H WHILE AWAKE PRN PRN Reason: Shortness of Breath/Wheezing Enoxaparin Sodium (Enoxaparin Sodium 40 Mg/0.4 Ml Syringe) 40 mg SUBCUT Q24H [facility] Last Admin: 09/05/22 16:28 Dose: 40 mg Documented By: FADUMO Lactated Ringer's (Lr) 1,000 mls @ 100 mls/hr IVCONT .Q10H [facility] Last Admin: 09/06/22 02:46 Dose: 100 mls/hr Documented By: BEBE Methylprednisolone Sodium Succinate (Methylprednisolone Sod Succ 125 Mg/2 Ml Vial) 30 mg IVPUSH Q12H [facility] Last Admin: 09/05/22 23:38 Dose: 30 mg Documented By: BORA Metoclopramide HCl (Metoclopramide Hcl 10 Mg/2 Ml Vial) 10 mg IVPUSH Q6H PRN PRN Reason: Nausea and Vomiting Morphine Sulfate (Morphine Sulfate 4 Mg/Ml Cartridge) 4 mg IVPUSH Q4H PRN; Pr otocol PRN Reason: Pain, Severe (Pain Scale 7-10) Pharmacy Consult (Consult Rx Perform Med Rec) 1 each MISCELLANE ONCE PRN PRN Reason: Consult order Sodium Chloride (0.9 % Sodium Chloride Flush 3 Ml Syringe) 3 ml IVFLUSH QSHIFT [facility] Last Admin: 09/06/22 07:12 Dose: Not Given Documented By: ASTER Non-Admin Reason: IV Running <RAQUEL Quezada Last Filed: 09/06/22 08:38> Labs CBC & Chem 7: 09/06/22 05:55 09/06/22 05:55 <Violet Darby PA-C - Last Filed: 09/06/22 08:38> Labs: Laboratory Results - last 24 hr 09/05/22 09/06/22 09/06/22 09:57 05:55 05:55 MCV 92.3 MCH 30.3 MCHC 32.8 RDW 13.1 Plt Count 206 MPV 9.4 Absolute Nucleated RBC 0.000 Nucleated RBC % (auto) 0.0 Anion Gap 13 Estim Creat Clear Calc 110.8 Estimated GFR > 60 Random Glucose 116 H Lactic Acid F/U @ 2Hr 0.9 Calcium 8.4 D <Violet Darby PA-C - Last Filed: 09/06/22 08:38> Procedures Date of Service Date of Service: 09/06/22 <Violet Darby PA-C - Last Filed: 09/06/22 08:38> 09/06/22 <Shayne Tovar MD - Last Filed: 09/06/22 11:12> Progress Note: A&P Assessment and plan (1) Small bowel obstruction: Status: Acute <Violet Darby PA-C - Last Filed: 09/06/22 08:38> (2) Crohn's disease: Status: Acute <Violet Darby PA-C - Last Filed: 09/06/22 08:38> Assessment and Plan: 66 year old male PMH Crohns, ileocecetomy admitted for SBO secondary to possible Crohns flare, anastomotic stricture. He feels improved this morning with resolution of symptoms. VSS. Abd exam improved and is soft, nontender, less distended. NGT output has been minimal. Will clamp NGT for 4 hrs, check residual. Remove if remains asymptomatic and residual low. Strongly encouraged OOB and ambulation. GI following for Crohns, cont steroids. <Violet Darby PA-C - Last Filed: 09/06/22 08:38> Time Spent With Patient Time: Total time managing care of this patient today ____ minutes. <RAQUEL Quezada Last Filed: 09/06/22 08:38> Quality Stroke Does the patient have a stroke diagnosis?: No <Violet Darby PA-C - Last Filed: 09/06/22 08:38> VTE Prior VTE?: Yes <Violet Darby PA-C - Last Filed: 09/06/22 08:38> VTE Risk Level:: Medical - moderate - high <Violet Darby PA-C - Last Filed: 09/06/22 08:38> VTE Device Contraindication: Treatment Not Indicated <Violet Darby PA-C - Last Filed: 09/06/22 08:38> VTE Drug Contraindication: N/A - Med Ordered <Violet Darby PA-C - Last Filed: 09/06/22 08:38>
[2022-09-06] MEDS: Acetaminophen 325 MG TABLET 650 MG PO (08:34)
[2022-09-06] MEDS: Acetaminophen 1,000 MG/100 ML PIGGYBACK 400 MG IV (08:47)
--- NOTE | 2022-09-06 09:35 | MHC.CM.PN ---
PATIENT IS FULLY INDEPENDENT NO DME OR [facility] SERVICES HCP ON FILE AND VERIFIED. HE HOPES [facility] HOME WITH NO SERVICES /HCP TO TRANSPORT AT DC. IMM 09/06 IN CHART
[2022-09-06] MEDS: methylPREDNISolone Sod Succ 125 MG/2 ML VIAL 30 MG IVPUSH ×2 (10:23→23:24)
--- NOTE | 2022-09-06 10:50 | PM.GIPN ---
Subjective Subjective Date of Service: 09/06/22 Interval History: no abd pain no n/v Critical Care Time (minutes): 0 Physical Exam Vital Signs: Vital Signs: Last Vital Signs Temp 97.3 F 09/06/22 07:29 Pulse 67 09/06/22 07:29 Resp 18 09/06/22 07:29 BP 104/58 L 09/06/22 07:29 Pulse Ox 92 09/06/22 07:29 O2 Del Method Room Air 09/06/22 07:29 BMI result Body Mass Index 25.8 GI: Other: abdomen is less distended and nontender Objective Data Labs 09/06/22 05:55 09/06/22 05:55 Labs: Laboratory Results - last 24 hr 09/06/22 09/06/22 05:55 05:55 WBC 5.4 RBC 4.16 L D Hgb 12.6 L D Hct 38.4 L D MCV 92.3 MCH 30.3 MCHC 32.8 RDW 13.1 Plt Count 206 MPV 9.4 Absolute Nucleated RBC 0.000 Nucleated RBC % (auto) 0.0 Sodium 136 Potassium 4.1 Chloride 107 Carbon Dioxide 20 L Anion Gap 13 BUN 16 Creatinine 0.70 Estim Creat Clear Calc 110.8 Estimated GFR > 60 Random Glucose 116 H Calcium 8.4 D Procedures Date of Service Date of Service: 09/06/22 Progress Note: A&P Assessment and plan (1) Crohn's disease: Status: Acute Assessment and Plan: NGT shows no significant drainage Agree with removal continue steroids start clear liquids. Time Spent With Patient Time: Total time managing care of this patient today ____ minutes. Quality Stroke Does the patient have a stroke diagnosis?: No VTE Prior VTE?: Yes VTE Risk Level:: Medical - moderate - high VTE Device Contraindication: Treatment Not Indicated VTE Drug Contraindication: N/A - Med Ordered
[2022-09-06] MEDS: Metoclopramide HCl 10 MG/2 ML VIAL IVPUSH ×2 (11:20→21:01)
[2022-09-06 15:12] VITALS: BP 133/67; PULSE 69; RESP 20; TEMP 36.9; O2SAT 94
[2022-09-06] MEDS: Enoxaparin Sodium 40 MG/0.4 ML SYRINGE SUBCUT (15:50)
[2022-09-06 20:00] VITALS: BP 132/69; PULSE 71; RESP 19; TEMP 36.6; O2SAT 95
[2022-09-06] MEDS: 0.9 % Sodium Chloride Flush 3 ML SYRINGE IVFLUSH (21:02)
[2022-09-07 04:00] VITALS: BP 137/80; PULSE 70; RESP 18; TEMP 36.6; O2SAT 92
[2022-09-07] MEDS: Lactated Ringers 1,000 ML 100 ML IVCONT (06:08)
[2022-09-07 07:45] VITALS: BP 134/67; PULSE 60; RESP 20; TEMP 36.7; O2SAT 92
--- NOTE | 2022-09-07 08:23 | PM.PNGS ---
Subjective Subjective Date of Service: 09/07/22 Interval history: Had some nausea overnight with headache but denies nausea now. No abd pain. Has been passing continuous flatus. Denies ambulating. Physical Exam Vital Signs: Vital Signs: Last Vital Signs Temp 98.0 F 09/07/22 07:45 Pulse 60 09/07/22 07:45 Resp 20 09/07/22 07:45 BP 134/67 09/07/22 07:45 Pulse Ox 92 09/07/22 07:45 O2 Del Method Room Air 09/07/22 07:45 BMI result Body Mass Index 25.8 Const: General: comfortable, no acute distress and alert Orientation/consciousness: patient oriented x3 HEENT: Other: NGT in place, no significant drainage Resp: Effort & Inspection: normal respiratory effort GI: Inspection: No distended Palpation (GI): Soft to palpation, nontender, no guarding and not rigid Skin: General skin exam: no rashes or lesions noted Neuro: General: patient oriented x3 Objective Data Active Medications Acetaminophen/Butalbital/Caffeine (Butalb/Acetamin/Caff 50/325/40 Tablet) 1 tab PO Q4H PRN PRN Reason: Headache Albuterol/Ipratropium (Albuterol/Iprat 2.5/0.5mg 3 Ml Ampul.Neb) 3 ml INHALE RQ4H WHILE AWAKE PRN PRN Reason: Shortness of Breath/Wheezing Enoxaparin Sodium (Enoxaparin Sodium 40 Mg/0.4 Ml Syringe) 40 mg SUBCUT Q24H [facility] Last Admin: 09/06/22 15:50 Dose: 40 mg Documented By: ASTER Lactated Ringer's (Lr) 1,000 mls @ 100 mls/hr IVCONT .Q10H [facility] Last Admin: 09/07/22 06:08 Dose: 100 mls/hr Documented By: BORA Methylprednisolone Sodium Succinate (Methylprednisolone Sod Succ 125 Mg/2 Ml Vial) 30 mg IVPUSH Q12H [facility] Last Admin: 09/06/22 23:24 Dose: 30 mg Documented By: BRONWYN Metoclopramide HCl (Metoclopramide Hcl 10 Mg/2 Ml Vial) 10 mg IVPUSH Q6H PRN PRN Reason: Nausea and Vomiting Last Admin: 06/22/23 21:01 Dose: 10 mg Documented By: BRONWYN Morphine Sulfate (Morphine Sulfate 4 Mg/Ml Cartridge) 4 mg IVPUSH Q4H PRN; Protocol PRN Reason: Pain, Severe (Pain Scale 7-10) Pharmacy Consult (Consult Rx Perform Med Rec) 1 each MISCELLANE ONCE PRN PRN Reason: Consult order Sodium Chloride (0.9 % Sodium Chloride Flush 3 Ml Syringe) 3 ml IVFLUSH QSHIFT [facility] Last Admin: 09/07/22 07:10 Dose: Not Given Documented By: ASTER Non-Admin Reason: IV Running Labs 09/06/22 05:55 09/06/22 05:55 Procedures Date of Service Date of Service: 09/07/22 Progress Note: A&P Assessment and plan (1) Small bowel obstruction: Status: Acute (2) Crohn's disease: Status: Acute Plan 66 year old male PMH Crohns, ileocecetomy admitted for SBO secondary to possible Crohns flare, anastomotic stricture. Improving with supportive measures, steroids. NGT without significant output and has return of GI function. Abd remains benign and soft, nontender. NGT removed this am, start on clear liquids. Strongly encouraged OOB and ambulation. GI following for Crohns, cont steroids. Advance diet as tolerated. Time Spent With Patient Time: Total time managing care of this patient today ____ minutes. Quality Stroke Does the patient have a stroke diagnosis?: No VTE Prior VTE?: Yes VTE Risk Level:: Medical - moderate - high VTE Device Contraindication: Treatment Not Indicated VTE Drug Contraindication: N/A - Med Ordered
--- NOTE | 2022-09-07 09:00 | P.PNIM_ITS ---
Subjective Subjective Date of Service: 09/08/22 Interval History: f/u chron's, bowel obstruction. Better, NGT removed, no pain Physical Exam Vital Signs: Vital Signs: Last Vital Signs Temp 98.0 F 09/07/22 07:45 Pulse 60 09/07/22 07:45 Resp 20 09/07/22 07:45 BP 134/67 09/07/22 07:45 Pulse Ox 92 09/07/22 07:45 O2 Del Method Room Air 09/07/22 07:45 BMI result Body Mass Index 25.8 Const: Other: General: AO X 3, no acute distress Resp: CTA bilateral CVS: S1,S2,RRR GI: +BS, NT, ND Skin: No rash Neuro: motor grossly intact Psych: appropriate affect Objective Data Active Medications Acetaminophen/Butalbital/Caffeine (Butalb/Acetamin/Caff 50/325/40 Tablet) 1 tab PO Q4H PRN PRN Reason: Headache Albuterol/Ipratropium (Albuterol/Iprat 2.5/0.5mg 3 Ml Ampul.Neb) 3 ml INHALE RQ4H WHILE AWAKE PRN PRN Reason: Shortness of Breath/Wheezing Enoxaparin Sodium (Enoxaparin Sodium 40 Mg/0.4 Ml Syringe) 40 mg SUBCUT Q24H [facility] Last Admin: 09/06/22 15:50 Dose: 40 mg Documented By: ASTER Lactated Ringer's (Lr) 1,000 mls @ 100 mls/hr IVCONT .Q10H [facility] Last Admin: 09/07/22 06:08 Dose: 100 mls/hr Documented By: BORA Methylprednisolone Sodium Succinate (Methylprednisolone Sod Succ 125 Mg/2 Ml Vial) 30 mg IVPUSH Q12H [facility] Last Admin: 09/06/22 23:24 Dose: 30 mg Documented By: BRONWYN Metoclopramide HCl (Metoclopramide Hcl 10 Mg/2 Ml Vial) 10 mg IVPUSH Q6H PRN PRN Reason: Nausea and Vomiting Last Admin: 09/06/22 21:01 Dose: 10 mg Documented By: BRONWYN Morphine Sulfate (Morphine Sulfate 4 Mg/Ml Cartridge) 4 mg IVPUSH Q4H PRN; Protocol PRN Reason: Pain, Severe (Pain Scale 7-10) Pharmacy Consult (Consult Rx Perform Med Rec) 1 each MISCELLANE ONCE PRN PRN Reason: Consult order Sodium Chloride (0.9 % Sodium Chloride Flush 3 Ml Syringe) 3 ml IVFLUSH QSHIFT [facility] Last Admin: 09/07/22 07:10 Dose: Not Given Documented By: ASTER Non-Admin Reason: IV Running Labs 09/06/22 05:55 09/06/22 05:55 Assessment and Plan (1) Crohn's disease: Status: Acute (2) Small bowel obstruction: Status: Acute Plan Pt is a 66-year-old male with a PMH significant for?Crohn's disease with previous bowel obstructions, malignant melanoma, previous DVT from chemotherapy meds, and HLD who presents to the ED with? abdominal pain, distension, nausea, and vomiting since this morning. patient states that when he awoke he began experiencing abdominal spasms. Small-bowel obstruction likely related to ikely at ileocolonic anastamosis--clinically improved, NGT removed -starting liquid diet and advnace as tolerated. Acute Lactic acidosis, resolved, not due to sepsis crohn's --on iv steroid, gi following, once torlerating oral diet will change to PO prednisone COPD--no acute exacerbation HLD Continue statin hx of DVT--previously treated with eliquis Full Code DVT Prophylaxis: Lovenox Need for inpatient: management of SBO with NGT and surgical follow ups. Time Spent With Patient Time: Total time managing care of this patient today ____ minutes. Quality Stroke Does the patient have a stroke diagnosis?: No VTE Prior VTE?: Yes VTE Risk Level:: Medical - moderate - high VTE Device Contraindication: Treatment Not Indicated VTE Drug Contraindication: N/A - Med Ordered
--- NOTE | 2022-09-07 10:23 | MHC.CM.PN ---
PLAN IS TO ADVANCE DIET AND DC SATURDAY (HOME - SELF CARE) PATIENT HAS TRANSPORT HOME
[2022-09-07] MEDS: Atorvastatin Calcium 20 MG TABLET PO (10:29)
[2022-09-07] MEDS: Cyanocobalamin (Vitamin B-12) 1,000 MCG/ML VIAL 1000 MCG IM (10:29)
[2022-09-07] MEDS: methylPREDNISolone Sod Succ 125 MG/2 ML VIAL 30 MG IVPUSH ×2 (10:29→23:18)
--- NOTE | 2022-09-07 11:48 | PM.GIPN ---
Subjective Subjective Date of Service: 09/07/22 Interval History: feels better ng out tolerated clears this am would like to try solids Critical Care Time (minutes): 0 Physical Exam Vital Signs: Vital Signs: Last Vital Signs Temp 98.0 F 09/07/22 07:45 Pulse 60 09/07/22 07:45 Resp 20 09/07/22 07:45 BP 134/67 09/07/22 07:45 Pulse Ox 92 09/07/22 07:45 O2 Del Method Room Air 09/07/22 07:45 BMI result Body Mass Index 25.8 GI: Other: abdomen is soft and nontender Objective Data Labs 09/06/22 05:55 09/06/22 05:55 Procedures Date of Service Date of Service: 09/07/22 Progress Note: A&P Assessment and plan (1) Small bowel obstruction: Status: Acute Plan start low residue diet on discharge, start prednisone 40 mg/d x1 week and taper by 5 mg weekly. Time Spent With Patient Time: Total time managing care of this patient today ____ minutes. Quality Stroke Does the patient have a stroke diagnosis?: No VTE Prior VTE?: Yes VTE Risk Level:: Medical - moderate - high VTE Device Contraindication: Treatment Not Indicated VTE Drug Contraindication: N/A - Med Ordered
[2022-09-07] MEDS: Enoxaparin Sodium 40 MG/0.4 ML SYRINGE SUBCUT (15:21)
[2022-09-07 15:27] VITALS: BP 140/70; PULSE 54; RESP 16; TEMP 36.5; O2SAT 94
[2022-09-07 20:00] VITALS: BP 145/72; PULSE 60; RESP 20; TEMP 36.4; O2SAT 94
[2022-09-07] MEDS: 0.9 % Sodium Chloride Flush 3 ML SYRINGE IVFLUSH (20:04)
[2022-09-08 02:57] VITALS: BP 112/64; PULSE 57; RESP 18; TEMP 36.6; O2SAT 96
[2022-09-08] MEDS: Atorvastatin Calcium 20 MG TABLET PO (07:35)
[2022-09-08] MEDS: 0.9 % Sodium Chloride Flush 3 ML SYRINGE IVFLUSH (07:35)
--- NOTE | 2022-09-08 07:50 | PM.DS ---
DS: Providers Provider Date of Service: 09/08/22 Date of admission: 09/05/22 13:57 Primary care physician: Anil Luna MD Consults: 09/05/22 13:33 Consult to Gastroenterology Stat Consulting Provider: Yoel Watkins Reason for consultation: SBO, crohns 09/05/22 14:07 Consult to General Surgery Routine Consulting Provider: [facility] [place] General Surgeons Reason for consultation: SBO, pt with Crohn's DS: Diagnosis Discharge Diagnosis (1) Crohn's disease: Status: Acute (2) Small bowel obstruction: Status: Acute DS: Summary Hospital Course Hospital Course: Chief Complaint: Abdominal pain Pt is a 66-year-old male with a PMH significant for?Crohn's disease with previous bowel obstructions, malignant melanoma, previous DVT from chemotherapy meds, and HLD who presents to the ED with? abdominal pain, distension, nausea, and vomiting since this morning.? patient states that when he awoke he began experiencing abdominal spasms. Pain would cycle from moderate pain to suddenly severe to then mild, and then start all over again. Pt? also experienced nausea and vomiting, and 1 episode of diarrhea. Was not passing flatus. Pt reports these symptoms are similar to those he experienced 2 months ago and in January of last year when he was hospitalized for bowel obstruction related to his Crohn's disease. Currently, patient states that his pain is well controlled? in that he had 2 episodes of flatus approximately 15 minutes prior. He has been vomiting a lot, but vomitus is clear and not bilious. Trace amount of output from NGT, clear not bilious.? patient denies chest pain/ pressure, palpitations.? No shortness of breath.? Denies fever, chills. In the ED patient was afebrile and slightly hypertensive at 146/114. Labs were significant for lactic acid of 2.2, bilirubin 1.8. Electrolytes WNL. Renal function baseline. Stable H&H. No leukocytosis. CT?of abdomen/pelvis showed a dilation of distal ileal loops with some fecalization and the possibility of a stricture at the ileocolic anastomosis. Incidental note of possible gallbladder polyp/mass. Pt was treated with ondansetron 4mg x2 doses, hydromorphone 1mg x2 doses, IVF, and metoclopramide 10mg IV. Pt will be admitted to the hospital for treatment further evaluation small-bowel obstruction with NGT IV antiemetics and analgesics. Hospital course: This patient with known Crohn's disease presented to the hospital with abdominal pain and workup with abdominal CT revealed dilatation of distal ileal loops with some fecalizationand the possibility of a stricture at the ileocolic anastomosis is considered. The degree of dilatation is a bit more than seen on the prior study. An NG tube was inserted and attempt to relieve the obstruction and there was also seen by a a surgical surgeon, GI doctor and was started on steroid for presumed exacerbation of Crohn's. Over the course of hospitalization his condition has significantly improved over a short period of time the NG tube has been removed his abdominal exam is completely benign he has been started on a liquid diet that has since been advanced to regular diet which he is tolerating and will therefore be discharged home. He will be discharged with a prednisone taper 40 mg daily for 1 week followed by a 5 mg reduction in the does every week. He is comfortable going home at this time. Time Spent with Patient Time attestation: Total time managing care of this patient today ____ minutes. Discharge coordination time: Greater than 30 minutes Quality: Safe Use of Opioids Does Pt have an Active Cancer Diagnosis on the Problem List?: No Quality: Stroke Does the patient have a stroke diagnosis?: No Physical Exam Vital Signs: Vital Signs: Last Vital Signs Temp 97.8 F 09/08/22 02:57 Pulse 57 09/08/22 02:57 Resp 18 09/08/22 02:57 BP 112/64 09/08/22 02:57 Pulse Ox 96 09/08/22 02:57 O2 Del Method Room Air 09/08/22 02:57 BMI result Body Mass Index 25.8 Const: Other: General: AO X 3, no acute distress Resp: CTA bilateral CVS: S1,S2,RRR GI: +BS, NT, no distention Skin: No rash Neuro: motor grossly intact Psych: appropriate affect Discharge Plan Discharge Anticipated Discharge Date/Time: 09/08/22 07:39 Patient Disposition: Home, Self-Care Discharge Diagnosis: Additional Crohn's disease, bowel obstruction. Referrals: Anil Luna MD [Primary Care Provider] - 1 Week Discharge Medications: New prednisone 5 mg tablet 5 mg PO DIRECTED Qty: 252 0RF Rx Instructions: See taper instructions: 8 tabs (40 mg) daily x 7 days, then reduce by 1 tab (5 mg) every week Continued cholestyramine (with sugar) [Questran] 4 gram powder 4 g PO DAILY cyanocobalamin (vitamin B-12) 1,000 mcg/mL solution 1,000 mcg IM Q4W 90 Days Qty: 3 2RF atorvastatin 20 mg tablet 20 mg PO DAILY 90 Days Qty: 90 3RF Discharge Orders: Discharge Order (Routine); Ordered 09/08/22 Ordered By: Juliano Wallace Diet: Advance to usual diet Activity on Discharge: As tolerated Stand Alone Forms: Patient Portal Discharge page Care Plan Goals: Full recovery from Crohn's disease Health Concerns: Crohn's disease with bowel obstruction Plan of Treatment: Take prednisone as directed. Take 40 mg daily for 1 week, then reduce by 5 mg weekly until completion follow up with your PCP in a week, follow up by PCP in a week Assessment: as above
[2022-09-08 07:51] VITALS: BP 114/65; PULSE 50; RESP 17; TEMP 36.4; O2SAT 93
== END 2022-09-08 10:23 | disposition home or self-care (01) | DRG 386 ==
LOC: HO.ED 13:36 → HO.EDOVER 14:23 → HO.S3 15:55
PROVIDERS: Admitting Provider Student in an Organized Health Care Education/Training Program; Emergency Provider Emergency Medicine; PCP Internal Medicine; Visit Provider Internal Medicine
DX: K50.912 Crohn's disease, unspecified, with intestinal obstruction (principal); E87.21 Acute metabolic acidosis; Q23.1 Congenital insufficiency of aortic valve; I35.1 Nonrheumatic aortic (valve) insufficiency; E78.5 Hyperlipidemia, unspecified; J44.9 Chronic obstructive pulmonary disease, unspecified; G43.909 Migraine, unspecified, not intractable, without status migrainosus; Z85.820 Personal history of malignant melanoma of skin; Z79.899 Other long term (current) drug therapy
CPT/HCPCS: 36415; 74177; 80048; 80076; 83605; 83690; 85025; 85027; 99285; J0131; J1170; J1650; J2405; J2765; J2930; Q9967

== ENCOUNTER 2022-09-26 07:55 | Outpatient (AMB) | payer MEDICARE, SELFPAY ==
[2022-09-26 08:10] VITALS: BP 116/80; PULSE 61; O2SAT 97; BMI 26.2
--- NOTE | 2022-09-26 08:10 | A.OFFPC_ITS ---
Vital Signs 09/26/22 08:10 Height 6 ft Weight 87.713 kg BMI 26.2 BP 116/80 Blood Pressure Location Lt brachial Position Sitting Pulse 61 Pulse Source Pulse Oximeter Pulse Oximetry (%) 97 Oxygen Delivery Method Room Air Intake Visit Reasons: [facility] [place] SBO Allergies codeine [Codeine] Allergy (Severe, Verified 09/26/22 08:10) HIVES,GI UPSET Tobacco use date assessed: 09/26/22 Fall risk assessment: No Falls in past year Last assessed Fall Risk: 09/26/22 Dental Screening Dental Screen Date: 09/26/22 Did you have a dental visit in the last 12 months?: No Did you have a dental problem in the last 6 months where you did not have access to dental care?: No Was dental information given to patient?: Patient has dentist HPI HPI Comments History of Present Illness Details 66-year-old male with history of migraines, metastatic melanoma, lumbar degenerative disc disease, history DVT no longer on anticoagulation, Crohn's disease, and hypercholesterolemia presents to the office for post hospital evaluation. He was admitted to [facility] from 09/05-09/08 for management of small-bowel obstruction and Crohn's exacerbation. All discharge medications have been reviewed and reconciled. In the ED, CT of the abdomen/pelvis showed dilatation of the distal ileal loops with some fecalization and a possible stricture of the ileo colic anastomosis (history colectomy 1987). Incidentally seen on abdominal CT was a possible gallbladder polyp versus mass. Labs are significant for bilirubin of 1.8 and lactic acidosis of 2.2 (improved to 0.9 with IVF) but were otherwise unremarkable on admission. No leukocytosis. Renal function baseline and electrolytes normal. There was a drop in h/h to 12.6/38.4, above transfusion threshold. The patient was admitted to the medical service and was consulted on by General surgery and Gastroenterology. He was treated empirically with NG tube to relieve obstruction and clinically improved significantly with the NG tube which was discontinued and patient was advanced to a liquid diet and then to regular diet which was well tolerated. There was also started on prednisone taper for Crohn's disease at 40 mg daily x1 week and was advised to reduce dose by 5 mg weekly through 5 mg. Since his discharge he reports feeling well. Abd pain resolved, tolerating regular diet. Denies ongoing n/v/d. No melena, hematochezia. He has upcoming appt with Dr. Watkins in several weeks. He is concerned about the gallbladder mass/polyp incidentally seen on abdominal/pelvis CT. Bilirubin is mildly elevated at 1.8, LFTs otherwise within normal limits. He is asymptomatic without any abdominal pain, nausea, vomiting . [facility] Medical History Anticoagulation adequate Ascending aortic aneurysm Bicuspid aortic valve Bowel obstruction Cough COVID-19 vaccine series completed Crohn disease Crohn's disease Degenerative joint disease of cervical spine DVT (deep venous thrombosis) History of nephrolithiasis History of rectal abscess Hyperbilirubinemia Hyperpigmented skin lesion Impaired fasting glucose Lumbar degenerative disc disease Metastatic melanoma Migraine Overweight (BMI 25.0-29.9) Pernicious anemia Pure hypercholesterolemia Surgical History H/O colonoscopy History of back surgery History of esophagogastroduodenoscopy (EGD) History of inguinal hernia repair History of lymph node excision History of partial colectomy Hx of cardiac catheterization Family History Father Medical history unknown Mother Hypertension Diabetes Social History Household Members: Spouse Housing: House Are you a primary day care assistant to a significant other at home: No Do you presently have visiting nurse or other home services: No Alcohol intake: never Patient Tobacco Use Status: Never used Tobacco Tobacco use type: Cigarette e-Cigarette/Vaping Use: Never Used Second Hand Smoke Exposure: Yes Substance Use Type: Marijuana Advance Directives Date on File: 01/08/19 service: No Current occupational status: retired Cognitive needs: No Hearing needs: No Vision needs: Yes Questionnaire PHQ-9 Over the last 2 weeks, how often have you been bothered by any of the following problems? 1. Little interest or pleasure in doing things: not at all 2. Feeling down, depressed, or hopeless: not at all 3. Trouble falling or staying asleep, or sleeping too much: not at all 4. Feeling tired or having little energy: not at all 5. Poor appetite or overeating: not at all 6. Feeling bad about yourself - or that you are a failure or have let yourself or your family down: not at all 7. Trouble concentrating on things, such as reading the newspaper or watching television: not at all 8. Moving or speaking so slowly that other people could have noticed. Or the opposite - being so fidgety or restless that you have been moving around a lot more than usual: not at all 9. Thoughts that you would be better off or of hurting yourself in some way: not at all Total score: 0 Depression Screening Interpretation: Negative [id number] - PHQ-9 Billing: Yes Source: Developed by Drs. Matt Vizcarra, Janet Chapman, Jose Braswell and colleagues, with an educational gustavo from [employer]. Thrive Questionnaire Date Thrive assessed: 09/06/22 AUDIT C Alcohol Use Questionnaire (AUDIT-C) 1. How often do you have a drink containing alcohol?: Never 2. How many drinks containing alcohol do you have on a typical day when you are drinking?: 1 or 2 (N/A) 3. How often do you have six or more drinks on one occasion?: Never Total Score: 0 Score Reviewed/Action Taken: Yes DORIS-7 AMB Questionnaire DORIS-7 Date DORIS - 7 assessed: 05/11/22 Source: Developed by Drs. Matt Vizcarra, Janet Chapman, Jose Braswell and colleagues, with an educational gustavo from [employer]. Review of Systems Const Details: General: No fevers, malaise, unintentional weight loss HEENT: No blurred vision, diplopia. No sore throat, nasal congestion, rhinorrhea, sinus pain, ear pain Cardiovascular: No chest pain, palpitations, or leg edema Respiratory: No shortness of breath, wheezing, cough GI: No abdominal pain, nausea, vomiting, diarrhea, constipation, melena, hematochezia : No dysuria, hematuria, increased urinary frequency, decreased urinary output MSK: No myalgia, back pain Neuro: No headaches, weakness, paresthesias Skin: No rashes or lesions Physical exam (Primary Care) Vital Signs: Last Vital Signs Pulse 61 09/26/22 08:10 BP 116/80 09/26/22 08:10 Pulse Ox 97 09/26/22 08:10 Oxygen Delivery Method Room Air 09/26/22 08:10 BMI result Body Mass Index 26.2 Tobacco/Smoking Status: Tobacco use Status Tobacco use date assessed 09/26/22 09/26/22 08:18 Patient Tobacco Use Status Never used Tobacco 09/26/22 08:11 Tobacco use type Cigarette 09/26/22 08:11 e-Cigarette/Vaping Use Never Used 09/26/22 08:11 PHQ-9: PHQ-9 Score PHQ-9: Total score 0 09/26/22 08:18 Depression Screening Interpretation: Negative Thrive Assessment: Date of Thrive Assessment Date Thrive assessed 09/06/22 09/26/22 08:11 Const Other: Constitutional - Awake and Alert, No apparent distress Eyes - PERRLA, EOMI Cardiovascular - S1S2, RRR, No edema Respiratory - Normal lung expansion, Normal respiratory effort, No respiratory distress, CTA bilaterally Gastrointestinal - NT / ND; +BS; No rebound or guarding. Negative Ochoa sign. Large linear post-op scar in the RLQ without any palpable masses Extremities - no calf tenderness bilaterally, no swelling Skin - Warm/Dry Neurological - Alert & oriented x3 Psychological - Appropriate affect Results Reviewed Results Reviewed: Independently reviewed CT abd/pelvis, CBC, BMP, Liver panel, Gen surg consult, GI consult, Hospitalist H&P and DS. Assessment and Plan Assessment & Plan (1) Gallbladder mass: Code(s): K82.8 - Other specified diseases of gallbladder Plan: Reviewed CT abd/pelvis which shows a small area of nodular thickening at the fundus of the gallbladder possibly representing a gallbladder polyp or other m ass. Ultrasound of the right upper quadrant is ordered for further characterization of this mass. Will refer to general surgery for further evaluation and management. (2) Crohn's disease: Code(s): K50.90 - Crohn's disease, unspecified, without complications Qualifiers: Digestive disease complication type: unspecified complication Gastrointestinal tract location: unspecified location Qualified Code(s): K50.919 - Crohn's disease, unspecified, with unspecified complications Plan: Resolving. Patient is currently asymptomatic. He is advised to continue with prednisone taper as prescribed. Follow-up with Gastroenterology ([facility]) in several weeks as scheduled/ (3) SBO (small bowel obstruction): Code(s): K56.609 - Unspecified intestinal obstruction, unspecified as to partial versus complete obstruction Plan: Resolved. Treated conservatively with NG tube which was removed with gradual advancement of diet and resolution of symtpoms. Tolerating diet. Orders: Orders US abdomen limited 09/26/22 K82.8 - Other specified diseases of gallbladder Referrals General Surgery Referral K50.90 - Crohn's disease, unspecified, without complications, K56.609 - Unspecified intestinal obstruction, unspecified as to partial versus complete obstruction, K82.8 - Other specified diseases of gallbladder Coding Level of Care Code [facility] High [facility] <= 14 days Diagnoses Gallbladder mass K82.8 Crohn's disease K50.919 Digestive disease complication type: unspecified complication Gastrointestinal tract location: unspecified location SBO (small bowel obstruction) K56.609 Time Spent (min) 45 Comment results/documentation reviewed as above, time also spent in exam with patient and document
--- NOTE | 2022-09-26 08:10 | MHC.PC.OV ---
Vital Signs 09/26/22 08:10 Height 6 ft Blood Pressure Location Lt brachial Position Sitting Pulse Source Pulse Oximeter Oxygen Delivery Method Room Air Intake Visit Reasons: [facility] [place]BO Allergies codeine [Codeine] Allergy (Severe, Verified 09/26/22 08:10) HIVES,GI UPSET Tobacco use date assessed: 05/11/22 [facility] Medical History Anticoagulation adequate Ascending aortic aneurysm Bicuspid aortic valve Bowel obstruction Cough COVID-19 vaccine series completed Crohn disease Crohn's disease Degenerative joint disease of cervical spine DVT (deep venous thrombosis) History of nephrolithiasis History of rectal abscess Hyperbilirubinemia Hyperpigmented skin lesion Impaired fasting glucose Lumbar degenerative disc disease Metastatic melanoma Migraine Overweight (BMI 25.0-29.9) Pernicious anemia Pure hypercholesterolemia Surgical History H/O colonoscopy History of back surgery History of esophagogastroduodenoscopy (EGD) History of inguinal hernia repair History of lymph node excision History of partial colectomy Hx of cardiac catheterization Family History Father Medical history unknown Mother Hypertension Diabetes Social History Household Members: Spouse Housing: House Are you a primary health care / medical job titles to a significant other at home: No Do you presently have visiting nurse or other home services: No Alcohol intake: never Patient Tobacco Use Status: Never used Tobacco Tobacco use type: Cigarette e-Cigarette/Vaping Use: Never Used Second Hand Smoke Exposure: Yes Substance Use Type: Marijuana Advance Directives Date on File: 01/08/19 service: No Current occupational status: retired Cognitive needs: No Hearing needs: No Vision needs: Yes Questionnaire Thrive Questionnaire Date Thrive assessed: 09/06/22 DORIS-7 AMB Questionnaire DORIS-7 Date DORIS - 7 assessed: 05/11/22 Source: Developed by Drs. Matt Vizcarra, Janet Chapman, Jose Braswell and colleagues, with an educational gustavo from [email or web address]. Physical exam (Primary Care) Tobacco/Smoking Status: Tobacco use Status Tobacco use date assessed 05/11/22 09/26/22 08:10 Patient Tobacco Use Status Never used Tobacco 09/26/22 08:10 Tobacco use type Cigarette 09/26/22 08:10 e-Cigarette/Vaping Use Never Used 09/26/22 08:10 Thrive Assessment: Date of Thrive Assessment Date Thrive assessed 09/06/22 09/26/22 08:10 Coding Diagnoses
== END 2022-09-26 08:36 | disposition home or self-care (01) ==
PROVIDERS: PCP Internal Medicine; Visit Provider Physician Assistant
DX: K82.8 Other specified diseases of gallbladder (principal); K50.919 Crohn's disease, unspecified, with unspecified complications; K56.609 Unspecified intestinal obstruction, unspecified as to partial versus complete obstruction
CPT/HCPCS: 99495

== ENCOUNTER 2022-10-09 07:54 | Outpatient (REF) | payer MEDICARE, SELFPAY ==
--- NOTE | ~2022-10-09 | US_ITS ---
EXAMINATION: US ABDOMEN LIMITED CLINICAL INFORMATION: Other specified diseases of gallbladder. COMPARISON: CT abdomen and pelvis with intravenous contrast dated 09/05/2022. TECHNIQUE: Real-time imaging of the right upper quadrant abdominal viscera. FINDINGS: PANCREAS: Visualized portions unremarkable. LIVER: Diffuse increased echotexture without focal abnormality. GALLBLADDER: Unremarkable. COMMON BILE DUCT: Normal in caliber measuring 0.3 cm in diameter. RIGHT KIDNEY: 12.2 cm. Several anechoic cysts are seen. A peripelvic cyst in the lower pole measures 1.1 cm. A smaller upper pole anechoic cyst measures 0.9 cm. A third upper pole cyst measures 0.9 cm. An echogenic focus in the upper pole measures 0.3 cm. No hydronephrosis. Color Doppler showed no abnormal vascular flow. FREE FLUID: None. US/US abdomen limited IMPRESSION: 1. Hepatic steatosis without focal abnormality. 2. Small right renal cysts demonstrate benign features not requiring follow-up. Nonobstructing right upper pole intrarenal calculus.
== END 2022-10-09 07:55 | disposition home or self-care (01) ==
LOC: HO.US 07:54
PROVIDERS: Absent Provider Surgery; PCP Internal Medicine; Visit Provider Physician Assistant
DX: K82.8 Other specified diseases of gallbladder (principal)
CPT/HCPCS: 76705

== ENCOUNTER 2022-10-10 14:55 | Outpatient (AMB) | payer MEDICARE, SELFPAY ==
[2022-10-10 14:57] VITALS: BP 130/73; PULSE 80; BMI 26.0
--- NOTE | 2022-10-10 14:57 | MHC.OFFVIS ---
Intake Vital Signs 10/10/22 14:57 Height 6 ft Weight 192 lb BMI 26.0 BP 130/73 Blood Pressure Location Lt brachial Position Sitting Pulse 80 Intake Visit Reasons: gallbladder polyp/mass Intake Note: This patient presents for an assessment for gallbladder polyp/mass. Patient c/o; denies RUQ pain, denies vomiting or nausea. Marine Specialist Required: No Accompanied by: Self / Same As Patient Allergies codeine [Codeine] Allergy (Severe, Verified 10/10/22 15:00) HIVES,GI UPSET Medication List - Last Reconciled 10/10/22 by Yves Escobar MD atorvastatin 20 mg PO DAILY 90 days cholestyramine (with sugar) 4 gram (Questran) 4 grams PO DAILY cyanocobalamin (vitamin B-12) 1,000 mcg IM Q4W 90 days prednisone 5 mg PO DIRECTED HPI gallbladder polyp/mass HPI Details 67-year-old male referred for a question of a gallbladder polyp. He was admitted the hospital last 09/07/2022 because of question of small-bowel obstruction with vomiting. Was thought to have a stricture at the old ileocolonic anastomosis. He had a history of resection for Crohn's disease in the distant past His CAT scan at that time showed a question of a gallbladder polyp. He was therefore referred to me He however had an ultrasound done yesterday and this did not reveal any lesion or polyp in the gallbladder. He currently denies abdominal complaints [facility] Medical History Anticoagulation adequate Ascending aortic aneurysm Bicuspid aortic valve Bowel obstruction Cough COVID-19 vaccine series completed Crohn disease Crohn's disease Degenerative joint disease of cervical spine DVT (deep venous thrombosis) History of nephrolithiasis History of rectal abscess Hyperbilirubinemia Hyperpigmented skin lesion Impaired fasting glucose Lumbar degenerative disc disease Metastatic melanoma Migraine Overweight (BMI 25.0-29.9) Pernicious anemia Pure hypercholesterolemia Surgical History H/O colonoscopy History of back surgery History of esophagogastroduodenoscopy (EGD) History of inguinal hernia repair History of lymph node excision History of partial colectomy Hx of cardiac catheterization Family History Father Medical history unknown Mother Hypertension Diabetes Social History Household Members: Spouse Housing: House Are you a primary lpn care manager to a significant other at home: No Do you presently have visiting nurse or other home services: No Alcohol intake: never Patient Tobacco Use Status: Never used Tobacco Tobacco use type: Cigarette e-Cigarette/Vaping Use: Never Used Second Hand Smoke Exposure: Yes Substance Use Type: Marijuana Advance Directives Date on File: 01/08/19 service: No Current occupational status: retired Cognitive needs: No Hearing needs: No Vision needs: Yes Review of Systems Const Denies chills and Denies fever(s) Card Denies chest pain, Denies dyspnea and Denies dyspnea on exertion Resp Denies cough, Denies dyspnea and Denies dyspnea on exertion GI Denies hematochezia and Denies change in bowel habits Denies hematuria and Denies difficulty urinating Musc Denies back pain and Denies limited range of motion Neuro Denies focal weakness and Denies convulsions Psych Denies depression and Denies mood swings Physical Exam Vital Signs: Last Vital Signs Pulse 80 10/10/22 14:57 BP 130/73 10/10/22 14:57 BMI result Body Mass Index 26.0 Const General: comfortable and no acute distress Orientation/consciousness: patient oriented x3 Neck Neck: Yes no lymphadenopathy Resp Auscultation: clear to auscultation bilaterally Cardio Rhythm: regular rhythm GI Other: reducible umbilical hernia, about 2 cm Palpation (GI): Soft to palpation, nontender and no guarding Neuro General: patient oriented x3 Assessment & Plan Assessment & Plan (1) Gallbladder mass: Code(s): K82.8 - Other specified diseases of gallbladder Plan: He had a CAT scan done last month on admission to the hospital showing what appeared to be a gallbladder polyp. However, he had an ultrasound done yesterday which did not reveal any lesions, polyp or any abnormality in the gallbladder. I explained to him that the ultrasound is more sensitive and specific for lesions on the wall of the gallbladder. It does not appear that cholecystectomy is indicated at this time. He is happy with the above. He can follow up on a p.r.n. basis. He says he will eventually see me again because of his umbilical hernia. Coding Level of Care Code Est Pt Level 3 (33464) Diagnoses Gallbladder mass K82.8
== END 2022-10-10 15:18 | disposition home or self-care (01) ==
PROVIDERS: PCP Internal Medicine; Visit Provider Surgery
DX: K82.8 Other specified diseases of gallbladder (principal)
CPT/HCPCS: 99213

== ENCOUNTER → 2022-10-10 14:55 | Outpatient (BNVA) | payer MEDICARE, SELFPAY | PROVIDERS: PCP Internal Medicine; Visit Provider Surgery | DX: K82.8 Other specified diseases of gallbladder (principal) | CPT/HCPCS: 99212 ==

== ENCOUNTER 2022-10-11 07:09 | Outpatient (REF) | payer MEDICARE, SELFPAY ==
[2022-10-11 07:30] LABS: MANUAL DIFF FLAG NO
[2022-10-11 08:10] LABS: Basophils Percent Auto 0.2 % (0-2); Eosinophils Absolute Auto 0.1 X10*3/uL (0.0-0.4); Hematocrit 47.5 % (42.0-52.0); Hemoglobin 15.4 g/dl (14.0-18.0); Imm Gran Abs Auto 0.04 X10*3/uL (0.00-0.03); Imm Gran Pct Auto 0.7 % (0.0-0.4); Lymphocytes Absolute Auto 1.6 X10*3/uL (1.2-4.9); Lymphocytes Percent Auto 26.3 % (20-40); Mean Corpuscular HGB Conc 32.4 g/dl (31.0-36.0); Mean Corpuscular Hemoglobin 30.6 pg (27.0-33.0); Mean Corpuscular Volume 94.2 fL (80.0-98.0); Mean Platelet Volume 8.9 fL (9.4-12.4); Monocytes Absolute Auto 0.4 X10*3/uL (0.1-1.2); Monocytes Percent Auto 7.2 % (2-11); Neutrophils Absolute Auto 3.9 x10*3/uL (2.0-8.3); Neutrophils Percent Auto 64.6 % (45-73); Platelet Count 168 X10*3/uL (160-400); Red Blood Count 5.04 X10*6/uL (4.60-5.80); Red Cell Distribution Width 14.1 % (11.0-16.0)
[2022-10-11 08:47] LABS: Alanine Aminotransferase 32 U/L (0-40); Albumin Level 3.5 g/dL (3.5-5.0); Alkaline Phosphatase 71 U/L (39-117); Anion Gap 14 (12-20); Aspartate Amino Transferase 14 U/L (5-37); Bilirubin Total 1.3 mg/dL (0.0-1.0); Blood Urea Nitrogen 20 mg/dL (9-16); Carbon Dioxide 26 mmol/L (22-29); Chloride 102 mmol/L (96-108); Cholesterol 173 mg/dL; Estimated Glomerular Filt Rate > 60; Glucose Fasting 85 mg/dL (60-99); HDL Cholesterol 78 mg/dL; LDL Cholesterol Calculated 76 mg/dl; Potassium 3.9 mmol/L (3.3-5.1); Sodium 138 mmol/L (135-145); Total Protein 6.1 g/dL (6.5-8.0); Triglycerides 96 mg/dL
[2022-10-11 08:53] LABS: TSH reflex Free T4 1.78 uIU/mL (0.32-4.0); Vitamin D 25-OH Total 26.9 ng/mL (>30)
[2022-10-11 08:59] LABS: Appearance Urine Clear; Color Urine Yellow; Glucose Urine UA Negative (Negative); Leukocyte Esterase Urine Negative (Negative); Nitrite Urine Negative (Negative); Urine Blood Negative (Negative); Urine Ketones Negative (Negative); Urine Protein Negative (Neg-Trace)
== END 2022-10-11 07:10 | disposition home or self-care (01) ==
LOC: HO.LAB 07:09
PROVIDERS: PCP Internal Medicine; Visit Provider Internal Medicine
DX: E78.00 Pure hypercholesterolemia, unspecified (principal); E55.9 Vitamin D deficiency, unspecified; I10 Essential (primary) hypertension; R30.0 Dysuria
CPT/HCPCS: 36415; 80053; 80061; 81003; 82306; 84443; 85025

== ENCOUNTER 2022-10-17 08:58 | Outpatient (AMB) | payer MEDICARE, SELFPAY ==
--- NOTE | 2022-10-17 09:13 | MHC.PC.OV ---
Vital Signs 10/17/22 09:14 Height 6 ft Weight 196 lb BMI 26.6 BP 130/68 Blood Pressure Location Lt brachial Position Sitting Pulse 57 Pulse Source Pulse Oximeter Pulse Oximetry (%) 97 Oxygen Delivery Method Room Air Intake Visit Reasons: 4M follow up Allergies codeine [Codeine] Allergy (Severe, Verified 10/17/22 09:30) HIVES,GI UPSET Medication List - Last Reconciled 10/17/22 by Anil Luna MD atorvastatin 20 mg PO DAILY 90 days cholestyramine (with sugar) 4 gram (Questran) 4 grams PO DAILY cyanocobalamin (vitamin B-12) 1,000 mcg IM Q4W 90 days prednisone 15 mg PO DAILY Tobacco use date assessed: 09/26/22 Fall risk assessment: No Falls in past year Last assessed Fall Risk: 10/17/22 Dental Screening Dental Screen Date: 10/17/22 Did you have a dental visit in the last 12 months?: Yes Did you have a dental problem in the last 6 months where you did not have access to dental care?: No Was dental information given to patient?: Patient has dentist HPI 4M follow up HPI Details Patient comes in today for his follow up visit States that he currently feels okay Was admitted to [facility] back in August 2022 for small bowel obstruction Is currently still on Prednisone at 15 mg QD and states that Dr. Watkins is slowly weaning his dose down His stomach is currently feeling a lot better and states that the prednisone also seems to be helping his lower back as his low back pain seems to have also decreased a lot Imaging studies done at the time of his hospital admission revealed what appears to be a GB polyp - he was referred to and seen by surgery for this last week Was advised that his abdominal US done a couple of weeks ago did NOT reveal any GB pathology or lesion so no surgery or intervention is indicated at this time He denies any headaches or dizziness Denies any chest pains, no SOB No nausea/vomiting, no abdominal pain and no change in bowel habits noted at present Had his follow up labs done last week - to discuss his results States that he would like to get Rx for some Viagra if possible - has noticed (+) problems with getting and maintaining erections lately during sexual intercourse but wants to be sure that he can take it safely as he has Hx of HTN and aortic aneurysm PFSH Medical History (Updated 10/17/22 @ 10:04 by Anil Luna MD) Anticoagulation adequate Ascending aortic aneurysm Bicuspid aortic valve Bowel obstruction Cough COVID-19 vaccine series completed Crohn disease Crohn's disease Degenerative joint disease of cervical spine DVT (deep venous thrombosis) History of nephrolithiasis History of rectal abscess Hyperbilirubinemia Hyperpigmented skin lesion Impaired fasting glucose Lumbar degenerative disc disease Metastatic melanoma Migraine Overweight (BMI 25.0-29.9) Pernicious anemia Pure hypercholesterolemia Surgical History H/O colonoscopy History of back surgery History of esophagogastroduodenoscopy (EGD) History of inguinal hernia repair History of lymph node excision History of partial colectomy Hx of cardiac catheterization Family History Father Medical history unknown Mother Hypertension Diabetes Social History Household Members: Spouse Housing: House Are you a primary med care manager to a significant other at home: No Do you presently have visiting nurse or other home services: No Alcohol intake: never Patient Tobacco Use Status: Never used Tobacco Tobacco use type: Cigarette e-Cigarette/Vaping Use: Never Used Second Hand Smoke Exposure: Yes Substance Use Type: Marijuana Advance Directives Date on File: 01/08/19 service: No Current occupational status: retired Cognitive needs: No Hearing needs: No Vision needs: Yes Questionnaire PHQ-9 Over the last 2 weeks, how often have you been bothered by any of the following problems? 1. Little interest or pleasure in doing things: not at all 2. Feeling down, depressed, or hopeless: not at all 3. Trouble falling or staying asleep, or sleeping too much: not at all 4. Feeling tired or having little energy: not at all 5. Poor appetite or overeating: not at all 6. Feeling bad about yourself - or that you are a failure or have let yourself or your family down: not at all 7. Trouble concentrating on things, such as reading the newspaper or watching television: not at all 8. Moving or speaking so slowly that other people could have noticed. Or the opposite - being so fidgety or restless that you have been moving around a lot more than usual: not at all 9. Thoughts that you would be better off or of hurting yourself in some way: not at all Total score: 0 Depression Screening Interpretation: Negative [id number] - PHQ-9 Billing: Yes Source: Developed by Drs. Matt Vizcarra, Janet Chapman, Jose Braswell and colleagues, with an educational gustavo from [employer]. Thrive Questionnaire Date Thrive assessed: 09/06/22 AUDIT C Alcohol Use Questionnaire (AUDIT-C) 1. How often do you have a drink containing alcohol?: Never 2. How many drinks containing alcohol do you have on a typical day when you are drinking?: 1 or 2 (N/A) 3. How often do you have six or more drinks on one occasion?: Never Total Score: 0 Score Reviewed/Action Taken: Yes DORIS-7 AMB Questionnaire DORIS-7 Date DORIS - 7 assessed: 05/11/22 Source: Developed by Drs. Matt Vizcarra, Janet Chapman, Jose Braswell and colleagues, with an educational gustavo from [employer]. Review of Systems Const Denies chills, Denies fatigue, Denies fever(s) and Denies headache(s) ENT Denies dysphagia, Denies dizziness, Denies otalgia, Denies headache(s) and Denies sore throat Card Denies chest pain, Denies palpitations and Denies dyspnea Resp Denies cough and Denies dyspnea GI Denies abdominal pain (improved with oral Prednisone Tx), Denies hematochezia, Denies dysphagia, Denies heartburn, Reports diarrhea (on and off; controlled lately), Denies nausea and Denies vomiting Reports erectile dysfunction, Denies dysuria, Denies nocturia and Denies urinary frequency Musc Details: (+) pain and swelling of the right hand and distal half of the forearm Reports back pain (left lower back - improved recently with oral prednisone) and Denies arthralgias Neuro Denies dizziness and Denies headache(s) Endo Denies fatigue and Denies palpitations Physical exam (Primary Care) Vital Signs: Last Vital Signs Pulse 57 10/17/22 09:14 BP 130/68 10/17/22 09:14 Pulse Ox 97 10/17/22 09:14 Oxygen Delivery Method Room Air 10/17/22 09:14 BMI result Body Mass Index 26.6 Tobacco/Smoking Status: Tobacco use Status Tobacco use date assessed 09/26/22 10/17/22 09:18 Patient Tobacco Use Status Never used Tobacco 10/17/22 09:18 Tobacco use type Cigarette 10/17/22 09:18 e-Cigarette/Vaping Use Never Used 10/17/22 09:18 PHQ-9: PHQ-9 Score PHQ-9: Total score 0 10/17/22 09:18 Depression Screening Interpretation: Negative Thrive Assessment: Date of Thrive Assessment Date Thrive assessed 09/06/22 10/17/22 09:18 Const General: no acute distress and alert HENMT Throat: Yes posterior oropharynx normal and Yes tonsils normal (no TP congestion noted) Neck Neck: Yes no lymphadenopathy and Yes supple Resp Auscultation: clear to auscultation bilaterally, no rales and no wheezes Cardio Rate: regular rate Rhythm: regular rhythm Heart sounds: no murmurs GI Palpation (GI): Soft to palpation, nontender and No Rebound tenderness present Auscultation: normal bowel sounds Back/Spine/Pelvis Thoracic/Lumbar Spine: lumbar spinal tenderness Neuro Other: (+) weakness noted on the left leg - motor strength noted to be 4/5; is 5/5 on the right lower extremity Extrem General: Yes no clubbing, cyanosis or edema Results Reviewed Results Reviewed: Laboratory Tests 10/11/22 10/11/22 10/11/22 07:28 07:28 07:35 WBC 6.0 Hgb 15.4 Hct 47.5 Plt Count 168 Sodium 138 Potassium 3.9 Creatinine 0.87 Estimated GFR > 60 Fasting Glucose 85 Calcium 9.0 D AST 14 ALT 32 Triglycerides 96 Cholesterol 173 LDL Cholesterol, Calc 76 HDL Cholesterol 78 25-OH Vitamin D Total 26.9 TSH 1.78 Ur Specific [place] 1.020 Urine Protein Negative Urine Glucose (UA) Negative Urine Blood Negative Assessment and Plan Assessment & Plan (1) Crohn's disease: Code(s): K50.90 - Crohn's disease, unspecified, without complications Qualifiers: Gastrointestinal tract location: unspecified location Digestive disease complication type: unspecified complication Qualified Code(s): K50.919 - Crohn's disease, unspecified, with unspecified complications Plan: S/P SBO again a couple of months ago in August 2022 requiring admission but no surgery Colonoscopy done a few months ago revealed (+) active Crohn's colitis at the ileolonic anastomosis and balloon dilatation was done Symptoms have since improved again with oral prednisone - is currently still on Prednisone 15 mg QD Follow up with GI as scheduled (2) Gallbladder mass: Code(s): K82.8 - Other specified diseases of gallbladder Plan: Imaging studies done in August 2022 showed what appeared to be a polyp in the gall bladder fossa Follow up US done did not show any lesion or pathology in the GB Patient was seen by surgery last week and advised no Tx or intervention at this time as his US came back normal (3) Pure hypercholesterolemia: Code(s): E78.00 - Pure hypercholesterolemia, unspecified Plan: Results of his labs done last week reviewed and discussed with patient Reinforced low cholesterol diet Continue Atorvastatin 20 mg QD and Cholestyramine powder 4 gm/dose 1 packet BID Will recheck labs in 4 months for follow up (4) Metastatic melanoma: Code(s): C79.9 - Secondary malignant neoplasm of unspecified site Plan: S/P axillary lymph node dissection and adjuvant treatment with BRAF/MEK inhibition (Trametinib 2 mg QD and Tafinlar 150 mg BID) - treatment was started on 06/29/2021 and completed in June 2022 Follow up with dermatology as scheduled for continuing management and surveillance (5) DVT (deep venous thrombosis): Code(s): I82.409 - Acute embolism and thrombosis of unspecified deep veins of unspecified lower extremity Qualifiers: DVT location: upper extremity Affected thrombotic vein of extremity: other upper extremity vein Chronicity: acute Laterality: right Qualified Code(s): I82.621 - Acute embolism and thrombosis of deep veins of right upper extremity Plan: Resolved - mostly involving his right hand and distal half of right forearm Doppler on 10/23/2021 revealed an acute partial right subclavian vein thrombus and he was subsequently started on Eliquis 5 mg BID Repeat Doppler a few weeks later showed a complete resolution of the clot; patient was continued on Eliquis until he completed his immunotherapy Tx, after which Rx was discontinued (6) Migraine: Code(s): G43.909 - Migraine, unspecified, not intractable, without status migrainosus Qualifiers: Migraine type: unspecified Status migrainosus presence: without status migrainosus Intractability: not intractable Qualified Code(s): G43.909 - Migraine, unspecified, not intractable, without status migrainosus Plan: Stable with no recent flare ups Follow up with neurology as scheduled (7) Impaired fasting glucose: Code(s): R73.01 - Impaired fasting glucose Plan: HgbA1c was normal at 5.4% when previously checked; FBS was normal at 85 mg/dl on his labs done last week Reinforced low calorie diet (8) Pernicious anemia: Code(s): D51.0 - Vitamin B12 deficiency anemia due to intrinsic factor deficiency Plan: Continue B12 injections monthly (9) Ascending aortic aneurysm: Code(s): I71.2 - Thoracic aortic aneurysm, without rupture Plan: Repeat CTA done last year revealed (+) slight progression of his aortic aneurysm to 4.7 - 4.8 cm Follow up with vascular surgery as scheduled (10) Left lumbosacral radiculopathy: Code(s): M54.17 - Radiculopathy, lumbosacral region Plan: Reinforced activity and weight-lifting restrictions States that his lower back symptoms have subsided a lot with oral Prednisone and his symptoms have been stable lately (11) Degenerative joint disease of cervical spine: Code(s): M47.812 - Spondylosis without myelopathy or radiculopathy, cervical region Qualifiers: Spinal osteoarthritis complication: unspecified spinal osteoarthritis Qualified Code(s): M47.812 - Spondylosis without myelopathy or radiculopathy, cervical region Plan: Symptoms have been mostly manageable - goes to physical therapy when needed (12) Erectile dysfunction: Code(s): N52.9 - Male erectile dysfunction, unspecified Qualifiers: Erectile dysfunction type: unspecified Qualified Code(s): N52.9 - Male erectile dysfunction, unspecified Plan: Per request, will start him on some Sildenafil 50 mg PRN Advised that his BP appears well-controlled so his risks for taking Sildenafil should be minimal (13) Overweight (BMI 25.0-29.9): Code(s): E66.3 - Overweight Plan: Reinforced diet/exercise as tolerated/lose weight Plan Follow up in 4 months Orders: Orders Lipid Panel 4 Months E78.00 - Pure hypercholesterolemia, unspecified Complete Blood Count Auto Diff 4 Months I10 - Essential (primary) hypertension TSH reflex Free T4 4 Months E78.00 - Pure hypercholesterolemia, unspecified UA CC w/rflx Micro + Cult 4 Months R30.0 - Dysuria Vitamin D 25-OH Total 4 Months E55.9 - Vitamin D deficiency, unspecified Vitamin B12 and Folate 4 Months E53.8 - Deficiency of other specified B group vitamins Comprehensive [place]. Panel Fast 4 Months E78.00 - Pure hypercholesterolemia, unspecified Medications: New sildenafil administer 30 minutes to 4 hours before activity 50 mg PO DAILY PRN 10 tabs 0RF sexual activity Coding Level of Care Code Est Pt Level 4 (95447) Diagnoses Crohn's disease K50.919 Gastrointestinal tract location: unspecified location Digestive disease complication type: unspecified complication Gallbladder mass K82.8 Pure hypercholesterolemia E78.00 Metastatic melanoma C79.9 DVT (deep venous thrombosis) I82.621 DVT location: upper extremity Affected thrombotic vein of extremity: other upper extremity vein Chronicity: acute Laterality: right Migraine G43.909 Migraine type: unspecified Status migrainosus presence: without status migrainosus Intractability: not intractable Impaired fasting glucose R73.01 Pernicious anemia D51.0 Ascending aortic aneurysm I71.2 Left lumbosacral radiculopathy M54.17 Degenerative joint disease of cervical spine M47.812 Spinal osteoarthritis complication: unspecified spinal osteoarthritis Erectile dysfunction N52.9 Erectile dysfunction type: unspecified Overweight (BMI 25.0-29.9) E66.3
[2022-10-17 09:14] VITALS: BP 130/68; PULSE 57; O2SAT 97; BMI 26.6
== END 2022-10-17 09:48 | disposition home or self-care (01) ==
PROVIDERS: Visit Provider Internal Medicine
DX: G43.909 Migraine, unspecified, not intractable, without status migrainosus (principal); K50.919 Crohn's disease, unspecified, with unspecified complications; C79.9 Secondary malignant neoplasm of unspecified site; I82.621 Acute embolism and thrombosis of deep veins of right upper extremity; K82.8 Other specified diseases of gallbladder; E78.00 Pure hypercholesterolemia, unspecified; R73.01 Impaired fasting glucose; D51.0 Vitamin B12 deficiency anemia due to intrinsic factor deficiency; I71.20 Thoracic aortic aneurysm, without rupture, unspecified; M54.17 Radiculopathy, lumbosacral region; M47.812 Spondylosis without myelopathy or radiculopathy, cervical region; N52.9 Male erectile dysfunction, unspecified
CPT/HCPCS: 99214

== ENCOUNTER 2023-01-16 10:48 | Outpatient (REF) | payer MEDICARE, SELFPAY | END 2023-01-16 10:49 | disposition home or self-care (01) | LOC: HO.CT 10:48 | PROVIDERS: PCP Internal Medicine; Visit Provider Internal Medicine | DX: Z13.89 Encounter for screening for other disorder (principal) ==

== ENCOUNTER 2023-02-19 08:20 | Outpatient (REF) | payer MEDICARE, SELFPAY ==
[2023-02-19 08:44] LABS: MANUAL DIFF FLAG NO
[2023-02-19 09:37] LABS: Basophils Percent Auto 0.7 % (0-2); Eosinophils Absolute Auto 0.2 X10*3/uL (0.0-0.4); Eosinophils Percent Auto 3.6 % (0-4); Hematocrit 46.6 % (42.0-52.0); Imm Gran Abs Auto 0.01 X10*3/uL (0.00-0.03); Imm Gran Pct Auto 0.2 % (0.0-0.4); Lymphocytes Absolute Auto 1.3 X10*3/uL (1.2-4.9); Lymphocytes Percent Auto 30.4 % (20-40); Mean Corpuscular HGB Conc 32.2 g/dl (31.0-36.0); Mean Corpuscular Hemoglobin 29.8 pg (27.0-33.0); Mean Corpuscular Volume 92.6 fL (80.0-98.0); Mean Platelet Volume 9.7 fL (9.4-12.4); Monocytes Absolute Auto 0.3 X10*3/uL (0.1-1.2); Monocytes Percent Auto 8.2 % (2-11); Neutrophils Absolute Auto 2.4 x10*3/uL (2.0-8.3); Neutrophils Percent Auto 56.9 % (45-73); Platelet Count 240 X10*3/uL (160-400); Red Blood Count 5.03 X10*6/uL (4.60-5.80); Red Cell Distribution Width 12.3 % (11.0-16.0); White Blood Count 4.2 X10*3/uL (4.8-10.8)
[2023-02-19 10:25] LABS: Alanine Aminotransferase 20 U/L (0-40); Albumin Level 3.9 g/dL (3.5-5.0); Alkaline Phosphatase 91 U/L (39-117); Anion Gap 13 (12-20); Aspartate Amino Transferase 19 U/L (5-37); Bilirubin Total 0.5 mg/dL (0.0-1.0); Blood Urea Nitrogen 13 mg/dL (9-16); Calcium 9.5 mg/dL (8.4-10.2); Carbon Dioxide 26 mmol/L (22-29); Chloride 108 mmol/L (96-108); Cholesterol 126 mg/dL (<200); Estimated Glomerular Filt Rate > 60; Glucose Fasting 116 mg/dL (60-99); HDL Cholesterol 44 mg/dL (>40); LDL Cholesterol Calculated 63 mg/dL (<100); Potassium 4.5 mmol/L (3.3-5.1); Sodium 142 mmol/L (135-145); Total Protein 6.9 g/dL (6.5-8.0); Triglycerides 98 mg/dL (<150)
[2023-02-19 10:43] LABS: Folate 8.9 ng/mL (> or = 4.0); TSH reflex Free T4 1.58 uIU/mL (0.32-4.0); Vitamin B12 374 pg/mL (200-900); Vitamin D 25-OH Total 36.8 ng/mL (>30)
[2023-02-19 11:33] LABS: Appearance Urine Clear; Color Urine Yellow; Glucose Urine UA Negative (Negative); Leukocyte Esterase Urine Negative (Negative); Nitrite Urine Negative (Negative); Specific Gravity - Urine >= 1.030 (1.005-1.025); Urine Blood Negative (Negative); Urine Ketones Negative (Negative); Urine Protein Negative (Neg-Trace)
== END 2023-02-19 08:21 | disposition home or self-care (01) ==
LOC: HO.LAB 08:20
PROVIDERS: PCP Internal Medicine; Visit Provider Internal Medicine
DX: E78.00 Pure hypercholesterolemia, unspecified (principal); I10 Essential (primary) hypertension; E55.9 Vitamin D deficiency, unspecified; R30.0 Dysuria; E53.8 Deficiency of other specified B group vitamins
CPT/HCPCS: 36415; 80053; 80061; 81003; 82306; 82607; 82746; 84443; 85025

== ENCOUNTER 2023-02-26 09:18 | Outpatient (AMB) | payer MEDICARE, SELFPAY ==
[2023-02-26 09:22] VITALS: BP 138/86; PULSE 66; O2SAT 97; BMI 26.6
--- NOTE | 2023-02-26 09:22 | A.OFFPC_ITS ---
Vital Signs 02/26/23 09:22 Height 6 ft Weight 196 lb 8 oz BMI 26.6 BP 138/86 Blood Pressure Location Lt brachial Position Sitting Pulse 66 Pulse Source Pulse Oximeter Pulse Oximetry (%) 97 Oxygen Delivery Method Room Air Intake Visit Reasons: 4 month f/u Vascular Surgeon Required: No Accompanied by: Self / Same As Patient Allergies codeine [Codeine] Allergy (Severe, Verified 02/26/23 09:55) HIVES,GI UPSET Medication List - Last Reconciled 02/26/23 by Anil Luna MD atorvastatin 20 mg PO DAILY 90 days cholestyramine (with sugar) 4 gram (Questran) 4 grams PO DAILY cyanocobalamin (vitamin B-12) 1,000 mcg IM Q4W 90 days prednisone 15 mg PO DAILY sildenafil 50 mg PO DAILY PRN Tobacco use date assessed: 02/26/23 Fall risk assessment: No Falls in past year Last assessed Fall Risk: 02/26/23 Dental Screening Dental Screen Date: 02/26/23 Did you have a dental visit in the last 12 months?: No Did you have a dental problem in the last 6 months where you did not have access to dental care?: No Was dental information given to patient?: No HPI 4 month f/u HPI Details Patient comes in today for his follow up visit States that he currently feels okay Relates that he tested positive for COVID this past , and that he has tested positive for COVID 3 times already this past year He presently denies any fever or sore throat; denies any headaches or dizziness Denies any chest pains, no SOB No nausea/vomiting, no abdominal pain No change in bowel habits noted - still has on average 3 episodes of loose bowel movements daily due to his Crohn's disease Needs his Sildenafil Rx refilled Had his follow up labs done last week - to discuss his results [facility] Medical History Crohn disease Bowel obstruction Cough Anticoagulation adequate DVT (deep venous thrombosis) COVID-19 vaccine series completed Metastatic melanoma Hyperpigmented skin lesion Bicuspid aortic valve Ascending aortic aneurysm Hyperbilirubinemia Impaired fasting glucose Overweight (BMI 25.0-29.9) History of nephrolithiasis History of rectal abscess Pernicious anemia Degenerative joint disease of cervical spine Lumbar degenerative disc disease Migraine Pure hypercholesterolemia Crohn's disease Surgical History History of lymph node excision History of esophagogastroduodenoscopy (EGD) H/O colonoscopy Hx of cardiac catheterization History of back surgery History of partial colectomy History of inguinal hernia repair Family History Father Medical history unknown Mother Hypertension Diabetes Social History Household Members: Spouse Housing: House Are you a primary janitor caretaker to a significant other at home: No Do you presently have visiting nurse or other home services: No Alcohol intake: never Patient Tobacco Use Status: Never used Tobacco Tobacco use type: Cigarette e-Cigarette/Vaping Use: Never Used Second Hand Smoke Exposure: Yes Substance Use Type: Marijuana Advance Directives Date on File: 01/08/19 service: No Current occupational status: retired Cognitive needs: No Hearing needs: No Vision needs: Yes Questionnaire PHQ-9 Over the last 2 weeks, how often have you been bothered by any of the following problems? 1. Little interest or pleasure in doing things: not at all 2. Feeling down, depressed, or hopeless: not at all 3. Trouble falling or staying asleep, or sleeping too much: not at all 4. Feeling tired or having little energy: not at all 5. Poor appetite or overeating: not at all 6. Feeling bad about yourself - or that you are a failure or have let yourself or your family down: not at all 7. Trouble concentrating on things, such as reading the newspaper or watching television: not at all 8. Moving or speaking so slowly that other people could have noticed. Or the opposite - being so fidgety or restless that you have been moving around a lot more than usual: not at all 9. Thoughts that you would be better off or of hurting yourself in some way: not at all Total score: 0 Depression Screening Interpretation: Negative Depression Screening Done: Yes [id number] - PHQ-9 Billing: Yes Source: Developed by Drs. Matt Vizcarra, Janet Chapman, Jose Braswell and colleagues, with an educational gustavo from [employer]. Thrive Questionnaire Date Thrive assessed: 02/26/23 I am a: Patient What is your living situation today?: I have a steady place to live Within the past 12 months, did the food you bought not last and you didn't have the money to get more?: Never true Within the past 12 months, did you worry whether your food would run out before you got money to buy more?: Never true Do you have trouble paying for medicines?: No Do you have trouble getting transportation to medical appointments?: No Do you have trouble paying your heating and electricity bill?: No Do you have trouble taking care of your child, family member or friend?: No Do you have trouble with day-to-day activities such as bathing, preparing meals, shopping, managing finances, etc.?: No Are you currently unemployed and looking for a job?: No Are you interested in more education?: No Please select the resources that you would like help with: None Currently or been in a relationship where the following occur: no concerns reported AUDIT C Alcohol Use Questionnaire (AUDIT-C) 1. How often do you have a drink containing alcohol?: Never 2. How many drinks containing alcohol do you have on a typical day when you are drinking?: 1 or 2 (N/A) 3. How often do you have six or more drinks on one occasion?: Never Total Score: 0 Score Reviewed/Action Taken: Yes DORIS-7 AMB Questionnaire DORIS-7 Date DORIS - 7 assessed: 02/26/23 Feeling nervous, anxious, or on edge: 0 = Not at all Not being able to stop or control worryin = Not at all Worrying too much about different things: 0 = Not at all Trouble relaxin = Not at all Being so restless that it is hard to sit still: 0 = Not at all Becoming easily annoyed or irritable: 0 = Not at all Feeling afraid as if something awful might happen: 0 = Not at all Total DORIS-7 score (0-4 normal; 5-9 mild; 10-14 moderate; 15-21 severe): 0 Source: Developed by Drs. Matt Vizcarra, Janet Chapman, Jose Braswell and colleagues, with an educational gustavo from [employer]. Review of Systems Const Denies chills, Denies fatigue, Denies fever(s) and Denies headache(s) ENT Denies dysphagia, Denies dizziness, Denies otalgia, Denies headache(s), Denies neck pain, Denies odynophagia and Denies sore throat Card Denies chest pain, Denies palpitations and Denies dyspnea Resp Denies cough and Denies dyspnea GI Denies abdominal pain, Denies hematochezia, Denies dysphagia, Denies heartburn, Reports loose stools (on and off; controlled lately), Denies nausea, Denies odynophagia and Denies vomiting Reports erectile dysfunction, Denies dysuria, Denies nocturia and Denies urinary frequency Musc Reports back pain (on and off), Denies arthralgias and Denies neck pain Skin/Breast Denies rash Neuro Denies dizziness and Denies headache(s) Endo Denies fatigue and Denies palpitations Physical exam (Primary Care) Vital Signs: Last Vital Signs Pulse 66 02/26/23 09:22 BP 138/86 02/26/23 09:22 Pulse Ox 97 02/26/23 09:22 Oxygen Delivery Method Room Air 02/26/23 09:22 BMI result Body Mass Index 26.6 Tobacco/Smoking Status: Tobacco use Status Tobacco use date assessed 02/26/23 02/26/23 09:27 Patient Tobacco Use Status Never used Tobacco 02/26/23 09:27 Tobacco use type Cigarette 02/26/23 09:27 e-Cigarette/Vaping Use Never Used 02/26/23 09:27 PHQ-9: PHQ-9 Score PHQ-9: Total score 0 02/26/23 09:27 Depression Screening Interpretation: Negative Thrive Assessment: Date of Thrive Assessment Date Thrive assessed 02/26/23 02/26/23 09:27 Currently or been in a relationship where the following occur: no concerns reported Const General: no acute distress and alert HENMT Ears: TM's normal bilaterally and EAC's normal Throat: Yes posterior oropharynx normal and Yes tonsils normal (no TP congestion noted) Neck Neck: Yes no lymphadenopathy and Yes supple Resp Auscultation: clear to auscultation bilaterally, no rales and no wheezes Cardio Rate: regular rate Rhythm: regular rhythm Heart sounds: no murmurs GI Palpation (GI): Soft to palpation and nontender Auscultation: normal bowel sounds Back/Spine/Pelvis Thoracic/Lumbar Spine: lumbar spinal tenderness Neuro Other: (+) weakness noted on the left leg - motor strength noted to be 4/5; is 5/5 on the right lower extremity Extrem General: Yes no clubbing, cyanosis or edema Results Reviewed Results Reviewed: Laboratory Tests 02/19/23 02/19/23 02/19/23 08:41 08:41 08:42 WBC 4.2 L Hgb 15.0 Hct 46.6 Plt Count 240 Sodium 142 Potassium 4.5 Creatinine 0.87 Estimated GFR > 60 Fasting Glucose 116 H Calcium 9.5 AST 19 ALT 20 Triglycerides 98 Cholesterol 126 LDL Cholesterol, Calc 63 HDL Cholesterol 44 Vitamin B12 374 25-OH Vitamin D Total 36.8 TSH Ur Specific [place] >= 1.030 H Urine Protein Negative Urine Glucose (UA) Negative Urine Blood Negative 02/19/23 08:42 WBC Hgb Hct Plt Count Sodium Potassium Creatinine Estimated GFR Fasting Glucose Calcium AST ALT Triglycerides Cholesterol LDL Cholesterol, Calc HDL Cholesterol Vitamin B12 25-OH Vitamin D Total TSH 1.58 Ur Specific [place] Urine Protein Urine Glucose (UA) Urine Blood Assessment and Plan Assessment & Plan (1) Crohn's disease: Code(s): K50.90 - Crohn's disease, unspecified, without complications Qualifiers: Gastrointestinal tract location: unspecified location Digestive disease complication type: unspecified complication Qualified Code(s): K50.919 - Crohn's disease, unspecified, with unspecified complications Plan: S/P SBO again back in August 2022 requiring admission but no surgery indicated/needed Colonoscopy done earlier this year revealed (+) active Crohn's colitis at the ileocolonic anastomosis and balloon dilatation was done Symptoms have since improved with oral prednisone - is currently still on Prednisone 15 mg QD Follow up with GI as scheduled (2) Pure hypercholesterolemia: Code(s): E78.00 - Pure hypercholesterolemia, unspecified Plan: Results of his labs done last week reviewed and discussed with patient Reinforced low cholesterol diet Continue Atorvastatin 20 mg QD and Cholestyramine powder 4 gm/dose 1 packet BID Will recheck his labs and fasting lipids in 4 months for follow up (3) Metastatic melanoma: Code(s): C79.9 - Secondary malignant neoplasm of unspecified site Plan: S/P axillary lymph node dissection and adjuvant treatment with BRAF/MEK inhibition (Trametinib 2 mg QD and Tafinlar 150 mg BID) - treatment was started on 06/29/2021 and completed in June 2022 PET-CT done in June 2022 came out negative for disease recurrence Follow up with dermatology as scheduled for continuing management and surveillance (4) DVT (deep venous thrombosis): Code(s): I82.409 - Acute embolism and thrombosis of unspecified deep veins of unspecified lower extremity Qualifiers: DVT location: upper extremity Affected thrombotic vein of extremity: other upper extremity vein Chronicity: acute Laterality: right Qualified Code(s): I82.621 - Acute embolism and thrombosis of deep veins of right upper extremity Plan: Resolved - mostly involving his right hand and distal half of right forearm Doppler on 10/23/2021 revealed an acute partial right subclavian vein thrombus and he was subsequently started on Eliquis 5 mg BID Repeat Doppler a few weeks later showed a complete resolution of the clot; patient was continued on Eliquis until he completed his immunotherapy Tx, after which Rx was discontinued (5) Ascending aortic aneurysm: Code(s): I71.2 - Thoracic aortic aneurysm, without rupture Qualifiers: Presence of rupture: without rupture Qualified Code(s): I71.21 - Aneurysm of the ascending aorta, without rupture Plan: Repeat CTA done last year revealed (+) slight progression of his aortic aneurysm to 4.7 - 4.8 cm Follow up with vascular surgery as scheduled for continuing surveillance and management (6) Migraine: Code(s): G43.909 - Migraine, unspecified, not intractable, without status migrainosus Qualifiers: Migraine type: unspecified Status migrainosus presence: without status migrainosus Intractability: not intractable Qualified Code(s): G43.909 - Migraine, unspecified, not intractable, without status migrainosus Plan: Stable with no recent flare ups Reinforced avoidance of migraine triggers Follow up with neurology as scheduled (7) Impaired fasting glucose: Code(s): R73.01 - Impaired fasting glucose Plan: HgbA1c was normal at 5.4% when previously checked; FBS was elevated at 116 mg/dl on his labs done last week Reinforced low calorie diet (8) Gallbladder mass: Code(s): K82.8 - Other specified diseases of gallbladder Plan: RESOLVED Imaging studies done in August 2022 showed what appeared to be a polyp in the gall bladder fossa Follow up US done did not show any lesion or pathology in the GB Patient was seen by surgery last week and advised no Tx or intervention at this time as his US came back normal (9) Pernicious anemia: Code(s): D51.0 - Vitamin B12 deficiency anemia due to intrinsic factor deficiency Plan: Corrected - continue B12 injections monthly (10) Left lumbosacral radiculopathy: Code(s): M54.17 - Radiculopathy, lumbosacral region Plan: Reinforced activity and weight-lifting restrictions States that his lower back symptoms have subsided a lot with oral Prednisone and his symptoms have been stable lately (11) Degenerative joint disease of cervical spine: Code(s): M47.812 - Spondylosis without myelopathy or radiculopathy, cervical region Qualifiers: Spinal osteoarthritis complication: unspecified spinal osteoarthritis Qualified Code(s): M47.812 - Spondylosis without myelopathy or radiculopathy, cervical region Plan: Symptoms have been mostly manageable - goes to physical therapy when needed (12) Erectile dysfunction: Code(s): N52.9 - Male erectile dysfunction, unspecified Qualifiers: Erectile dysfunction type: unspecified Qualified Code(s): N52.9 - Male erectile dysfunction, unspecified Plan: Continue Sildenafil 50 mg PRN - Rx refilled (13) Overweight (BMI 25.0-29.9): Code(s): E66.3 - Overweight Plan: Reinforced diet/exercise as tolerated/lose weight Plan Follow up in 4 months Orders: Orders Comprehensive [place]. Panel Fast 4 Months E78.00 - Pure hypercholesterolemia, unspecified Lipid Panel 4 Months E78.00 - Pure hypercholesterolemia, unspecified Hemoglobin A1c 4 Months R73.01 - Impaired fasting glucose TSH reflex Free T4 4 Months E78.00 - Pure hypercholesterolemia, unspecified Vitamin D 25-OH Total 4 Months E55.9 - Vitamin D deficiency, unspecified Lactate Dehydrogenase 4 Months C79.9 - Secondary malignant neoplasm of unspecified site Complete Blood Count Auto Diff 4 Months I10 - Essential (primary) hypertension UA CC w/rflx Micro + Cult 4 Months R30.0 - Dysuria Vitamin B12 and Folate 4 Months E53.8 - Deficiency of other specified B group vitamins Medications: Refilled sildenafil administer 30 minutes to 4 hours before activity 50 mg PO DAILY PRN 10 tabs 3RF sexual activity Coding Level of Care Code Est Pt Level 4 (24274) Diagnoses Crohn's disease with complication, unspecified gastrointestinal tract location K50.919 Gastrointestinal tract location: unspecified location Digestive disease complication type: unspecified complication Pure hypercholesterolemia E78.00 Metastatic melanoma C79.9 Acute deep vein thrombosis (DVT) of other vein of right upper extremity I82.621 DVT location: upper extremity Affected thrombotic vein of extremity: other upper extremity vein Chronicity: acute Laterality: right Aneurysm of ascending aorta without rupture I71.21 Presence of rupture: without rupture Migraine without status migrainosus, not intractable, unspecified migraine type G43.909 Migraine type: unspecified Status migrainosus presence: without status migrainosus Intractability: not intractable Impaired fasting glucose R73.01 Gallbladder mass K82.8 Pernicious anemia D51.0 Left lumbosacral radiculopathy M54.17 Osteoarthritis of cervical spine, unspecified spinal osteoarthritis complication status M47.812 Spinal osteoarthritis complication: unspecified spinal osteoarthritis Erectile dysfunction, unspecified erectile dysfunction type N52.9 Erectile dysfunction type: unspecified Overweight (BMI 25.0-29.9) E66.3
== END 2023-02-26 10:10 | disposition home or self-care (01) ==
PROVIDERS: PCP Internal Medicine; Visit Provider Internal Medicine
DX: I82.621 Acute embolism and thrombosis of deep veins of right upper extremity (principal); K50.919 Crohn's disease, unspecified, with unspecified complications; C79.9 Secondary malignant neoplasm of unspecified site; I71.21 Aneurysm of the ascending aorta, without rupture; E78.00 Pure hypercholesterolemia, unspecified; G43.909 Migraine, unspecified, not intractable, without status migrainosus; R73.01 Impaired fasting glucose; K82.8 Other specified diseases of gallbladder; D51.0 Vitamin B12 deficiency anemia due to intrinsic factor deficiency; M54.17 Radiculopathy, lumbosacral region; M47.812 Spondylosis without myelopathy or radiculopathy, cervical region; N52.9 Male erectile dysfunction, unspecified
CPT/HCPCS: 99214

== ENCOUNTER → 2023-03-15 07:51 | Outpatient (REF) | payer MEDICARE, SELFPAY ==
--- NOTE | 2023-03-15 07:58 | CA_ITS ---
Transthoracic Echocardiogram Patient (Last, First, Middle): Jasen White A Gender: Male Date of : 1955 Age: 67 Procedure Date: 03/15/2023 Procedure Type: Transthoracic Echocardiogram Location: OP Height: 182.88 cm Weight: 86.18 kg BSA: 2.08 m2 Heart Rate: 56 bpm BP: 100 / 50 mmHg Marketing Teacher: ANAIS AGRAWAL Referring MD: Efraín Sanford MD Symptoms: I71.2 - Thoracic aortic aneurysm, without rupture Study Quality: Fair ECG Rhythm: Sinus Conclusions: - The left ventricular systolic function is normal. The calculated ejection fraction is 63% by biplane method. - There is a bicuspid aortic valve. Trace to mild aortic regurgitation. - There is mild dilatation of the sinuses of Valsalva measuring 4.50 cm, moderate dilatation of the ascending aorta measuring 4.70 cm, and mild dilatation of the aortic arch measuring 3.90 cm. Findings Left Ventricle Normal left ventricular cavity size. There is normal left ventricular wall thickness. The left ventricular systolic function is normal. The calculated ejection fraction is 63% by biplane method. There is no evidence of regional wall motion abnormalities. Diastolic function is normal for age. LV peak GLS -15.6%, but suspect underestimation in 3ch view. Right Ventricle Normal right ventricular cavity size and systolic function. Atria Both atria are normal in size. Aortic Valve There is a bicuspid aortic valve. There is mild calcification of the aortic valve. There is no aortic valve stenosis. Trace to mild aortic regurgitation. Mitral Valve The mitral valve appears normal. There is no mitral valve regurgitation. There is no mitral valve stenosis. Pulmonic Valve The pulmonic valve is likely normal. Tricuspid Valve Normal tricuspid valve structure. There is trace tricuspid valve regurgitation. There is no evidence of pulmonary hypertension. Great Vessels There is mild dilatation of the sinuses of Valsalva measuring 4.50 cm, moderate dilatation of the ascending aorta measuring 4.70 cm, and mild dilatation of the aortic arch measuring 3.90 cm. Venous The inferior vena cava is normal in size and collapses greater than 50% with inspiration. Pericardium/Pleural There is no evidence of pericardial effusion. Prior Study Comparison No significant change compared to prior study dated: 02/15/2022. Measurements 2D Linear Measurements IVSd: 0.86 0.6-0.9/0.6-1.0 cm LVIDd: 5.30 3.9-5.3/4.2-5.9 cm LVIDd Index: 2.55 2.4-3.2/2.2-3.1 cm/m2 LVIDs: 3.33 2.0-3.6 cm LVPWd: 0.78 0.7-1.1 cm LA Diam: 3.40 2.7-3.8/3.0-4.0 cm LAIDs Index: 1.63 1.5-2.3 cm/m2 LV Mass: 193.85 67-162/88-224 g LV Mass Index: 93.20 43-95/49-115 g/m2 LVOT Diam: 2.50 3.0+(-)1.3 cm 2D Systolic Function EF 4C: 61.90 >55% EF 2C: 66.30 >55% EF BiP: 63.30 >55% Mitral Valve MV Pk E: 1.38 MV PK A: 1.27 MV Decel Time: 147.00 E/A: 1.10 E'Lateral: 6.09 E'Medial: 5.00 E/E' Med: 27.60 E/E' Lat: 22.70 PHT: 43.00 MVA PHT: 5.12 Decel [place]: 9.42 Aortic Valve AoV Pk Blake: 1.65 AoV Mn Blake: 1.15 AoV VTI: 0.37 AoV Pk Grad: 11.00 Aov Mn Grad: 6.00 MAGNUS Cont.VTI: 2.84 AI Pk Blake: 2.61 AI [place]: 1.35 AI Alias Blake: 0.42 ERO - PISA: 25.00 LVOT LVOT Pk Blake: 0.91 LVOT Mn Blake: 0.60 LVOT VTI: 0.22 LVOT Pk Grad: 3.00 LVOT Mn Grad: 2.00 LVOT Diam: 2.50 LVOT Area: 4.91 Diastolic Function MV Pk E: 1.38 MV Pk A: 1.27 E/A: 1.10 E'Medial: 5.00 E/E' Med: 27.60 E' Laterial: 6.09 E/E' Lat: 22.70 Right Ventricle TAPSE (mm): 20.00 TVS' Blake: 10.40 Tricuspid Valve TR Pk Blake: 1.59 TR Pk Grad: 10.00 RA Press: 8.00 RVSP: 18.00 Great Vessels Aorta Sinus of Valsalva: 4.50 2.0-3.5 cm Ao Asc: 4.70 2.1-3.4 cm Ao Arch: 3.90 Pulmonary Veins Pulm Vein S/D 0.90 Updated in Other Vendor System with Status of Final Efraín Sanford MD electronically signed on 03/17/2023 12:39:51 PM with status of Final
== END ==
LOC: HO.CARD 07:51
PROVIDERS: PCP Internal Medicine; Visit Provider Internal Medicine
DX: I71.20 Thoracic aortic aneurysm, without rupture, unspecified (principal); Q23.1 Congenital insufficiency of aortic valve
CPT/HCPCS: 93306; 93356

== ENCOUNTER → 2023-03-15 07:58 | Outpatient (BNV) | payer MEDICARE, SELFPAY | PROVIDERS: PCP Internal Medicine; Visit Provider Internal Medicine | DX: Q23.1 Congenital insufficiency of aortic valve (principal) | CPT/HCPCS: 93306 ==

== ENCOUNTER 2023-03-26 07:55 | Outpatient (AMB) | payer MEDICARE, SELFPAY ==
--- NOTE | 2023-03-26 08:16 | MHC.OFFVIS ---
Intake Vital Signs 03/26/23 08:17 Height 6 ft Weight 199 lb 11.821 oz BMI 27.1 BP 124/66 Blood Pressure Location Lt brachial Position Sitting Pulse 63 Intake Visit Reasons: 1 yr follow up Intake Note: 1 year follow up Tray Drier Required: No Accompanied by: Self / Same As Patient Allergies codeine [Codeine] Allergy (Severe, Verified 03/26/23 08:18) HIVES,GI UPSET Medication List - Last Reconciled 03/26/23 by Efraín Sanford MD atorvastatin 20 mg PO DAILY 90 days cholestyramine (with sugar) 4 gram (Questran) 4 grams PO DAILY cyanocobalamin (vitamin B-12) 1,000 mcg IM Q4W 90 days sildenafil 50 mg PO DAILY PRN HPI HPI Comments History of Present Illness Details Jasen returns for follow-up regarding bicuspid aortic valve and ascending aortic aneurysm. Overall, he is doing fine. No specific complaints. No angina or in fact anything cardiac sounding. [facility] Medical History Crohn disease Bowel obstruction Cough Anticoagulation adequate DVT (deep venous thrombosis) COVID-19 vaccine series completed Metastatic melanoma Hyperpigmented skin lesion Bicuspid aortic valve Ascending aortic aneurysm Hyperbilirubinemia Impaired fasting glucose Overweight (BMI 25.0-29.9) History of nephrolithiasis History of rectal abscess Pernicious anemia Degenerative joint disease of cervical spine Lumbar degenerative disc disease Migraine Pure hypercholesterolemia Crohn's disease Surgical History History of lymph node excision History of esophagogastroduodenoscopy (EGD) H/O colonoscopy Hx of cardiac catheterization History of back surgery History of partial colectomy History of inguinal hernia repair Family History Father Medical history unknown Mother Hypertension Diabetes Social History Household Members: Spouse Housing: House Are you a primary wound care specialist to a significant other at home: No Do you presently have visiting nurse or other home services: No Alcohol intake: never Patient Tobacco Use Status: Never used Tobacco Tobacco use type: Cigarette e-Cigarette/Vaping Use: Never Used Second Hand Smoke Exposure: Yes Substance Use Type: Marijuana Advance Directives Date on File: 01/08/19 service: No Current occupational status: retired Cognitive needs: No Hearing needs: No Vision needs: Yes Review of Systems Const Denies weakness ENT Denies dizziness Card Denies chest pain, Denies chest pain with activity, Denies syncope, Denies rapid heart rate, Denies pedal edema, Denies edema, Denies leg edema, Denies lightheadedness, Denies palpitations, Denies dyspnea, Denies dyspnea on exertion and Denies orthopnea Resp Denies cough, Denies dyspnea and Denies dyspnea on exertion GI Denies hematochezia and Denies change in stool character Musc Denies abnormal gait, Denies muscle cramps, Denies muscle weakness, Denies numbness, Denies radiating pain into limb and Denies tingling Neuro Denies abnormal gait, Denies dizziness, Denies syncope, Denies numbness, Denies tingling and Denies weakness Endo Denies palpitations Physical Exam Vital Signs: Last Vital Signs Pulse 63 03/26/23 08:17 BP 124/66 03/26/23 08:17 BMI result Body Mass Index 27.1 Const General: comfortable and no acute distress Orientation/consciousness: patient oriented x3 HEENT Other: Unremarkable Head: Yes normal to inspection Neck Neck: Yes normal visual inspection Chest Chest palpation & inspection: normal inspection of the chest Resp Auscultation: clear to auscultation bilaterally Cardio Palpation: normal PMI Heart sounds: S1 normal heart sound present, S2 normal heart sound present, no gallops, no murmurs and no rubs GI Palpation (GI): Soft to palpation Back/Spine/Pelvis Other: unremarkable Skin General skin exam: no rashes or lesions noted Neuro General: patient oriented x3 Extrem General: Yes normal to inspection Psych Mental Status: mental status grossly normal Assessment & Plan Assessment & Plan (1) Ascending aortic aneurysm: Code(s): I71.2 - Thoracic aortic aneurysm, without rupture Qualifiers: Presence of rupture: without rupture Qualified Code(s): I71.21 - Aneurysm of the ascending aorta, without rupture Plan: In the echocardiogram, ascending aortic size 4.7 cm. Arch size 3.9 cm. At the sinus of Valsalva, 4.[address] scan, ascending aortic size 4.5 cm. At sinus of Valsalva, 4.1 cm. Overall, remains stable. We will continue to monitor. (2) Bicuspid aortic valve: Code(s): Q23.1 - Congenital insufficiency of aortic valve Plan: Echocardiogram shows bicuspid aortic valve with only trace to mild aortic regurgitation. Can be followed periodically. Orders: Orders CA echo transthoracic complete 51 Weeks I71.2 - Thoracic aortic aneurysm, without rupture Coding Level of Care Code Est Pt Level 4 (58407) Diagnoses Aneurysm of ascending aorta without rupture I71.21 Presence of rupture: without rupture Bicuspid aortic valve Q23.1
[2023-03-26 08:17] VITALS: BP 124/66; PULSE 63; BMI 27.1
== END 2023-03-26 08:56 | disposition home or self-care (01) ==
PROVIDERS: PCP Internal Medicine; Visit Provider Internal Medicine
DX: I71.21 Aneurysm of the ascending aorta, without rupture (principal); Q23.1 Congenital insufficiency of aortic valve
CPT/HCPCS: 99214

== ENCOUNTER → 2023-03-26 07:55 | Outpatient (BNVA) | payer MEDICARE, SELFPAY | PROVIDERS: Visit Provider Internal Medicine | DX: I71.21 Aneurysm of the ascending aorta, without rupture (principal); Q23.1 Congenital insufficiency of aortic valve | CPT/HCPCS: 99212 ==

== ENCOUNTER 2023-06-18 09:06 | Outpatient (REF) | payer MEDICARE, SELFPAY ==
[2023-06-18 09:24] LABS: MANUAL DIFF FLAG NO
[2023-06-18 10:07] LABS: Basophils Percent Auto 0.6 % (0-2); Eosinophils Absolute Auto 0.1 X10*3/uL (0.0-0.4); Eosinophils Percent Auto 2.6 % (0-4); Hematocrit 48.1 % (42.0-52.0); Imm Gran Abs Auto 0.02 X10*3/uL (0.00-0.03); Imm Gran Pct Auto 0.4 % (0.0-0.4); Lymphocytes Absolute Auto 1.2 X10*3/uL (1.2-4.9); Lymphocytes Percent Auto 22.7 % (20-40); Mean Corpuscular HGB Conc 33.3 g/dl (31.0-36.0); Mean Corpuscular Hemoglobin 30.5 pg (27.0-33.0); Mean Corpuscular Volume 91.6 fL (80.0-98.0); Mean Platelet Volume 9.1 fL (9.4-12.4); Monocytes Absolute Auto 0.3 X10*3/uL (0.1-1.2); Monocytes Percent Auto 6.3 % (2-11); Neutrophils Absolute Auto 3.7 x10*3/uL (2.0-8.3); Neutrophils Percent Auto 67.4 % (45-73); Platelet Count 272 X10*3/uL (160-400); Red Blood Count 5.25 X10*6/uL (4.60-5.80); Red Cell Distribution Width 12.6 % (11.0-16.0); White Blood Count 5.4 X10*3/uL (4.8-10.8)
[2023-06-18 10:17] LABS: Appearance Urine Clear; Color Urine Yellow; Glucose Urine UA Negative (Negative); Leukocyte Esterase Urine Negative (Negative); Nitrite Urine Negative (Negative); PH 5.5 (5.0-9.0); UMIC TRIGGER UACC YES; Urine Blood Trace (Negative); Urine Ketones Negative (Negative); Urine Protein Negative (Neg-Trace)
[2023-06-18 10:24] LABS: Bacteria Urine None Seen (None Seen); Hyaline Casts Urine 0-2 /LPF (0-2); RBC Urine 0-2 /HPF (0-2); Squamous Epithelial Cell Urine 0-2 /HPF (0-2); WBC Urine 0-5 /HPF (0-5)
[2023-06-18 10:27] LABS: Estimated Average Glucose 103 mg/dL; Hemoglobin A1c % 5.2 % (<6.0)
[2023-06-18 11:11] LABS: Alanine Aminotransferase 19 U/L (0-40); Alkaline Phosphatase 94 U/L (39-117); Anion Gap 8 (12-20); Aspartate Amino Transferase 15 U/L (5-37); Bilirubin Total 0.9 mg/dL (0.0-1.0); Blood Urea Nitrogen 13 mg/dL (9-16); Calcium 9.2 mg/dL (8.4-10.2); Carbon Dioxide 28 mmol/L (22-29); Chloride 107 mmol/L (96-108); Cholesterol 134 mg/dL (<200); Estimated Glomerular Filt Rate > 60; Glucose Fasting 105 mg/dL (60-99); HDL Cholesterol 50 mg/dL (>40); LDL Cholesterol Calculated 66 mg/dL (<100); Lactate Dehydrogenase 145 U/L (118-273); Potassium 4.2 mmol/L (3.3-5.1); Sodium 139 mmol/L (135-145); TSH reflex Free T4 2.03 uIU/mL (0.32-4.0); Triglycerides 90 mg/dL (<150); Vitamin D 25-OH Total 32.4 ng/mL (>30)
[2023-06-18 12:10] LABS: Folate 8.8 ng/mL (> or = 4.0); Vitamin B12 399 pg/mL (200-900)
== END 2023-06-18 09:07 | disposition home or self-care (01) ==
LOC: HO.LAB 09:06
PROVIDERS: PCP Internal Medicine; Visit Provider Internal Medicine
DX: C79.9 Secondary malignant neoplasm of unspecified site (principal); I10 Essential (primary) hypertension; R73.01 Impaired fasting glucose; E78.00 Pure hypercholesterolemia, unspecified; E53.8 Deficiency of other specified B group vitamins; E55.9 Vitamin D deficiency, unspecified
CPT/HCPCS: 36415; 80053; 80061; 81001; 82306; 82607; 82746; 83036; 83615; 84443; 85025

== ENCOUNTER 2023-06-26 08:51 | Outpatient (AMB) | payer MEDICARE, SELFPAY ==
[2023-06-26 08:52] VITALS: BP 118/64; PULSE 68; O2SAT 96; BMI 26.7
--- NOTE | 2023-06-26 08:52 | A.OFFPC_ITS ---
Vital Signs 06/26/23 08:52 Height 6 ft Weight 197 lb BMI 26.7 BP 118/64 Blood Pressure Location Lt brachial Position Sitting Pulse 68 Pulse Source Pulse Oximeter Pulse Oximetry (%) 96 Oxygen Delivery Method Room Air Intake Visit Reasons: 4mth f/u Intake Note: Patient is here to follow up on 4 months Security Operations Manager Required: No Allergies codeine [Codeine] Allergy (Severe, Verified 06/26/23 09:14) HIVES,GI UPSET Medication List - Last Reconciled 06/26/23 by Anil Luna MD atorvastatin 20 mg PO DAILY 90 days cholestyramine (with sugar) 4 gram (Questran) 4 grams PO DAILY cyanocobalamin (vitamin B-12) 1,000 mcg IM Q4W 90 days sildenafil 50 mg PO DAILY PRN Tobacco use date assessed: 06/26/23 Fall risk assessment: No Falls in past year Last assessed Fall Risk: 06/26/23 Dental Screening Dental Screen Date: 06/26/23 Did you have a dental visit in the last 12 months?: No Did you have a dental problem in the last 6 months where you did not have access to dental care?: No HPI 4mth f/u HPI Details Patient comes in today for his follow up visit States that he feels okay He denies any headaches or dizziness Denies any chest pains, no SOB No nausea/vomiting, no abdominal pain No change in bowel habits noted Had his follow up labs done last week - to discuss his results [facility] Medical History (Updated 06/26/23 @ 09:15 by Anil Luna MD) Bowel obstruction Anticoagulation adequate DVT (deep venous thrombosis) COVID-19 vaccine series completed Metastatic melanoma Bicuspid aortic valve Ascending aortic aneurysm Hyperbilirubinemia Impaired fasting glucose Overweight (BMI 25.0-29.9) History of nephrolithiasis History of rectal abscess Pernicious anemia Degenerative joint disease of cervical spine Lumbar degenerative disc disease Migraine Pure hypercholesterolemia Crohn's disease Surgical History History of lymph node excision History of esophagogastroduodenoscopy (EGD) H/O colonoscopy Hx of cardiac catheterization History of back surgery History of partial colectomy History of inguinal hernia repair Family History Father Medical history unknown Mother Hypertension Diabetes Social History Household Members: Spouse Housing: House Are you a primary neonatal intensive care unit nurse to a significant other at home: No Do you presently have visiting nurse or other home services: No Alcohol intake: never Patient Tobacco Use Status: Never used Tobacco Tobacco use type: Cigarette e-Cigarette/Vaping Use: Never Used Second Hand Smoke Exposure: Yes Substance Use Type: Marijuana Advance Directives Date on File: 01/08/19 service: No Current occupational status: retired Cognitive needs: No Hearing needs: No Vision needs: Yes Questionnaire PHQ-9 Over the last 2 weeks, how often have you been bothered by any of the following problems? 1. Little interest or pleasure in doing things: not at all 2. Feeling down, depressed, or hopeless: several days 3. Trouble falling or staying asleep, or sleeping too much: not at all 4. Feeling tired or having little energy: not at all 5. Poor appetite or overeating: not at all 6. Feeling bad about yourself - or that you are a failure or have let yourself or your family down: not at all 7. Trouble concentrating on things, such as reading the newspaper or watching television: not at all 8. Moving or speaking so slowly that other people could have noticed. Or the opposite - being so fidgety or restless that you have been moving around a lot more than usual: not at all 9. Thoughts that you would be better off or of hurting yourself in some way: not at all Total score: 1 Depression Screening Interpretation: Negative Depression Screening Done: Yes 42505 - PHQ-9 Billing: Yes Source: Developed by Drs. Matt Vizcarra, Janet Chapman, Jose Braswell and colleagues, with an educational gustavo from [employer]. Thrive Questionnaire Date Thrive assessed: 06/26/23 I am a: Patient What is your living situation today?: I have a steady place to live Within the past 12 months, did the food you bought not last and you didn't have the money to get more?: Never true Within the past 12 months, did you worry whether your food would run out before you got money to buy more?: Never true Do you have trouble paying for medicines?: No Do you have trouble getting transportation to medical appointments?: No Do you have trouble paying your heating and electricity bill?: No Do you have trouble taking care of your child, family member or friend?: No Do you have trouble with day-to-day activities such as bathing, preparing meals, shopping, managing finances, etc.?: No Are you currently unemployed and looking for a job?: No Are you interested in more education?: No Please select the resources that you would like help with: None Currently or been in a relationship where the following occur: no concerns reported THRIVE Score: 0 AUDIT C Alcohol Use Questionnaire (AUDIT-C) 1. How often do you have a drink containing alcohol?: Never 2. How many drinks containing alcohol do you have on a typical day when you are drinking?: 1 or 2 (N/A) 3. How often do you have six or more drinks on one occasion?: Never Total Score: 0 Score Reviewed/Action Taken: Yes DORIS-7 AMB Questionnaire DORIS-7 Date DORIS - 7 assessed: 06/26/23 (pt states due to work ) Feeling nervous, anxious, or on edge: 1 = Several days Not being able to stop or control worryin = Several days Worrying too much about different things: 0 = Not at all Trouble relaxin = Not at all Being so restless that it is hard to sit still: 0 = Not at all Becoming easily annoyed or irritable: 0 = Not at all Feeling afraid as if something awful might happen: 0 = Not at all Total DORIS-7 score (0-4 normal; 5-9 mild; 10-14 moderate; 15-21 severe): 2 Source: Developed by Drs. Matt Vizcarra, Janet Chapman, Jose Braswell and colleagues, with an educational gustavo from [employer]. DORIS-7 Assessment Billing DORIS-7 Assessment Tool: DORIS-7 Assessment 34522 Review of Systems Const Denies chills, Denies fatigue, Denies fever(s) and Denies headache(s) ENT Denies dysphagia, Denies dizziness, Denies otalgia, Denies headache(s), Denies neck pain, Denies odynophagia and Denies sore throat Card Denies chest pain, Denies palpitations and Denies dyspnea Resp Denies cough and Denies dyspnea GI Denies abdominal pain, Denies hematochezia, Denies dysphagia, Denies heartburn, Reports loose stools (on and off), Denies nausea, Denies odynophagia and Denies vomiting Reports erectile dysfunction, Denies dysuria, Denies nocturia and Denies urinary frequency Musc Reports back pain (on and off), Denies arthralgias and Denies neck pain Skin/Breast Denies rash Neuro Denies dizziness and Denies headache(s) Endo Denies fatigue and Denies palpitations Physical exam (Primary Care) Vital Signs: Last Vital Signs Pulse 68 06/26/23 08:52 BP 118/64 06/26/23 08:52 Pulse Ox 96 06/26/23 08:52 Oxygen Delivery Method Room Air 06/26/23 08:52 BMI result Body Mass Index 26.7 Tobacco/Smoking Status: Tobacco use Status Tobacco use date assessed 06/26/23 06/26/23 08:57 Patient Tobacco Use Status Never used Tobacco 06/26/23 08:57 Tobacco use type Cigarette 06/26/23 08:57 e-Cigarette/Vaping Use Never Used 06/26/23 08:57 PHQ-9: PHQ-9 Score PHQ-9: Total score 1 06/26/23 08:57 Depression Screening Interpretation: Negative Thrive Assessment: Date of Thrive Assessment Date Thrive assessed 06/26/23 06/26/23 08:57 Currently or been in a relationship where the following occur: no concerns reported Const General: no acute distress and alert HENMT Ears: TM's normal bilaterally and EAC's normal Throat: Yes posterior oropharynx normal and Yes tonsils normal (no TP congestion noted) Neck Neck: Yes no lymphadenopathy and Yes supple Resp Auscultation: clear to auscultation bilaterally, no rales and no wheezes Cardio Rate: regular rate Rhythm: regular rhythm Heart sounds: no murmurs GI Palpation (GI): Soft to palpation and nontender Auscultation: normal bowel sounds Back/Spine/Pelvis Thoracic/Lumbar Spine: lumbar spinal tenderness Neuro Other: (+) weakness noted on the left leg - motor strength noted to be 4/5; is 5/5 on the right lower extremity Extrem General: Yes no clubbing, cyanosis or edema Results Reviewed Results Reviewed: Laboratory Tests 06/18/23 06/18/23 09:19 09:23 WBC 5.4 Hgb 16.0 Hct 48.1 Plt Count 272 Sodium 139 Potassium 4.2 Creatinine 0.89 Estimated GFR > 60 Fasting Glucose 105 H Hemoglobin A1c % 5.2 Calcium 9.2 AST 15 ALT 19 Triglycerides 90 Cholesterol 134 LDL Cholesterol, Calc 66 HDL Cholesterol 50 Vitamin B12 399 25-OH Vitamin D Total 32.4 TSH 2.03 Ur Specific [place] 1.020 Urine Protein Negative Urine Glucose (UA) Negative Urine Blood Trace H Urine Nitrite Negative Ur Leukocyte Esterase Negative Assessment and Plan Assessment & Plan (1) Pure hypercholesterolemia: Code(s): E78.00 - Pure hypercholesterolemia, unspecified Plan: Results of his labs done last week reviewed and discussed with patient Reinforced low cholesterol diet Continue Atorvastatin 20 mg QD and Cholestyramine powder 4 gm/dose 1 packet BID Will recheck his labs and fasting lipids in 4 months for follow up (2) Crohn's disease: Code(s): K50.90 - Crohn's disease, unspecified, without complications Qualifiers: Gastrointestinal tract location: unspecified location Digestive disease complication type: unspecified complication Qualified Code(s): K50.919 - Crohn's disease, unspecified, with unspecified complications Plan: Stable lately Last had SBO back in August 2022 requiring a brief hospital admission but no surgery was needed Colonoscopy done last year revealed (+) active Crohn's colitis at the ileocolonic anastomosis and balloon dilatation was done - symptoms have improved with oral Prednisone Tx Follow up with GI as scheduled (3) Metastatic melanoma: Code(s): C79.9 - Secondary malignant neoplasm of unspecified site Plan: S/P axillary lymph node dissection and adjuvant treatment with BRAF/MEK inhibition (Trametinib 2 mg QD and Tafinlar 150 mg BID) - treatment was started on 06/29/2021 and completed in June 2022 PET-CT done in June 2022 came out negative for disease recurrence Follow up with dermatology as scheduled for continuing management and surveillance - he is scheduled for his repeat CT next week on 07/03/2023 (4) DVT (deep venous thrombosis): Code(s): I82.409 - Acute embolism and thrombosis of unspecified deep veins of unspecified lower extremity Qualifiers: DVT location: upper extremity Affected thrombotic vein of extremity: other upper extremity vein Chronicity: acute Laterality: right Qualified Code(s): I82.621 - Acute embolism and thrombosis of deep veins of right upper extremity Plan: Resolved - mostly involving his right hand and distal half of right forearm; no recurrence since Doppler on 10/23/2021 revealed an acute partial right subclavian vein thrombus and he was subsequently started on Eliquis 5 mg BID Repeat Doppler a few weeks later showed a complete resolution of the clot; patient was continued on Eliquis until he completed his immunotherapy Tx, after which Rx was discontinued (5) Ascending aortic aneurysm: Code(s): I71.2 - Thoracic aortic aneurysm, without rupture Qualifiers: Presence of rupture: without rupture Qualified Code(s): I71.21 - Aneurysm of the ascending aorta, without rupture Plan: Repeat CTA done last year revealed (+) slight progression of his aortic aneurysm to 4.7 - 4.8 cm Repeat echo in February 2023 showed stable findings with no significant changes; he is scheduled for repeat echocardiogram in March 2024 Follow up with vascular surgery as scheduled for continuing surveillance and management (6) Migraine: Code(s): G43.909 - Migraine, unspecified, not intractable, without status migrainosus Qualifiers: Migraine type: unspecified Status migrainosus presence: without status migrainosus Intractability: not intractable Qualified Code(s): G43.909 - Migraine, unspecified, not intractable, without status migrainosus Plan: Stable with no recent flare ups Reinforced avoidance of migraine triggers Follow up with neurology as scheduled (7) Impaired fasting glucose: Code(s): R73.01 - Impaired fasting glucose Plan: HgbA1c was normal at 5.2% on his recent labs; was also normal at 5.4% when previously checked Reinforced low calorie diet (8) Pernicious anemia: Code(s): D51.0 - Vitamin B12 deficiency anemia due to intrinsic factor deficiency Plan: Corrected - continue B12 injections monthly (9) Left lumbosacral radiculopathy: Code(s): M54.17 - Radiculopathy, lumbosacral region Plan: Reinforced activity and weight-lifting restrictions States that his lower back symptoms have subsided a lot with oral Prednisone and his symptoms have been stable lately (10) Degenerative joint disease of cervical spine: Code(s): M47.812 - Spondylosis without myelopathy or radiculopathy, cervical region Qualifiers: Spinal osteoarthritis complication: unspecified spinal osteoarthritis Qualified Code(s): M47.812 - Spondylosis without myelopathy or radiculopathy, c ervical region Plan: Symptoms have been mostly manageable - goes to physical therapy when needed (11) Erectile dysfunction: Code(s): N52.9 - Male erectile dysfunction, unspecified Qualifiers: Erectile dysfunction type: unspecified Qualified Code(s): N52.9 - Male erectile dysfunction, unspecified Plan: Continue Sildenafil 50 mg PRN - Rx refilled (12) Overweight (BMI 25.0-29.9): Code(s): E66.3 - Overweight Plan: Reinforced diet/exercise as tolerated/lose weight Plan Follow up in 4 months Orders: Orders Comprehensive [place]. Panel Fast 4 Months E78.00 - Pure hypercholesterolemia, unspecified Lipid Panel 4 Months E78.00 - Pure hypercholesterolemia, unspecified TSH reflex Free T4 4 Months E78.00 - Pure hypercholesterolemia, unspecified UA CC w/rflx Micro + Cult 4 Months R30.0 - Dysuria Hemoglobin A1c 4 Months R73.01 - Impaired fasting glucose Complete Blood Count Auto Diff 4 Months D64.9 - Anemia, unspecified Vitamin D 25-OH Total 4 Months E55.9 - Vitamin D deficiency, unspecified Vitamin B12 and Folate 4 Months E53.8 - Deficiency of other specified B group vitamins Coding Level of Care Code Est Pt Level 4 (83429) Diagnoses Pure hypercholesterolemia E78.00 Crohn's disease with complication, unspecified gastrointestinal tract location K50.919 Gastrointestinal tract location: unspecified location Digestive disease complication type: unspecified complication Metastatic melanoma C79.9 Acute deep vein thrombosis (DVT) of other vein of right upper extremity I82.621 DVT location: upper extremity Affected thrombotic vein of extremity: other upper extremity vein Chronicity: acute Laterality: right Aneurysm of ascending aorta without rupture I71.21 Presence of rupture: without rupture Migraine without status migrainosus, not intractable, unspecified migraine type G43.909 Migraine type: unspecified Status migrainosus presence: without status migrainosus Intractability: not intractable Impaired fasting glucose R73.01 Pernicious anemia D51.0 Left lumbosacral radiculopathy M54.17 Osteoarthritis of cervical spine, unspecified spinal osteoarthritis complication status M47.812 Spinal osteoarthritis complication: unspecified spinal osteoarthritis Erectile dysfunction, unspecified erectile dysfunction type N52.9 Erectile dysfunction type: unspecified Overweight (BMI 25.0-29.9) E66.3 Additional Codes DORIS-7 Assessment Billing - DORIS-7 Assessment Tool: DORIS-7 Assessment [id number] ([id number])
== END 2023-06-26 09:41 | disposition home or self-care (01) ==
PROVIDERS: PCP Internal Medicine; Visit Provider Internal Medicine
DX: E78.00 Pure hypercholesterolemia, unspecified (principal); G43.909 Migraine, unspecified, not intractable, without status migrainosus; R73.01 Impaired fasting glucose; D51.0 Vitamin B12 deficiency anemia due to intrinsic factor deficiency; M54.17 Radiculopathy, lumbosacral region; M47.812 Spondylosis without myelopathy or radiculopathy, cervical region; N52.9 Male erectile dysfunction, unspecified
CPT/HCPCS: 99214

== ENCOUNTER 2023-09-20 14:37 | Inpatient (IN) | payer MEDICARE, SELFPAY ==
[2023-09-20] VITALS (7 sets, daily range): BP systolic 101–131; BP diastolic 52–80; PULSE 62–85; RESP 16–24; TEMP 36.6–36.9; O2SAT 93–96; BMI 25.9
--- NOTE | ~2023-09-20 | CT_ITS ---
EXAMINATION: CT ABDOMEN AND PELVIS WITH CONTRAST CLINICAL INFORMATION: Severe abdominal pain , Crohn disease COMPARISON: 09/05/2022 TECHNIQUE: Multidetector volumetric images were obtained from the superior aspect of the liver through the pubic symphysis following administration 85 mL of Omnipaque 350 intravenous contrast. Sagittal and coronal reformatted images were obtained on the technologist's workstation. Oral contrast: No This CT examination was performed using dose optimization techniques as appropriate, variously including the following: *Automated exposure control *Adjustment of mA and/or kV according to patient size (this includes techniques or standardized protocols for targeted exams where dose is matched to indication/reason for exam; i.e. extremities or head) *Use of iterative reconstruction technique DLP: 608 mGy-cm FINDINGS: LUNG BASES: There is subpleural areas of groundglass opacity seen in the right upper lobe and right lower lobe. These areas are most likely due to compressive atelectasis. There is 0.2 cm nodule in the right lung base seen on image 5 series 5 LIVER, GALLBLADDER, AND BILIARY TREE: The liver is normal in size, shape, and attenuation. No focal hepatic lesion or biliary ductal dilatation is present. The gallbladder is unremarkable with no evidence of radiopaque gallstones, gallbladder wall thickening, or obvious pericholecystic inflammatory changes. PANCREAS: Unremarkable. SPLEEN: Unremarkable. ADRENAL GLANDS: Unremarkable. KIDNEYS AND URETERS: Cortical cysts seen in the right kidney small to characterize. And there is punctate nonobstructing calculus in the upper pole of right kidney. There is no hydroureteronephrosis on the right. Left kidney revealed tiny cortical cyst is well but no hydronephrosis or nephrolithiasis. There is minimal perinephric stranding on the left. BLADDER: Unremarkable. GASTROINTESTINAL TRACT: Patient is status post resection of the right centimeters of colon with wall thickening adjacent to the anastomosis. Segment of thickened wall measuring up to approximately 5 cm. There is prestenotic dilatation of bowel loop the changes of colonic diverticulosis without diverticulitis. ABDOMINAL WALL: No significant hernia is appreciated. LYMPH NODES: Normal. VASCULAR: Unremarkable. PELVIC VISCERA: Unremarkable. OSSEOUS STRUCTURES: There are mild degenerative changes in lower lumbar spine CT/CT abdomen pelvis w IV con IMPRESSION: 1. Status post resection of right colon with wall thickening adjacent to the anastomosis. 2. Diverticulosis without diverticulitis. 3. Bilateral renal cysts. Nonobstructing calculus in the upper pole of the right kidney. 4. Subpleural groundglass opacities in the right upper lobe and right lower lobe most likely due to compressive atelectasis. 5. 0.2 cm nodule in the right lung base. Fleischner guidelines were followed.
--- NOTE | ~2023-09-20 | XR_ITS ---
EXAMINATION: XR ABDOMEN COMPLETE CLINICAL INDICATION: Reason for Exam Crohn's, Abd pain, R/O SBO COMPARISON: KUB 02/05/2022 TECHNIQUE: AP view of the abdomen. FINDINGS: Lines or devices: Suture material overlies the left upper quadrant. Nonobstructive bowel gas pattern. No significant stool burden. No extraluminal subdiaphragmatic air. No abnormal calcifications. Retained contrast is noted in the urinary bladder. Mild osteoarthritis of the hips. XR/XR abdomen w decubitus IMPRESSION: Nonobstructive bowel gas pattern.
--- NOTE | 2023-09-20 14:59 | ED.GENADULT ---
HPI - General Adult General Chief complaint: Abdominal Pain Stated complaint: Crohn's flare up? Time Seen by Provider: 09/20/23 15:06 History of Present Illness ED Provider: Dr. Her HPI narrative: 67 y/o M patient; PMJ Crohn's disease; presents from home reporting significant generalized abdominal pain for the last 24 hours associated with no flatus, nausea/vomiting x3 episodes. Last bowel movement was this morning and normal. States for the last few weeks has had building lower abdominal discomfort that seemed to peak today. Otherwise denies: fever or chills, SOB, chest pain, cough/congestion, melena/hematochezia. Followed by GI Dr. Watkins. Related Data Home Medications ?Medication ?Instructions ?Recorded ?Confirmed cholestyramine (with sugar) 4 gram 4 g PO DAILY 01/07/20 06/26/23 oral powder (Questran) Previous Rx's ?Medication ?Instructions ?Recorded cyanocobalamin (vitamin B-12) 1,000 mcg IM Q4W 90 days #3 mL 09/14/21 1,000 mcg/mL injection solution atorvastatin 20 mg tablet 20 mg PO DAILY 90 days #90 tabs 11/20/22 sildenafil 50 mg tablet 50 mg PO DAILY PRN sexual activity 02/26/23 #10 tabs Allergies Allergy/AdvReac Type Severity Reaction Status Date / Time codeine [Codeine] Allergy Severe HIVES,GI Verified 09/20/23 15:13 UPSET Review of Systems Review of Systems: Yes all other systems are reviewed and are negative Neurologic: Denies Sensory deficit (Neuro) PMFSH Past Medical History Attestation statement: The following information was validated with the patient. Source: old records reviewed Medical History Bowel obstruction Anticoagulation adequate DVT (deep venous thrombosis) COVID-19 vaccine series completed Metastatic melanoma Bicuspid aortic valve Ascending aortic aneurysm Hyperbilirubinemia Impaired fasting glucose Overweight (BMI 25.0-29.9) History of nephrolithiasis History of rectal abscess Pernicious anemia Degenerative joint disease of cervical spine Lumbar degenerative disc disease Migraine Pure hypercholesterolemia Crohn's disease Surgical History History of lymph node excision History of esophagogastroduodenoscopy (EGD) H/O colonoscopy Hx of cardiac catheterization History of back surgery History of partial colectomy History of inguinal hernia repair Family History Family History Father Medical history unknown Mother Hypertension Diabetes Social History Social History Household Members: Spouse Housing: House Are you a primary ostomy care nurse to a significant other at home: No Do you presently have visiting nurse or other home services: No Alcohol intake: never Patient Tobacco Use Status: Never used Tobacco Tobacco use type: Cigarette e-Cigarette/Vaping Use: Never Used Second Hand Smoke Exposure: Yes Substance Use Type: Marijuana Advance Directives: Yes Advance Directives on File: Yes Advance Directives Date on File: 01/08/19 service: No Current occupational status: retired Cognitive needs: No Hearing needs: No Vision needs: Yes Physical Exam ED Vital Signs: Vital Signs - 24 hr 09/20/23 15:11 09/20/23 15:31 09/20/23 16:35 Temperature 97.9 F Pulse Rate 85 69 Respiratory Rate 20 24 H 16 Blood Pressure 101/80 113/59 L Pulse Oximetry 96 94 Oxygen Delivery Method Room Air Room Air 09/20/23 18:48 Temperature Pulse Rate 62 Respiratory Rate 17 Blood Pressure 111/66 Pulse Oximetry 94 Oxygen Delivery Method Room Air BMI result Body Mass Index 25.9 Patient is afebrile and hemodynamically stable. Const Other: Uncomfortable, pacing in distress General: cooperative Orientation/consciousness: patient oriented x3 HENMT Head: Yes normal to inspection and Yes atraumatic Eyes General: appearance normal, both eyes and all related structures Pupils: Equal, round and reactive pupils present EOM: EOMs intact bilaterally Neck Neck: Yes normal visual inspection, Yes full ROM, Yes supple and No tender Chest Chest palpation & inspection: normal inspection of the chest and normal palpation of entire chest wall Resp Effort & Inspection: normal respiratory effort, able to speak in complete sentences, no cough and no respiratory distress Auscultation: clear to auscultation bilaterally Cardio Rate: regular rate Rhythm: regular rhythm Peripheral pulses: Peripheral pulses 2+ throughout GI Inspection: No Abdominal wall edema and Yes distended Palpation (GI): Firmness to palpation present (GI), Tenderness to palpation present (GI) and Guarding due to palpation present (GI) Auscultation: Hypoactive bowel sounds present Back/Spine/Pelvis Back: No back tenderness Neuro General: patient oriented x3 Cranial nerves: Yes Equal, round and reactive pupils present Motor exam (neuro): 5/5 motor strength present throughout Sensory Exam: No Sensory deficit (Neuro) Course Course Course Narrative: This is an RME done by FRANCHESKA Franco: Additional HPI, ROS, PE not included below will be deferred to primary provider. 67 yo m hx of crohns, dvt, ED, metastatic melanoma presenting w/ severe abd pain feels like chrons flair ongoing for a few days worsening > 10/10. Plan- straight to a room patient looks very uncomfortable Reevaluation(s) Reevaluation #1: Patient is afebrile and hemodynamically stable. Ordered for CT Abdomen/Pelvis w IV Contrast and abdominal labs. Providing 1L IVF, dilaudid 1mg IV, and tylenol 1g IV. Starting on Solu-Medrol 125mg IV. Reevaluation #2: Labs reviewed. Leukocytosis 11.1. ESR 6. CRP 0.16. CT Abdomen/Pelvis without significant acute changes. Patient re-evaluated. Reports significant improvement in pain following dilaudid however is beginning to have return of mild pain. Discussed with GI Dr. Diaz. Recommends clear liquids and IV steroids for at least overnight. Repeat labs and plain abdominal X-ray series in the AM to reassess for any SBO. Plan: Admit to hospitalist for Crohn's exacerbation Condition: Stable Medications Administered Discontinued Medications Generic Name Dose Route Start Last Admin Trade Name Freq PRN Reason Stop Dose Admin Hydromorphone HCl 1 mg 09/20/23 15:18 09/20/23 15:31 Hydromorphone Hcl 1 Mg/Ml Syringe IVPUSH 09/20/23 15:19 1 mg ONCE ONE Administration Protocol Sodium Chloride 1,000 mls @ 999 mls/hr 09/20/23 15:30 09/20/23 16:31 Ns IV 09/20/23 16:30 Infused .Q1H1M DORY Infusion Acetaminophen 1,000 mg in 100 mls @ 400 mls/hr 09/20/23 15:18 09/20/23 16:31 Ofirmev IV 09/20/23 15:32 Infused ONCE ONE Infusion Iohexol 100 ml 09/20/23 16:24 09/20/23 16:25 Iohexol 350 Mg/Ml 100 Ml Infus..Btl IV 09/20/23 16:25 85 ml ONCE ONE Administration Methylprednisolone Sodium Succinate 125 mg 09/20/23 15:19 09/20/23 15:30 Methylprednisolone Sod Succ 125 Mg/2 Ml Vial IVPUSH 09/20/23 15:20 125 mg ONCE ONE Administration Medical Decision Making Lab Data 09/20/23 15:01 09/20/23 15:01 Labs: Lab Results 09/20/23 09/20/23 Range/Units 15:01 18:41 WBC 11.1 H (4.8-10.8) X10*3/uL RBC 5.77 (4.60-5.80) X10*6/uL Hgb 17.8 (14.0-18.0) g/dl Hct 51.8 (42.0-52.0) % MCV 89.8 (80.0-98.0) fL MCH 30.8 (27.0-33.0) pg MCHC 34.4 (31.0-36.0) g/dl RDW 12.5 (11.0-16.0) % Plt Count 292 (160-400) X10*3/uL MPV 8.9 L (9.4-12.4) fL Immature Gran % (Auto) 0.3 (0.0-0.4) % Neut % (Auto) 74.9 H (45-73) % Lymph % (Auto) 16.5 L (20-40) % [place] % (Auto) 6.3 (2-11) % Eos % (Auto) 1.6 (0-4) % Baso % (Auto) 0.4 (0-2) % Lymph # (Auto) 1.8 (1.2-4.9) X10*3/uL [place] # (Auto) 0.7 (0.1-1.2) X10*3/uL Eos # (Auto) 0.2 (0.0-0.4) X10*3/uL Baso # (Auto) 0.0 (0.0-0.2) X10*3/uL Abs Immat Gran (auto) 0.03 (0.00-0.03) X10*3/uL Absolute Neuts (auto) 8.4 H (2.0-8.3) x10*3/uL Absolute Nucleated RBC 0.000 (0.0-0.012) X10*3/uL Nucleated RBC % (auto) 0.0 (0.0-0.2) /100WBC ESR 6 (0-15) MM/HR Hold Purple Top SEE NOTE Sodium 141 (135-145) mmol/L Potassium 4.1 (3.3-5.1) mmol/L Chloride 105 (96-108) mmol/L Carbon Dioxide 28 (22-29) mmol/L Anion Gap 12 (12-20) BUN 15 (9-16) mg/dL Creatinine 1.07 (0.5-1.4) mg/dL Estim Creat Clear Calc 71.5 Estimated GFR > 60 Random Glucose 107 (60-115) mg/dL Lactic Acid 0.9 (0.5-2.0) mmol/L Calcium 10.2 D (8.4-10.2) mg/dL Magnesium 2.2 (1.6-2.6) mg/dL Total Bilirubin 1.1 H (0.0-1.0) mg/dL AST 15 (5-37) U/L ALT 22 (0-40) U/L Alkaline Phosphatase 113 (39-117) U/L C-Reactive Protein 0.16 (< or = 0.50) mg/dL Total Protein 7.9 (6.5-8.0) g/dL Albumin 4.4 (3.5-5.0) g/dL Lipase 26 (8-78) U/L Radiology Impression Discussion of test interpretation with radiology: I have reviewed the radiologist's reading. Radiologist Impression: EXAMINATION: CT ABDOMEN AND PELVIS WITH CONTRAST CLINICAL INFORMATION: Severe abdominal pain , Crohn disease COMPARISON: 09/05/2022 TECHNIQUE: Multidetector volumetric images were obtained from the superior aspect of the liver through the pubic symphysis following administration 85 mL of Omnipaque 350 intravenous contrast. Sagittal and coronal reformatted images were obtained on the technologist's workstation. Oral contrast: No This CT examination was performed using dose optimization techniques as appropriate, variously including the following: *Automated exposure control *Adjustment of mA and/or kV according to patient size (this includes techniques or standardized protocols for targeted exams where dose is matched to indication/reason for exam; i.e. extremities or head) *Use of iterative reconstruction technique DLP: 608 mGy-cm FINDINGS: LUNG BASES: There is subpleural areas of groundglass opacity seen in the right upper lobe and right lower lobe. These areas are most likely due to compressive atelectasis. There is 0.2 cm nodule in the right lung base seen on image 5 series 5 LIVER, GALLBLADDER, AND BILIARY TREE: The liver is normal in size, shape, and attenuation. No focal hepatic lesion or biliary ductal dilatation is present. The gallbladder is unremarkable with no evidence of radiopaque gallstones, gallbladder wall thickening, or obvious pericholecystic inflammatory changes. PANCREAS: Unremarkable. SPLEEN: Unremarkable. ADRENAL GLANDS: Unremarkable. KIDNEYS AND URETERS: Cortical cysts seen in the right kidney small to characterize. And there is punctate nonobstructing calculus in the upper pole of right kidney. There is no hydroureteronephrosis on the right. Left kidney revealed tiny cortical cyst is well but no hydronephrosis or nephrolithiasis. There is minimal perinephric stranding on the left. BLADDER: Unremarkable. GASTROINTESTINAL TRACT: Patient is status post resection of the right centimeters of colon with wall thickening adjacent to the anastomosis. Segment of thickened wall measuring up to approximately 5 cm. There is prestenotic dilatation of bowel loop the changes of colonic diverticulosis without diverticulitis. ABDOMINAL WALL: No significant hernia is appreciated. LYMPH NODES: Normal. VASCULAR: Unremarkable. PELVIC VISCERA: Unremarkable. OSSEOUS STRUCTURES: There are mild degenerative changes in lower lumbar spine CT/CT abdomen pelvis w IV con IMPRESSION: 1. Status post resection of right colon with wall thickening adjacent to the anastomosis. 2. Diverticulosis without diverticulitis. 3. Bilateral renal cysts. Nonobstructing calculus in the upper pole of the right kidney. 4. Subpleural groundglass opacities in the right upper lobe and right lower lobe most likely due to compressive atelectasis. 5. 0.2 cm nodule in the right lung base. Fleischner guidelines were followed. Discharge Plan Discharge Clinical Impression: Crohn disease, Abdominal pain Patient Disposition: Admitted As Inpatient Print Language: Turkmen
[2023-09-20 15:07] LABS: MANUAL DIFF FLAG NO
[2023-09-20 15:13] LABS: Basophils Percent Auto 0.4 % (0-2); Eosinophils Absolute Auto 0.2 X10*3/uL (0.0-0.4); Eosinophils Percent Auto 1.6 % (0-4); Hematocrit 51.8 % (42.0-52.0); Hemoglobin 17.8 g/dl (14.0-18.0); Imm Gran Abs Auto 0.03 X10*3/uL (0.00-0.03); Imm Gran Pct Auto 0.3 % (0.0-0.4); Lymphocytes Absolute Auto 1.8 X10*3/uL (1.2-4.9); Lymphocytes Percent Auto 16.5 % (20-40); Mean Corpuscular HGB Conc 34.4 g/dl (31.0-36.0); Mean Corpuscular Hemoglobin 30.8 pg (27.0-33.0); Mean Corpuscular Volume 89.8 fL (80.0-98.0); Mean Platelet Volume 8.9 fL (9.4-12.4); Monocytes Absolute Auto 0.7 X10*3/uL (0.1-1.2); Monocytes Percent Auto 6.3 % (2-11); Neutrophils Absolute Auto 8.4 x10*3/uL (2.0-8.3); Neutrophils Percent Auto 74.9 % (45-73); Platelet Count 292 X10*3/uL (160-400); Red Blood Count 5.77 X10*6/uL (4.60-5.80); Red Cell Distribution Width 12.5 % (11.0-16.0); White Blood Count 11.1 X10*3/uL (4.8-10.8)
[2023-09-20] MEDS: 0.9 % Sodium Chloride 1,000 ML 999 ML IV (15:22)
[2023-09-20 15:26] LABS: Alanine Aminotransferase 22 U/L (0-40); Albumin Level 4.4 g/dL (3.5-5.0); Alkaline Phosphatase 113 U/L (39-117); Anion Gap 12 (12-20); Aspartate Amino Transferase 15 U/L (5-37); Bilirubin Total 1.1 mg/dL (0.0-1.0); Blood Urea Nitrogen 15 mg/dL (9-16); C Reactive Protein 0.16 mg/dL (< or = 0.50); Calcium 10.2 mg/dL (8.4-10.2); Carbon Dioxide 28 mmol/L (22-29); Chloride 105 mmol/L (96-108); Creatinine Clr Calc Pharmacy 71.5; Estimated Glomerular Filt Rate > 60; Glucose Random 107 mg/dL (60-115); Lipase 26 U/L (8-78); Magnesium 2.2 mg/dL (1.6-2.6); Potassium 4.1 mmol/L (3.3-5.1); Sodium 141 mmol/L (135-145); Total Protein 7.9 g/dL (6.5-8.0)
[2023-09-20] MEDS: methylPREDNISolone Sod Succ 125 MG/2 ML VIAL IVPUSH (15:30)
[2023-09-20] MEDS: Acetaminophen 1,000 MG/100 ML PIGGYBACK 400 MG IV (15:30)
[2023-09-20] MEDS: HYDROmorphone HCl 1 MG/ML SYRINGE IVPUSH (15:31)
[2023-09-20 15:53] LABS: Erythrocyte Sedimentation Rate 6 MM/HR (0-15)
[2023-09-20] MEDS: iohexoL 350 MG/ML 100 ML INFUS..BTL IV (16:25)
[2023-09-20 19:01] LABS: Lactic Acid 0.9 mmol/L (0.5-2.0)
--- NOTE | 2023-09-20 19:17 | PHA.MEDREC ---
Addendum entered by Terence Flower 09/20/23 19:18: Patient takes a Vitamin B-12 injection every 4 weeks and patient confirmed he took it 2 weeks ago. Original Note: Pharmacy Consult ? Medication Reconciliation Pharmacy has completed the medication reconciliation.Confirmed medications with patient.
--- NOTE | 2023-09-20 19:45 | PM.IMHP ---
History of Present Illness Date of Service: 09/20/23 Chief Complaint: Abdominal pain This is a 66-year-old male with pertinent history of malignant melanoma, Crohn's disease with history of hospitalization with bowel obstructions, DVT not on anticoagulation, mixed hyperlipidemia who presents to the emergency department for evaluation of abdominal discomfort. Patient states abdominal discomfort started on the day of presentation. It is generalized, nonradiating, progressive and without any relieving factors. Patient is not passing flatus. Had 3 episodes of nonbloody emesis prior to coming to the ER. Patient states it feels similar to his pain of Crohn's flare in the past. Patient denies fever, chills, chest discomfort, palpitations, shortness of breath, changes in urinary or bowel habits. In the ER, imaging without concerning for obstruction. Gastroenterology was consulted who recommended admission with IV steroids. Review of Systems Constitutional: Constitutional: Reports fatigue, Reports malaise and Reports weakness Cardiovascular: Cardiovascular: Reports no additional cardiovascular complaints Respiratory: Respiratory: Reports no additional respiratory complaints Gastrointestinal: Gastrointestinal: Reports abdominal pain, Reports nausea and Reports vomiting Genitourinary: Genitourinary: Reports no additional male genitourinary complaints Neurologic: Reports weakness Endocrine: Endocrine: Reports fatigue PMFSH Medical History Bowel obstruction Anticoagulation adequate DVT (deep venous thrombosis) COVID-19 vaccine series completed Metastatic melanoma Bicuspid aortic valve Ascending aortic aneurysm Hyperbilirubinemia Impaired fasting glucose Overweight (BMI 25.0-29.9) History of nephrolithiasis History of rectal abscess Pernicious anemia Degenerative joint disease of cervical spine Lumbar degenerative disc disease Migraine Pure hypercholesterolemia Crohn's disease Family History Father Medical history unknown Mother Hypertension Diabetes Surgical History History of lymph node excision History of esophagogastroduodenoscopy (EGD) H/O colonoscopy Hx of cardiac catheterization History of back surgery History of partial colectomy History of inguinal hernia repair Social History Household Members: Spouse Housing: House Are you a primary career technical education teacher to a significant other at home: No Do you presently have visiting nurse or other home services: No Alcohol intake: never Patient Tobacco Use Status: Never used Tobacco Tobacco use type: Cigarette e-Cigarette/Vaping Use: Never Used Second Hand Smoke Exposure: Yes Substance Use Type: Marijuana Advance Directives: Yes Advance Directives on File: Yes Advance Directives Date on File: 01/08/19 service: No Current occupational status: retired Cognitive needs: No Hearing needs: No Vision needs: Yes Meds Allergies Allergy/AdvReac Type Severity Reaction Status Date / Time codeine [Codeine] Allergy Severe HIVES,GI Verified 09/20/23 15:13 UPSET Home Medications ?Medication ?Instructions ?Recorded ?Confirmed ?Last Taken ?Type cholestyramine (with sugar) 4 gram 4 g PO DAILY 01/07/20 09/20/23 09/20/23 08:00 History oral powder (Questran) Physical Exam Vital Signs and Narrative: Vital Signs: Last Vital Signs Temp 97.9 F 09/20/23 15:11 Pulse 62 09/20/23 18:48 Resp 17 09/20/23 18:48 BP 111/66 09/20/23 18:48 Pulse Ox 94 09/20/23 18:48 O2 Del Method Room Air 09/20/23 18:48 BMI result Body Mass Index 25.9 Middle-aged male lying in bed in no distress Neck supple, no JVD Regular rate and rhythm, S1-S2 heard Regular breath sounds bilaterally, no wheezing or crackles appreciated Abdomen with generalized tenderness and guarding, no rigidity, no rebound tenderness Patient is awake, alert and oriented to self, place, time and person ; no focal motor deficit Psych: Normal mood No pedal edema Results Labs 09/20/23 15:01 09/20/23 15:01 Labs: Laboratory Results - last 24 hr 09/20/23 09/20/23 15:01 18:41 MCV 89.8 MCH 30.8 MCHC 34.4 RDW 12.5 Plt Count 292 MPV 8.9 L Immature Gran % (Auto) 0.3 Neut % (Auto) 74.9 H Lymph % (Auto) 16.5 L [place] % (Auto) 6.3 Eos % (Auto) 1.6 Baso % (Auto) 0.4 Lymph # (Auto) 1.8 [place] # (Auto) 0.7 Eos # (Auto) 0.2 Baso # (Auto) 0.0 Abs Immat Gran (auto) 0.03 Absolute Neuts (auto) 8.4 H Absolute Nucleated RBC 0.000 Nucleated RBC % (auto) 0.0 ESR 6 Hold Purple Top SEE NOTE Anion Gap 12 Estim Creat Clear Calc 71.5 Estimated GFR > 60 Random Glucose 107 Lactic Acid 0.9 Calcium 10.2 D Magnesium 2.2 Total Bilirubin 1.1 H AST 15 ALT 22 Alkaline Phosphatase 113 C-Reactive Protein 0.16 Total Protein 7.9 Albumin 4.4 Lipase 26 Imaging Radiologist's Impressions: Impressions Abdomen/Pelvis CT 09/20/23 16:34 IMPRESSION: 1. Status post resection of right colon with wall thickening adjacent to the anastomosis. 2. Diverticulosis without diverticulitis. 3. Bilateral renal cysts. Nonobstructing calculus in the upper pole of the right kidney. 4. Subpleural groundglass opacities in the right upper lobe and right lower lobe most likely due to compressive atelectasis. 5. 0.2 cm nodule in the right lung base. Fleischner guidelines were followed. Assessment and Plan (1) Abdominal pain: Status: Acute (2) Crohn disease: Status: Acute Plan This is a 66-year-old male with pertinent history of malignant melanoma, Crohn's disease with history of hospitalization with bowel obstructions, DVT not on anticoagulation, mixed hyperlipidemia who presents to the emergency department for evaluation of abdominal discomfort. #. Abdominal pain due to Crohn's flare -Will admit patient for conservative management. Resuscitated with IV crystalloids in the ER. Continue IV steroids. GI was consulted from the ER, appreciate assistance. Defer NG tube as patient without active nausea/ vomiting. Clear liquid diet and advance as tolerated. Abdominal x-ray in a.m. to rule out developing SBO #. HLD -on statin and cholestyramine #. Reactive leukocytosis DVT prophylaxis: Mechanical Full code Clear liquid diet Admit as inpatient and will require two night minimum hospital stay for management of Crohn's flare with IV steroids, monitoring of bowel function (as above), which is not possible in a lesser acute setting. Specialist consult pending Quality Stroke Does the patient have a stroke diagnosis?: No VTE Prior VTE?: No VTE Risk Level:: Medical - moderate - high VTE Device Contraindication: N/A - Device Ordered VTE Drug Contraindication: Treatment Not Indicated
[2023-09-20] MEDS: ondansetron HCL 4 MG/2 ML VIAL IVPUSH (20:12)
[2023-09-20] MEDS: HYDROmorphone HCl 1 MG/ML SYRINGE 0.5 MG IVPUSH (20:13)
[2023-09-20] MEDS: methylPREDNISolone Sod Succ 40 MG/ML VIAL 60 MG IVPUSH (20:15)
--- NOTE | 2023-09-20 23:24 | PC.NURSE ---
This com writer assumed care of this Pt at 1900. Pt Pt A&Ox3, from home reporting 09/24 all over abdominal pain with N/V x yesterday. Pt reports last BM was this morning. Pt reports pain feels like squeezing spasms. Pt medicated per MAY. Report complete, Pt will be transported to room 358, Pt aware of plan.
[2023-09-21 03:39] VITALS: BP 115/66; PULSE 70; RESP 16; TEMP 36.6; O2SAT 94
[2023-09-21 06:39] LABS: MANUAL DIFF FLAG NO
[2023-09-21 06:54] LABS: Hematocrit 45.5 % (42.0-52.0); Hemoglobin 15.5 g/dl (14.0-18.0); Imm Gran Abs Auto 0.02 X10*3/uL (0.00-0.03); Imm Gran Pct Auto 0.3 % (0.0-0.4); Lymphocytes Absolute Auto 0.7 X10*3/uL (1.2-4.9); Lymphocytes Percent Auto 10.4 % (20-40); Mean Corpuscular HGB Conc 34.1 g/dl (31.0-36.0); Mean Corpuscular Hemoglobin 31.1 pg (27.0-33.0); Mean Corpuscular Volume 91.2 fL (80.0-98.0); Mean Platelet Volume 9.2 fL (9.4-12.4); Monocytes Absolute Auto 0.1 X10*3/uL (0.1-1.2); Neutrophils Absolute Auto 6.2 x10*3/uL (2.0-8.3); Neutrophils Percent Auto 88.3 % (45-73); Platelet Count 229 X10*3/uL (160-400); Red Blood Count 4.99 X10*6/uL (4.60-5.80); Red Cell Distribution Width 12.6 % (11.0-16.0)
[2023-09-21 07:01] LABS: Blood Urea Nitrogen 20 mg/dL (9-16); Calcium 9.3 mg/dL (8.4-10.2); Creatinine Clr Calc Pharmacy 73.5; Estimated Glomerular Filt Rate > 60; Glucose Random 144 mg/dL (60-115)
[2023-09-21 07:15] LABS: Anion Gap 13 (12-20); Carbon Dioxide 24 mmol/L (22-29); Chloride 105 mmol/L (96-108); Potassium 4.9 mmol/L (3.3-5.1); Sodium 137 mmol/L (135-145)
[2023-09-21] MEDS: methylPREDNISolone Sod Succ 40 MG/ML VIAL IVPUSH ×3 (07:33→23:09)
[2023-09-21] MEDS: 0.9 % Sodium Chloride Flush 3 ML SYRINGE IVFLUSH ×3 (07:35→23:09)
[2023-09-21 08:00] VITALS: BP 122/59; PULSE 70; RESP 16; TEMP 36.4; O2SAT 94
--- NOTE | 2023-09-21 09:34 | P.PNIM_ITS ---
Subjective Subjective Date of Service: 09/21/23 Interval History: abd pain improved, tolerated clears Physical Exam 2 Vital Signs: Vital Signs: Last Vital Signs Temp 97.5 F 09/21/23 08:00 Pulse 70 09/21/23 08:00 Resp 16 09/21/23 08:00 BP 122/59 L 09/21/23 08:00 Pulse Ox 94 09/21/23 08:00 O2 Del Method Room Air 09/21/23 08:00 BMI result Body Mass Index 25.9 General: AO X 3, no acute distress Resp: CTA bilateral, no accessory muscles used CVS: S1,S2,RRR GI: soft, non tender, non distended Neuro: motor grossly intact, alert Psych: appropriate affect, appropriate insight Objective Data Active Medications Acetaminophen (Acetaminophen 325 Mg Tablet) 650 mg PO Q6H PRN PRN Reason: Pain, Mild (Pain Scale 1-3), fever or headache Calcium Carbonate (Calcium Carbonate 750 Mg Tab.Chew) 750 mg PO Q4H PRN PRN Reason: Heartburn Hydromorphone HCl (Hydromorphone Hcl 1 Mg/Ml Syringe) 0.5 mg IVPUSH Q4H PRN; Protocol PRN Reason: Pain, Severe (Pain Scale 7-10) Last Admin: 09/20/23 20:13 Dose: 0.5 mg Documented By: SANDOVAL Magnesium Hydroxide (Milk Of Magnesia 30 Ml Oral.Susp) 30 ml PO DAILY PRN PRN Reason: Constipation Melatonin (Melatonin 3 Mg Tablet) 6 mg PO BEDTIME PRN PRN Reason: Insomnia Methylprednisolone Sodium Succinate (Methylprednisolone Sod Succ 40 Mg/Ml Vial) 40 mg IVPUSH Q8H [facility] Last Admin: 09/21/23 07:33 Dose: 40 mg Documented By: BRANDY Ondansetron HCl (Ondansetron Hcl 4 Mg/2 Ml Vial) 4 mg IVPUSH Q8H PRN PRN Reason: Nausea and Vomiting Last Admin: 09/20/23 20:12 Dose: 4 mg Documented By: SANDOVAL Sodium Chloride (0.9 % Sodium Chloride Flush 3 Ml Syringe) 3 ml IVFLUSH QSHIFT [facility] Last Admin: 09/21/23 07:35 Dose: 3 ml Documented By: BRANDY Labs 09/21/23 06:23 09/21/23 06:23 Labs: Laboratory Results - last 24 hr 09/20/23 09/20/23 09/21/23 15:01 18:41 06:23 MCV 89.8 91.2 MCH 30.8 31.1 MCHC 34.4 34.1 RDW 12.5 12.6 Plt Count 292 229 MPV 8.9 L 9.2 L Immature Gran % (Auto) 0.3 0.3 Neut % (Auto) 74.9 H 88.3 H Lymph % (Auto) 16.5 L 10.4 L [place] % (Auto) 6.3 1.0 L Eos % (Auto) 1.6 0.0 Baso % (Auto) 0.4 0.0 Lymph # (Auto) 1.8 0.7 L [place] # (Auto) 0.7 0.1 Eos # (Auto) 0.2 0.0 Baso # (Auto) 0.0 0.0 Abs Immat Gran (auto) 0.03 0.02 Absolute Neuts (auto) 8.4 H 6.2 Absolute Nucleated RBC 0.000 0.000 Nucleated RBC % (auto) 0.0 0.0 ESR 6 Hold Purple Top SEE NOTE Anion Gap 12 13 Estim Creat Clear Calc 71.5 73.5 Estimated GFR > 60 > 60 Random Glucose 107 144 H Lactic Acid 0.9 Calcium 10.2 D 9.3 D Magnesium 2.2 Total Bilirubin 1.1 H AST 15 ALT 22 Alkaline Phosphatase 113 C-Reactive Protein 0.16 Total Protein 7.9 Albumin 4.4 Lipase 26 Assessment and Plan (1) Crohn disease: Status: Acute Plan 67M PMH malignant melanoma, Crohn's disease, history of DVT no longer on anticoagulation, hyperlipidemia, presented with abdominal pain Crohn's flare Continue steroids, clear liquids, follow-up GI Hyperlipidemia Continue statin DVT prophylaxis with Lovenox Full code reason for continued hospitalization: awatiing tolerance of solids Quality Stroke Does the patient have a stroke diagnosis?: No VTE Prior VTE?: No VTE Risk Level:: Medical - moderate - high VTE Device Contraindication: N/A - Device Ordered VTE Drug Contraindication: Treatment Not Indicated
[2023-09-21] MEDS: Enoxaparin Sodium 40 MG/0.4 ML SYRINGE SUBCUT (09:45)
--- NOTE | 2023-09-21 11:13 | MHC.CM.PN ---
PT REPORTS HE LIVES WITH HIS AND IS INDEPENDENT WITH CARE HE HAS NO DME AND NO SERVICES HCP ON FILE PCP: KEN CAIN IMM DELIVERED DCP: HOME NO SERVICES TO TRANSPORT
--- NOTE | 2023-09-21 14:27 | PM.EVENT ---
Event Note Date of Service: 09/21/23 Event Note: GI Consult-Full note dictated. History from patient, , and EMR. Imp: Given his underlying Crohn's, relatively acute presentation yesterday, and now a rapid improvement over night with IV steroids, I suspect he had an early presentation of a Crohn's flare with an impending SBO . At this point things seem to be much improved based on his history, his exam, and his abdominal xray. He had a BM today, has a benign abdomen, and is about to eat some food. Rec: If stable overnight he could be discharged. I will order po prednisone for the AM and will send a Rx for an outpatient tapering regimen to his pharmacy as well. I told him to stay on a low residue diet and make a F/U appt. with Dr. Watkins. He and his were comfortable with this plan. Please call or text if questions or problems. Thanks Time Spent With Patient Time: Total time managing care of this patient today ____ minutes.
[2023-09-21 15:39] VITALS: BP 117/57; PULSE 67; RESP 20; TEMP 36.4; O2SAT 94
[2023-09-21] MEDS: Acetaminophen 325 MG TABLET 650 MG PO (16:54)
[2023-09-21 19:49] VITALS: BP 127/73; PULSE 73; RESP 18; TEMP 36.7; O2SAT 96
[2023-09-22] MEDS: Melatonin 3 MG TABLET 6 MG PO (01:06)
--- NOTE | 2023-09-22 02:11 | CONS_ITS ---
DATE OF SERVICE: 09/21/2023 REASON FOR CONSULTATION: History of Crohn disease, abdominal pain, and abdominal distention. HISTORY OF PRESENT ILLNESS: This has been obtained from the patient, his , and the medical record. The patient is a 67-year-old male with a longstanding history of Crohn disease of both the small bowel and large bowel. He takes only Questran at the present time for symptomatic relief of diarrhea, but does not use any specific medication for Crohn disease. He has had a previous surgery with an ileocolectomy in 1989. He has had a previous history of small bowel obstructions that responded to steroids. His most recent colonoscopy in May [address] Watkins described some active Crohn disease at the ileocolonic anastomosis with some stricturing, which responded to a balloon dilation. He was hospitalized here in August of 2022 with a small bowel obstruction that responded to steroids and did not require surgery. He reports that he had been doing well up until the morning of admission when he developed the progressive onset of abdominal pain, some vomiting, and abdominal distention. He describes this as being similar to previous small-bowel obstructions. Rather than waiting at home as he has on previous occasions, he decided to come to the ER on the same day for evaluation. All of his laboratories including inflammatory markers were unremarkable. The CT scan did not show any definitive obstruction, but did show some relative dilatation of the small bowel proximal to the anastomosis. He was admitted for IV steroids last evening. Today, he feels much better. He had a normal bowel movement today. His abdominal exam is much improved and he is hungry. He has been afebrile overnight. He has had no further vomiting. CURRENT MEDICATIONS: Methylprednisolone 40 mg IV every 8 hours, Lovenox, acetaminophen, Tums p.r.n., Dilaudid p.r.n., melatonin p.r.n., Zofran p.r.n. His medications at home had included atorvastatin, cholestyramine, and a B12 shot every month. PAST MEDICAL HISTORY: Ileal right colectomy, melanoma with right axillary node dissection. He denies history of heart disease, diabetes, stroke, nor lung disease. Arthritis. Hyperlipidemia. Crohn disease as above. SOCIAL HISTORY: He is . He does smoke, but does not use any significant alcohol. FAMILY HISTORY: Notable for a daughter with Crohn disease. PHYSICAL EXAMINATION: GENERAL: The patient is a pleasant, alert, comfortable appearing male. SKIN: Warm and dry. HEENT: Anicteric sclerae. Moist mucous membranes. NECK: Supple. CARDIAC: Normal S1, S2. ABDOMEN: Soft, nondistended, nontender without palpable mass, rebound, or guarding. EXTREMITIES: Without edema. LABORATORY DATA: He did have an abdominal x-ray today that was negative for any sign of obstruction. Laboratories revealed a normal CBC. Normal electrolytes. BUN 20, creatinine 1.0. Labs from yesterday showed a normal liver profile. Albumin 4.4. Lipase 26. C-reactive protein of 0.2 and a sedimentation rate yesterday of 6. IMPRESSION: Given the patient's clinical history, I suspect this represented the acute onset of a flare of the Crohn's with an impending small-bowel obstruction. However, at this point, his symptoms have completely resolved after an overnight course of IV steroids. We did review that the fact that he came to the hospital so quickly probably helps him to improve on a quicker basis as opposed to his previous hospitalizations. At this point, based on his exam, his history, and the results of the abdominal x-ray this morning, as well as the fact that he had a bowel movement today, I would lead me to believe that things have returned to the baseline. At this point, I think he can have his diet advanced to low residue. I would switch him over to some oral prednisone tomorrow and if stable, he can be discharged at that point. I will send over a prescription for a tapering regimen of prednisone to his local pharmacy. I did review with him the need to follow up with Dr. Watkins in the office, but certainly call sooner if he develops recurrent problems. The patient and his were comfortable with this plan. Thanks for the consultation. MD MELANIE Del Valle/NIKKI / [phone]
[2023-09-22] MEDS: Zolpidem Tartrate 5 MG TABLET PO (03:13)
--- NOTE | 2023-09-22 03:16 | PC.NURSE ---
Addendum entered by Addie Duncan RN 09/22/23 03:22: Patient continues to swear and be aggressive toward staff r/t not being able to sleep, per patient. Original Note: pt called out for RN to come to room to give patient an AMA form if he didn't get something stronger than melatonin for sleep. MD Mark notified - ordered 5mg of ambien. RN into room to administer ambien, patient pacing around the room, agitated, became to raise voice at RN states, Well I need fucking something. I'm going to have a fucking anxiety attack. You're pumping me full of steroids, what do you expect? Steroids are like speed or cocaine. RN apologized that the patient was having a difficult time sleeping, administered the ambien. Patient continues to pace around the room with the light on and tv on. RN Recommended turning off the lights and screen and to lay down. Patient non-compliant at this time. call prater in reach.
[2023-09-22 07:25] VITALS: BP 115/70; PULSE 66; RESP 14; TEMP 36.5; O2SAT 96
[2023-09-22] MEDS: Enoxaparin Sodium 40 MG/0.4 ML SYRINGE SUBCUT (08:37)
[2023-09-22] MEDS: 0.9 % Sodium Chloride Flush 3 ML SYRINGE IVFLUSH (08:37)
[2023-09-22] MEDS: predniSONE 20 MG TABLET 40 MG PO (08:37)
--- NOTE | 2023-09-22 08:41 | P.DS_ITS ---
DS: Providers Provider Date of Service: 09/22/23 Date of admission: 09/20/23 19:42 Primary care physician: Anil Luna MD Consults: 09/20/23 20:03 Consult to Gastroenterology Routine Consulting Provider: Matt Diaz Reason for consultation: crohns flare DS: Diagnosis Discharge Diagnosis (1) Crohn disease: Status: Acute DS: Summary Hospital Course Hospital Course: from initial hpi: 66-year-old male with pertinent history of malignant melanoma, Crohn's disease with history of hospitalization with bowel obstructions, DVT not on anticoagulation, mixed hyperlipidemia who presents to the emergency department for evaluation of abdominal discomfort. Patient states abdominal discomfort started on the day of presentation. It is generalized, nonradiating, progressive and without any relieving factors. Patient is not passing flatus. Had 3 episodes of nonbloody emesis prior to coming to the ER. Patient states it feels similar to his pain of Crohn's flare in the past. Patient denies fever, chills, chest discomfort, palpitations, shortness of breath, changes in urinary or bowel habits. In the ER, imaging without concerning for obstruction. Gastroenterology was consulted who recommended admission with IV steroids. hospital course: Patient was admitted for impending small bowel obstruction due to Crohn's flare. He was treated with IV steroids and symptoms resolved. His diet was advanced to solids and he is tolerating well. He was seen by Gastroenterology recommended prednisone taper, low residue diet, and outpatient follow up. For hyperlipidemia was continued on statin. Patient is feeling better will be discharged home. Time Attestation Discharge Coordination Time (in mins): 34 Quality: Safe Use of Opioids Does Pt have an Active Cancer Diagnosis on the Problem List?: No Quality: Stroke Does the patient have a stroke diagnosis?: No Physical Exam Vital Signs: Vital Signs: Last Vital Signs Temp 97.7 F 09/22/23 07:25 Pulse 66 09/22/23 07:25 Resp 14 09/22/23 07:25 BP 115/70 09/22/23 07:25 Pulse Ox 96 09/22/23 07:25 O2 Del Method Room Air 09/22/23 07:25 BMI result Body Mass Index 25.9 General: AO X 3, no acute distress Resp: CTA bilateral, no accessory muscles used CVS: S1,S2,RRR GI: soft, non tender, non distended Neuro: motor grossly intact, alert Psych: appropriate affect, appropriate insight Discharge Plan Discharge Anticipated Discharge Date/Time: 09/22/23 08:39 Patient Disposition: Home, Self-Care Discharge Diagnosis: crohns Referrals: Anil Luna MD [Primary Care Provider] - 1 Week Matt Diaz MD [Physician] - 1 Week Discharge Medications: Continued atorvastatin 20 mg tablet 20 mg PO DAILY 90 Days Qty: 90 3RF cholestyramine (with sugar) [Questran] 4 gram powder 4 g PO DAILY cyanocobalamin (vitamin B-12) 1,000 mcg/mL solution 1,000 mcg IM Q4W 90 Days Qty: 3 2RF sildenafil 50 mg tablet 50 mg PO DAILY PRN (Reason: sexual activity) Qty: 10 3RF Rx Instructions: administer 30 minutes to 4 hours before activity Discharge Orders: Discharge Order (Routine); Ordered 09/22/23 Ordered By: Blane Garcia Diet: low residue Activity on Discharge: As tolerated Stand Alone Forms: Patient Portal Discharge page Print Language: Kiswahili Care Plan Goals: manage crohns Health Concerns: crohns Plan of Treatment: prednisone taper (script sent separately by Dr. Diaz), low residue diet, follow up with GI Assessment: see above
--- NOTE | 2023-09-22 09:59 | MHC.CM.PN ---
PT WILL DC HOME TODAY WITH NO SERVICES VIA PRIVATE TRANSPORT
== END 2023-09-22 09:47 | disposition home or self-care (01) | DRG 387 ==
LOC: HO.ED 18:25 → HO.EDOVER 20:13 → HO.S3 23:16
PROVIDERS: Physician Assistant; Admitting Provider Student in an Organized Health Care Education/Training Program; Emergency Provider Emergency Medicine; PCP Internal Medicine; Visit Provider Internal Medicine
DX: K50.90 Crohn's disease, unspecified, without complications (principal); E78.2 Mixed hyperlipidemia; Z86.718 Personal history of other venous thrombosis and embolism; Z87.891 Personal history of nicotine dependence; Z79.899 Other long term (current) drug therapy
CPT/HCPCS: 36415; 74021; 74177; 80048; 80053; 83605; 83690; 83735; 85025; 85652; 86140; 99285; J0131; J1170; J1650; J2405; J2919; Q9967

== ENCOUNTER → 2023-09-20 15:35 | Outpatient (BNV) | payer MEDICARE, SELFPAY | PROVIDERS: Emergency Provider Emergency Medicine; PCP Internal Medicine; Visit Provider Student in an Organized Health Care Education/Training Program | DX: R10.9 Unspecified abdominal pain (principal); K50.912 Crohn's disease, unspecified, with intestinal obstruction | CPT/HCPCS: 99222; 99232; 99239 ==

== ENCOUNTER 2023-11-13 09:22 | Outpatient (REF) | payer MEDICARE, SELFPAY ==
[2023-11-13 09:37] LABS: MANUAL DIFF FLAG NO
[2023-11-13 10:39] LABS: Basophils Percent Auto 0.7 % (0-2); Eosinophils Absolute Auto 0.4 X10*3/uL (0.0-0.4); Eosinophils Percent Auto 6.9 % (0-4); Hematocrit 47.3 % (42.0-52.0); Imm Gran Abs Auto 0.02 X10*3/uL (0.00-0.03); Imm Gran Pct Auto 0.4 % (0.0-0.4); Mean Corpuscular HGB Conc 33.8 g/dl (31.0-36.0); Mean Corpuscular Hemoglobin 31.3 pg (27.0-33.0); Mean Corpuscular Volume 92.4 fL (80.0-98.0); Mean Platelet Volume 8.4 fL (9.4-12.4); Monocytes Absolute Auto 0.5 X10*3/uL (0.1-1.2); Neutrophils Absolute Auto 3.7 x10*3/uL (2.0-8.3); Platelet Count 246 X10*3/uL (160-400); Red Blood Count 5.12 X10*6/uL (4.60-5.80); Red Cell Distribution Width 13.2 % (11.0-16.0); White Blood Count 5.7 X10*3/uL (4.8-10.8)
[2023-11-13 10:57] LABS: Appearance Urine Clear; Color Urine Yellow; Glucose Urine UA Negative (Negative); Leukocyte Esterase Urine Negative (Negative); Nitrite Urine Negative (Negative); Urine Blood Negative (Negative); Urine Ketones Negative (Negative); Urine Protein Negative (Neg-Trace)
[2023-11-13 11:11] LABS: Estimated Average Glucose 111 mg/dL; Hemoglobin A1c % 5.5 % (<6.0)
[2023-11-13 11:22] LABS: Alanine Aminotransferase 27 U/L (0-40); Alkaline Phosphatase 92 U/L (39-117); Anion Gap 15 (12-20); Aspartate Amino Transferase 16 U/L (5-37); Bilirubin Total 1.2 mg/dL (0.0-1.0); Blood Urea Nitrogen 17 mg/dL (9-16); Calcium 9.9 mg/dL (8.4-10.2); Carbon Dioxide 25 mmol/L (22-29); Chloride 105 mmol/L (96-108); Cholesterol 170 mg/dL (<200); Estimated Glomerular Filt Rate > 60; Glucose Fasting 99 mg/dL (60-99); HDL Cholesterol 46 mg/dL (>40); LDL Cholesterol Calculated 89 mg/dL (<100); Potassium 4.2 mmol/L (3.3-5.1); Sodium 141 mmol/L (135-145); Total Protein 7.2 g/dL (6.5-8.0); Triglycerides 176 mg/dL (<150)
[2023-11-13 11:43] LABS: Vitamin D 25-OH Total 37.9 ng/mL (>30)
[2023-11-13 11:48] LABS: Folate 8.5 ng/mL (> or = 4.0); Vitamin B12 328 pg/mL (200-900)
== END 2023-11-13 09:23 | disposition home or self-care (01) ==
LOC: HO.LAB 09:22
PROVIDERS: PCP Internal Medicine; Visit Provider Internal Medicine
DX: E78.00 Pure hypercholesterolemia, unspecified (principal); E55.9 Vitamin D deficiency, unspecified; E53.8 Deficiency of other specified B group vitamins; R30.0 Dysuria; R73.01 Impaired fasting glucose; D64.9 Anemia, unspecified
CPT/HCPCS: 36415; 80053; 80061; 81003; 82306; 82607; 82746; 83036; 84443; 85025

== ENCOUNTER 2023-11-20 08:47 | Outpatient (AMB) | payer MEDICARE, SELFPAY ==
[2023-11-20 08:48] VITALS: BP 118/82; PULSE 81; O2SAT 95; BMI 26.2
--- NOTE | 2023-11-20 08:48 | A.OFFPC_ITS ---
Vital Signs 11/20/23 08:48 Height 6 ft Weight 193 lb 8 oz BMI 26.2 BP 118/82 Blood Pressure Location Lt brachial Position Sitting Pulse 81 Pulse Source Pulse Oximeter Pulse Oximetry (%) 95 Oxygen Delivery Method Room Air Intake Visit Reasons: Crohn's, hyperlipidemia, IFG, Hx of melanoma School Age Program Associate Required: No Accompanied by: Self / Same As Patient Allergies codeine [Codeine] Allergy (Severe, Verified 11/20/23 09:02) HIVES,GI UPSET Medication List - Last Reconciled 11/20/23 by Anil Luna MD atorvastatin 20 mg PO DAILY 90 days cholestyramine (with sugar) 4 gram (Questran) 4 grams PO DAILY cyanocobalamin (vitamin B-12) 1,000 mcg IM Q4W 90 days sildenafil 50 mg PO DAILY PRN Tobacco use date assessed: 11/20/23 Fall risk assessment: No Falls in past year Last assessed Fall Risk: 11/20/23 Dental Screening Dental Screen Date: 11/20/23 Did you have a dental visit in the last 12 months?: No Did you have a dental problem in the last 6 months where you did not have access to dental care?: No Was dental information given to patient?: Patient has dentist HPI Crohn's, hyperlipidemia, IFG, Hx of melanoma HPI Details Patient comes in today for his follow up visit States that he has been experiencing increased headaches daily for over 2 weeks now Notes that his headaches seem to come on often when he is sleeping at night and he wakes up with increased headaches States that he would then take a couple of Aspirins although these sometimes do not help much Notes (+) blurring of his vision when his headaches increase further and are not promptly relieved with Aspirin Relates (+) history of migraine headaches but states that his current headaches feel completely different from his previous bouts with migraine He denies any associated dizziness Denies any chest pains, no increased SOB No nausea/vomiting, no abdominal pain No change in bowel habits noted - still has on and off diarrhea alternating with constipation at times and states that he was hospitalized for a couple of days back in early September 2023 and there were concerns then of a possible bowel obstruction although he promptly improved with Prednisone He also has been experiencing increased urinary frequency and nocturia for a while now, which is also keeping him up at night States that he called up Urology in [place] but they could not give him an appointment earlier than towards the end of January 2024 and he is wondering if we can at least start him on something at this time to help control his symptoms until he is seen by urology in a few months Needs his Atorvastatin Rx refilled today (is not sure if Dr. Diaz already refilled this for him a few days ago) He had his follow up labs done last week - to discuss his results [facility] Medical History Benign prostatic hyperplasia with urinary frequency Bowel obstruction Anticoagulation adequate DVT (deep venous thrombosis) COVID-19 vaccine series completed Metastatic melanoma Bicuspid aortic valve Ascending aortic aneurysm Hyperbilirubinemia Impaired fasting glucose Overweight (BMI 25.0-29.9) History of nephrolithiasis History of rectal abscess Pernicious anemia Degenerative joint disease of cervical spine Lumbar degenerative disc disease Migraine Pure hypercholesterolemia Crohn's disease Surgical History History of lymph node excision History of esophagogastroduodenoscopy (EGD) H/O colonoscopy Hx of cardiac catheterization History of back surgery History of partial colectomy History of inguinal hernia repair Family History Father Medical history unknown Mother Hypertension Diabetes Social History Household Members: Spouse Housing: House Are you a primary home care specialist to a significant other at home: No Do you presently have visiting nurse or other home services: No Alcohol intake: never Patient Tobacco Use Status: Former Tobacco user Tobacco use type: Cigarette e-Cigarette/Vaping Use: Currently Using Second Hand Smoke Exposure: No Substance Use Type: Marijuana Advance Directives Date on File: 01/08/19 service: No Current occupational status: retired Cognitive needs: No Hearing needs: No Vision needs: Yes Questionnaire PHQ-9 Over the last 2 weeks, how often have you been bothered by any of the following problems? 1. Little interest or pleasure in doing things: not at all 2. Feeling down, depressed, or hopeless: several days 3. Trouble falling or staying asleep, or sleeping too much: not at all 4. Feeling tired or having little energy: not at all 5. Poor appetite or overeating: not at all 6. Feeling bad about yourself - or that you are a failure or have let yourself or your family down: not at all 7. Trouble concentrating on things, such as reading the newspaper or watching television: not at all 8. Moving or speaking so slowly that other people could have noticed. Or the opposite - being so fidgety or restless that you have been moving around a lot more than usual: not at all 9. Thoughts that you would be better off or of hurting yourself in some way: not at all Total score: 1 Depression Screening Interpretation: Negative Depression Screening Done: Yes 54516 - PHQ-9 Billing: Yes Source: Developed by Drs. Matt Vizcarra, Janet Chapman, Jose Braswell and colleagues, with an educational gustavo from [employer]. Thrive Questionnaire Date Thrive assessed: 11/20/23 I am a: Patient What is your living situation today?: I have a steady place to live Within the past 12 months, did the food you bought not last and you didn't have the money to get more?: Never true Within the past 12 months, did you worry whether your food would run out before you got money to buy more?: Never true Do you have trouble paying for medicines?: No Do you have trouble getting transportation to medical appointments?: No Do you have trouble paying your heating and electricity bill?: No Do you have trouble taking care of your child, family member or friend?: No Do you have trouble with day-to-day activities such as bathing, preparing meals, shopping, managing finances, etc.?: No Are you currently unemployed and looking for a job?: No Are you interested in more education?: No Please select the resources that you would like help with: None Currently or been in a relationship where the following occur: No concerns reported THRIVE Score: 0 AUDIT C Alcohol Use Questionnaire (AUDIT-C) 1. How often do you have a drink containing alcohol?: Never 2. How many drinks containing alcohol do you have on a typical day when you are drinking?: 1 or 2 (N/A) 3. How often do you have six or more drinks on one occasion?: Never Total Score: 0 Score Reviewed/Action Taken: Yes DORIS-7 AMB Questionnaire DORIS-7 Date DORIS - 7 assessed: 11/20/23 (pt states due to work ) Feeling nervous, anxious, or on edge: 1 = Several days Not being able to stop or control worryin = Several days Worrying too much about different things: 0 = Not at all Trouble relaxin = Not at all Being so restless that it is hard to sit still: 0 = Not at all Becoming easily annoyed or irritable: 0 = Not at all Feeling afraid as if something awful might happen: 0 = Not at all Total DORIS-7 score (0-4 normal; 5-9 mild; 10-14 moderate; 15-21 severe): 2 Source: Developed by Drs. Matt Vizcarra, Janet Chapman, Jose Braswell and colleagues, with an educational gustavo from [employer]. DORIS-7 Assessment Billing DORIS-7 Assessment Tool: DORIS-7 Assessment 49984 Review of Systems Const Denies chills, Reports fatigue, Denies fever(s) and Reports headache(s) (daily and increased lately - see HPI) Eyes Reports blurry vision (associated with headaches at times (see HPI)) and Denies seeing flashes ENT Denies dysphagia, Denies dizziness, Denies otalgia, Reports headache(s) (daily and increased lately - see HPI), Denies neck pain, Denies odynophagia and Denies sore throat Card Denies chest pain, Denies palpitations and Denies dyspnea Resp Denies cough and Denies dyspnea GI Denies abdominal pain, Denies hematochezia, Reports constipation (on and off), Denies dysphagia, Denies heartburn, Reports diarrhea (intermittent), Reports loose stools (on and off), Denies nausea, Denies odynophagia and Denies vomiting Reports erectile dysfunction, Denies dysuria, Reports nocturia, Reports urinary frequency (increasing lately) and Reports urinary urgency Musc Reports back pain (on and off), Denies arthralgias and Denies neck pain Skin/Breast Denies rash Neuro Denies dizziness and Reports headache(s) (daily and increased lately - see HPI) Endo Reports fatigue and Denies palpitations Physical exam (Primary Care) Vital Signs: Oxygen Delivery Method Room Air 11/20/23 08:48 BMI result Body Mass Index 26.2 Tobacco/Smoking Status: Tobacco use Status Tobacco use date assessed 06/26/23 06/26/23 08:57 Patient Tobacco Use Status Former Tobacco user 09/22/23 08:58 Tobacco use type Cigarette 09/20/23 23:47 e-Cigarette/Vaping Use Currently Using 09/20/23 23:47 Depression Screening Interpretation: Negative Thrive Assessment: Date of Thrive Assessment Date Thrive assessed 09/21/23 09/26/23 14:20 Currently or been in a relationship where the following occur: No concerns reported Const General: no acute distress and alert Orientation/consciousness: patient oriented x3 HENMT Head: No Temporal artery tenderness present Ears: TM's normal bilaterally and EAC's normal Throat: Yes posterior oropharynx normal and Yes tonsils normal (no TP congestion noted) Eyes Conjunctivae: conjunctivae normal Pupils: Equal, round and reactive pupils present EOM: EOMs intact bilaterally Neck Neck: Yes no lymphadenopathy and Yes supple Thyroid: Thyroid normal Resp Auscultation: clear to auscultation bilaterally, no rales and no wheezes Cardio Rate: regular rate Rhythm: regular rhythm Heart sounds: no murmurs GI Palpation (GI): Soft to palpation and nontender Auscultation: normal bowel sounds General: Yes no CVA tenderness Back/Spine/Pelvis Back: no CVA tenderness Thoracic/Lumbar Spine: lumbar spinal tenderness Skin Rashes: no rashes Neuro Other: (+) weakness noted on the left leg - motor strength noted to be 4/5; is 5/5 on the right lower extremity General: patient oriented x3 Cranial nerves: Yes Equal, round and reactive pupils present Extrem General: Yes no clubbing, cyanosis or edema Results Reviewed Results Reviewed: Laboratory Tests 11/13/23 11/13/23 09:33 09:36 WBC 5.7 Hgb 16.0 Hct 47.3 Plt Count 246 Sodium 141 Potassium 4.2 Creatinine 1.09 Estimated GFR > 60 Fasting Glucose 99 Hemoglobin A1c % 5.5 Calcium 9.9 D Total Bilirubin 1.2 H AST 16 ALT 27 Triglycerides 176 H Cholesterol 170 LDL Cholesterol, Calc 89 HDL Cholesterol 46 Vitamin B12 328 25-OH Vitamin D Total 37.9 TSH 1.30 Ur Specific [place] 1.020 Urine Protein Negative Urine Glucose (UA) Negative Urine Blood Negative Urine Nitrite Negative Ur Leukocyte Esterase Negative Assessment and Plan Assessment & Plan (1) Pure hypercholesterolemia: Code(s): E78.00 - Pure hypercholesterolemia, unspecified Plan: Results of his labs done yesterday reviewed and discussed with patient - he is advised that his cholesterol levels have all increased slightly from previous although they are still close to goal except for his serum TG level Reinforced low cholesterol diet Continue Atorvastatin 20 mg QD and Cholestyramine powder 4 gm/dose 1 packet BID Will recheck his labs and fasting lipids in 4 months for follow up (2) Crohn's disease: Code(s): K50.90 - Crohn's disease, unspecified, without complications Qualifiers: Gastrointestinal tract location: unspecified location Digestive disease complication type: unspecified complication Qualified Code(s): K50.919 - Crohn's disease, unspecified, with unspecified complications Plan: Stable although he had a flare up again with possible SBO a couple of months ago in September 2023 that requiring a brief hospital admission for a couple of days - his symptoms promptly cleared up with Tx with Prednisone He is currently still experiencing on and off diarrhea with occasional constipation Colonoscopy done last year revealed (+) active Crohn's colitis at the ileocolonic anastomosis and balloon dilatation was done - symptoms have improved with oral Prednisone Tx Follow up with GI as scheduled (3) Metastatic melanoma: Code(s): C79.9 - Secondary malignant neoplasm of unspecified site Plan: S/P axillary lymph node dissection and adjuvant treatment with BRAF/MEK inhibition (Trametinib 2 mg QD and Tafinlar 150 mg BID) - treatment was started on 06/29/2021 and completed in June 2022 PET-CT done in June 2022 came out negative for disease recurrence Follow up with dermatology as scheduled for continuing management and surveillance (4) DVT (deep venous thrombosis): Comment: 10/2021 Code(s): I82.409 - Acute embolism and thrombosis of unspecified deep veins of unspecified lower extremity Qualifiers: DVT location: upper extremity Affected thrombotic vein of extremity: other upper extremity vein Chronicity: acute Laterality: right Qualified Code(s): I82.621 - Acute embolism and thrombosis of deep veins of right upper extremity Plan: Resolved - mostly involving his right hand and distal half of right forearm; no recurrence since Doppler on 10/23/2021 revealed an acute partial right subclavian vein thrombus and he was subsequently started on Eliquis 5 mg BID Repeat Doppler a few weeks later showed a complete resolution of the clot; dannie ent was continued on Eliquis until he completed his immunotherapy Tx, after which Rx was discontinued (5) Ascending aortic aneurysm: Code(s): I71.2 - Thoracic aortic aneurysm, without rupture Qualifiers: Presence of rupture: without rupture Qualified Code(s): I71.21 - Aneurysm of the ascending aorta, without rupture Plan: Repeat CTA done last year revealed (+) slight progression of his aortic aneurysm to 4.7 - 4.8 cm Repeat echo in February 2023 showed stable findings with no significant changes; he is scheduled for repeat echocardiogram in March 2024 Follow up with vascular surgery as scheduled for continuing surveillance and management (6) Migraine: Code(s): G43.909 - Migraine, unspecified, not intractable, without status migrainosus Qualifiers: Migraine type: unspecified Status migrainosus presence: without status migrainosus Intractability: not intractable Qualified Code(s): G43.909 - Migraine, unspecified, not intractable, without status migrainosus Plan: Stable although he is currently experiencing increased headaches daily for the past couple of weeks - patient states that his current headaches are completely different from his previous bouts with migraine and does not think that they are migraine headaches Reinforced avoidance of migraine triggers Follow up with neurology as scheduled (7) Chronic daily headache: Code(s): R51.9 - Headache, unspecified Plan: Patient feels that his current headaches are completely different from his previous bouts with migraine; states that they often occur at night and wake him up from sleep and are barely relieved with OTC Aspirin Due to his Hx of metatastatic melanoma and other comorbidities, will go ahead and send him for a head CT [place] for further evaluation (8) Impaired fasting glucose: Code(s): R73.01 - Impaired fasting glucose Plan: His HgbA1c remains normal at 5.5% on his labs done yesterday; was also normal at 5.4% and 5.2% when previously checked Reinforced low calorie diet (9) Pernicious anemia: Code(s): D51.0 - Vitamin B12 deficiency anemia due to intrinsic factor deficiency Plan: Corrected - continue B12 injections monthly (10) Left lumbosacral radiculopathy: Code(s): M54.17 - Radiculopathy, lumbosacral region Plan: Reinforced activity and weight-lifting restrictions States that his lower back symptoms have subsided a lot with oral Prednisone and his symptoms have been stable lately (11) Degenerative joint disease of cervical spine: Code(s): M47.812 - Spondylosis without myelopathy or radiculopathy, cervical region Qualifiers: Spinal osteoarthritis complication: unspecified spinal osteoarthritis Qualified Code(s): M47.812 - Spondylosis without myelopathy or radiculopathy, cervical region Plan: Symptoms have been mostly manageable - goes to physical therapy when needed (12) Benign prostatic hyperplasia with urinary frequency: Code(s): N40.1 - Benign prostatic hyperplasia with lower urinary tract symptoms; R35.0 - Frequency of micturition Plan: He is currently scheduled to see [facility] at the end of January 2024 - was advised that they could not get him an appointment earlier than this Will try starting him for now on Tamsulosin 0.4 mg Q HS and Finasteride 5 mg QD to see if these will help calm down his urinary symptoms until he is seen by urology (13) Erectile dysfunction: Code(s): N52.9 - Male erectile dysfunction, unspecified Qualifiers: Erectile dysfunction type: unspecified Qualified Code(s): N52.9 - Male erectile dysfunction, unspecified Plan: Continue Sildenafil 50 mg PRN (14) Overweight (BMI 25.0-29.9): Code(s): E66.3 - Overweight Plan: Reinforced diet/exercise as tolerated/lose weight Plan Follow up in 4 months Orders: Orders Lipid Panel 4 Months E78.00 - Pure hypercholesterolemia, unspecified Comprehensive [place]. Panel Fast 4 Months E78.00 - Pure hypercholesterolemia, unspecified Vitamin B12 and Folate 4 Months E53.8 - Deficiency of other specified B group vitamins Vitamin D 25-OH Total 4 Months E55.9 - Vitamin D deficiency, unspecified UA CC w/rflx Micro + Cult 4 Months R30.0 - Dysuria, R35.0 - Frequency of micturition CT head/brain wo IV con Today R51.9 - Headache, unspecified Complete Blood Count Auto Diff 4 Months D64.9 - Anemia, unspecified Medications: New finasteride 5 mg PO DAILY 30 days 30 tabs 3RF tamsulosin 0.4 mg PO BEDTIME 30 days 30 caps 3RF N40.1 - Benign prostatic hyperplasia with lower urinary tract symptoms, R35.1 - Nocturia sumatriptan succinate take 1 tab at onset of headache; if no relief may repeat 1 tab after at least 2 hrs; max = 4 tabs/24 hr PO 10 tabs 3RF Refilled atorvastatin 20 mg PO DAILY 90 days 90 tabs 3RF Coding Level of Care Code Est Pt Level 4 (25137) Complex EM visit Add On G2211 Diagnoses Pure hypercholesterolemia E78.00 Crohn's disease with complication, unspecified gastrointestinal tract location K50.919 Gastrointestinal tract location: unspecified location Digestive disease complication type: unspecified complication Metastatic melanoma C79.9 Acute deep vein thrombosis (DVT) of other vein of right upper extremity I82.621 DVT location: upper extremity Affected thrombotic vein of extremity: other upper extremity vein Chronicity: acute Laterality: right Aneurysm of ascending aorta without rupture I71.21 Presence of rupture: without rupture Migraine without status migrainosus, not intractable, unspecified migraine type G43.909 Migraine type: unspecified Status migrainosus presence: without status migrainosus Intractability: not intractable Chronic daily headache R51.9 Impaired fasting glucose R73.01 Pernicious anemia D51.0 Left lumbosacral radiculopathy M54.17 Osteoarthritis of cervical spine, unspecified spinal osteoarthritis complication status M47.812 Spinal osteoarthritis complication: unspecified spinal osteoarthritis Benign prostatic hyperplasia with urinary frequency N40.1; R35.0 Erectile dysfunction, unspecified erectile dysfunction type N52.9 Erectile dysfunction type: unspecified Overweight (BMI 25.0-29.9) E66.3 Additional Codes DORIS-7 Assessment Billing - DORIS-7 Assessment Tool: DORIS-7 Assessment 70470 ([id number])
== END 2023-11-20 09:24 | disposition home or self-care (01) ==
PROVIDERS: PCP Internal Medicine; Visit Provider Internal Medicine
DX: K50.919 Crohn's disease, unspecified, with unspecified complications (principal); C79.9 Secondary malignant neoplasm of unspecified site; I82.621 Acute embolism and thrombosis of deep veins of right upper extremity; I71.21 Aneurysm of the ascending aorta, without rupture; E78.00 Pure hypercholesterolemia, unspecified; G43.909 Migraine, unspecified, not intractable, without status migrainosus; R51.9 Headache, unspecified; R73.01 Impaired fasting glucose; D51.0 Vitamin B12 deficiency anemia due to intrinsic factor deficiency; M54.17 Radiculopathy, lumbosacral region; M47.812 Spondylosis without myelopathy or radiculopathy, cervical region; N40.1 Benign prostatic hyperplasia with lower urinary tract symptoms; R35.0 Frequency of micturition; N52.9 Male erectile dysfunction, unspecified; E66.3 Overweight
CPT/HCPCS: 99214; G2211

== ENCOUNTER 2023-12-30 13:29 | Outpatient (REF) | payer MEDICARE, SELFPAY ==
--- NOTE | ~2023-12-30 | US_ITS ---
EXAMINATION: US SCROTUM CLINICAL INFORMATION: Epididymitis. COMPARISON: None available. TECHNIQUE: A sonogram of the scrotum was performed assessing valenzuela-scale appearance and color Doppler flow. Spectral Doppler analysis of the arterial and venous flow were performed in the testes bilaterally. FINDINGS: RIGHT: Right testicle measures 3.1 x 1.8 x 2.7 cm, volume 8.0 mL. No focal testicular parenchymal lesions are visualized. Spectral Doppler analysis of the arterial and venous flow is slightly increased in the right testis. Right epididymal head is normal in size with a 3 mm cyst. The epididymal tail is slightly enlarged and hypervascular. No right varicocele is seen. A small complex hydrocele is seen with some echogenicity. LEFT: Left testicle measures 3.1 x 2.2 x 2.8 cm, volume 9.9 mL. No focal testicular parenchymal lesions are visualized. Spectral Doppler analysis of the arterial and venous flow is normal in the left testis. Incidental note is made of some calcifications in the left spermatic cord possibly secondary to the patient's vasectomy history. Left epididymal head is normal in size. Left epididymal appendix is present. Left epididymal Doppler flow is normal.No left varicocele is seen. A small complex hydrocele is seen with some echogenicity. US/US scrotum IMPRESSION: 1. The right epididymal tail is slightly enlarged and hypervascular. The right testis is also slightly hypervascular. Findings are suggestive of epididymoorchitis. 2. Small complex bilateral hydroceles. Electronically signed by: Kwame Samuel MD 02/27/2024 12:[address] [facility]
== END 2023-12-30 13:30 | disposition home or self-care (01) ==
LOC: HO.US 13:29
PROVIDERS: PCP Internal Medicine; Visit Provider Physician Assistant
DX: N45.1 Epididymitis (principal)
CPT/HCPCS: 76870

== ENCOUNTER → 2024-03-17 08:38 | Outpatient (REF) | payer MEDICARE, SELFPAY ==
--- NOTE | 2024-03-17 08:41 | CA_ITS ---
Transthoracic Echocardiogram Patient (Last, First, Middle): Jasen White A Gender: Male Date of : 1955 Age: 68 Procedure Date: 03/17/2024 Procedure Type: Transthoracic Echocardiogram Location: OP Height: 182.88 cm Weight: 88.45 kg BSA: 2.11 m2 Heart Rate: bpm BP: 120 / 76 mmHg Lye Bath Operator: JULIEN Referring MD: Efraín Sanford MD Dietetic Technician: Dez Holder MD Symptoms: I71.2 - Thoracic aortic aneurysm, without rupture Study Quality: Adequate ECG Rhythm: Sinus Conclusions: - 1. Normal LV systolic function with LVEF of 60-65% 2. Bicuspid aortic valve with mild aortic regurgitation 3. Moderate lead dilated ascending aorta at 4.7 cm 4. No gross pericardial effusion Findings Left Ventricle Normal left ventricular size, thickness, and systolic function. The visually estimated ejection fraction is between 60-65%. Spectral Doppler is indicative of a normal filling pattern. Right Ventricle Normal right ventricular cavity size and systolic function. Atria The left atrium is likely dilated. There is no evidence of interatrial shunt. The right atrium is normal in size. Aortic Valve There is a bicuspid aortic valve. There is mild thickening of the aortic valve. There is no aortic valve stenosis. There is mild aortic valve regurgitation. Mitral Valve Normal mitral valve structure and function. There is trace mitral valve regurgitation. There is no mitral valve stenosis. Pulmonic Valve The pulmonic valve is likely normal. Tricuspid Valve Normal tricuspid valve structure. Tricuspid regurgitation envelope is inadequate for calculation of right ventricular systolic pressure. Normal right atrial pressure. Great Vessels The pulmonary artery was not well visualized. There is moderate dilatation of the ascending aorta measuring 4.70 cm. Venous The inferior vena cava is normal in size and collapses greater than 50% with inspiration. Pericardium/Pleural There is no evidence of pericardial effusion. Prior Study Comparison No significant change compared to prior study dated: 03/15/2023. Measurements 2D Linear Measurements IVSd: 1.27 0.6-0.9/0.6-1.0 cm LVIDd: 4.89 3.9-5.3/4.2-5.9 cm LVIDd Index: 2.32 2.4-3.2/2.2-3.1 cm/m2 LVIDs: 2.55 2.0-3.6 cm LVPWd: 1.15 0.7-1.1 cm LA Diam: 3.70 2.7-3.8/3.0-4.0 cm LAIDs Index: 1.75 1.5-2.3 cm/m2 LV Mass: 284.64 67-162/88-224 g LV Mass Index: 134.90 43-95/49-115 g/m2 LVOT Diam: 2.50 3.0+(-)1.3 cm 2D Systolic Function EF 4C: 61.40 >55% EF 2C: 64.60 >55% EF BiP: 61.90 >55% Mitral Valve MV Pk E: 0.84 MV PK A: 0.66 MV Decel Time: 272.00 E/A: 1.30 E'Lateral: 7.40 E'Medial: 4.57 E/E' Med: 18.40 E/E' Lat: 11.40 PHT: 80.00 MVA PHT: 2.75 Decel Potter: 3.09 Aortic Valve AoV Pk Blake: 1.78 AoV Mn Blake: 1.19 AoV VTI: 0.41 AoV Pk Grad: 13.00 Aov Mn Grad: 7.00 MAGNUS Cont.VTI: 2.54 AI Pk Blake: 3.71 AI Potter: 1.80 LVOT LVOT Pk Blake: 0.89 LVOT Mn Blake: 0.61 LVOT VTI: 0.21 LVOT Pk Grad: 3.00 LVOT Mn Grad: 2.00 LVOT Diam: 2.50 LVOT Area: 4.91 Diastolic Function MV Pk E: 0.84 MV Pk A: 0.66 E/A: 1.30 E'Medial: 4.57 E/E' Med: 18.40 E' Laterial: 7.40 E/E' Lat: 11.40 Right Ventricle TAPSE (mm): 20.70 TVS' Blake: 9.25 Tricuspid Valve RA Press: 3.00 Great Vessels Aorta Sinus of Valsalva: 4.45 2.0-3.[address] Ridge: 3.74 1.7-3.4 cm Ao Asc: 4.70 2.1-3.4 cm Ao Arch: 3.90 Updated in Other Vendor System with Status of Final Dez Holder MD electronically signed on 03/17/2024 6:18:40 PM with status of Final
== END ==
LOC: HO.CARD 08:38
PROVIDERS: PCP Internal Medicine; Visit Provider Internal Medicine
DX: I71.20 Thoracic aortic aneurysm, without rupture, unspecified (principal)
CPT/HCPCS: 93306

== ENCOUNTER → 2024-03-17 08:41 | Outpatient (BNV) | payer MEDICARE, SELFPAY | PROVIDERS: PCP Internal Medicine; Visit Provider Internal Medicine Cardiovascular Disease | DX: Q23.1 Congenital insufficiency of aortic valve (principal); Q23.81 Bicuspid aortic valve | CPT/HCPCS: 93303; 93320; 93325 ==

== ENCOUNTER 2024-03-26 09:39 | Outpatient (REF) | payer MEDICARE, SELFPAY ==
[2024-03-26 09:52] LABS: MANUAL DIFF FLAG NO
[2024-03-26 10:31] LABS: Basophils Percent Auto 0.6 % (0-2); Eosinophils Absolute Auto 0.2 X10*3/uL (0.0-0.4); Eosinophils Percent Auto 2.9 % (0-4); Hematocrit 47.1 % (42.0-52.0); Hemoglobin 15.7 g/dl (14.0-18.0); Imm Gran Abs Auto 0.01 X10*3/uL (0.00-0.03); Imm Gran Pct Auto 0.2 % (0.0-0.4); Lymphocytes Absolute Auto 1.6 X10*3/uL (1.2-4.9); Mean Corpuscular HGB Conc 33.3 g/dl (31.0-36.0); Mean Corpuscular Hemoglobin 30.4 pg (27.0-33.0); Mean Corpuscular Volume 91.1 fL (80.0-98.0); Mean Platelet Volume 9.1 fL (9.4-12.4); Monocytes Absolute Auto 0.5 X10*3/uL (0.1-1.2); Monocytes Percent Auto 9.2 % (2-11); Neutrophils Absolute Auto 2.9 x10*3/uL (2.0-8.3); Neutrophils Percent Auto 56.1 % (45-73); Platelet Count 247 X10*3/uL (160-400); Red Blood Count 5.17 X10*6/uL (4.60-5.80); Red Cell Distribution Width 12.4 % (11.0-16.0); White Blood Count 5.1 X10*3/uL (4.8-10.8)
[2024-03-26 11:00] LABS: Appearance Urine Clear; Color Urine Yellow; Glucose Urine UA Negative (Negative); Leukocyte Esterase Urine Trace (Negative); Nitrite Urine Negative (Negative); Specific Gravity - Urine >= 1.030 (1.005-1.025); UMIC TRIGGER UACC YES; Urine Blood Negative (Negative); Urine Ketones Negative (Negative); Urine Protein Negative (Neg-Trace)
[2024-03-26 11:12] LABS: Alanine Aminotransferase 22 U/L (0-40); Anion Gap 11 (12-20); Aspartate Amino Transferase 23 U/L (5-37); Bilirubin Total 1.2 mg/dL (0.0-1.0); Blood Urea Nitrogen 15 mg/dL (9-16); Calcium 9.4 mg/dL (8.4-10.2); Carbon Dioxide 27 mmol/L (22-29); Chloride 107 mmol/L (96-108); Cholesterol 138 mg/dL (<200); Estimated Glomerular Filt Rate > 60; Glucose Fasting 108 mg/dL (60-99); HDL Cholesterol 46 mg/dL (>40); LDL Cholesterol Calculated 61 mg/dL (<100); Potassium 4.2 mmol/L (3.3-5.1); Sodium 141 mmol/L (135-145); Total Protein 7.1 g/dL (6.5-8.0); Triglycerides 156 mg/dL (<150)
[2024-03-26 11:35] LABS: Vitamin D 25-OH Total 34.3 ng/mL (>30)
[2024-03-26 11:37] LABS: Folate 8.7 ng/mL (> or = 4.0); Vitamin B12 378 pg/mL (200-900)
[2024-03-26 11:42] LABS: Bacteria Urine 1+ (None Seen); Hyaline Casts Urine 0-2 /LPF (0-2); RBC Urine 0-2 /HPF (0-2); Squamous Epithelial Cell Urine 0-2 /HPF (0-2); UACC Culture Trigger YES
[2024-03-26 12:26] LABS: Alkaline Phosphatase 101 U/L (39-117)
== END 2024-03-26 09:40 | disposition home or self-care (01) ==
LOC: HO.LAB 09:39
PROVIDERS: PCP Internal Medicine; Visit Provider Internal Medicine
DX: E78.00 Pure hypercholesterolemia, unspecified (principal); E53.8 Deficiency of other specified B group vitamins; E55.9 Vitamin D deficiency, unspecified; D64.9 Anemia, unspecified; R30.0 Dysuria; R35.0 Frequency of micturition
CPT/HCPCS: 36415; 80053; 80061; 81001; 81003; 82306; 82607; 82746; 85025; 87086

== ENCOUNTER 2024-04-01 08:55 | Outpatient (AMB) | payer MEDICARE, SELFPAY ==
[2024-04-01 08:59] VITALS: BP 106/80; PULSE 65; TEMP 36.2; O2SAT 97; BMI 27.5
--- NOTE | 2024-04-01 08:59 | A.OFFPC_ITS ---
Vital Signs 04/01/24 08:59 Height 6 ft Weight 203 lb 2 oz BMI 27.5 BP 106/80 Blood Pressure Location Lt brachial Position Sitting Pulse 65 Pulse Source Pulse Oximeter Temp 97.1 F Temp Source Temporal Artery Scan Pulse Oximetry (%) 97 Oxygen Delivery Method Room Air Intake Visit Reasons: 4 month f/u Film Cleaner Required: No Accompanied by: Self / Same As Patient Allergies codeine [Codeine] Allergy (Severe, Verified 04/01/24 09:16) HIVES,GI UPSET Medication List - Last Reconciled 04/01/24 by Anil Luna MD atorvastatin 20 mg PO DAILY 90 days cholestyramine (with sugar) 4 gram (Questran) 4 grams PO DAILY cyanocobalamin (vitamin B-12) 1,000 mcg IM Q4W 90 days finasteride 5 mg PO DAILY 30 days sildenafil 50 mg PO DAILY PRN sumatriptan succinate take 1 tab at onset of headache; if no relief may repeat 1 tab after at least 2 hrs; max = 4 tabs/24 hr PO tamsulosin 0.4 mg PO BEDTIME 30 days Tobacco use date assessed: 04/01/24 Fall risk assessment: 1 Fall in past year Last assessed Fall Risk: 04/01/24 Dental Screening Dental Screen Date: 04/01/24 Did you have a dental visit in the last 12 months?: No Did you have a dental problem in the last 6 months where you did not have access to dental care?: No Was dental information given to patient?: No HPI 4 month f/u HPI Details Patient comes in today for his follow up visit States that he feels okay Recalls that he was sick (respiratory symptoms including cough and congestion) a few weeks ago but could not get an appointment here so he ended up going to urgent care and recalls being prescribed some Rx, including Prednisone, which eventually helped clear up his symptoms States that his cough lingered on for a while but all of his respiratory symptoms are now cleared up completely He denies any headaches or dizziness - states that his headaches are now much better controlled and that Sumatriptan has helped a lot Recalls that he was taking a lot of Aspirin back when he was experiencing increased headaches and thinks that he was actually causing his headaches by taking too much aspirin States that he never did go for his head CT as his headaches have improved s ignificantly by the time they were scheduling him for the procedure He denies any chest pains, no SOB No nausea/vomiting, no abdominal pain No change in bowel habits noted - still has on and off diarrhea from his Crohn's disease but states that they are no more than usual He has also been breaking out in an itchy rash over his wrists, proximal hands and distal forearm areas for the past few weeks and would like to get something to help clear up the rash Adds that he had prostate biopsies done with Urology in [place] a few weeks ago and was advised that all of his biopsies came back negative for malignancy He had his follow up labs done last week - to discuss his results Adds that he would like to get his flu shot today - states that he has not yet gotten his shot because he was sick for a while FORMERLY [facility], [facility] Medical History (Updated 04/01/24 @ 12:41 by Anil Luna MD) Pure hypercholesterolemia Benign prostatic hyperplasia with urinary frequency Bowel obstruction Anticoagulation adequate DVT (deep venous thrombosis) COVID-19 vaccine series completed Metastatic melanoma Bicuspid aortic valve Ascending aortic aneurysm Hyperbilirubinemia Impaired fasting glucose Overweight (BMI 25.0-29.9) History of nephrolithiasis History of rectal abscess Pernicious anemia Degenerative joint disease of cervical spine Lumbar degenerative disc disease Migraine Crohn's disease Surgical History History of lymph node excision History of esophagogastroduodenoscopy (EGD) H/O colonoscopy Hx of cardiac catheterization History of back surgery History of partial colectomy History of inguinal hernia repair Family History Father Medical history unknown Mother Hypertension Diabetes Social History Household Members: Spouse Housing: House Are you a primary pet care assistant to a significant other at home: No Do you presently have visiting nurse or other home services: No Alcohol intake: never Patient Tobacco Use Status: Former Tobacco user Tobacco use type: Cigarette e-Cigarette/Vaping Use: Currently Using Second Hand Smoke Exposure: No Substance Use Type: Marijuana Advance Directives Date on File: 01/08/19 service: No Current occupational status: retired Cognitive needs: No Hearing needs: No Vision needs: Yes Questionnaire PHQ-9 Over the last 2 weeks, how often have you been bothered by any of the following problems? 1. Little interest or pleasure in doing things: not at all 2. Feeling down, depressed, or hopeless: several days 3. Trouble falling or staying asleep, or sleeping too much: not at all 4. Feeling tired or having little energy: not at all 5. Poor appetite or overeating: not at all 6. Feeling bad about yourself - or that you are a failure or have let yourself or your family down: not at all 7. Trouble concentrating on things, such as reading the newspaper or watching television: not at all 8. Moving or speaking so slowly that other people could have noticed. Or the opposite - being so fidgety or restless that you have been moving around a lot more than usual: not at all 9. Thoughts that you would be better off or of hurting yourself in some way: not at all Total score: 1 Depression Screening Interpretation: Negative Depression Screening Done: Yes 32959 - PHQ-9 Billing: Yes Source: Developed by Drs. Matt Vizcarra, Janet Chapman, Jose Braswell and colleagues, with an educational gustavo from [employer]. Thrive Questionnaire Date Thrive assessed: 04/01/24 I am a: Patient What is your living situation today?: I have a steady place to live Within the past 12 months, did the food you bought not last and you didn't have the money to get more?: Never true Within the past 12 months, did you worry whether your food would run out before you got money to buy more?: Never true Do you have trouble paying for medicines?: No Do you have trouble getting transportation to medical appointments?: No Do you have trouble paying your heating and electricity bill?: No Do you have trouble taking care of your child, family member or friend?: No Do you have trouble with day-to-day activities such as bathing, preparing meals, shopping, managing finances, etc.?: No Are you currently unemployed and looking for a job?: No Are you interested in more education?: No Please select the resources that you would like help with: None Currently or been in a relationship where the following occur: No concerns reported THRIVE Score: 0 AUDIT C Alcohol Use Questionnaire (AUDIT-C) 1. How often do you have a drink containing alcohol?: Never 2. How many drinks containing alcohol do you have on a typical day when you are drinking?: 1 or 2 (N/A) 3. How often do you have six or more drinks on one occasion?: Never Total Score: 0 Score Reviewed/Action Taken: Yes DORIS-7 AMB Questionnaire DORIS-7 Date DORIS - 7 assessed: 04/01/24 (pt states due to work ) Feeling nervous, anxious, or on edge: 1 = Several days Not being able to stop or control worryin = Several days Worrying too much about different things: 0 = Not at all Trouble relaxin = Not at all Being so restless that it is hard to sit still: 0 = Not at all Becoming easily annoyed or irritable: 0 = Not at all Feeling afraid as if something awful might happen: 0 = Not at all Total DORIS-7 score (0-4 normal; 5-9 mild; 10-14 moderate; 15-21 severe): 2 Source: Developed by Drs. Matt Vizcarra, Janet Chapman, Jose Braswell and colleagues, with an educational gustavo from [employer]. DORIS-7 Assessment Billing DORIS-7 Assessment Tool: DORIS-7 Assessment 52414 Review of Systems Const Denies chills, Denies fatigue, Denies fever(s) and Denies headache(s) (much better controlled) Eyes Reports blurry vision (associated with headaches at times) and Denies seeing flashes ENT Denies dysphagia, Denies dizziness, Denies otalgia, Denies headache(s) (much better controlled), Denies neck pain, Denies odynophagia and Denies sore throat Card Denies chest pain, Denies palpitations and Denies dyspnea Resp Denies chest congestion, Denies cough and Denies dyspnea GI Denies abdominal pain, Denies hematochezia, Reports constipation (on and off), Denies dysphagia, Denies heartburn, Reports diarrhea (intermittent), Reports loose stools (on and off), Denies nausea, Denies odynophagia and Denies vomiting Reports erectile dysfunction, Denies dysuria, Reports nocturia (better controlled on Tamsulosin), Reports urinary frequency (better controlled on Tamsulosin) and Denies urinary urgency Musc Reports back pain (on and off), Denies arthralgias and Denies neck pain Skin/Breast Reports rash (itchy rash over both distal forearms, wrists and hands) Neuro Denies dizziness and Denies headache(s) (much better controlled) Endo Denies fatigue and Denies palpitations Physical exam (Primary Care) Vital Signs: Last Vital Signs Temp 97.1 F 04/01/24 08:59 Pulse 65 04/01/24 08:59 BP 106/80 04/01/24 08:59 Pulse Ox 97 04/01/24 08:59 Oxygen Delivery Method Room Air 04/01/24 08:59 BMI result Body Mass Index 27.5 Tobacco/Smoking Status: Tobacco use Status Tobacco use date assessed 04/01/24 04/01/24 09:05 Patient Tobacco Use Status Former Tobacco user 04/01/24 09:05 Tobacco use type Cigarette 04/01/24 09:05 e-Cigarette/Vaping Use Currently Using 04/01/24 09:05 PHQ-9: PHQ-9 Score PHQ-9: Total score 1 04/01/24 10:09 Depression Screening Interpretation: Negative Thrive Assessment: Date of Thrive Assessment Date Thrive assessed 04/01/24 04/01/24 09:05 Currently or been in a relationship where the following occur: No concerns reported Const General: no acute distress and alert HENMT Ears: TM's normal bilaterally and EAC's normal Throat: Yes posterior oropharynx normal and Yes tonsils normal (no TP congestion noted) Neck Neck: Yes supple and No lymphadenopathy Thyroid: Thyroid normal Resp Auscultation: clear to auscultation bilaterally, no rales and no wheezes Cardio Rate: regular rate Rhythm: regular rhythm Heart sounds: no murmurs GI Palpation (GI): Soft to palpation and nontender Auscultation: normal bowel sounds General: Yes no CVA tenderness Back/Spine/Pelvis Back: no CVA tenderness Thoracic/Lumbar Spine: lumbar spinal tenderness Skin Other: (+) patchy scaling erythematous rash over both distal forearms, wrists and proximal hands Neuro Other: (+) weakness noted on the left leg - motor strength noted to be 4/5; is 5/5 on the right lower extremity Extrem General: Yes no clubbing, cyanosis or edema Office Procedures Flu Questionnaire Does the patient have a severe egg allergy?: No Does the patient have severe life threatening allergies?: No Does the patient have a fever or illness today?: No Has the patient ever had Guillain-[place] Syndrome?: No Has the patient ever had any past reaction to a flu shot?: No Immunizations Fluarix Triv [id number] (PF) 45 mcg (15 mcg x 3)/0.5 mL IM syringe Performing Provider: Anil Luna MD [facility] Administered by: JÚNIOR Reid on 04/01/24 10:11 Dose Route Admin Location Dispensed Lot Number Expiration Date NDC Director Of Casino 0.5 mL IM Left Deltoid 0.5 mL [id number] 09/14/24 29083-706-27 [employer] VIS Given Date VIS Provided VIS Publication Date 04/01/24 Single Vaccine 20 Eligibility Eligibility Date Funding Source Not [facility] Eligible 04/01/24 Private Results Reviewed Results Reviewed: Laboratory Tests 03/26/24 09:50 WBC 5.1 Hgb 15.7 Hct 47.1 Plt Count 247 Sodium 141 Potassium 4.2 Creatinine 0.95 Estimated GFR > 60 Fasting Glucose 108 H Calcium 9.4 Total Bilirubin 1.2 H AST 23 ALT 22 Triglycerides 156 H Cholesterol 138 LDL Cholesterol, Calc 61 HDL Cholesterol 46 Vitamin B12 378 25-OH Vitamin D Total 34.3 Ur Specific [place] >= 1.030 H Urine Protein Negative Urine Glucose (UA) Negative Urine Blood Negative Urine Nitrite Negative Ur Leukocyte Esterase Trace H Coding Level of Care Code Est Pt Level 4 (40579) Complex EM visit Add On G2211 Diagnoses Pure hypercholesterolemia E78.00 Crohn's disease with complication, unspecified gastrointestinal tract location K50.919 Gastrointestinal tract location: unspecified location Digestive disease complication type: unspecified complication Metastatic melanoma C79.9 Acute deep vein thrombosis (DVT) of other vein of right upper extremity I82.621 DVT location: upper extremity Affected thrombotic vein of extremity: other upper extremity vein Chronicity: acute Laterality: right Aneurysm of ascending aorta without rupture I71.21 Presence of rupture: without rupture Migraine without status migrainosus, not intractable, unspecified migraine type G43.909 Migraine type: unspecified Status migrainosus presence: without status migrainosus Intractability: not intractable Ground glass opacity present on imaging of lung R91.8 Impaired fasting glucose R73.01 Pernicious anemia D51.0 Left lumbosacral radiculopathy M54.17 Osteoarthritis of cervical spine, unspecified spinal osteoarthritis complication status M47.812 Spinal osteoarthritis complication: unspecified spinal osteoarthritis Eczema of both upper extremities L30.9 Benign prostatic hyperplasia with urinary frequency N40.1; R35.0 Erectile dysfunction, unspecified erectile dysfunction type N52.9 Erectile dysfunction type: unspecified Overweight (BMI 25.0-29.9) E66.3 Additional Codes DORIS-7 Assessment Billing - DORIS-7 Assessment Tool: DORIS-7 Assessment 42252 ([id number]) PHQ-9 - 16732 - PHQ-9 Billing: Yes ([id number]) Assessment & Plan Assessment & Plan (1) Pure hypercholesterolemia: Code(s): E78.00 - Pure hypercholesterolemia, unspecified Category: Medical Plan: Results of his labs done last week reviewed and discussed with patient - his cholesterol levels have all improved from previous on his recent labs Reinforced low cholesterol diet Continue Atorvastatin 20 mg QD and Cholestyramine powder 4 gm/dose 1 packet BID Will recheck his labs and fasting lipids in 4 months for follow up (2) Crohn's disease: Code(s): K50.90 - Crohn's disease, unspecified, without complications Category: Medical Qualifiers: Gastrointestinal tract location: unspecified location Digestive disease complication type: unspecified complication Qualified Code(s): K50.919 - Crohn's disease, unspecified, with unspecified complications Plan: Stable although he continues to experience on and off diarrhea with occasional constipation, which he states is his baseline Colonoscopy done a couple of years ago revealed (+) active Crohn's colitis at the ileocolonic anastomosis and balloon dilatation was done - symptoms have since improved with oral Prednisone Tx Follow up with GI as scheduled (3) Metastatic melanoma: Code(s): C79.9 - Secondary malignant neoplasm of unspecified site Category: Medical Plan: S/P axillary lymph node dissection and adjuvant treatment with BRAF/MEK inhibition (Trametinib 2 mg QD and Tafinlar 150 mg BID) - treatment was started on 06/29/2021 and completed in June 2022 PET-CT done in June 2022 came out negative for disease recurrence Follow up with dermatology and oncology as scheduled for continuing management and surveillance (4) DVT (deep venous thrombosis): Comment: 10/2021 Code(s): I82.409 - Acute embolism and thrombosis of unspecified deep veins of unspecified lower extremity Category: Medical Qualifiers: DVT location: upper extremity Affected thrombotic vein of extremity: other upper extremity vein Chronicity: acute Laterality: right Qualified Code(s): I82.621 - Acute embolism and thrombosis of deep veins of right upper extremity Plan: Resolved - mostly involving his right hand and distal half of right forearm; no recurrence since Doppler on 10/23/2021 revealed an acute partial right subclavian vein thrombus and he was subsequently started on Eliquis 5 mg BID Repeat Doppler a few weeks later showed a complete resolution of the clot; patient was continued on Eliquis until he completed his immunotherapy Tx, after which Rx was discontinued as well (5) Ascending aortic aneurysm: Code(s): I71.2 - Thoracic aortic aneurysm, without rupture Category: Medical Qualifiers: Presence of rupture: without rupture Qualified Code(s): I71.21 - Aneurysm of the ascending aorta, without rupture Plan: Follow up CTA done a couple of years ago (02/2022) revealed (+) slight progression of his aortic aneurysm to 4.7 - 4.8 cm Repeat echo in February 2023 showed stable findings with no significant changes; repeat echocardiogram on 03/17/2024 showed similar findings with no significant change compared to prior study dated 03/15/2023; there is moderate dilatation of the ascending aorta measuring 4.70 cm, similar to measurement from a year ago Of note, patient also has a bicuspid aortic valve with mild thickening and mild aortic valve regurgitation but with no aortic valve stenosis - this will require routine monitoring as well Follow up with vascular surgery/cardiology as scheduled for continuing surveillance and management (6) Migraine: Code(s): G43.909 - Migraine, unspecified, not intractable, without status migrainosus Category: Medical Qualifiers: Migraine type: unspecified Status migrainosus presence: without status migrainosus Intractability: not intractable Qualified Code(s): G43.909 - Migraine, unspecified, not intractable, without status migrainosus Plan: Stable again - he now realizes that his previous increased headaches were also likely migraine headaches exacerbation by overuse of Aspirin States that his headaches have improved a lot since he started on the prescribed Sumatriptan and stopped taking his Aspirin - notes that he now only has to take Sumatriptan a few times a month He did not get the previously ordered head CT done as he states that his headaches have improved a lot when he was contacted to schedule his procedure and he did not pursue it further Reinforced avoidance of migraine triggers Follow up with neurology as scheduled (7) Ground glass opacity present on imaging of lung: Code(s): R91.8 - Other nonspecific abnormal finding of lung field Category: Medical Plan: This was first noticed incidentally on his chest CTA done back on 03/01/2022 ( minimal peripheral groundglass opacities seen in the medial aspect of the right lower lobe and lingula which could represent acute inflammatory or infectious process) His PET CT done on 07/10/2022 also noted the smaller weakly FDG avid additional groundglass opacity posteriorly in the right lung base that appear similar in appearance to those seen on his 03/01/2022 chest CTA. No additional foci of abnormal FDG activity are present in the chest Follow-up diagnostic CT of the chest was recommended in approximately 6 months to determine stability or resolution of these opacities but patient has not had a chance to do this since He does have a follow up appointment with oncology in June 2024 and if they will recommend a repeat chest CT or PET CT, then this will also help follow up on his lung opacities; otherwise, if no further imaging studies will be needed to follow up on his metastatic melanoma, I will then go ahead and order a repeat chest CT for follow up (8) Impaired fasting glucose: Code(s): R73.01 - Impaired fasting glucose Category: Medical Plan: His HgbA1c has remained normal at 5.5%, 5.4% and 5.2% when previously checked Reinforced low calorie/low carb diet (9) Pernicious anemia: Code(s): D51.0 - Vitamin B12 deficiency anemia due to intrinsic factor deficiency Category: Medical Plan: Corrected - continue B12 injections monthly (10) Left lumbosacral radiculopathy: Code(s): M54.17 - Radiculopathy, lumbosacral region Category: Medical Plan: Reinforced activity and weight-lifting restrictions States that his previous lower back symptoms have subsided a lot with oral Prednisone Tx he had last year and his symptoms have been stable since (11) Degenerative joint disease of cervical spine: Code(s): M47.812 - Spondylosis without myelopathy or radiculopathy, cervical region Category: Medical Qualifiers: Spinal osteoarthritis complication: unspecified spinal osteoarthritis Qualified Code(s): M47.812 - Spondylosis without myelopathy or radiculopathy, cervical region Plan: States that his neck symptoms have been mostly manageable and he goes to physical therapy when needed (12) Eczema of both upper extremities: Code(s): L30.9 - Dermatitis, unspecified Category: Medical Plan: Will start him on Betamethasone valerate cream 0.1% apply to rash TID x 10 to 14 days Patient is advised to NOT use this on his face and to call if he does not experience any significant improvement of his upper extremity rash in a couple of weeks (13) Benign prostatic hyperplasia with urinary frequency: Code(s): N40.1 - Benign prostatic hyperplasia with lower urinary tract symptoms; R35.0 - Frequency of micturition Category: Medical Plan: Continue Tamsulosin 0.4 mg Q HS and Finasteride 5 mg QD - states that his urinary symptoms have improved a lot with Rx He was also seen at Urology last month (February 2024) and reportedly had multiple prostate biopsies done and was advised that all of his biopsies came back negative for malignancy Follow up with urology as scheduled (14) Erectile dysfunction: Code(s): N52.9 - Male erectile dysfunction, unspecified Category: Medical Qualifiers: Erectile dysfunction type: unspecified Qualified Code(s): N52.9 - Male erectile dysfunction, unspecified Plan: Continue Sildenafil 50 mg PRN (15) Overweight (BMI 25.0-29.9): Code(s): E66.3 - Overweight Category: Medical Plan: Reinforced diet/exercise as tolerated/lose weight Plan As requested, flu vaccine given today Follow up in 4 months Orders: Orders Complete Blood Count Auto Diff 4 Months D64.9 - Anemia, unspecified Lipid Panel 4 Months E78.00 - Pure hypercholesterolemia, unspecified Comprehensive [place]. Panel Fast 4 Months E78.00 - Pure hypercholesterolemia, unspecified UA CC w/rflx Micro + Cult 4 Months R30.0 - Dysuria Hemoglobin A1c 4 Months R73.01 - Impaired fasting glucose TSH reflex Free T4 4 Months E78.00 - Pure hypercholesterolemia, unspecified Vitamin D 25-OH Total 4 Months E55.9 - Vitamin D deficiency, unspecified Vitamin B12 and Folate 4 Months E53.8 - Deficiency of other specified B group vitamins Influenza [id number] Immunization Today Z23 - Encounter for immunization Medications: New betamethasone valerate 0.1% 1 appl topical TID PRN 45 grams 2RF skin irritation/rash
== END 2024-04-01 10:09 | disposition home or self-care (01) ==
PROVIDERS: PCP Internal Medicine; Visit Provider Internal Medicine
DX: K50.919 Crohn's disease, unspecified, with unspecified complications (principal); C79.9 Secondary malignant neoplasm of unspecified site; I82.621 Acute embolism and thrombosis of deep veins of right upper extremity; I71.21 Aneurysm of the ascending aorta, without rupture; E78.00 Pure hypercholesterolemia, unspecified; G43.909 Migraine, unspecified, not intractable, without status migrainosus; R91.8 Other nonspecific abnormal finding of lung field; R73.01 Impaired fasting glucose; D51.0 Vitamin B12 deficiency anemia due to intrinsic factor deficiency; M54.17 Radiculopathy, lumbosacral region; M47.812 Spondylosis without myelopathy or radiculopathy, cervical region; Z23 Encounter for immunization

== ENCOUNTER → 2024-04-01 08:55 | Outpatient (BNVA) | payer MEDICARE, SELFPAY | PROVIDERS: PCP Internal Medicine; Visit Provider Internal Medicine | DX: E78.00 Pure hypercholesterolemia, unspecified (principal); K50.919 Crohn's disease, unspecified, with unspecified complications; C79.9 Secondary malignant neoplasm of unspecified site; I82.621 Acute embolism and thrombosis of deep veins of right upper extremity; I71.21 Aneurysm of the ascending aorta, without rupture; G43.909 Migraine, unspecified, not intractable, without status migrainosus; D51.0 Vitamin B12 deficiency anemia due to intrinsic factor deficiency; M54.17 Radiculopathy, lumbosacral region; M47.812 Spondylosis without myelopathy or radiculopathy, cervical region; L30.9 Dermatitis, unspecified; N40.1 Benign prostatic hyperplasia with lower urinary tract symptoms; R35.0 Frequency of micturition; N52.9 Male erectile dysfunction, unspecified; E66.3 Overweight; D64.9 Anemia, unspecified; R30.0 Dysuria; R73.01 Impaired fasting glucose; E55.9 Vitamin D deficiency, unspecified; E53.8 Deficiency of other specified B group vitamins; Z23 Encounter for immunization; Z68.27 Body mass index [BMI] 27.0-27.9, adult | CPT/HCPCS: 90471; 90656; 96127; 99212 ==

== ENCOUNTER 2024-04-02 08:03 | Outpatient (AMB) | payer MEDICARE, SELFPAY ==
[2024-04-02 08:09] VITALS: BP 110/68; BMI 27.6
--- NOTE | 2024-04-02 08:09 | A.OFFVIS_ITS ---
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 Required: No Accompanied by: Self / Same As Patient Allergies codeine [Codeine] Allergy (Severe, Verified 04/01/24 09:16) HIVES,GI UPSET Medication List - Last Reconciled 04/02/24 by Efraín Sanford MD atorvastatin 20 mg PO DAILY 90 days betamethasone valerate 0.1% 1 appl topical TID PRN cholestyramine (with sugar) 4 gram (Questran) 4 grams PO DAILY cyanocobalamin (vitamin B-12) 1,000 mcg IM Q4W 90 days finasteride 5 mg PO DAILY 30 days sildenafil 50 mg PO DAILY PRN sumatriptan succinate take 1 tab at onset of headache; if no relief may repeat 1 tab after at least 2 hrs; max = 4 tabs/24 hr PO tamsulosin 0.4 mg PO BEDTIME 30 days HPI Comments Details: Jasen returns for follow-up regarding bicuspid aortic valve and ascending aortic aneurysm. He states he is doing quite well. No complaints whatsoever. FOR[facility]LY [facility], [facility] Medical History (Updated 04/01/24 @ 12:41 by Anil Luna MD) Pure hypercholesterolemia Benign prostatic hyperplasia with urinary frequency Bowel obstruction Anticoagulation adequate DVT (deep venous thrombosis) COVID-19 vaccine series completed Metastatic melanoma Bicuspid aortic valve Ascending aortic aneurysm Hyperbilirubinemia Impaired fasting glucose Overweight (BMI 25.0-29.9) History of nephrolithiasis History of rectal abscess Pernicious anemia Degenerative joint disease of cervical spine Lumbar degenerative disc disease Migraine Crohn's disease Surgical History History of lymph node excision History of esophagogastroduodenoscopy (EGD) H/O colonoscopy Hx of cardiac catheterization History of back surgery History of partial colectomy History of inguinal hernia repair Family History Father Medical history unknown Mother Hypertension Diabetes Social History Household Members: Spouse Housing: House Are you a primary child care worker to a significant other at home: No Do you presently have visiting nurse or other home services: No Alcohol intake: never Patient Tobacco Use Status: Former Tobacco user Tobacco use type: Cigarette e-Cigarette/Vaping Use: Currently Using Second Hand Smoke Exposure: No Substance Use Type: Marijuana Advance Directives Date on File: 01/08/19 service: No Current occupational status: retired Cognitive needs: No Hearing needs: No Vision needs: Yes Review of Systems Const Denies chills, Denies fatigue, Denies fever(s), Denies frequent falls, Denies weakness, Denies weight gain and Denies weight loss ENT Denies dizziness Card Denies chest pain, Denies leg edema, Denies lightheadedness, Denies palpitations, Denies dyspnea and Denies dyspnea on exertion Resp Denies cough, Denies dyspnea and Denies dyspnea on exertion GI Denies hematochezia Musc Denies abnormal gait, Denies muscle weakness, Denies numbness, Denies radiating pain into limb and Denies tingling Neuro Denies abnormal gait, Denies dizziness, Denies frequent falls, Denies numbness, Denies tingling and Denies weakness Endo Denies fatigue and Denies palpitations Physical Exam Vital Signs: Last Vital Signs BP 110/68 04/02/24 08:09 BMI result Body Mass Index 27.6 Const General: comfortable and no acute distress Orientation/consciousness: patient oriented x3 HEENT Other: Unremarkable Head: Yes normal to inspection Neck Neck: Yes normal visual inspection Chest Chest palpation & inspection: normal inspection of the chest Resp Auscultation: clear to auscultation bilaterally Cardio Palpation: normal PMI Heart sounds: S1 normal heart sound present, S2 normal heart sound present, no gallops, no murmurs and no rubs GI Palpation (GI): Soft to palpation Back/Spine/Pelvis Other: unremarkable Skin General skin exam: no rashes or lesions noted Neuro General: patient oriented x3 Extrem General: Yes normal to inspection Psych Mental Status: mental status grossly normal Office Procedures EKG Details: EKG with underlying sinus rhythm at 68/Min; minimal criteria for LVH; cannot exclude old inferior infarct; [place] [address]-Bnjtamfgtkvrnatee, Complete Assessment & Plan Assessment & Plan (1) Ascending aortic aneurysm: Code(s): I71.2 - Thoracic aortic aneurysm, without rupture Category: Medical Qualifiers: Presence of rupture: without rupture Qualified Code(s): I71.21 - Aneurysm of the ascending aorta, without rupture Plan: In the most recent echocardiogram, ascending aortic size 4.7 cm. At the sinus of Valsalva, 4.4 cm. Similar to prior. In the CT scan, ascending aortic size 4.5-4.6 cm. At sinus of Valsalva, 4.1 cm. No significant findings in the arch or descending thoracic aorta. No evidence of abdominal aortic aneurysm. Overall, remains stable. We will continue to monitor. (2) Bicuspid aortic valve: Code(s): Q23.1 - Congenital insufficiency of aortic valve Category: Medical Plan: Echocardiogram shows bicuspid aortic valve with mild aortic regurgitation. Can be followed periodically. Orders: Orders CA Echo Limited 6 Months I71.21 - Aneurysm of the ascending aorta, without rupture Coding Level of Care Code Est Pt Level 4 (56644) Diagnoses Aneurysm of ascending aorta without rupture I71.21 Presence of rupture: without rupture Bicuspid aortic valve Q23.1 CPT Codes EKG - CPT: 92898-Jabfoitpohhhshwix, Complete ([id number])
== END 2024-04-02 08:29 | disposition home or self-care (01) ==
PROVIDERS: PCP Internal Medicine; Visit Provider Internal Medicine
DX: I71.21 Aneurysm of the ascending aorta, without rupture (principal); Q23.1 Congenital insufficiency of aortic valve
CPT/HCPCS: 93010; 99214

== ENCOUNTER → 2024-04-02 08:03 | Outpatient (BNVA) | payer MEDICARE, SELFPAY | PROVIDERS: PCP Internal Medicine; Visit Provider Internal Medicine | DX: I71.21 Aneurysm of the ascending aorta, without rupture (principal); Q23.1 Congenital insufficiency of aortic valve; R94.31 Abnormal electrocardiogram [ECG] [EKG] | CPT/HCPCS: 93005; 99212 ==

== ENCOUNTER 2024-07-21 13:52 | Outpatient (REF) | payer MEDICARE, SELFPAY ==
--- NOTE | ~2024-07-21 | CT_ITS ---
EXAMINATION: CT CHEST WITH CONTRAST CLINICAL INFORMATION: Malignant melanoma, restaging examination. COMPARISON: CT angiogram chest 03/01/2022, PET CT 07/10/2022. TECHNIQUE: Multidetector volumetric CT imaging of the chest was obtained after the administration of 50 mL of Omnipaque 350 intravenous contrast without immediate adverse reactions. Axial MIP volume rendering provided. Sagittal and coronal reformatted images were obtained. This CT examination was performed using dose optimization techniques as appropriate, variously including the following: *Automated exposure control *Adjustment of mA and/or kV according to patient size (this includes techniques or standardized protocols for targeted exams where dose is matched to indication/reason for exam; i.e. extremities or head) *Use of iterative reconstruction technique FINDINGS: LUNGS: 3 mm triangular nodule in the right major fissure (series 5, image 81), likely intrapulmonary lymph node. This is stable. Calcified granuloma subpleural location left lower lobe, benign. No new or enlarging pulmonary nodule. Linear scarring in the right middle lobe, unchanged. Minimal linear scarring in the anterior inferior bilateral lower lobes, unchanged. No consolidations, or abnormal groundglass opacities. Small airways appear normal. No effusion or pneumothorax. No pleural thickening. MEDIASTINUM: The thyroid is diminutive but present. There is no abnormal mediastinal lymphadenopathy or mass. Aneurysmal ascending aorta at 4.5 cm, unchanged from the PET CT 07/10/2022. Remainder the aorta is normal in caliber and course. Two-vessel branching pattern of the aortic arch. Great vessels are widely patent. Main pulmonary artery is normal in size. Heart size is normal. No pericardial effusion. AXILLA: No adenopathy. No mass. UPPER ABDOMEN: Small gallstone within the gallbladder. Gallbladder otherwise normal in appearance. Mild fatty atrophy of the pancreas. Remainder the imaged upper abdominal contents appear normal. Normal adrenal glands. OSSEOUS STRUCTURES: No suspicious lytic or blastic bone lesion identified. Mild degenerative changes of the spine. CT/CT chest w IV con IMPRESSION: 1. No suspicious pulmonary nodule, lymphadenopathy, or other abnormality to suggest disease recurrence within the thorax. 2. There is a stable 4.5 cm fusiform aneurysm of the ascending aorta, unchanged from PET CT 07/10/2022. Electronically signed by: Rey Brooks MD 07/21/2024 02:52 PM EDT
[2024-07-21] MEDS: iohexoL 350 MG/ML 100 ML INFUS..BTL IV (14:35)
--- OUTSIDE RECORDS SUMMARY | 2024-07-21 15:13 | XMS_ITS | Patient Health Record ---
Author Organization [facility] Address [address] [place] [address] Care Team Providers Care Log Raft Worker Name Role Phone Anil Luna MD Primary Care Provider Yoel Butler Jr [phone] Allergies Allergen (clinical drug ingredient) Drug/Non Drug Allergy documented on EMR Reaction Allergy Type Onset Date Status codeine codeine (uncoded) Unknown Allergy Ac tive Results Component Value Reference Range Notes XR abdomen w decubitus Reviewed date:09/21/2023 07:44:57 PM Interpretation: Performing Lab: Notes/Report: [address] [address] XRay Report Signed Patient: Jasen Meade MR#: [id number] : 1955 Acct:[id number] Age/Sex: 67 / M ADM Date: 09/20/23 Loc: .S3 358-[address]: Blane Garcia MD Ordering Physician: Matt Diaz MD Date of Service: 09/21/23 Procedure(s): XR abdomen w decubitus Accession Number(s): [id number] cc: Anil Luna MD; Matt Diaz MD EXAMINATION: XR ABDOMEN COMPLETE CLINICAL INDICATION: Reason for Exam Crohn's, Abd pain, R/O SBO COMPARISON: KUB 02/05/2022 TECHNIQUE: AP view of the abdomen. FINDINGS: Lines or devices: Suture material overlies the left upper quadrant. Nonobstructive bowel gas pattern. No significant stool burden. No extraluminal subdiaphragmatic air. No abnormal calcifications. Retained contrast is noted in the urinary bladder. Mild osteoarthritis of the hips. XR/XR abdomen w decubitus IMPRESSION: Nonobstructive bowel gas pattern. Dictated By: Mana Bishop MD Signed By: <Electronically signed by Mana Bishop MD in OV> 09/21/2350 DD/ 6 TD/TT: Gis Technician: [place] [id number] XRay Report Signed Patient: Marques Meade MR#: [id number] : 1955 Acct:[id number] Age/Sex: 67 / M ADM Date: 09/20/23 Loc: .S3 358-[address]: Blane Garcia MD Ordering Physician: Matt Diaz MD Date of Service: 09/21/23 Procedure(s): XR abd omen w decubitus Accession Number(s): [id number] cc: Anil Luna MD; Matt Diaz MD EXAMINATION: XR ABDOMEN COMPLETE CLINICAL INDICATION: Reason for Exam Croh n's, Abd pain, R/O SBO COMPARISON: KUB 02/05/2022 TECHNIQUE: AP view of the abdomen. FINDINGS: Lines or devices: Matias ture material overlies the left upper quadrant. Nonobstructive bowel gas pattern. No significant stool burden. No extraluminal subdiap hragmatic air. No abnormal calcific ations. Retained contrast is noted in the urinary bladder. Mild osteoa rthritis of the hips. X R/XR abdomen w decubitus IMPRESSION: Nonobstructive bowel gas pattern. Dictated By: Mana Bishop MD Signed By: <Electron arnoldo signed by Mana Bishop MD in OV> 09/21/2350 DD/ 6 TD/TT: Gis Technician: Reason For Referral No Information Medications Medication SIG (Take, Route, Frequency, Duration) Notes Start Date End Date Status predniSONE 5 MG 8 tablets daily, for one week, then decrease by one tablet weekly Orally 07/21/2024 Active Lipitor 10 MG 1 tablet Orally Once a day Active Cyanocobalamin 1000 MCG/ML INJECT 1000MC G IN THE MUSCLE EVERY 4 WEEKS Injection for 84 Active predniSONE 20 MG 8 tablets(40mg) rosa y for 7 days, and then decrease by 1 tablet(5mg) per week Orally Once a day 09/21/2023 Active Cholestyramine 4 GM 1 packet mixed with water or non-carbonated drink Orally Twice a day/as directed Active Immunizations Vaccine Route Administration Date Status Comme nts Influenza Unknown 12/16/2017 Administered Influenza Unknown 12/16/2018 Administered Influenza Unknown 01/06/2020 Administered Influenza Unknown 12/19/2021 Administered Influenza Unknown 04/17/2023 Refused Problems Problem Type SNOMED Code ICD Code Onset Dates Problem Status W/U Status Risk Notes Problem 54005189 Rectal bleeding (K62.5) Active confirmed Problem Crohn (67753862) Crohn's disease of both small and large intestine with other complication (K50.818) Active confirmed Problem 33568446 Crohns disease of both small and large intestine without complication (K50.80) Active confirmed Problem 451622808 B12 deficiency (E53.8) Active confirmed Problem 17306744 Duodenal ulcer (K26.9) Active confirmed Problem 66169970 Crohn's disease of both small and large intestine with intestinal obstruction (K50.812) Active confirmed Problem Intestinal obstruction due to Crohn's disease of small and large intestine (disorder) (70432064415663 04) Crohn''s disease of both small and large intestine with intestinal obstruction (K50.812) Active confirmed Problem 44096120 Crohn''s disease of both small and large intestine with rectal bleeding (K50.811) Active confirmed Vital Signs Temperature 97.5 degrees Fahrenheit 10/14/2023 Blood pressure diastolic 00 mm Hg 10/14/2023 Height 71 in 10/14/2023 Blood pressure systolic 000 mm Hg 10/14/2023 Weight 192 lb 4 oz lbs 10/14/2023 BMI 26.81 kg/m2 10/14/2023 Encounters Encounter Location Date Provider Diagnosis [facility] [address] [place] [phone] 09/02/2023 Yoel Watkins Jr [facility] [address] [place] [phone] 10/14/2023 Yoel Watkins Jr Crohns disease of both small and large intestine without complication K50.80 [facility] [address] [place] [phone] 11/13/2023 Yoel Watkins Jr B12 deficiency E53.8 [facility] [address] [place] [phone] 12/19/2023 Yoel Watkins Jr B12 deficiency E53.8 [facility] [address] [place] [phone] 01/28/2024 Yoel Watkins Jr B12 deficiency E53.8 [facility] [address] [place] [phone] 02/28/2024 Yoel Watkins Jr B12 deficiency E53.8 [facility] [address] [place] [phone] 04/07/2024 Yoel Watkins Jr B12 deficiency E53.8 [facility] [address] [place] [phone] 05/05/2024 Yoel Watkins Jr B12 deficiency E53.8 [facility] [address] [place] [phone] 06/02/2024 Yoel Watkins Jr B12 deficiency E53.8 [facility] [address] [place] [phone] 07/01/2024 Yoel Watkins Jr B12 deficiency E53.8 [facility] [address] [place] [phone] 09/21/2023 Yoel Watkins Jr [facility] [address] [place] [phone] 07/21/2024 Yoel Watkins Jr [facility] [address] [place] [phone] 07/21/2024 Yoel Watkins Jr Assessments Encounter Date Diagnosis (ICD Code) Assessment Notes Treatment Notes Treatment Clinical Notes Section Notes 10/14/2023 Crohns disease of both small and large intestine without complication (ICD-10 - K50.80) Abdominal pain material was printed Currently, he is doing well. He will continue his prednisone taper as directed. We discussed bowel obstruction symptoms and we have asked him to call if he has any recurrent symptoms. He will continue treatment with cholestyramine. Followup will be in one year. He will call if he has problems sooner. 11/13/2023 B12 deficiency (ICD-10 - E53.8) 12/19/2023 B12 deficiency (ICD-10 - E53.8) 01/28/2024 B12 deficiency (ICD-10 - E53.8) 02/28/2024 B12 deficiency (ICD-10 - E53.8) 04/07/2024 B12 deficiency (ICD-10 - E53.8) 05/05/2024 B12 deficiency (ICD-10 - E53.8) 06/02/2024 B12 deficiency (ICD-10 - E53.8) 07/01/2024 B12 deficiency (ICD-10 - E53.8) Plan Of Treatment Pending Test Test Name Order Date XR BARIUM SWALLOW-ESOPHAGUS 08/01/2011 Future Test Test Name Order Date COLONOSCOPY 08/01/2011 COLONOSCOPY 03/05/2018 COLONOSCOPY 03/25/2019 COLONOSCOPY 03/02/2022 Next Appt Details Provider Name:Yoel andrade , 10/12/2024 09:40:00 AM, [address] [place] [address], [address], [place], [address], Insurance Providers Payer Name Payer Address Payer Phone Subscriber Number Group Number Insured Name Patient Relationship to Insured Coverage Start Date Coverage End Date MEDICARE OF [place] [address] [place] [address] [id number] JASEN OWENS Self - patient is the insured [employer] ATT[employer] CLAIMS [address] [place] [address] [id number] JASEN OWENS Self - patient is the insured Medications Administered Medication Instructions Date of Administration Dosage Notes B-12 11/28/2022 1000 ug B-12 02/19/2023 1000 ug B-12 04/17/2023 1000 ug B12 05/31/2023 1000 ug B-12 07/11/2023 1000 ug B12 11/13/2023 1000 ug B12 12/19/2023 1000 mL B-12 01/28/2024 1000 mL B12 02/28/2024 1000 mL B-12 04/07/2024 1000 mL B-12 05/05/2024 1000 mL B-12 06/02/2024 1000 mL B12 07/01/2024 1000 mL Medical (General) History Medical History History ICD Code Crohn's disease, small and l arge intestine, diagnosed around 1989, with ileocolectomy , prior treatment with prednisone, mesalamine, and Imodium. Last colonoscopy 06/07 active disease at ileocolonic anastomosis, with stricture dilated to 12 mm. Active disease and descending sigmoid and rectum. Hospitalized with obstruction symptoms 09/07, and 10/08, treated with prednisone taper, current therapy cholestyramine and Imodium. 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 S/P Dabrafenib/trametinib x12 mos, disease free DVT 11/06 Surgical History Surgery Date(Month/Year) Ileocolectomy Inguinal herniorrhaphy, left Back surgery Axillary lymph node dissection Hospitalization History Reason Date(Month/Year) intestinal blockage 08/2022
--- OUTSIDE RECORDS SUMMARY | 2024-07-21 15:13 | XMS_ITS | Encounter Summary ---
Author Organization [facility] Address [address] [place] [address] Care Team Providers Care General Engineering Teacher Name Role Phone Unavailable Primary Care Provider Unavailabl e Encounter Details Date Type Department Care Team (Late st Contact Info) Description 03/02/2024 Lab Requisition [facility] - Main Lab [address] [facility] [place] [address] Dickson Patton MD [address] [facility] [address] [place] [address] Elevated prostate specific antigen (PSA) Social History Tobacco Use Types Packs/Day Years Used Date Smoking Tobacco: Never Assessed Sex and Gender Information Value Date Recorded Sex Assigned at Not on file Legal Sex Male 11:51 AM EST Gender Identity Not on file Sexual Orientation Not on file documented as of this encounter Plan of Treatment Not on file documented as of this encounter Procedures Procedure Name Priority Date/Time Associated Diagnosis Comments AP OUTSIDE CONSULT Routine 03/02/2024 Elevated prostate specific antigen (PSA) documented in this encounter Results * Anatomic pathology outside consult (03/02/2024) Final Diagnosis A. Prostate, Left Middle [place] (Core Biopsy): - Benign prostate tissue. B. Prostate, Left Lateral [place] (Core Biopsy): - Benign prostate tissue. C. Prostate, Left Middle Middle (Core Biopsy): - Benign prostate tissue. D. Prostate, Left Lateral Middle (Core Biopsy): - Benign prostate tissue. - PIN4 supports the diagnosis. E. Prostate, Left Middle Base (Core Biopsy): - Benign prostate tissue. F. Prostate, Left Lateral Base (Core Biopsy): - Benign prostate tissue. G. Prostate, Right Middle [place] (Core Biopsy): - Benign prostate tissue. H. Prostate, Right Lateral [place] (Core Biopsy): - Benign prostate tissue. I. Prostate, Right Middle Middle (Core Biopsy): - Benign prostate tissue. J. Prostate, Right Lateral Middle (Core Biopsy): - Benign prostate tissue. K. Prostate, Right Middle Base (Core Biopsy): - Benign prostate tissue. L. Prostate, Right Lateral Base (Core Biopsy): - Few atypical glands. - PIN4 supports the diagnosis. 4 12:23 PM [facility] Comment PIN4 immunohistology supports the morphological diagnosis. - D, L PIN4 performed at [facility], [address], [place] [address], CLIA # [id number] 4 12:23 PM [facility] Clinical Information Elevated PSA = 9.2 (02/03/24) R97.20 [id number] 4 12:23 PM [facility] Gross Description A. Prostate, Left Middle [place] Biopsy: Received, properly labeled, are two H and E stained slides and two unstained slides. B. Prostate, Left Lateral [place] Biopsy: Received, properly labeled, are two H and E stained slides and two unstained slides. C. Prostate, Left Middle Middle Biopsy: Received, properly labeled, are two H and E stained slides and two unstained slides. D. Prostate, Left Lateral Middle Biopsy: Received, properly labeled, are two H and E stained slides and two unstained slides. E. Prostate, Left Middle Base Biopsy: Received, properly labeled, are two H and E stained slides and two unstained slides. F. Prostate, Left Lateral Base Biopsy: Received, properly labeled, are two H and E stained slides and two unstained slides. G. Prostate, Right Middle [place] Biopsy: Received, properly labeled, are two H and E stained slides and two unstained slides. H. Prostate, Left Lateral [place] Biopsy: Received, properly labeled, are two H and E stained slides and two unstained slides. I. Prostate, Left Middle Middle Biopsy: Received, properly labeled, are two H and E stained slides and two unstained slides. J. Prostate, Left Lateral Middle Biopsy: Received, properly labeled, are two H and E stained slides and two unstained slides. K. Prostate, Left Middle Base Biopsy: Received, properly labeled, are two H and E stained slides and two unstained slides. L. Prostate, Left Lateral Base Biopsy: Received, properly labeled, are two H and E stained slides and two unstained slides. /al 4 12:23 PM EST [facility] Disclaimer NOTE: The immunohistochemical tests and in situ hybridization tests were developed and their performance characteristics were determined by [facility]. They have not been cleared or approved by the U.S. Food and Drug Administration. The FDA has determined that such clearance or approval is not necessary. These tests are used for clinical purposes. They should not be regarded as investigational or for research. This laboratory is certified under the Clinical Laboratory Improvement Amendments of 1988 (CLIA) as qualified to perform high complexity clinical laboratory testing. (controls appropriate) Unless otherwise specified, all tissue is 10% NB formalin fixed and paraffin embedded. Technical pathology services provided by [facility] at [address] [place] [address] [address], [place] [address] (CLIA #[id number]/Adelina Lei MD, [employer] Plans Intelligence Officer Chief) 4 12:23 PM EST [facility] Tissue Prostate / Unknown 03/02/20242023 3:39 PM EST Tissue specimen (specimen) Prostate / Unknown 03/02/2024 03/02/2024 3: 39 PM EST Tissue specimen (specimen) Prostate / Unknown 03/02/2024 03/02/2024 3: 39 PM EST Tissue specimen (specimen) Prostate / Unknown 03/02/2024 03/02/2024 3: 39 PM EST Tissue specimen (specimen) Prostate / Unknown 03/02/2024 03/02/2024 3: 39 PM EST Tissue specimen (specimen) Prostate / Unknown 03/02/2024 03/02/2024 3: 39 PM EST Tissue specimen (specimen) Prostate / Unknown 03/02/2024 03/02/2024 3: 39 PM EST Tissue specimen (specimen) Prostate / Unknown 03/02/2024 03/02/2024 3: 39 PM EST Tissue specimen (specimen) Prostate / Unknown 03/02/2024 03/02/2024 3: 39 PM EST Tissue specimen (specimen) Prostate / Unknown 03/02/2024 03/02/2024 3: 39 PM EST Tissue specimen (specimen) Prostate / Unknown 03/02/2024 03/02/2024 3: 39 PM EST Tissue specimen (specimen) Prostate / Unknown 03/02/2024 03/02/2024 3: 39 PM EST us Dickson Patton MD LAB PATHOLOGY ORDERABLES Fi nal Result [facility] [address] [place] [address], documented in this encounter Visit Diagnoses Diagnosis Elevated prostate specific antigen (PSA) documented in this encounter
--- OUTSIDE RECORDS SUMMARY | 2024-07-21 15:13 | XMS_ITS | Clinical Summary ---
Author Organization [address] Address [address] [place] [address] Phone Care Team Providers Care Chief Ii Dispatcher Name Role Phone Unavailable Primary Care Provider Unavailabl e Social History Tobacco Use Types Packs/Day Years Used Date Smoking Tobacco: Never Assessed Sex and Gender Information Value Date Recorded Sex Assigned at Not on file Legal Sex Male 11:51 AM EST Gender Identity Not on file Sexual Orientation Not on file Plan of Treatment Health Maintenance Due Date Last Done Comments DTaP,Tdap,and Td Vaccines (1 - Tdap) 1972 Pneumococcal Vaccine: 50+ Ye ars (1 of 1 - PCV) 10/07/2003 Zoster Vaccines (1 of 2) 10/07/2003 COVID-19 Vaccine ( - 2023-2 5 season) 2023 Abdominal Aortic Aneurysm (A AA) Screen 02/20/2024 Cholesterol Screening (Lipid Panel) 02/20/2024 Colorectal Cancer Screening: Colonoscopy 02/20/2024 Depression Screening 02/20/2024 Falls Risk Assessment 02/20/2024 Hepatitis C Screening 02/20/2024 Medicare Annual Wellness Visit 02/20/2024 Social Influencers of Health Screening 02/20/2024 Influenza Vaccine (Season Ended) 2024 RSV Immunization Adult Patie nts (1 - 1-dose 75+ series) 2028 HIB Vaccines Aged Out No longer eligi ble based on patient's age to complete this topic HPV Vaccines Aged Out No longer eligi ble based on patient's age to complete this topic Hepatitis A Vaccines Aged Out No long er eligible based on patient's age to complete this topic Hepatitis B Vaccines Aged Out No long er eligible based on patient's age to complete this topic IPV Vaccines Aged Out No longer eligi ble based on patient's age to complete this topic MMR Vaccines Aged Out No longer eligi ble based on patient's age to complete this topic Meningococcal ACWY Vaccine Aged Out N o longer eligible based on patient's age to complete this topic Meningococcal B Vaccine Aged Out No l onger eligible based on patient's age to complete this topic RSV Immunization Patients Un kirby 20 months Aged Out No longer eligible b ased on patient's age to complete this topic Varicella Vaccines Aged Out No longer eligible based on patient's age to complete this topic Insurance MEDICARE [facility]
--- OUTSIDE RECORDS SUMMARY | 2024-07-21 15:13 | XMS_ITS ---
Author Organization [facility] Address [address] [facility] [address] [place] [address] Care Team Providers Care Magnaflux Operator Name Role Phone Jeremy YEN, [place] Primary Care Provider Macario Watkins Jr, Yoel Rosas REASON FOR VISIT FLARE UP OF CROHN'S DISEASE Medications Medication SIG (Take, Route, Fr equency, Duration) Notes Start Date End Date Status predniSONE 5 MG 8 tablets daily, for one week, then decrease by one tablet weekly Orally Once a day 07/21/2024 Active Encounters Encounter Location Date Provider Diagnosis [facility] [address] [place] [address] [place] [address] 07/21/2024 Yoel Watkins Jr Plan Of Treatment Medication Medication Name Sig Start Date Stop Date Notes predniSONE 5 MG 8 tablets daily, for one week, then decrease by one tablet weekly Orally Once a day 07/21/2024 Next Appt Details Provider Name:Yoel andrade Jr, 10/12/2024 09:40:00 AM, [address] [place] [address], [address], [place], [address], Progress Notes * NKECHI MEADE ADOB:[birth year] (68 yo M)Acc No.[id number]:07/21/2024 Patient:?DESHAUN JACOB :1955???Age:68 Y???Sex:Male Address:[address] [place] [address], [place] [address] * Refills? Start predniSONE Tablet, 5 MG, Orally, 252 Tablet, 8 tablets daily, for one week, then decrease by one tablet weekly, Once a day, Refills=0 * true * Date:? Generated for Nadine marquez/Chapo/Radha on:?07/21/2024 03:13 PM EDT
--- OUTSIDE RECORDS SUMMARY | 2024-07-21 15:13 | XMS_ITS ---
Author Organization [facility] Address [address] [facility] [address] [place] [address] Care Team Providers Care Oil House Attendant Name Role Phone Jeremy YEN, [place] Primary Care Provider Macario Watkins Jr, Yoel Rosas REASON FOR VISIT prednisone Medications Medication SIG (Take, Route, Fr equency, Duration) Notes Start Date End Date Status predniSONE 5 MG 8 tablets daily, for one week, then decrease by one tablet weekly Orally 07/21/2024 Active Encounters Encounter Location Date Provider Diagnosis [facility] [address] [place] [address] [place] [address] 07/21/2024 Yoel Watkins Jr Plan Of Treatment Medication Medication Name Sig Start Date Stop Date Notes predniSONE 5 MG 8 tablets daily, for one week, then decrease by one tablet weekly Orally 07/21/2024 Next Appt Details Provider Name:Yoel andrade Jr, 10/12/2024 09:40:00 AM, [address] [place] [address], [address], [place], [address], Progress Notes * NKECHI MEADE ADOB:[birth year] (68 yo M)Acc No.[id number]:07/21/2024 Patient:?DESHAUNNKECHI :1955???Age:68 Y???Sex:Male Address:[address] [place] [address], [place] [address] * Refills? Start predniSONE Tablet, 5 MG, Orally, 252 Tablet, 8 tablets daily, for one week, then decrease by one tablet weekly, Refills=0 * true * Date:? Generated for Nadine marquez/Chapo/Radha on:?07/21/2024 03:12 PM EDT
--- OUTSIDE RECORDS SUMMARY | 2024-07-21 15:13 | XMS_ITS | Encounter Summary ---
Author Organization [facility] Address [address] [place] [address] Care Team Providers Care Security Guard Dispatcher Name Role Phone Unavailable Primary Care Provider Unavailabl e Encounter Details Date Type Department Care Team (Late st Contact Info) Description 02/20/2024 Lab Requisition [facility] - Main Lab [address] [facility] [place] [address] Reyes Carlson PA [address] [place] [phone] Benign essential microscopic hematuria Social History Tobacco Use Types Packs/Day Years [...] Associated Diagnosis Comments AP OUTSIDE CONSULT Routine 02/11/2024 12 :00 AM EST Benign essential microscopic hematuria documented in this encounter Results * Anatomic pathology outside consult (02/11/2024 12:00 AM EST) Final Diagnosis Urine, Voided: Negative for high-grade urothelial carcinoma. Acute inflammation. 03/06/2024 6:[address] [facility] Clinical Information [id number] Cytology w/reflex UroVysion. 03/06/2024 6:[address] [facility] Gross Description A. Urine, Voided, : [id number] RECD 1 TP SLIDE 03/06/2024 6:[address] [facility] Disclaimer Technical pathology services provided by [facility] at [address], [place] [address] (CLIA #[id number]/S kayla Lei MD, Monkey Breeder) Unless otherwise specified, all tissue is 10% NB formalin fixed and paraffin embedded. 03/06/2024 6:[address] [facility] Tissue Urine specimen from urethra / Unknown 02/11/2024 02/20/2024 11:56 AM EST [facility] PATHOLOGY ORDERAB LES Final Result [facility] [address] [place] [address], documented in this encounter Visit Diagnoses Diagnosis Benign essential microscopic hematuria documented in this encounter
--- OUTSIDE RECORDS SUMMARY | 2024-07-21 15:13 | XMS_ITS ---
Author Organization [facility] Address [address] [facility] [address] [place] [address] Care Team Providers Care College Associate Name Role Phone Jeremy YEN, [place] Primary Care Provider Yoel [place] Jr REASON FOR VISIT B12 deficiency Medications Medication SIG (Take, Route, Frequency, Duration) Notes Start Date End Date Status Lipitor 10 MG 1 tablet Orally Once [...] drink Orally Twice a day/as directed Active Encounters Encounter Location Date Provider Diagnosis [facility] [address] [facility] [address] [place] [address] 07/01/2024 Yoel Watkins Jr B12 deficiency E53.8 Assessments Encounter Date Diagnosis (ICD Code) Assessment Notes Treatment Notes Treatment Clinical Notes Section Notes 07/01/2024 B12 deficiency (ICD-10 - E53.8) Plan Of Treatment Next Appt Details Provider Name:Yoel andrade Jr, 10/12/2024 09:40:00 AM, [address] [facility], [address], [place], [address], Medications Administered Medication Instructions Date of Administration Dosage Notes B12 07/01/2024 1000 mL Progress Notes * NKECHI MEADE ADOB:[birth year] (68 yo M)Acc No.[id number]:07/01/2024 SHOT Patient:?NKECHI MEADE Provider:?Yoel Watkins MD :1955???Age:68 Y???Sex:Male Kareem e:07/01/2024 Address:[address] [place] [address] [id number] Pcp:Anil [place] MD Subjective: * Chief Complaints: * ???1. B12 deficiency. * Medical History:? * Medications:?Taking Cholesty ramine 4 GM Packet 1 packet mixed with water or non-carbonated drink Orally Twice a day/as directed , Taking Lipitor 10 MG Tablet 1 tablet Orally Once a day , Taking Cyanocobalamin 1000 MCG/ML Solution INJECT 1000MCG IN THE MUSCLE EVERY 4 WEEKS Injection , Taking predniSONE 20 MG Tablet 8 tablets(40mg) daily for 7 days, and then decrease by 1 tablet(5mg) per week Orally Once a day Objective: * Vitals:? Assessment: * Assessment: 1.?B12 deficiency - E53.8 (P rimary)??? Plan: * Treatment: * Therapeutic Injections:? B12 : 1000 mL (Dose No:1) (Route: Intramuscular) given by Marie Escalera on left arm intramuscular * Procedure Codes:?J3420 INJ V IT B-12 CYNOCOBLMN TO 1000 MCG, [address] THER/PROPH/DIAG INJ, SC/IM * * Sign off status: Completed true * Provider:?Yoel Watkins MD Date:?0 07/01/2024 Generated for Sariahi ng/Violag/eTransmitting on:?07/21/2024 03:13 PM EDT
== END 2024-07-21 13:53 | disposition home or self-care (01) ==
LOC: HO.CT 13:52
PROVIDERS: PCP Internal Medicine; Visit Provider Internal Medicine
DX: C79.9 Secondary malignant neoplasm of unspecified site (principal)
CPT/HCPCS: 71260; Q9967

== ENCOUNTER → 2024-07-21 13:55 | Outpatient (BNV) | payer MEDICARE, SELFPAY | PROVIDERS: PCP Internal Medicine; Visit Provider Radiology Diagnostic Radiology | DX: I71.21 Aneurysm of the ascending aorta, without rupture (principal) | CPT/HCPCS: 71260 ==

== ENCOUNTER 2024-07-27 09:24 | Outpatient (REF) | payer MEDICARE, SELFPAY ==
--- OUTSIDE RECORDS SUMMARY | 2024-07-27 09:34 | XMS_ITS ---
Author Organization [facility] Address [address] [facility] [address] [place] [address] Care Team Providers Care Wagon Driver Name Role Phone Jeremy YEN, [place] Primary Care Provider Macario Watkins Jr, Yoel Rosas REASON FOR VISIT prednisone Medications Medication SIG (Take, Route, Fr equency, Duration) Notes Start Date End Date Status predniSONE 5 MG 8 tablets daily, for one week, then decrease by one tablet weekly Orally 07/21/2024 Active Encounters Encounter Location Date Provider Diagnosis [facility] [address] [place] [address] [place] [phone] 07/21/2024 Yoel Watkins Jr Plan Of Treatment Medication Medication Name Sig Start Date Stop Date Notes predniSONE 5 MG 8 tablets daily, for one week, then decrease by one tablet weekly Orally 07/21/2024 Next Appt Details Provider Name:Yoel andrade Jr, 10/12/2024 09:40:00 AM, [address] [place] [address], [address], [place], [address], Progress Notes * NKECHI MEADE ADOB:[birth year] (68 yo M)Acc No.[id number]:07/21/2024 Patient:?DESHAUNNKECHI :1955???Age:68 Y???Sex:Male Address:[address] [place] [address], [place] [address] * Refills? Start predniSONE Tablet, 5 MG, Orally, 252 Tablet, 8 tablets daily, for one week, then decrease by one tablet weekly, Refills=0 * true * Date:? Generated for Nadine marquez/Chapo/Radha on:?07/27/2024 09:34 AM EDT
--- OUTSIDE RECORDS SUMMARY | 2024-07-27 09:34 | XMS_ITS ---
Author Organization [facility] Address [address] [facility] [address] [place] [address] Care Team Providers Care Final Inspector Balance Wheel Name Role Phone Jeremy YEN, [place] Primary Care Provider Yoel [place] Jr REASON [...] Active Encounters Encounter Location Date Provider Diagnosis [facility] [address] [facility] [address] [place] [address] 07/01/2024 Yoel Watkins Jr B12 deficiency E53.8 Assessments Encounter Date Diagnosis (ICD Code) Assessment Notes Treatment Notes Treatment Clinical Notes Section Notes 07/01/2024 B12 deficiency (ICD-10 - E53.8) Plan Of Treatment Next Appt Details Provider Name:Yoel andrade Jr, 10/12/2024 09:40:00 AM, [address] [facility], [address], [place], [address], Medications Administered Medication Instructions Date of Administration Dosage Notes B12 07/01/2024 1000 mL Progress Notes * NKECHI MEADE ADOB:[birth year] (68 yo M)Acc No.[id number]:07/01/2024 SHOT Patient:?NKECHI MEADE Provider:?Yoel Watkins MD :1955???Age:68 Y???Sex:Male Kareem e:07/01/2024 Address:[address] [place] [address] [id number] Pcp:Anil Luna MD Subjective: * Chief Complaints: [...] V IT B-12 CYNOCOBLMN TO 1000 MCG, [address] THER/PROPH/DIAG INJ, SC/IM * * Sign off status: Completed true * Provider:?Yoel Watkins MD Date:?0 07/01/2024 Generated for Sariahi ng/Violag/eTransmitting on:?07/27/2024 09:34 AM EDT
--- OUTSIDE RECORDS SUMMARY | 2024-07-27 09:34 | XMS_ITS | Clinical Summary ---
Author Organization [address] Address [address] [place] [address] Phone Care Team Providers Care Hearing Examiner Name Role Phone Unavailable Primary Care Provider [...] age to complete this topic Insurance MEDICARE [facility]
--- OUTSIDE RECORDS SUMMARY | 2024-07-27 09:34 | XMS_ITS | Encounter Summary ---
Author Organization [facility] Address [address] [place] [address] Care Team Providers Care Natural Foods Clerk Name Role Phone Unavailable Primary Care Provider Unavailabl e Encounter Details Date Type Department Care Team (Late st Contact Info) Description 03/02/2024 Lab Requisition [facility] - Main Lab [address] [facility] [place] [address] Dickson Patton MD [address] [facility] [address] [place] [address] Elevated prostate specific antigen (PSA) Social History [...] (03/02/2024) Final Diagnosis A. Prostate, Left Middle [place] (Core Biopsy): - Benign prostate tissue. B. Prostate, Left Lateral [place] (Core Biopsy): - Benign prostate tissue. C. Prostate, Left Middle Middle (Core Biopsy): - Benign prostate tissue. D. Prostate, Left Lateral Middle (Core Biopsy): - Benign prostate tissue. - PIN4 supports the diagnosis. E. Prostate, Left Middle Base (Core Biopsy): - Benign prostate tissue. F. Prostate, Left Lateral Base (Core Biopsy): - Benign prostate tissue. G. Prostate, Right Middle [place] (Core Biopsy): - Benign prostate tissue. H. Prostate, Right Lateral [place] (Core Biopsy): - Benign prostate tissue. I. Prostate, Right Middle Middle (Core Biopsy): - Benign prostate tissue. J. Prostate, Right Lateral Middle (Core Biopsy): - Benign prostate tissue. K. Prostate, Right Middle Base (Core Biopsy): - Benign prostate tissue. L. Prostate, Right Lateral Base (Core Biopsy): - Few atypical glands. - PIN4 supports the diagnosis. 4 12:23 PM [facility] Comment PIN4 immunohistology supports the morphological diagnosis. - D, L PIN4 performed at [facility], [address], [place] [address], CLIA # [id number] 4 12:23 PM [facility] Clinical Information Elevated PSA = 9.2 (02/03/24) R97.20 [id number] 4 12:23 PM [facility] Gross Description A. Prostate, Left Middle [place] Biopsy: Received, properly labeled, are two H and E stained slides and two unstained slides. B. Prostate, Left Lateral [place] Biopsy: Received, properly labeled, are two H [...] two unstained slides. G. Prostate, Right Middle [place] Biopsy: Received, properly labeled, are two H and E stained slides and two unstained slides. H. Prostate, Left Lateral [place] Biopsy: Received, properly labeled, are two H [...] unstained slides. /al 4 12:23 PM EST [facility] Disclaimer NOTE: The immunohistochemical tests and in situ hybridization tests were developed and their performance characteristics were determined by [facility]. They have not [...] paraffin embedded. Technical pathology services provided by [facility] at [address] [place] [address] [address], [place] [address] (CLIA #[id number]/Adelina Lei MD, Proof Load Mechanic) 4 12:23 PM EST [facility] Tissue Prostate / Unknown 03/02/20242023 [...] MD LAB PATHOLOGY ORDERABLES Fi nal Result [facility] [address] [place] [address], documented in this encounter Visit Diagnoses Diagnosis Elevated prostate specific antigen (PSA) documented in this encounter
--- OUTSIDE RECORDS SUMMARY | 2024-07-27 09:34 | XMS_ITS | Patient Health Record ---
Author Organization [facility] Address [address] [place] [address] Care Team Providers Care Air Support Operations Operator Name Role Phone Anil [place] MD Primary Care Provider oYel [place] Jr Allergies Allergen (clinical drug ingredient) Drug/Non Drug Allergy documented on EMR Reaction Allergy Type Onset Date Status codeine codeine (uncoded) Unknown Allergy Ac tive Results Component Value Reference Range Notes XR abdomen w decubitus Reviewed date:09/21/2023 07:44:57 PM Interpretation: Performing Lab: Notes/Report: [address] [address] XRay Report Signed Patient: Jasen Meade MR#: [id number] : 1955 Acct:[id number] Age/Sex: 67 / M ADM Date: 09/20/23 Loc: .S3 358-[address]: Blane Garcia MD Ordering Physician: Matt Diaz MD Date of Service: 09/21/23 Procedure(s): XR abdomen w decubitus Accession Number(s): [id number] cc: Anil [place] MD; Matt Diaz MD [...] MD in OV> 09/21/2350 DD/ 6 TD/TT: Mobile Pet Groomer: [place] [address] XRay Report Signed Patient: Marques Meade MR#: [id number] : 1955 Acct:[id number] Age/Sex: 67 / M ADM Date: 09/20/23 Loc: .S3 358-[address]: Blane Garcia MD Ordering Physician: Matt Diaz MD Date of Service: 09/21/23 Procedure(s): XR abd omen w decubitus Accession Number(s): [id number] cc: Anil [place] MD; Matt Diaz MD [...] MD in OV> 09/21/2350 DD/ 6 TD/TT: Mobile Pet Groomer: Reason For Referral No Information Medications Medication [...] Problem Status W/U Status Risk Notes Problem 70273922 Rectal bleeding (K62.5) Active confirmed Problem Crohn (98718467) Crohn's disease of both small and large intestine with other complication (K50.818) Active confirmed Problem 51520658 Crohns disease of both small and large intestine without complication (K50.80) Active confirmed Problem 955415119 B12 deficiency (E53.8) Active confirmed Problem 42939511 Duodenal ulcer (K26.9) Active confirmed Problem 31867148 Crohn's disease of both small and large intestine with intestinal obstruction (K50.812) Active confirmed Problem Intestinal obstruction due to Crohn's disease of small and large intestine (disorder) (42926491431538 04) Crohn''s disease of both small and large intestine with intestinal obstruction (K50.812) Active confirmed Problem 68380320 Crohn''s disease of both small and large intestine with rectal bleeding (K50.811) Active confirmed Vital Signs Temperature 97.5 degrees Fahrenheit 10/14/2023 Blood pressure diastolic 00 mm Hg 10/14/2023 Height 71 in 10/14/2023 Blood pressure systolic 000 mm Hg 10/14/2023 Weight 192 lb 4 oz lbs 10/14/2023 BMI 26.81 kg/m2 10/14/2023 Encounters Encounter Location Date Provider Diagnosis [facility] [address] [place] [address] 09/02/2023 Yoel Watkins Jr [facility] [address] [place] [address] 10/14/2023 Yoel Watkins Jr Crohns disease of both small and large intestine without complication K50.80 [facility] [address] [place] [phone] 11/13/2023 Yoel Watkins Jr B12 deficiency E53.8 [facility] [address] [place] [phone] 12/19/2023 Yoel Watkins Jr B12 deficiency E53.8 [facility] [address] [place] [address] 01/28/2024 Yoel Watkins Jr B12 deficiency E53.8 [facility] [address] [place] [phone] 02/28/2024 Yoel Watkins Jr B12 deficiency E53.8 [facility] [address] [place] [address] 04/07/2024 Yoel Watkins Jr B12 deficiency E53.8 [facility] [address] [place] [address] 05/05/2024 Yoel Watkins Jr B12 deficiency E53.8 [facility] [address] [place] [address] 06/02/2024 Yoel Watkins Jr B12 deficiency E53.8 [facility] [address] [place] [phone] 07/01/2024 Yoel Watkins Jr B12 deficiency E53.8 [facility] [address] [place] [phone] 09/21/2023 Yoel Watkins Jr [facility] [address] [place] [phone] 07/21/2024 Yoel Watkins Jr [facility] [address] [place] [phone] 07/21/2024 Yoel Watkins Jr Assessments Encounter Date [...] Provider Name:Yoel andrade , 10/12/2024 09:40:00 AM, [address] [place] [address], [address], [place], [address], Insurance Providers Payer Name Payer Address Payer Phone Subscriber Number Group Number Insured Name Patient Relationship to Insured Coverage Start Date Coverage End Date MEDICARE OF [place] [address] [place] [address] [id number] JASEN OWENS Self - patient is the insured [employer] ATT[employer] CLAIMS [address] [place] [address] [id number] JASEN OWENS Self - patient is the [...]
--- OUTSIDE RECORDS SUMMARY | 2024-07-27 09:34 | XMS_ITS ---
Author Organization [facility] Address [address] [facility] [address] [place] [address] Care Team Providers Care Condenser Winder Name Role Phone Jeremy YEN, [place] Primary Care Provider Macario Watkins Jr, Yoel Rosas REASON FOR VISIT FLARE UP OF CROHN'S DISEASE Medications Medication SIG (Take, Route, Fr equency, Duration) Notes Start Date End Date Status predniSONE 5 MG 8 tablets daily, for one week, then decrease by one tablet weekly Orally Once a day 07/21/2024 Active Encounters Encounter Location Date Provider Diagnosis [facility] [address] [place] [address] [place] [phone] 07/21/2024 Yoel Watkins Jr Plan Of Treatment Medication Medication Name Sig Start Date Stop Date Notes predniSONE 5 MG 8 tablets daily, for one week, then decrease by one tablet weekly Orally Once a day 07/21/2024 Next Appt Details Provider Name:Yoel andrade Jr, 10/12/2024 09:40:00 AM, [address] [place] [address], [address], [place], [address], Progress Notes * NKECHI MEADE ADOB:[birth year] (68 yo M)Acc No.[id number]:07/21/2024 Patient:?DESHAUN JACOB :1955???Age:68 Y???Sex:Male Address:[address] [place] [address], [place] [address] * Refills? Start predniSONE Tablet, 5 MG, Orally, 252 Tablet, 8 tablets daily, for one week, then decrease by one tablet weekly, Once a day, Refills=0 * true * Date:? Generated for Nadine marquez/Chapo/Radha on:?07/27/2024 09:34 AM EDT
--- OUTSIDE RECORDS SUMMARY | 2024-07-27 09:35 | XMS_ITS | Encounter Summary ---
Author Organization [facility] Address [address] [place] [address] Care Team Providers Care Sales Force Developer Name Role Phone Unavailable Primary Care Provider Unavailabl e Encounter Details Date Type Department Care Team (Late st Contact Info) Description 02/20/2024 Lab Requisition [facility] Lab [address] [facility] [place] [address] Reyes Carlson PA [address] [place] [phone] Benign essential microscopic hematuria Social History Tobacco [...] carcinoma. Acute inflammation. 03/06/2024 6:02 PM EST [facility] Clinical Information [id number] Cytology w/reflex UroVysion. 03/06/2024 6:02 PM EST [facility] Gross Description A. Urine, Voided, : [id number] RECD 1 TP SLIDE 03/06/2024 6:02 PM EST [facility] Disclaimer Technical pathology services provided by [facility] at [address], [place] [address] (CLIA #[id number]/S kayla Lei MD, Library Helper) Unless otherwise specified, all tissue is 10% NB formalin fixed and paraffin embedded. 03/06/2024 6:02 PM EST [facility] Tissue Urine specimen from urethra / Unknown 02/11/2024 02/20/2024 11:56 AM EST [facility] ORDERAB LES Final Result [facility] [address] [place] [address], documented in this encounter Visit Diagnoses Diagnosis Benign essential microscopic hematuria documented in this encounter
[2024-07-27 09:37] LABS: MANUAL DIFF FLAG NO
[2024-07-27 09:46] LABS: Basophils Percent Auto 0.3 % (0-2); Eosinophils Absolute Auto 0.1 X10*3/uL (0.0-0.4); Eosinophils Percent Auto 0.7 % (0-4); Hematocrit 46.7 % (42.0-52.0); Hemoglobin 15.4 g/dl (14.0-18.0); Imm Gran Abs Auto 0.04 X10*3/uL (0.00-0.03); Imm Gran Pct Auto 0.5 % (0.0-0.4); Lymphocytes Percent Auto 26.9 % (20-40); Mean Corpuscular Hemoglobin 30.1 pg (27.0-33.0); Mean Corpuscular Volume 91.2 fL (80.0-98.0); Mean Platelet Volume 8.6 fL (9.4-12.4); Monocytes Absolute Auto 0.5 X10*3/uL (0.1-1.2); Monocytes Percent Auto 6.6 % (2-11); Neutrophils Absolute Auto 4.8 x10*3/uL (2.0-8.3); Platelet Count 298 X10*3/uL (160-400); Red Blood Count 5.12 X10*6/uL (4.60-5.80); Red Cell Distribution Width 12.4 % (11.0-16.0); White Blood Count 7.4 X10*3/uL (4.8-10.8)
[2024-07-27 10:02] LABS: Estimated Average Glucose 108 mg/dL; Hemoglobin A1C 138.8832 umol/L; Hemoglobin A1c % 5.4 % (<6.0); Total Hemoglobin (HGBA1C) 3946.9785 umol/L
[2024-07-27 10:50] LABS: Alanine Aminotransferase 19 U/L (0-40); Albumin Level 4.1 g/dL (3.5-5.0); Alkaline Phosphatase 92 U/L (39-117); Anion Gap 10 (12-20); Aspartate Amino Transferase 17 U/L (5-37); Blood Urea Nitrogen 22 mg/dL (9-16); Calcium 9.5 mg/dL (8.4-10.2); Carbon Dioxide 29 mmol/L (22-29); Chloride 105 mmol/L (96-108); Cholesterol 143 mg/dL (<200); Estimated Glomerular Filt Rate > 60; Glucose Fasting 92 mg/dL (60-99); HDL Cholesterol 55 mg/dL (>40); LDL Cholesterol Calculated 74 mg/dL (<100); Potassium 4.2 mmol/L (3.3-5.1); Sodium 140 mmol/L (135-145); TSH reflex Free T4 1.85 uIU/mL (0.32-4.0); Triglycerides 71 mg/dL (<150); Vitamin D 25-OH Total 33.8 ng/mL (>30)
[2024-07-27 11:08] LABS: Folate 5.2 ng/mL (> or = 4.0); Vitamin B12 394 pg/mL (200-900)
[2024-07-27 11:19] LABS: Appearance Urine Clear; Color Urine Yellow; Glucose Urine UA Negative (Negative); Leukocyte Esterase Urine Negative (Negative); Nitrite Urine Negative (Negative); Urine Blood Negative (Negative); Urine Ketones Negative (Negative); Urine Protein Negative (Neg-Trace)
== END 2024-07-27 09:25 | disposition home or self-care (01) ==
LOC: HO.LAB 09:24
PROVIDERS: PCP Internal Medicine; Visit Provider Internal Medicine
DX: D64.9 Anemia, unspecified (principal); R30.0 Dysuria; R35.0 Frequency of micturition; E78.00 Pure hypercholesterolemia, unspecified; E55.9 Vitamin D deficiency, unspecified; E53.8 Deficiency of other specified B group vitamins; R73.01 Impaired fasting glucose
CPT/HCPCS: 36415; 80053; 80061; 81003; 82306; 82607; 82746; 83036; 84443; 85025

== ENCOUNTER 2024-07-30 09:27 | Outpatient (AMB) | payer MEDICARE, SELFPAY ==
[2024-07-30 09:31] VITALS: BP 110/76; PULSE 58; O2SAT 98; BMI 26.7
--- NOTE | 2024-07-30 09:31 | MHC.PC.OV ---
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 Required: No Accompanied by: Self / Same As Patient Allergies codeine [Codeine] Allergy (Severe, Verified 07/30/24 09:51) HIVES,GI UPSET Medication List - Last Reconciled 07/30/24 by Anil Luna MD atorvastatin 20 mg PO DAILY 90 days cholestyramine (with sugar) 4 gram (Questran) 4 grams PO DAILY cyanocobalamin (vitamin B-12) 1,000 mcg IM Q4W 90 days finasteride 5 mg PO DAILY 30 days prednisone 40 mg PO DAILY sildenafil 50 mg PO DAILY PRN sumatriptan succinate take 1 tab at onset of headache; if no relief may repeat 1 tab after at least 2 hrs; max = 4 tabs/24 hr PO tamsulosin 0.4 mg PO BEDTIME 30 days Tobacco use date assessed: 07/30/24 Fall risk assessment: No Falls in past year Last assessed Fall Risk: 07/30/24 Dental Screening Dental Screen Date: 07/30/24 Did you have a dental visit in the last 12 months?: No Did you have a dental problem in the last 6 months where you did not have access to dental care?: No Was dental information given to patient?: No HPI [facility] f/u HPI Details Patient comes in today for his follow up visit States that he feels currently okay Had a flare up again of his Crohn's colitis recently and states that since Dr. Watkins started him on oral Prednisone, his GI symptoms are starting to improve He is currently in his 2nd week of prednisone and states that the plan is to slowly taper him off over a period of 8 weeks He denies any headaches or dizziness - states that his headaches have been better controlled on Sumatriptan He denies any chest pains, no SOB No nausea/vomiting; states that his abdominal pain has subsided recently and that his bowel movements are starting to get back to normal - stools are still soft but they are improving He had his follow up labs done a few days ago - to discuss his results [facility] Medical History Pure hypercholesterolemia Benign prostatic hyperplasia with urinary frequency Bowel obstruction Anticoagulation adequate DVT (deep venous thrombosis) COVID-19 vaccine series completed Metastatic melanoma Bicuspid aortic valve Ascending aortic aneurysm Hyperbilirubinemia Impaired fasting glucose Overweight (BMI 25.0-29.9) History of nephrolithiasis History of rectal abscess Pernicious anemia Degenerative joint disease of cervical spine Lumbar degenerative disc disease Migraine Crohn's disease Surgical History (Updated 07/30/24 @ 10:00 by Anil Luna MD) History of lymph node excision History of esophagogastroduodenoscopy (EGD) H/O colonoscopy Hx of cardiac catheterization History of back surgery History of partial colectomy History of inguinal hernia repair Family History Father Medical history unknown Mother Hypertension Diabetes Social History Household Members: Spouse Housing: House Are you a primary lawn care professional to a significant other at home: No Do you presently have visiting nurse or other home services: No Alcohol intake: never Patient Tobacco Use Status: Former Tobacco user Tobacco use type: Cigarette e-Cigarette/Vaping Use: Currently Using Second Hand Smoke Exposure: No Substance Use Type: Marijuana Advance Directives Date on File: 01/08/19 service: No Current occupational status: retired Cognitive needs: No Hearing needs: No Vision needs: Yes Questionnaire PHQ-9 Over the last 2 weeks, how often have you been bothered by any of the following problems? 1. Little interest or pleasure in doing things: not at all 2. Feeling down, depressed, or hopeless: not at all 3. Trouble falling or staying asleep, or sleeping too much: not at all 4. Feeling tired or having little energy: not at all 5. Poor appetite or overeating: not at all 6. Feeling bad about yourself - or that you are a failure or have let yourself or your family down: not at all 7. Trouble concentrating on things, such as reading the newspaper or watching television: not at all 8. Moving or speaking so slowly that other people could have noticed. Or the opposite - being so fidgety or restless that you have been moving around a lot more than usual: not at all 9. Thoughts that you would be better off or of hurting yourself in some way: not at all Total score: 0 Depression Screening Interpretation: Negative Depression Screening Done: Yes 93286 - PHQ-9 Billing: Yes Source: Developed by Drs. Matt Vizcarra, Janet Chapman, Jose Braswell and colleagues, with an educational gustavo from [employer]. Thrive Questionnaire Date Thrive assessed: 07/30/24 I am a: Patient What is your living situation today?: I have a steady place to live Within the past 12 months, did the food you bought not last and you didn't have the money to get more?: Often true Within the past 12 months, did you worry whether your food would run out before you got money to buy more?: Often true Do you have trouble paying for medicines?: No Do you have trouble getting transportation to medical appointments?: No Do you have trouble paying your heating and electricity bill?: No Do you have trouble taking care of your child, family member or friend?: No Do you have trouble with day-to-day activities such as bathing, preparing meals, shopping, managing finances, etc.?: No Are you currently unemployed and looking for a job?: No Are you interested in more education?: No Please select the resources that you would like help with: None Currently or been in a relationship where the following occur: I choose not to answer THRIVE Score: 2 AUDIT C Alcohol Use Questionnaire (AUDIT-C) 1. How often do you have a drink containing alcohol?: 2-4 times a month 2. How many drinks containing alcohol do you have on a typical day when you are drinking?: 3 or 4 3. How often do you have six or more drinks on one occasion?: Never Total Score: 3 Score Reviewed/Action Taken: Yes DORIS-7 AMB Questionnaire DORIS-7 Date DORIS - 7 assessed: 07/30/24 (pt states due to work ) Feeling nervous, anxious, or on edge: 0 = Not at all Not being able to stop or control worryin = Not at all Worrying too much about different things: 0 = Not at all Trouble relaxin = Not at all Being so restless that it is hard to sit still: 0 = Not at all Becoming easily annoyed or irritable: 0 = Not at all Feeling afraid as if something awful might happen: 0 = Not at all Total DORIS-7 score (0-4 normal; 5-9 mild; 10-14 moderate; 15-21 severe): 0 Source: Developed by Drs. Matt Vizcarra, Janet Chapman, Jose Braswell and colleagues, with an educational gustavo from [employer]. Review of Systems Const Denies chills, Denies fatigue, Denies fever(s) and Denies headache(s) (better controlled) ENT Denies dysphagia, Denies dizziness, Denies otalgia, Denies headache(s) (better controlled), Denies neck pain, Denies odynophagia and Denies sore throat Card Denies chest pain, Denies palpitations and Denies dyspnea Resp Denies chest congestion, Denies cough and Denies dyspnea GI Denies abdominal pain, Denies hematochezia, Denies dysphagia, Denies heartburn, Reports diarrhea (improving), Reports loose stools (improving), Denies nausea, Denies odynophagia and Denies vomiting Denies difficulty urinating, Reports erectile dysfunction, Denies dysuria, Denies nocturia (better controlled on Tamsulosin) and Denies urinary frequency (better controlled on Tamsulosin) Musc Reports back pain (on and off), Denies arthralgias and Denies neck pain Skin/Breast Denies rash Neuro Denies dizziness and Denies headache(s) (better controlled) Endo Denies fatigue and Denies palpitations Physical exam (Primary Care) Vital Signs: Last Vital Signs Pulse 58 07/30/24 09:31 BP 110/76 07/30/24 09:31 Pulse Ox 98 07/30/24 09:31 Oxygen Delivery Method Room Air 07/30/24 09:31 BMI result Body Mass Index 26.7 Tobacco/Smoking Status: Tobacco use Status Tobacco use date assessed 07/30/24 07/30/24 09:41 Patient Tobacco Use Status Former Tobacco user 07/30/24 09:32 Tobacco use type Cigarette 07/30/24 09:32 e-Cigarette/Vaping Use Currently Using 07/30/24 09:32 PHQ-9: PHQ-9 Score PHQ-9: Total score 0 07/30/24 09:32 Depression Screening Interpretation: Negative Thrive Assessment: Date of Thrive Assessment Date Thrive assessed 07/30/24 07/30/24 09:41 Currently or been in a relationship where the following occur: I choose not to answer Const General: no acute distress and alert HENMT Ears: TM's normal bilaterally and EAC's normal Throat: Yes posterior oropharynx normal and Yes tonsils normal (no TP congestion noted) Neck Neck: Yes supple and No lymphadenopathy Thyroid: Thyroid normal Resp Auscultation: clear to auscultation bilaterally, no rales and no wheezes Cardio Rate: regular rate Rhythm: regular rhythm Heart sounds: no murmurs GI Palpation (GI): Soft to palpation and nontender Auscultation: normal bowel sounds General: Yes no CVA tenderness Back/Spine/Pelvis Back: no CVA tenderness Thoracic/Lumbar Spine: lumbar spinal tenderness Skin Rashes: no rashes Neuro Other: (+) weakness noted on the left leg - motor strength noted to be 4/5; is 5/5 on the right lower extremity Extrem General: Yes no clubbing, cyanosis or edema Results Reviewed Results Reviewed: Laboratory Tests 07/01/24 07/27/24 07/27/24 09:03 09:27 09:36 WBC 7.4 Hgb 15.4 Hct 46.7 Plt Count 298 Sodium 140 Potassium 4.2 Creatinine 0.93 Estimated GFR > 60 Fasting Glucose 92 Hemoglobin A1c % 5.4 Calcium 9.5 AST 17 ALT 19 Lactate Dehydrogenase 150 Triglycerides 71 Cholesterol 143 LDL Cholesterol, Calc 74 HDL Cholesterol 55 25-OH Vitamin D Total 33.8 TSH 1.85 Ur Specific [place] 1.020 Urine Protein Negative Urine Glucose (UA) Negative Urine Blood Negative Urine Nitrite Negative Ur Leukocyte Esterase Negative Coding Level of Care Code Est Pt Level 4 (42643) Complex EM visit Add On G2211 Diagnoses Pure hypercholesterolemia E78.00 Crohn's disease with complication, unspecified gastrointestinal tract location K50.919 Gastrointestinal tract location: unspecified location Digestive disease complication type: unspecified complication Metastatic melanoma C79.9 Aneurysm of ascending aorta without rupture I71.21 Presence of rupture: without rupture Acute deep vein thrombosis (DVT) of other vein of right upper extremity I82.621 DVT location: upper extremity Affected thrombotic vein of extremity: other upper extremity vein Chronicity: acute Laterality: right Migraine without status migrainosus, not intractable, unspecified migraine type G43.909 Migraine type: unspecified Status migrainosus presence: without status migrainosus Intractability: not intractable Ground glass opacity present on imaging of lung R91.8 Impaired fasting glucose R73.01 Pernicious anemia D51.0 Left lumbosacral radiculopathy M54.17 Osteoarthritis of cervical spine, unspecified spinal osteoarthritis complication status M47.812 Spinal osteoarthritis complication: unspecified spinal osteoarthritis Eczema of both upper extremities L30.9 Benign prostatic hyperplasia with urinary frequency N40.1; R35.0 Erectile dysfunction, unspecified erectile dysfunction type N52.9 Erectile dysfunction type: unspecified Overweight (BMI 25.0-29.9) E66.3 Additional Codes PHQ-9 - 74701 - PHQ-9 Billing: Yes ([id number]) Assessment & Plan Assessment & Plan (1) Pure hypercholesterolemia: Code(s): E78.00 - Pure hypercholesterolemia, unspecified Category: Medical Plan: Results of his labs done a few days ago reviewed and discussed with patient Reinforced low cholesterol diet Continue Atorvastatin 20 mg QD and Cholestyramine powder 4 gm/dose 1 packet BID Will recheck his labs and fasting lipids in 4 months for follow up (2) Crohn's disease: Code(s): K50.90 - Crohn's disease, unspecified, without complications Category: Medical Qualifiers: Gastrointestinal tract location: unspecified location Digestive disease complication type: unspecified complication Qualified Code(s): K50.919 - Crohn's disease, unspecified, with unspecified complications Plan: Patient states that he had a flare up of his Crohn's recently but his symptoms are starting to improve on oral Prednisone, which he will be on and slowly tapered off over a period of 8 weeks Colonoscopy done a couple of years ago (05/2022) revealed (+) active Crohn's colitis at the ileocolonic anastomosis and balloon dilatation was done Follow up with GI as scheduled (3) Metastatic melanoma: Code(s): C79.9 - Secondary malignant neoplasm of unspecified site Category: Medical Plan: S/P axillary lymph node dissection and adjuvant treatment with BRAF/MEK inhibition (Trametinib 2 mg QD and Tafinlar 150 mg BID) - treatment was started on 06/29/2021 and completed in June 2022 PET-CT done in June 2022 came out negative for disease recurrence Follow up chest CT done last week on 07/21/2024 also came back negative for disease recurrence Follow up with dermatology and oncology as scheduled for continuing surveillance (4) Ascending aortic aneurysm: Code(s): I71.2 - Thoracic aortic aneurysm, without rupture Category: Medical Qualifiers: Presence of rupture: without rupture Qualified Code(s): I71.21 - Aneurysm of the ascending aorta, without rupture Plan: Follow up CTA done in 02/2022 revealed (+) slight progression of his aortic aneurysm to 4.7 - 4.8 cm Repeat echo in February 2023 showed stable findings with no significant changes; repeat echocardiogram on 03/17/2024 showed similar findings with no significant change compared to prior study dated 03/15/2023; there is moderate dilatation of the ascending aorta measuring 4.70 cm, similar to measurement from a year ago His recent chest CT done last week (07/21/24) revealed stable 4.5 cm fusiform aneurysm of the ascending aorta, unchanged from PET CT on 07/10/2022 Of note, patient also has a bicuspid aortic valve with mild thickening and mild aortic valve regurgitation but with no aortic valve stenosis - this will require routine monitoring as well Follow up with vascular surgery/cardiology as scheduled for continuing surveillance and management (5) DVT (deep venous thrombosis): Comment: 10/2021 Code(s): I82.409 - Acute embolism and thrombosis of unspecified deep veins of unspecified lower extremity Category: Medical Qualifiers: DVT location: upper extremity Affected thrombotic vein of extremity: other upper extremity vein Chronicity: acute Laterality: right Qualified Code(s): I82.621 - Acute embolism and thrombosis of deep veins of right upper extremity Plan: Resolved - mostly involving his right hand and distal half of right forearm, with no recurrence since Doppler on 10/23/2021 revealed an acute partial right subclavian vein thrombus and he was subsequently started on Eliquis 5 mg BID Repeat Doppler a few weeks later showed a complete resolution of the clot; patient was continued on Eliquis until he completed his immunotherapy Tx, after which Rx was discontinued as well (6) Migraine: Code(s): G43.909 - Migraine, unspecified, not intractable, without status migrainosus Category: Medical Qualifiers: Migraine type: unspecified Status migrainosus presence: without status migrainosus Intractability: not intractable Qualified Code(s): G43.909 - Migraine, unspecified, not intractable, without status migrainosus Plan: Stable again - he now realizes that his previous increased headaches were also likely migraine headaches exacerbation by overuse of Aspirin States that his headaches have improved a lot since he started on Sumatriptan and stopped taking his Aspirin - notes that he now only has to take Sumatriptan a few times a month He did not get the previously ordered head CT done as he states that his headaches have improved a lot when he was contacted to schedule his procedure and he did not pursue it further Reinforced avoidance of migraine triggers Follow up with neurology as scheduled (7) Ground glass opacity present on imaging of lung: Code(s): R91.8 - Other nonspecific abnormal finding of lung field Category: Medical Plan: This was first noticed incidentally on his chest CTA done back on 03/01/2022 (minimal peripheral groundglass opacities seen in the medial aspect of the right lower lobe and lingula which could represent acute inflammatory or infectious process) His PET CT done on 07/10/2022 also noted the smaller weakly FDG avid additional groundglass opacity posteriorly in the right lung base that appear similar in appearance to those seen on his 03/01/2022 chest CTA. No additional foci of abnormal FDG activity are present in the chest Follow-up diagnostic CT of the chest was recommended in approximately 6 months to determine stability or resolution of these opacities but patient has not had a chance to do this since Oncology sent him for a repeat chest CT which he did last week on 07/21/2024 revealed NO abnormalities - No consolidations, or abnormal groundglass opacities (8) Impaired fasting glucose: Code(s): R73.01 - Impaired fasting glucose Category: Medical Plan: His HgbA1c was normal at 5.4% on his recent labs; HgbA1c was normal at 5.5%, 5.4% and 5.2% when previously checked Reinforced low calorie/low carb diet (9) Pernicious anemia: Code(s): D51.0 - Vitamin B12 deficiency anemia due to intrinsic factor deficiency Category: Medical Plan: Corrected - continue B12 injections monthly (10) Left lumbosacral radiculopathy: Code(s): M54.17 - Radiculopathy, lumbosacral region Category: Medical Plan: Reinforced activity and weight-lifting restrictions States that his previous lower back symptoms have subsided a lot with oral Prednisone Tx he had last year and his symptoms have been stable since (11) Degenerative joint disease of cervical spine: Code(s): M47.812 - Spondylosis without myelopathy or radiculopathy, cervical region Category: Medical Qualifiers: Spinal osteoarthritis complication: unspecified spinal osteoarthritis Qualified Code(s): M47.812 - Spondylosis without myelopathy or radiculopathy, cervical region Plan: States that his neck symptoms have been mostly manageable and he goes to physical therapy when needed (12) Eczema of both upper extremities: Code(s): L30.9 - Dermatitis, unspecified Category: Medical Plan: Continue Betamethasone valerate cream 0.1% apply to rash TID x 10 to 14 days, then PRN for any recurrence Patient is again advised to NOT use this on his face (13) Benign prostatic hyperplasia with urinary frequency: Code(s): N40.1 - Benign prostatic hyperplasia with lower urinary tract symptoms; R35.0 - Frequency of micturition Category: Medical Plan: Continue Tamsulosin 0.4 mg Q HS and Finasteride 5 mg QD - states that his urinary symptoms have improved a lot with Rx He was also seen at Urology last month (February 2024) and reportedly had multiple prostate biopsies done and was advised that all of his biopsies came back negative for malignancy Follow up with urology as scheduled (14) Erectile dysfunction: Code(s): N52.9 - Male erectile dysfunction, unspecified Category: Medical Qualifiers: Erectile dysfunction type: unspecified Qualified Code(s): N52.9 - Male erectile dysfunction, unspecified Plan: Continue Sildenafil 50 mg PRN (15) Overweight (BMI 25.0-29.9): Code(s): E66.3 - Overweight Category: Medical Plan: Reinforced diet/exercise as tolerated/lose weight Plan Follow up in 4 months Orders: Orders Complete Blood Count Auto Diff 4 Months D64.9 - Anemia, unspecified Comprehensive [place]. Panel Fast 4 Months E78.00 - Pure hypercholesterolemia, unspecified Lipid Panel 4 Months E78.00 - Pure hypercholesterolemia, unspecified Vitamin B12 and Folate 4 Months E53.8 - Deficiency of other specified B group vitamins Hemoglobin A1c 4 Months R73.01 - Impaired fasting glucose TSH reflex Free T4 4 Months E78.00 - Pure hypercholesterolemia, unspecified UA CC w/rflx Micro + Cult 4 Months R30.0 - Dysuria Vitamin D 25-OH Total 4 Months E55.9 - Vitamin D deficiency, unspecified
--- OUTSIDE RECORDS SUMMARY | 2024-07-30 10:10 | XMS_ITS ---
Author Organization [facility] Address [address] [place] [address] Care Team Providers Care Spa Associate Name Role Phone Jeremy YEN, [place] Primary Care Provider Yoel Butler Jr REASON [...] Active Encounters Encounter Location Date Provider Diagnosis [facility] [address] [place] [address] 07/01/2024 Yoel Watkins Jr B12 deficiency E53.8 Assessments Encounter Date Diagnosis (ICD Code) Assessment Notes Treatment Notes Treatment Clinical Notes Section Notes 07/01/2024 B12 deficiency (ICD-10 - E53.8) Plan Of Treatment Next Appt Details Provider Name:Yoel andrade Jr, 10/12/2024 09:40:00 AM, [address], [address], [place], [address], Medications Administered Medication Instructions Date of Administration Dosage Notes B12 07/01/2024 1000 mL Progress Notes * NKECHI MEADE ADOB:[birth year] (68 yo M)Acc No.[id number]:07/01/2024 SHOT Patient:?NKECHI MEADE Provider:?Yoel Watkins MD :1955???Age:68 Y???Sex:Male Kareem e:07/01/2024 Address:[address] [place] [address] [facility] Pcp:Anil Luna MD Subjective: * Chief Complaints: [...] V IT B-12 CY[address] TO [address] [place], [address] THER/PROPH/DIAG INJ, SC/IM * * Sign off status: Completed true * Provider:?Yoel Watkins MD Date:?0 07/01/2024 Generated for Sariahi ng/Violag/eTransmitting on:?07/30/2024 10:10 AM EDT
--- OUTSIDE RECORDS SUMMARY | 2024-07-30 10:10 | XMS_ITS | Clinical Summary ---
Author Organization [address] Address [address] [place] [address] Phone Care Team Providers Care Grounds Manager Name Role Phone Unavailable Primary Care Provider [...] age to complete this topic Insurance MEDICARE [facility])
--- OUTSIDE RECORDS SUMMARY | 2024-07-30 10:10 | XMS_ITS ---
Author Organization [facility] Address [address] [facility] [address] [place] [address] Care Team Providers Care Entry Level Staff Accountant Name Role Phone Jeremy YEN, [place] Primary Care Provider Macario Watkins Jr, Yoel Rosas REASON FOR VISIT prednisone Medications Medication SIG (Take, Route, Fr equency, Duration) Notes Start Date End Date Status predniSONE 5 MG 8 tablets daily, for one week, then decrease by one tablet weekly Orally 07/21/2024 Active Encounters Encounter Location Date Provider Diagnosis [facility] [address] [place] [address] [place] [address] 07/21/2024 Yoel Watkins Jr Plan Of Treatment Medication Medication Name Sig Start Date Stop Date Notes predniSONE 5 MG 8 tablets daily, for one week, then decrease by one tablet weekly Orally 07/21/2024 Next Appt Details Provider Name:Yoel andrade Jr, 10/12/2024 09:40:00 AM, [address] [place] [address], [address], [place], [address], Progress Notes * NKECHI MEADE ADOB:[birth year] (68 yo M)Acc No.[id number]:07/21/2024 Patient:?DESHAUNNKECHI :1955???Age:68 Y???Sex:Male Address:[address] [place] [address], [place] [address] * Refills? Start predniSONE Tablet, 5 MG, Orally, 252 Tablet, 8 tablets daily, for one week, then decrease by one tablet weekly, Refills=0 * true * Date:? Generated for Nadine marquez/Chapo/Radha on:?07/30/2024 10:10 AM EDT
--- OUTSIDE RECORDS SUMMARY | 2024-07-30 10:10 | XMS_ITS ---
Author Organization [facility] Address 10 [facility] [address] [place] [address] Care Team Providers Care E Business Specialist Name Role Phone Jeremy YEN, [place] Primary Care Provider Macario Watkins Jr, Yoel Rosas [phone] REASON FOR VISIT FLARE UP OF CROHN'S DISEASE Medications Medication SIG (Take, Route, Fr equency, Duration) Notes Start Date End Date Status predniSONE 5 MG 8 tablets daily, for one week, then decrease by one tablet weekly Orally Once a day 07/21/2024 Active Encounters Encounter Location Date Provider Diagnosis [facility] [address] [place] [address] [place] [address] 07/21/2024 Yoel Watkins Jr Plan Of Treatment Medication Medication Name Sig Start Date Stop Date Notes predniSONE 5 MG 8 tablets daily, for one week, then decrease by one tablet weekly Orally Once a day 07/21/2024 Next Appt Details Provider Name:Yoel andrade Jr, 10/12/2024 09:40:00 AM, [address] [place] [address], [address], [place], [address], Progress Notes * NKECHI MEADE ADOB:[birth year] (68 yo M)Acc No.[id number]:07/21/2024 Patient:?DESHAUN JACOB :1955???Age:68 Y???Sex:Male Address:[address] [place] [address], [place] [address] * Refills? Start predniSONE Tablet, 5 MG, Orally, 252 Tablet, 8 tablets daily, for one week, then decrease by one tablet weekly, Once a day, Refills=0 * true * Date:? Generated for Nadine marquez/Chapo/Radha on:?07/30/2024 10:10 AM EDT
--- OUTSIDE RECORDS SUMMARY | 2024-07-30 10:11 | XMS_ITS | Encounter Summary ---
Author Organization [facility] Address [address] [place] [address] Care Team Providers Care Oracle Solutions Architect Name Role Phone Unavailable Primary Care Provider Unavailabl e Encounter Details Date Type Department Care Team (Late st Contact Info) Description 03/02/2024 Lab Requisition [facility] - Main Lab [address] [facility] [place] [address] Dickson Patton MD [address] [facility] [address] [place] [address] Elevated prostate specific antigen (PSA) Social History [...] (03/02/2024) Final Diagnosis A. Prostate, Left [place] (Core Biopsy): - Benign prostate tissue. B. Prostate, Left Lateral [place] (Core Biopsy): - Benign prostate tissue. C. Prostate, Left Middle [place] (Core Biopsy): - Benign prostate tissue. D. Prostate, Left Lateral Middle (Core Biopsy): - Benign prostate tissue. - PIN4 supports the diagnosis. E. Prostate, Left [place] (Core Biopsy): - Benign prostate tissue. F. Prostate, Left Lateral [place] (Core Biopsy): - Benign prostate tissue. G. Prostate, Right [place] (Core Biopsy): - Benign prostate tissue. H. Prostate, Right Lateral [place] (Core Biopsy): - Benign prostate tissue. I. Prostate, Right Middle [place] (Core Biopsy): - Benign prostate tissue. J. Prostate, Right Lateral Middle (Core Biopsy): - Benign prostate tissue. K. Prostate, Right Middle [place] (Core Biopsy): - Benign prostate tissue. L. Prostate, Right Lateral [place] (Core Biopsy): - Few atypical glands. - PIN4 supports the diagnosis. 4 12:23 PM [facility] Comment PIN4 immunohistology supports the morphological diagnosis. - D, L PIN4 performed at [facility], [address], [place] [address], CLIA # [id number] 4 12:23 PM [facility] Clinical Information Elevated PSA = 9.2 (02/03/24) R97.20 [id number] 4 12:23 PM [facility] Gross Description A. Prostate, Left [place] Biopsy: Received, properly labeled, are two H and E stained slides and two unstained slides. B. Prostate, Left Lateral [place] Biopsy: Received, properly labeled, are two H [...] two unstained slides. G. Prostate, Right [place] Biopsy: Received, properly labeled, are two H and E stained slides and two unstained slides. H. Prostate, Left Lateral [place] Biopsy: Received, properly labeled, are two H [...] unstained slides. /al 4 12:[address] [facility] Disclaimer NOTE: The immunohistochemical tests and in situ hybridization tests were developed and their performance characteristics were determined by [facility]. They have not been cleared [...] paraffin embedded. Technical pathology services provided by [facility] at [address] [place] [address] [address], [place] [address] (CLIA #[id number]/Adleina Lei MD, Oyster Harvester) 4 12:[address] [facility] Tissue Prostate / Unknown 03/02/20242023 [...] MD LAB PATHOLOGY ORDERABLES Fi nal Result [facility] ([facility] [address] [place] [address], documented in this encounter Visit Diagnoses Diagnosis Elevated prostate specific antigen (PSA) documented in this encounter
--- OUTSIDE RECORDS SUMMARY | 2024-07-30 10:11 | XMS_ITS | Encounter Summary ---
Author Organization [facility] Address [address] [place] [address] Care Team Providers Care Glue Clamp Operator Name Role Phone Unavailable Primary Care Provider Unavailabl e Encounter Details Date Type Department Care Team (Late st Contact Info) Description 02/20/2024 Lab Requisition [facility] - Main Lab [address] [facility] [place] [address] Reyes Carlson PA [address] [place] [phone] Benign essential microscopic hematuria Social History Tobacco [...] carcinoma. Acute inflammation. 03/06/2024 6:[address] [facility] Clinical Information [id number] Cytology w/reflex UroVysion. 03/06/2024 6:[address] [facility] Gross Description A. Urine, Voided, : [id number] RECD 1 TP SLIDE 03/06/2024 6:[address] [facility] Disclaimer Technical pathology services provided by [facility] at [address], [place] [address] (CLIA #[id number]/S kayla Lei MD, Gathering Machine Feeder) Unless otherwise specified, all tissue is 10% NB formalin fixed and paraffin embedded. 03/06/2024 6:[address] [facility] Tissue Urine specimen from urethra / Unknown 02/11/2024 02/20/2024 11:56 AM EST [facility] PATHOLOGY ORDERAB LES Final Result [facility] [address] [place] [address], documented in this encounter Visit Diagnoses Diagnosis Benign essential microscopic hematuria documented in this encounter
--- OUTSIDE RECORDS SUMMARY | 2024-07-30 10:11 | XMS_ITS | Patient Health Record ---
Author Organization [facility] Address [address] [place] [address] Care Team Providers Care Rn New Graduate Name Role Phone Anil Luna MD Primary Care Provider Yoel Butler Jr [phone] Allergies Allergen (clinical drug ingredient) Drug/Non Drug Allergy documented on EMR Reaction Allergy Type Onset Date Status codeine codeine (uncoded) Unknown Allergy Ac tive Results Component Value Reference Range Notes XR abdomen w decubitus Reviewed date:09/21/2023 07:44:57 PM Interpretation: Performing Lab: Notes/Report: [address] [address] XRay Report Signed Patient: Jasen Meade MR#: [id number] : 1955 Acct:[id number] Age/Sex: 67 / M ADM Date: 09/20/23 Loc: .S3 358-[address]: Blane Garcia MD Ordering Physician: Matt Diaz MD Date of Service: 09/21/23 Procedure(s): XR abdomen w decubitus Accession Number(s): [id number] cc: Anil Luna MD; Matt Diaz MD [...] MD in OV> 09/21/2350 DD/ 6 TD/TT: Welding Machine Operator Resistance: [place] [address] XRay Report Signed Patient: Marques Meade MR#: [id number] : 1955 Acct:[id number] Age/Sex: 67 / M ADM Date: 09/20/23 Loc: .S3 358-[address]: Blane Garcia MD Ordering Physician: Matt Diaz MD Date of Service: 09/21/23 Procedure(s): XR abd omen w decubitus Accession Number(s): [id number] cc: Anil Luna MD; Matt Diaz MD [...] MD in OV> 09/21/2350 DD/ 6 TD/TT: Welding Machine Operator Resistance: Reason For Referral No Information Medications Medication [...] Problem Status W/U Status Risk Notes Problem 75078574 Rectal bleeding (K62.5) Active confirmed Problem Crohn (67758764) Crohn's disease of both small and large intestine with other complication (K50.818) Active confirmed Problem 83337713 Crohns disease of both small and large intestine without complication (K50.80) Active confirmed Problem 713289594 B12 deficiency (E53.8) Active confirmed Problem 88024307 Duodenal ulcer (K26.9) Active confirmed Problem 96397625 Crohn's disease of both small and large intestine with intestinal obstruction (K50.812) Active confirmed Problem Intestinal obstruction due to Crohn's disease of small and large intestine (disorder) (27924645961940 04) Crohn''s disease of both small and large intestine with intestinal obstruction (K50.812) Active confirmed Problem 04689556 Crohn''s disease of both small and large intestine with rectal bleeding (K50.811) Active confirmed Vital Signs Temperature 97.5 degrees Fahrenheit 10/14/2023 Blood pressure diastolic 00 mm Hg 10/14/2023 Height 71 in 10/14/2023 Blood pressure systolic 000 mm Hg 10/14/2023 Weight 192 lb 4 oz lbs 10/14/2023 BMI 26.81 kg/m2 10/14/2023 Encounters Encounter Location Date Provider Diagnosis [facility] [address] [place] [address] 09/02/2023 Yoel Watkins Jr [facility] [address] [place] [address] 10/14/2023 Yoel Watkins Jr Crohns disease of both small and large intestine without complication K50.80 [facility] [address] [place] [address] 11/13/2023 Yoel Watkins Jr B12 deficiency E53.8 [facility] [address] [place] [address] 12/19/2023 Yoel Watkins Jr B12 deficiency E53.8 [facility] [address] [place] [address] 01/28/2024 Yoel Watkins Jr B12 deficiency E53.8 [facility] [address] [place] [address] 02/28/2024 Yoel Watkins Jr B12 deficiency E53.8 [facility] [address] [place] [address] 04/07/2024 Yoel Watkins Jr B12 deficiency E53.8 [facility] [address] [place] [address] 05/05/2024 Yoel Watkins Jr B12 deficiency E53.8 [facility] [address] [place] [address] 06/02/2024 Yoel Watkins Jr B12 deficiency E53.8 [facility] [address] [place] [address] 07/01/2024 Yoel Watkins Jr B12 deficiency E53.8 [facility] [address] [place] [address] 09/21/2023 Yoel Watkins Jr [facility] [address] [place] [address] 07/21/2024 Yoel Watkins Jr [facility] [address] [place] [address] 07/21/2024 Yoel Watkins Jr Assessments Encounter Date [...] Provider Name:Yoel andrade , 10/12/2024 09:40:00 AM, [address] [place] [address], [address], [place], [address], Insurance Providers Payer Name Payer Address Payer Phone Subscriber Number Group Number Insured Name Patient Relationship to Insured Coverage Start Date Coverage End Date MEDICARE OF [place] [address] [place] [address] [id number] JASEN OWENS Self - patient is the insured MEDEX ATTN CLAIMS [address] [place] [address] [id number] JASEN OWENS Self - patient is the [...]
== END 2024-07-30 10:05 | disposition home or self-care (01) ==
LOC: HO.HMCH 09:28
PROVIDERS: PCP Internal Medicine; Visit Provider Internal Medicine
DX: E78.00 Pure hypercholesterolemia, unspecified (principal); K50.919 Crohn's disease, unspecified, with unspecified complications; C79.9 Secondary malignant neoplasm of unspecified site; I82.621 Acute embolism and thrombosis of deep veins of right upper extremity; I71.21 Aneurysm of the ascending aorta, without rupture; G43.909 Migraine, unspecified, not intractable, without status migrainosus; R91.8 Other nonspecific abnormal finding of lung field; R73.01 Impaired fasting glucose; D51.0 Vitamin B12 deficiency anemia due to intrinsic factor deficiency; M54.17 Radiculopathy, lumbosacral region; M47.812 Spondylosis without myelopathy or radiculopathy, cervical region; L30.9 Dermatitis, unspecified

== ENCOUNTER → 2024-07-30 09:27 | Outpatient (BNVA) | payer MEDICARE, SELFPAY | PROVIDERS: PCP Internal Medicine; Visit Provider Internal Medicine | DX: E78.00 Pure hypercholesterolemia, unspecified (principal); K50.919 Crohn's disease, unspecified, with unspecified complications; C79.9 Secondary malignant neoplasm of unspecified site; I71.21 Aneurysm of the ascending aorta, without rupture; I82.621 Acute embolism and thrombosis of deep veins of right upper extremity; G43.909 Migraine, unspecified, not intractable, without status migrainosus; R91.8 Other nonspecific abnormal finding of lung field; R73.01 Impaired fasting glucose; D51.0 Vitamin B12 deficiency anemia due to intrinsic factor deficiency; M54.17 Radiculopathy, lumbosacral region; M47.812 Spondylosis without myelopathy or radiculopathy, cervical region; L30.9 Dermatitis, unspecified; N40.1 Benign prostatic hyperplasia with lower urinary tract symptoms; R35.0 Frequency of micturition; N52.9 Male erectile dysfunction, unspecified; E66.3 Overweight; Z68.26 Body mass index [BMI] 26.0-26.9, adult; Z71.3 Dietary counseling and surveillance | CPT/HCPCS: 96127; 99212 ==

== ENCOUNTER → 2024-09-21 12:45 | Outpatient (REF) | payer MEDICARE, SELFPAY ==
--- NOTE | 2024-09-21 12:48 | CA_ITS ---
Transthoracic Echocardiogram Patient (Last, First, Middle): Jasen White A Gender: Male Date of : 1955 Age: 68 Procedure Date: 09/21/2024 Procedure Type: Transthoracic Echocardiogram Location: OP Height: 182.88 cm Weight: 89.36 kg BSA: 2.12 m2 Heart Rate: 53 bpm BP: 168 / 74 mmHg Clerk Guide: SB Referring MD: Efraín Sanford MD Spa Assistant Manager: Dez Holder MD Symptoms: I71.21 - Aneurysm of the ascending aorta, without rupture Study Quality: Adequate/limited echo ordered ECG Rhythm: Bradycardia Conclusions: - Moderately dilated ascending aorta at 4.7 cm in the setting of bicuspid aortic valve Findings Left Ventricle The visually estimated ejection fraction is between 65-70%. Great Vessels There is moderate dilatation of the ascending aorta measuring 4.70 cm. Prior Study Comparison No significant change compared to prior study dated: 03/17/2024. Measurements 2D Linear Measurements LVIDd: 5.38 3.9-5.3/4.2-5.9 cm LVIDd Index: 2.54 2.4-3.2/2.2-3.1 cm/m2 LVIDs: 3.39 2.0-3.6 cm LVOT Diam: 2.60 3.0+(-)1.3 cm 2D Systolic Function EF 4C: 64.90 >55% EF 2C: 67.20 >55% EF BiP: 66.10 >55% Aortic Valve AoV Pk Blake: 1.97 AoV Mn Blake: 1.28 AoV VTI: 0.40 AoV Pk Grad: 16.00 Aov Mn Grad: 8.00 MAGNUS Cont.VTI: 3.08 LVOT LVOT Pk Blake: 1.01 LVOT Mn Blake: 0.70 LVOT VTI: 0.23 LVOT Pk Grad: 4.00 LVOT Mn Grad: 2.00 LVOT Diam: 2.60 LVOT Area: 5.31 Tricuspid Valve RA Press: 3.00 Great Vessels Aorta Sinus of Valsalva: 4.30 2.0-3.5 cm Ao Asc: 4.70 2.1-3.4 cm Ao Arch: 3.80 Ao Desc: 2.20 Updated in Other Vendor System with Status of Final Dez Holder MD electronically signed on 09/22/2024 11:05:22 AM with status of Final
--- OUTSIDE RECORDS SUMMARY | 2024-09-21 13:17 | XMS_ITS | Patient Health Record ---
Author Organization [facility] Address [address] [place] [address] Care Team Providers Care Clinical Psychologist Licensed Name Role Phone Jeremy YEN, [place] Primary Care Provider Yoel Butler Jr Allergies Allergen (clinical drug ingredient) Drug/Non Drug Allergy documented on EMR Reaction Allergy Type Onset Date Status codeine codeine (uncoded) Unknown Allergy Ac tive Reason For Referral No Information Medications Medication [...] drink Orally Twice a day/as directed Active predniSONE 5 MG 8 tablets daily, for one week, then decrease by one tablet weekly Orally 07/21/2024 Active Immunizations Vaccine Route Administration Date Status Comme nts Influenza Unknown 12/16/2017 Administered Influenza Unknown 12/16/2018 Administered Influenza Unknown 01/06/2020 Administered Influenza Unknown 12/19/2021 Administered Influenza Unknown 04/17/2023 Refused Problems Problem Type SNOMED Code ICD Code Onset Dates Problem Status W/U Status Risk Notes Problem 02395298 Rectal bleeding (K62.5) Active confirmed Problem Crohn (48311138) Crohn's disease of both small and large intestine with other complication (K50.818) Active confirmed Problem 64371924 Crohns disease of both small and large intestine without complication (K50.80) Active confirmed Problem 201329612 B12 deficiency (E53.8) Active confirmed Problem 16493226 Duodenal ulcer (K26.9) Active confirmed Problem 49935056 Crohn's disease of both small and large intestine with intestinal obstruction (K50.812) Active confirmed Problem Intestinal obstruction due to Crohn's disease of small and large intestine (disorder) (86546625162019 04) Crohn''s disease of both small and large intestine with intestinal obstruction (K50.812) Active confirmed Problem 71937383 Crohn''s disease of both small and large intestine with rectal bleeding (K50.811) Active confirmed Vital Signs Temperature 97.5 degrees Fahrenheit 10/14/2023 Blood pressure diastolic 00 mm Hg 10/14/2023 Height 71 in 10/14/2023 Blood pressure systolic 000 mm Hg 10/14/2023 Weight 192 lb 4 oz lbs 10/14/2023 BMI 26.81 kg/m2 10/14/2023 Encounters Encounter Location Date Provider Diagnosis [facility] [address] [place] [address] 10/14/2023 Yoel Watkins Jr Crohns disease of both small and large intestine without complication K50.80 [facility] [address] [place] [address] 11/13/2023 Yoel Watkins Jr B12 deficiency E53.8 [facility] [address] [place] [address] 12/19/2023 Yoel Waktins Jr B12 deficiency E53.8 [facility] [address] [place] [address] 01/28/2024 Yoel Watkins Jr B12 deficiency E53.8 [facility] [address] [place] [address] 02/28/2024 Yoel Watkins Jr B12 deficiency E53.8 [facility] [address] [place] [address] 04/07/2024 Yoel Watkins Jr B12 deficiency E53.8 [facility] [address] [place] [address] 05/05/2024 Yoel Watkins Jr B12 deficiency E53.8 [facility] [address] [place] [address] 06/02/2024 Yoel Watkins Jr B12 deficiency E53.8 [facility] [address] [place] [address] 07/01/2024 Yoel Watkins Jr B12 deficiency E53.8 [facility] [address] [place] [address] 08/05/2024 Yoel Watkins Jr B12 deficiency E53.8 [facility] [address] [place] [address], [place] [address] 09/03/2024 Yoel Watkins Jr [facility] [address] [place] [address], [place] [address] 07/21/2024 Yoel Watkins Jr [facility] [address] [place] [phone] 07/21/2024 Yoel Watkins Jr Assessments Encounter Date [...] E53.8) 07/01/2024 B12 deficiency (ICD-10 - E53.8) 08/05/2024 B12 deficiency (ICD-10 - E53.8) Plan Of Treatment Pending Test Test Name Order Date XR BARIUM SWALLOW-ESOPHAGUS 08/01/2011 Future Test Test Name Order Date COLONOSCOPY 08/01/2011 COLONOSCOPY 03/05/2018 COLONOSCOPY 03/25/2019 COLONOSCOPY 03/02/2022 Next Appt Details Provider Name:Yoel Rojas Yang andrade , 10/12/2024 09:40:00 AM, [address], [address], [place], [address], Insurance Providers Payer Name Payer Address Payer Phone Subscriber Number Group Number Insured Name Patient Relationship to Insured Coverage Start Date Coverage End Date MEDICARE OF [place] [address] [place] [address] [id number] NKECHI OWENS Self - patient is the insured MED[employer] ATTN CLAIMS [address] [place] [address] [phone] [id number] NKECHI OWENS Self - patient is the insured [...] 06/02/2024 1000 mL B12 07/01/2024 1000 mL B-12 08/05/2024 1000 mL Medical (General) History Medical History [...]
--- OUTSIDE RECORDS SUMMARY | 2024-09-21 13:17 | XMS_ITS | Clinical Summary ---
Author Organization [address] Address [address] [place] [address] Phone Care Team Providers Care Marine Steam Fitter Name Role Phone Unavailable Primary Care Provider [...] age to complete this topic Insurance MEDICARE [facility] ([facility]
== END ==
LOC: HO.CARD 12:45
PROVIDERS: PCP Internal Medicine; Visit Provider Internal Medicine
DX: I71.21 Aneurysm of the ascending aorta, without rupture (principal); R00.1 Bradycardia, unspecified
CPT/HCPCS: 93308

== ENCOUNTER → 2024-09-21 12:48 | Outpatient (BNV) | payer MEDICARE, SELFPAY | PROVIDERS: PCP Internal Medicine; Visit Provider Internal Medicine Cardiovascular Disease | DX: I71.21 Aneurysm of the ascending aorta, without rupture (principal); Q23.81 Bicuspid aortic valve | CPT/HCPCS: 93308 ==

== ENCOUNTER 2024-10-05 09:47 | Outpatient (AMB) | payer MEDICARE, SELFPAY ==
--- OUTSIDE RECORDS SUMMARY | 2023-12-27 17:18 | XMS_ITS | Encounter Summary ---
Author Organization [facility] Address [address] [place] [address] [place] [phone] Phone Care Team Providers Care Graining Operator Name Role Phone Anil Luna MD Primary Care Provider [phone] Encounter Details Date Type Department Care Team (Late st Contact Info) Description 12/27/2023 5:18 PM EDT Hospital Encounter [facility] [address] [place] [phone] Karen Grady FNP [address] [place] [phone] [email or web address] Social History Tobacco Use Types Packs/Day [...] clinician's provided indication for this examination in [facility]: Cough; sob, chest pain, for 3 [...] clinician's provided indication for this examination in [facility]:Cough; sob, chest pain, for 3 days COMPARISON: None FINDINGS: Lungs: No pneumonia or pulmonary edema. Linear airspace opacity in theleft lung base most consistent with atelectasis. Pleura: No pleural effusion. No pneumothorax Heart/Mediastinum: Heart size normal. Bones/Soft Tissues: No acute finding IMPRESSION: No acute findings. Karen Grady MARKETING INTELLIGENCE MANAGER IMG XR CHEST Final Resul t documented in this encounter Visit Diagnoses Not on filedocumented in this encounter Additional Health Concerns Infection Onset Date Last Indicated Resolved Time CoV-Risk 12/27/2023 12/27/2023 01/07/2024 1:23 AM EDT documented as of this encounter Care Teams Graining Operator Relationship Specialty Start Date End Date Anil Luna MD PCP - General Internal Medicine 12/27/23 documented as of this encounter Additional Source Comments The information contained in this document represents components of the legal health record. It is not the complete legal health record.[facility]
[2024-10-05 10:01] VITALS: BP 112/60; PULSE 63; BMI 26.6
--- NOTE | 2024-10-05 10:01 | MHC.OFFVIS ---
Vital Signs 10/05/24 10:01 Height 6 ft Weight 196 lb 3.382 oz BMI 26.6 BP 112/60 Blood Pressure Location Lt brachial Position Sitting Pulse 63 Pulse Source Pulse Oximeter Intake Visit Reasons: 6 mth f/up echo Allergies codeine (Codeine) Allergy (Severe, Verified 07/30/24 09:51) HIVES,GI UPSET Medication List - Last Reconciled 10/05/24 by Efraín Sanford MD atorvastatin 20 mg PO DAILY 90 days cholestyramine (with sugar) 4 gram (Questran) 4 grams PO DAILY cyanocobalamin (vitamin B-12) 1,000 mcg IM Q4W 90 days finasteride 5 mg PO DAILY 30 days sildenafil 50 mg PO DAILY PRN sumatriptan succinate take 1 tab at onset of headache; if no relief may repeat 1 tab after at least 2 hrs; max = 4 tabs/24 hr PO tamsulosin 0.4 mg PO BEDTIME 30 days HPI Comments Details: Jasen returns for follow-up regarding bicuspid aortic valve and ascending aortic aneurysm. Clinically, no complaints. Doing fine. No activity limitations. [facility] Medical History Pure hypercholesterolemia Benign prostatic hyperplasia with urinary frequency Bowel obstruction Anticoagulation adequate DVT (deep venous thrombosis) COVID-19 vaccine series completed Metastatic melanoma Bicuspid aortic valve Ascending aortic aneurysm Hyperbilirubinemia Impaired fasting glucose Overweight (BMI 25.0-29.9) History of nephrolithiasis History of rectal abscess Pernicious anemia Degenerative joint disease of cervical spine Lumbar degenerative disc disease Migraine Crohn's disease Surgical History (Updated 07/30/24 @ 10:00 by Anil Luna MD) History of lymph node excision History of esophagogastroduodenoscopy (EGD) H/O colonoscopy Hx of cardiac catheterization History of back surgery History of partial colectomy History of inguinal hernia repair Family History Father Medical history unknown Mother Hypertension Diabetes Social History Household Members: Spouse Housing: House Are you a primary care director to a significant other at home: No Do you presently have visiting nurse or other home services: No Alcohol intake: never Patient Tobacco Use Status: Former Tobacco user Tobacco use type: Cigarette e-Cigarette/Vaping Use: Currently Using Second Hand Smoke Exposure: No Substance Use Type: Marijuana Advance Directives Date on File: 01/08/19 service: No Current occupational status: retired Cognitive needs: No Hearing needs: No Vision needs: Yes Review of Systems Const Denies weakness ENT Denies dizziness Card Denies chest pain, Denies chest pain with activity, Denies syncope, Denies rapid heart rate, Denies pedal edema, Denies edema, Denies leg edema, Denies lightheadedness, Denies palpitations, Denies dyspnea, Denies dyspnea on exertion and Denies orthopnea Resp Denies cough, Denies dyspnea and Denies dyspnea on exertion GI Denies hematochezia and Denies change in stool character Musc Denies abnormal gait, Denies muscle cramps, Denies muscle weakness, Denies numbness, Denies radiating pain into limb and Denies tingling Neuro Denies abnormal gait, Denies dizziness, Denies syncope, Denies numbness, Denies tingling and Denies weakness Endo Denies palpitations Physical Exam Vital Signs: Last Vital Signs Pulse 63 10/05/24 10:01 BP 112/60 10/05/24 10:01 BMI result Body Mass Index 26.6 Const General: comfortable and no acute distress Orientation/consciousness: patient oriented x3 HEENT Other: Unremarkable Head: Yes normal to inspection Neck Neck: Yes normal visual inspection Chest Chest palpation & inspection: normal inspection of the chest Resp Auscultation: clear to auscultation bilaterally Cardio Palpation: normal PMI Heart sounds: S1 normal heart sound present, S2 normal heart sound present, no gallops, no murmurs and no rubs GI Palpation (GI): Soft to palpation Back/Spine/Pelvis Other: unremarkable Skin General skin exam: no rashes or lesions noted Neuro General: patient oriented x3 Extrem General: Yes normal to inspection Psych Mental Status: mental status grossly normal Assessment & Plan Assessment & Plan (1) Ascending aortic aneurysm: Code(s): I71.2 - Thoracic aortic aneurysm, without rupture Category: Medical Qualifiers: Presence of rupture: without rupture Qualified Code(s): I71.21 - Aneurysm of the ascending aorta, without rupture Plan: In the most recent echocardiogram from September, ascending aortic size 4.7 cm. This is similar to prior values. Overall, has been stable. In the CT scan from July 2024 which was done for noncardiac reasons, ascending aortic size 4.5 cm. No evidence of abdominal aortic aneurysm. Overall, remains stable. We will continue to monitor. (2) Bicuspid aortic valve: Code(s): Q23.1 - Congenital insufficiency of aortic valve Category: Medical Plan: Echocardiogram shows bicuspid aortic valve with mild aortic regurgitation. Can be followed periodically. We also discussed about family screening. Coding Level of Care Code Est Pt Level 4 (17417) Complex EM visit Add On G2211 Diagnoses Aneurysm of ascending aorta without rupture I71.21 Presence of rupture: without rupture Bicuspid aortic valve Q23.1
--- OUTSIDE RECORDS SUMMARY | 2024-10-05 10:27 | XMS_ITS | Clinical Summary ---
Author Organization [address] Address [address] [place] [address] Phone Care Team Providers Care Scrap Metal Processing Worker Name Role Phone Unavailable Primary Care Provider [...] Panel) 02/20/2024 Colorectal Cancer Screening: Colonoscopy 02/20/2024 Falls Risk Assessment 02/20/2024 Hepatitis C Screening 02/20/2024 Medicare Annual Wellness Visit 02/20/2024 Social Influencers of Health Screening 02/20/2024 Depression Screening 03/18/2024 Influenza Vaccine (#1) 2024 RSV Immunization Adult Patie nts (1 [...] age to complete this topic Insurance MEDICARE [facility])
--- OUTSIDE RECORDS SUMMARY | 2024-10-05 10:27 | XMS_ITS | Patient Health Record ---
Author Organization [facility] Address [address] [place] [address] Care Team Providers Care Regional Hr Manager Name Role Phone Jeremy YEN, [place] Primary Care Provider Yoel Butler Jr [phone] Allergies Allergen (clinical drug ingredient) Drug/Non Drug [...] Problem Status W/U Status Risk Notes Problem 98334868 Rectal bleeding (K62.5) Active confirmed Problem Crohn (24681282) Crohn's disease of both small and large intestine with other complication (K50.818) Active confirmed Problem 74756678 Crohns disease of both small and large intestine without complication (K50.80) Active confirmed Problem 769436568 B12 deficiency (E53.8) Active confirmed Problem 39849836 Duodenal ulcer (K26.9) Active confirmed Problem 99146586 Crohn's disease of both small and large intestine with intestinal obstruction (K50.812) Active confirmed Problem Intestinal obstruction due to Crohn's disease of small and large intestine (disorder) (02458148275722 04) Crohn''s disease of both small and large intestine with intestinal obstruction (K50.812) Active confirmed Problem 05347534 Crohn''s disease of both small and large intestine with rectal bleeding (K50.811) Active confirmed Vital Signs Temperature 97.5 degrees Fahrenheit 10/14/2023 Blood pressure diastolic 00 mm Hg 10/14/2023 Height 71 in 10/14/2023 Blood pressure systolic 000 mm Hg 10/14/2023 Weight 192 lb 4 oz lbs 10/14/2023 BMI 26.81 kg/m2 10/14/2023 Encounters Encounter Location Date Provider Diagnosis [facility] [address] [place] [phone] 10/14/2023 Yoel Watkins Jr Crohns disease of both small and large intestine without complication K50.80 [facility] [address] [place] [address] 11/13/2023 Yoel Watkins Jr B12 deficiency E53.8 [facility] [address] [place] [address] 12/19/2023 Yoel Watkins Jr B12 deficiency E53.8 [facility] [address] [place] [address] 01/28/2024 Yoel Watkins Jr B12 deficiency E53.8 [facility] [address] [place] [address] 02/28/2024 Yoel Watkins Jr B12 deficiency E53.8 [facility] [address] [place] [address] 04/07/2024 Yoel Watkins Jr B12 deficiency E53.8 [facility] [address] [place] [address] 05/05/2024 Yoel Watkins Jr B12 deficiency E53.8 [facility] [address] [place] [address] 06/02/2024 Yoel Watkins Jr B12 deficiency E53.8 [facility] [address] [place] [address] 07/01/2024 Yoel Watkins Jr B12 deficiency E53.8 [facility] [address] [place] [address] 08/05/2024 Yoel Watkins Jr B12 deficiency E53.8 [facility] [address] [place] [address], [place] [address] 09/03/2024 Yoel Watkins Jr [facility] [address] [place] [address], [place] [address] 07/21/2024 Yoel Watkins Jr [facility] [address] [place] [address] 07/21/2024 Yoel Watkins Jr Assessments Encounter Date [...] Yang andrade , 10/12/2024 09:40:00 AM, [address], [address], [place], [address], Insurance Providers Payer Name Payer Address Payer Phone Subscriber Number Group Number Insured Name Patient Relationship to Insured Coverage Start Date Coverage End Date MEDICARE OF [place] [address] [place] [address] [id number] NKECHI OWENS Self - patient is the insured MEDEX ATTN CLAIMS [address] [place] [address] [phone] [id number] NKECHI OWENS Self - patient is the [...]
== END 2024-10-05 10:38 | disposition home or self-care (01) ==
LOC: HO.HCS 09:48
PROVIDERS: PCP Internal Medicine; Visit Provider Internal Medicine
DX: I71.21 Aneurysm of the ascending aorta, without rupture (principal); Q23.1 Congenital insufficiency of aortic valve
CPT/HCPCS: 99214; G2211

== ENCOUNTER → 2024-10-05 09:47 | Outpatient (BNVA) | payer MEDICARE, SELFPAY | PROVIDERS: PCP Internal Medicine; Visit Provider Internal Medicine | DX: I71.21 Aneurysm of the ascending aorta, without rupture (principal); Q23.1 Congenital insufficiency of aortic valve | CPT/HCPCS: 99212 ==

== ENCOUNTER 2024-11-28 09:11 | Outpatient (REF) | payer MEDICARE, SELFPAY ==
--- OUTSIDE RECORDS SUMMARY | 2023-12-27 17:18 | XMS_ITS | Encounter Summary ---
Author Organization [facility] Address [address] [place] [address] [place] [phone] Phone Care Team Providers Care Carpenter Refrigerator Name Role Phone Anil Luna MD Primary Care Provider [phone] Encounter Details Date Type Department Care Team (Late st Contact Info) Description 12/27/2023 5:18 PM EDT Hospital Encounter [facility] [address] [place] [phone] Karen Grady FNP [address] [place] [phone] [email or web address] Social History Tobacco Use Types Packs/Day [...] clinician's provided indication for this examination in [facility]: Cough; sob, chest pain, for 3 [...] clinician's provided indication for this examination in [facility]:Cough; sob, chest pain, for 3 days COMPARISON: None FINDINGS: Lungs: No pneumonia or pulmonary edema. Linear airspace opacity in theleft lung base most consistent with atelectasis. Pleura: No pleural effusion. No pneumothorax Heart/Mediastinum: Heart size normal. Bones/Soft Tissues: No acute finding IMPRESSION: No acute findings. Karen Grady CASE CHECKER IMG XR CHEST Final Resul t documented in this encounter Visit Diagnoses Not on filedocumented in this encounter Additional Health Concerns Infection Onset Date Last Indicated Resolved Time CoV-Risk 12/27/2023 12/27/2023 01/07/2024 1:23 AM EDT documented as of this encounter Care Teams Carpenter Refrigerator Relationship Specialty Start Date End Date Anil Luna MD [address] [place] [address] [place] [id number] PCP - General Internal Medicine 12/27/23 documented as of this encounter Additional Source Comments The information contained in this document represents components of the legal health record. It is not the complete legal health record.[facility]
--- OUTSIDE RECORDS SUMMARY | 2024-11-28 09:14 | XMS_ITS | Encounter Summary ---
Author Organization [facility] Address [address] [place] [address] Care Team Providers Care Director Life Sales Name Role Phone Unavailable Primary Care Provider Unavailabl e Encounter Details Date Type Department Care Team (Late st Contact Info) Description 02/20/2024 Lab Requisition [facility] - Main Lab [address] [facility] [place] [address] Reyes Carlson PA [address] [place] [phone] Benign essential microscopic hematuria Social History Tobacco [...] carcinoma. Acute inflammation. 03/06/2024 6:02 PM EST [facility] Clinical Information [id number] Cytology w/reflex UroVysion. 03/06/2024 6:02 PM EST [facility] Gross Description A. Urine, Voided, : [id number] RECD 1 TP SLIDE 03/06/2024 6:02 PM EST [facility] Disclaimer Technical pathology services provided by [facility] at [address], [place] [address] (CLIA #[id number]/S kayla Lei MD, Retort Furnace Operator) Unless otherwise specified, all tissue is 10% NB formalin fixed and paraffin embedded. 03/06/2024 6:02 PM EST [facility] Tissue Urine specimen from urethra / Unknown 02/11/2024 02/20/2024 11:56 AM EST [facility] ORDERAB LES Final Result [facility] [address] [place] [address], documented in this encounter Visit Diagnoses Diagnosis Benign essential microscopic hematuria documented in this encounter
--- OUTSIDE RECORDS SUMMARY | 2024-11-28 09:14 | XMS_ITS | Clinical Summary ---
Author Organization [address] Address [address] [place] [address] Phone Care Team Providers Care Power Press Supervisor Name Role Phone Unavailable Primary Care Provider [...] 10/07/2003 Zoster Vaccines (1 of 2) 10/07/2003 Abdominal Aortic Aneurysm (A AA) Screen 02/20/2024 Cholesterol Screening (Lipid Panel) 02/20/2024 Colorectal Cancer Screening: Colonoscopy 02/20/2024 Falls Risk Assessment 02/20/2024 Hepatitis C Screening 02/20/2024 Medicare Annual Wellness Visit 02/20/2024 Social Influencers of Health Screening 02/20/2024 Depression Screening 03/18/2024 COVID-19 Vaccine ( - 2023-2 5 season) 2024 Influenza Vaccine (#1) 2024 RSV Immunization Adult [...] age to complete this topic Insurance MEDICARE [facility]
--- OUTSIDE RECORDS SUMMARY | 2024-11-28 09:14 | XMS_ITS | Patient Health Record ---
Author Organization [facility] Address [address] [place] [address] Care Team Providers Care Spiral Spring Winder Name Role Phone Jeremy YEN, [place] Primary Care Provider Yoel Butler Jr Unavailable Allergies Allergen (clinical drug ingredient) Drug/Non Drug Allergy documented on EMR Reaction Allergy Type Onset Date Status codeine codeine (uncoded) Unknown Allergy Ac tive Reason For Referral No Information Medications Medication SIG (Take, Route, Frequency, Duration) Notes Start Date End Date Status Cholestyramine 4 GM 1 packet mixed with water or non-carbonated drink Orally Twice a day/as directed Active Lipitor 10 MG 1 tablet Orally Once a day Active Cyanocobalamin 1000 MCG/ML INJECT 1000MC G IN THE MUSCLE EVERY 4 WEEKS Injection for 84 Active Immunizations Vaccine Route Administration Date Status Comme nts Influenza Unknown 12/16/2017 Administered Influenza Unknown 12/16/2018 Administered Influenza Unknown 01/06/2020 Administered Influenza Unknown 12/19/2021 Administered Influenza Unknown 04/17/2023 Refused Problems Problem Type SNOMED Code ICD Code Onset Dates Problem Status W/U Status Risk Notes Problem 71310102 Rectal bleeding (K62.5) Active confirmed Problem Crohn (04628504) Crohn's disease of both small and large intestine with other complication (K50.818) Active confirmed Problem 75912470 Crohns disease of both small and large intestine without complication (K50.80) Active confirmed Problem 857350048 B12 deficiency (E53.8) Active confirmed Problem 49305211 Duodenal ulcer (K26.9) Active confirmed Problem 26854010 Crohn's disease of both small and large intestine with intestinal obstruction (K50.812) Active confirmed Problem Intestinal obstruction due to Crohn's disease of small and large intestine (disorder) (44688745418529 04) Crohn''s disease of both small and large intestine with intestinal obstruction (K50.812) Active confirmed Problem 32989926 Crohn''s disease of both small and large intestine with rectal bleeding (K50.811) Active confirmed Vital Signs Temperature 97.5 degrees Fahrenheit 10/12/2024 Blood pressure diastolic 01 mm Hg 10/12/2024 Height 71 in 10/12/2024 Blood pressure systolic 001 mm Hg 10/12/2024 Weight 199.4 lbs 10/12/2024 BMI 27.81 kg/m2 10/12/2024 Encounters Encounter Location Date Provider Diagnosis [facility] [address] [place] [phone] 12/19/2023 Yoel Broussardord B12 deficiency E53.8 [facility] [address] [place] [address] 01/28/2024 Yoel Roland Jr B12 deficiency E53.8 [facility] [address] [place] [address] 02/28/2024 Yoel Roland Jr B12 deficiency E53.8 [facility] [address] [place] [address] 04/07/2024 Yoel Roland Jr B12 deficiency E53.8 [facility] [address] [place] [address] 05/05/2024 Yoel Roland Jr B12 deficiency E53.8 [facility] [address] [place] [address] 06/02/2024 Yoel Roland Jr B12 deficiency E53.8 [facility] [address] [place] [address] 07/01/2024 Yoel Roland Jr B12 deficiency E53.8 [facility] [address] [place] [address] 08/05/2024 Yoel Roland Jr B12 deficiency E53.8 [facility] [address] [place] [address] 09/03/2024 Yoel Watkins Jr [facility] [address] [place] [address] 10/05/2024 Yoel Watkins Jr B12 deficiency E53.8 [facility] [address] [place] [address] 10/12/2024 Yoel Watkins Jr Crohn's disease of both small and large intestine with other complication K50.818 [facility] [address] [place] [address] 11/09/2024 Yoel Watkins Jr [facility] [address] [place] [address] 07/21/2024 Yoel Watkins Jr [facility] [address] [place] [address] 07/21/2024 Yoel Watkins Jr [facility] [address] [facility] [place] [address] 10/05/2024 Yoel Watkins Jr [facility] [address] [place] [phone] 11/03/2024 Yoel Watkins Jr [facility] [address] [place] [address] 11/09/2024 Yoel Watkins Jr Assessments Encounter Date Diagnosis (ICD Code) Assessment Notes Treatment Notes Treatment Clinical Notes Section Notes 12/19/2023 B12 deficiency (ICD-10 - E53.8) 01/28/2024 B12 deficiency (ICD-10 - E53.8) 02/28/2024 B12 deficiency (ICD-10 - E53.8) 04/07/2024 B12 deficiency (ICD-10 - E53.8) 05/05/2024 B12 deficiency (ICD-10 - E53.8) 06/02/2024 B12 deficiency (ICD-10 - E53.8) 07/01/2024 B12 deficiency (ICD-10 - E53.8) 08/05/2024 B12 deficiency (ICD-10 - E53.8) 10/05/2024 B12 deficiency (ICD-10 - E53.8) 10/12/2024 Crohn's disease of both small and large intestine with other complication (ICD-10 - K50.818) At this time, Jasen is doing well. He has no complaints of rectal bleeding. Bowel movements are basically back to normal. We will see him in follow-up in 1 year. We discussed options for therapy which are limited based on his history of melanoma. He prefers to remain on cholestyramine and as needed prednisone tapers. We reviewed this today. Today's visit was 30 minutes. He will follow-up in 12 months. Plan Of Treatment Pending Test Test Name Order Date XR BARIUM SWALLOW-ESOPHAGUS 08/01/2011 Future Test Test Name Order Date COLONOSCOPY 08/01/2011 COLONOSCOPY 03/05/2018 COLONOSCOPY 03/25/2019 COLONOSCOPY 03/02/2022 Next Appt Details Provider Name:Yoel Crystal andrade , 10/13/2025 09:40:00 AM, [address] [place] [address], [facility] [address], [place], [address], Insurance Providers Payer Name Payer Address Payer Phone Subscriber Number Group Number Insured Name Patient Relationship to Insured Coverage Start Date Coverage End Date MEDICARE OF [place] [address] [place] [address] [id number] MINO RojasJASEN Self - patient is the insured MEDEX ATTN CLAIMS [address] [place] [address] [id number] MINO RojasJASEN Self - patient is the insured Medications [...] free DVT 11/06 Surgical History Surgery Date(Month/Year) Axillary lymph node dissection Back surgery Inguinal herniorrhaphy, left Ileocolectomy Hospitalization History Reason Date(Month/Year) intestinal blockage 08/2022
--- OUTSIDE RECORDS SUMMARY | 2024-11-28 09:14 | XMS_ITS | Clinical Summary ---
Author Organization [facility] Address [address] [place] [address] Phone Care Team Providers Care Craft Demonstrator Name Role Phone Anil Luna MD Primary Care Provider [phone] Allergies Active Allergy Reactions Criticality Noted Date Comments Codeine 12/27/2023 Medications sildenafiL (VIAGRA) 50 mg tablet TAKE 1 TABLET BY MOUTH DAILY NEEDED FOR SEXUAL ACTIVITY. ADMINISTER 30 MINUTES TO 4 HOURS BEFORE ACTIVITY 4 Active finasteride (PROSCAR) 5 mg tablet Take 1 tablet by mouth every morning. 4 Active sulfamethoxazol e-trimethoprim (BACTRIM DS) 800-160 mg per tablet Take 1 tablet by mouth 2 (two) times a day. 4 Active tamsulosin (FLOMAX) 0.4 mg Cap Take 0.4 mg by mouth nightly at bedtime. 4 Active cholestyramine (QUESTRAN) 4 gram packet 1 packet mixed with water or non-carbonated drink Orally Twice a day/as directed Active LIPITOR 10 mg tablet 1 tablet Orally Once a day Active albuterol (PROAIR HFA) 90 mcg/actuation inhaler Inhale 2 puffs into the lungs every 4 (four) hours as needed for wheezing. 18 g 4 Active benzonatate (TESSALON) 100 MG capsule Take 2 capsules (200 mg total) by mouth 3 (three) times a day as needed for cough. 21 capsule 4 Active inhaler spacing device (AEROCHAMBER,BR EATHERITE) Spcr Inhale 1 each into the lungs every 4 (four) hours as needed. 1 each 4 Active Active Problems No known active problems Social History Tobacco Use Types Packs/Day Years Used Date Smoking Tobacco: Former Cigarettes Tobacco Cessation:Counseling Given: Not Answered Education Answer Date Recorded Are you interested [...] on file Sexual Orientation Not on file Last Filed Vital Signs Vital Sign Reading Time Taken Comments Blood Pressure 114/70 12/27/2023 4:48 PM EDT Pulse 73 12/27/2023 4:48 PM EDT Temperature 36.6 C (97.9 F) 12/27/2023 4:48 PM EDT Respiratory Rate 22 12/27/2023 4:48 PM EDT Oxygen Saturation 100% 12/27/2023 4:48 PM EDT Inhaled Oxygen Concentration - - Weight - - Height - - Body Mass Index - - Plan of Treatment Health Maintenance Due Date Last Done Comments Adult Td,Tdap Booster 1953 LIPID PANEL 1953 DEPRESSION SCREENING 1965 SMOKING Hx and SMOKELESS TOBACCO SCREENING 1966 HEPATITIS C SCREENING 10/07/1971 COLOGUARD 1998 COLONOSCOPY 1998 COLORECTAL CANCER SCREENING 1998 FIT TEST 1998 FOBT 1998 SIGMOIDOSCOPY 1998 VIRTUAL COLONOSCOPY 1998 ZOSTER VACCINES (1 of 2) 10/07/2003 ABDOMINAL AORTIC ANEURYSM (AAA) SCREENING 2018 PNEUMOCOCCAL VACCINES (50+ years) (2 of 2 - PCV) 01/08/2020 01/07/2019 INFLUENZA VACCINE (#1) 2024 , 01/07/2021, 01/02/2019, Additional history exists COVID-19 VACCINE ( - season) 2024 03/23/2022, 06/07/2020, 05/10/2020 RSV VACCINE (1 - 1-dose 75+ series) 2028 HEPATITIS A VACCINES Aged Out No long er eligible based on patient's age to complete this topic HIB VACCINES Aged Out No longer eligi ble based on patient's age to complete this topic MENINGOCOCCAL VACCINES (ACWY) Aged Out No longer eligible based on patient's age to complete this topic MENINGOCOCCAL VACCINES (B) Aged Out N o longer eligible based on patient's age to complete this topic Medical Devices Not on file Insurance [employer] SUPPLEMENT MEDICARE PART A & B [employer] SUPPLEMENT MEDICARE PART A & B [employer] MEDEX SUPPLEMENT MEDICARE PART A & B [employer] MEDEX SUPPLEMENT MEDICARE PART A & B [facility] MEDEX SUPPLEMENT MEDICARE PART A & B [place] [id number] [employer] MEDEX SUPPLEMENT MEDICARE PART A & B Care Teams Craft Demonstrator Relationship Specialty Start Date End Date Anil Luna MD [address] [place] [address] Dr AngeloNYAELFEGO WOODS [address] PCP - General Internal Medicine 12/27/23 Additional Source Comments The information contained in this document represents components of the legal health record. It is not the complete legal health record.[facility]
--- OUTSIDE RECORDS SUMMARY | 2024-11-28 09:14 | XMS_ITS | Encounter Summary ---
Author Organization [facility] Address [address] [place] [address] Care Team Providers Care Teacher Emotionally Impaired Name Role Phone Unavailable Primary Care Provider Unavailabl e Encounter Details Date Type Department Care Team (Late st Contact Info) Description 03/02/2024 Lab Requisition [facility] - Main Lab [address] [facility] [place] [address] Dickson Patton MD [address] [facility] [address] [place] [address] Elevated prostate specific antigen (PSA) Social History [...] (03/02/2024) Final Diagnosis A. Prostate, Left [place] (Core Biopsy): - Benign prostate tissue. B. Prostate, Left Lateral [place] (Core Biopsy): - Benign prostate tissue. C. Prostate, Left Middle Middle (Core Biopsy): - Benign prostate tissue. D. Prostate, Left Lateral Middle (Core Biopsy): - Benign prostate tissue. - PIN4 supports the diagnosis. E. Prostate, Left Middle [place] (Core Biopsy): - Benign prostate tissue. F. Prostate, Left Lateral Base (Core Biopsy): - Benign prostate tissue. G. Prostate, Right [place] (Core Biopsy): - Benign prostate tissue. H. Prostate, Right Lateral [place] (Core Biopsy): - Benign prostate tissue. I. Prostate, Right Middle Middle (Core Biopsy): - Benign prostate tissue. J. Prostate, Right Lateral Middle (Core Biopsy): - Benign prostate tissue. K. Prostate, Right Middle Base (Core Biopsy): - Benign prostate tissue. L. Prostate, Right Lateral Base (Core Biopsy): - Few atypical glands. - PIN4 supports the diagnosis. 4 12:23 PM [facility] Comment PIN4 immunohistology supports the morphological diagnosis. - D, L PIN4 performed at [facility], [address], [place] [address], CLIA # [id number] 4 12:23 PM [facility] Clinical Information Elevated PSA = 9.2 (02/03/24) R97.20 [id number] 4 12:23 PM [facility] Gross Description A. Prostate, Left [place] Biopsy: Received, properly labeled, are two H and E stained slides and two unstained slides. B. Prostate, Left Lateral [place] Biopsy: Received, properly labeled, are two H [...] two unstained slides. G. Prostate, Right [place] Biopsy: Received, properly labeled, are two H and E stained slides and two unstained slides. H. Prostate, Left Lateral [place] Biopsy: Received, properly labeled, are two H [...] unstained slides. /al 4 12:23 PM EST [facility] Disclaimer NOTE: The immunohistochemical tests and in situ hybridization tests were developed and their performance characteristics were determined by [facility]. They have not been cleared [...] paraffin embedded. Technical pathology services provided by [facility] at [address] [place] [address] [address], [place] [address] (CLIA #[id number]/Adelina Lei MD, Washer Off) 4 12:23 PM EST [facility] Tissue Prostate / Unknown 03/02/20242023 3:39 [...] MD LAB PATHOLOGY ORDERABLES Fi nal Result [facility] ([facility] [address] [place] [address], documented in this encounter Visit Diagnoses Diagnosis Elevated prostate specific antigen (PSA) documented in this encounter
[2024-11-28 09:24] LABS: MANUAL DIFF FLAG NO
[2024-11-28 09:52] LABS: Hematocrit 44.1 % (42.0-52.0); Hemoglobin 14.8 g/dl (14.0-18.0); Imm Gran Abs Auto 0.01 X10*3/uL (0.00-0.03); Imm Gran Pct Auto 0.3 % (0.0-0.4); Lymphocytes Absolute Auto 1.1 X10*3/uL (1.2-4.9); Mean Corpuscular HGB Conc 33.6 g/dl (31.0-36.0); Mean Corpuscular Hemoglobin 31.2 pg (27.0-33.0); Mean Corpuscular Volume 93.0 fL (80.0-98.0); NRBC Abs Auto 0.000 X10*3/uL (0.0-0.012); NRBC Pct Auto 0.0 /100WBC (0.0-0.2); Platelet Count 214 X10*3/uL (160-400); Red Blood Count 4.74 X10*6/uL (4.60-5.80); White Blood Count 3.9 X10*3/uL (4.8-10.8)
[2024-11-28 10:01] LABS: Hemoglobin A1C 132.9829 umol/L; Total Hemoglobin (HGBA1C) 3792.1439 umol/L
[2024-11-28 10:30] LABS: Alanine Aminotransferase 23 U/L (0-40); Albumin Level 4.2 g/dL (3.5-5.0); Alkaline Phosphatase 93 U/L (39-117); Anion Gap 13 (12-20); Aspartate Amino Transferase 25 U/L (5-37); Blood Urea Nitrogen 14 mg/dL (9-16); Calcium 9.2 mg/dL (8.4-10.2); Carbon Dioxide 27 mmol/L (22-29); Chloride 106 mmol/L (96-108); Cholesterol 150 mg/dL (<200); Estimated Glomerular Filt Rate > 60; HDL Cholesterol 47 mg/dL (>40); Potassium 4.5 mmol/L (3.3-5.1); Sodium 141 mmol/L (135-145); Total Protein 6.9 g/dL (6.5-8.0); Triglycerides 147 mg/dL (<150)
[2024-11-28 10:46] LABS: Appearance Urine Clear; Glucose Urine UA Negative (Negative); PH 6.0 (5.0-9.0); Specific Gravity - Urine 1.020 (1.005-1.025); UMIC TRIGGER UACC YES
[2024-11-28 10:51] LABS: Folate 7.3 ng/mL (> or = 4.0); Vitamin B12 510 pg/mL (200-900)
== END 2024-11-28 09:12 | disposition home or self-care (01) ==
LOC: HO.LAB 09:11
PROVIDERS: PCP Internal Medicine; Visit Provider Internal Medicine
DX: E53.8 Deficiency of other specified B group vitamins (principal); D64.9 Anemia, unspecified; E78.00 Pure hypercholesterolemia, unspecified; R73.01 Impaired fasting glucose; E55.9 Vitamin D deficiency, unspecified; R30.0 Dysuria
CPT/HCPCS: 36415; 80053; 80061; 81001; 82306; 82607; 82746; 83036; 84443; 85025

== ENCOUNTER 2024-12-03 10:48 | Outpatient (REF) | payer MEDICARE, SELFPAY ==
--- NOTE | ~2024-12-03 | XR_ITS ---
EXAMINATION: XR KNEE, LEFT CLINICAL INFORMATION: M25.562 - Pain in left knee COMPARISON: None available. TECHNIQUE: AP oblique lateral and sunrise views of the left knee. FINDINGS: No acute cortical disruption or malalignment. Mild asymmetric joint space narrowing involving mostly the medial compartment. No suprapatellar bursa joint effusion. No lytic or blastic lesions. Small exostosis at the quadriceps tendon insertion. XR/XR knee LT 4V IMPRESSION: Mild medial compartment osteoarthrosis/osteoarthritis. Mild enthesopathy, quadriceps tendon. Electronically signed by: Josue Fraser MD 12/03/2024 12:45 PM EDT
== END 2024-12-03 10:49 | disposition home or self-care (01) ==
LOC: HO.XRAY 10:48
PROVIDERS: PCP Internal Medicine; Visit Provider Internal Medicine
DX: M25.562 Pain in left knee (principal); E78.00 Pure hypercholesterolemia, unspecified; K50.919 Crohn's disease, unspecified, with unspecified complications; C79.9 Secondary malignant neoplasm of unspecified site; I71.21 Aneurysm of the ascending aorta, without rupture; I82.621 Acute embolism and thrombosis of deep veins of right upper extremity; G43.909 Migraine, unspecified, not intractable, without status migrainosus; R73.01 Impaired fasting glucose; D51.0 Vitamin B12 deficiency anemia due to intrinsic factor deficiency; M54.17 Radiculopathy, lumbosacral region; M47.812 Spondylosis without myelopathy or radiculopathy, cervical region; L30.9 Dermatitis, unspecified; N40.1 Benign prostatic hyperplasia with lower urinary tract symptoms; R35.0 Frequency of micturition; N52.9 Male erectile dysfunction, unspecified; E66.3 Overweight; Z68.26 Body mass index [BMI] 26.0-26.9, adult; Z71.3 Dietary counseling and surveillance
CPT/HCPCS: 73564; 99212

== ENCOUNTER 2024-12-03 10:48 | Outpatient (AMB) | payer MEDICARE, SELFPAY ==
--- OUTSIDE RECORDS SUMMARY | 2023-12-27 17:18 | XMS_ITS | Encounter Summary ---
Author Organization [facility] Address [address] [place] [address] [place] [phone] Phone Care Team Providers Care Appliance Sales Associate Name Role Phone Anil Luna MD Primary Care Provider [phone] Encounter Details Date Type Department Care Team (Late st Contact Info) Description 12/27/2023 5:18 PM EDT Hospital Encounter [facility] [address] [place] [phone] Karen Grady FNP [address] [place] [phone] [email or web address] Social History Tobacco Use Types Packs/Day [...] clinician's provided indication for this examination in [facility]: Cough; sob, chest pain, for 3 days [...] clinician's provided indication for this examination in [facility]:Cough; sob, chest pain, for 3 days COMPARISON: None FINDINGS: Lungs: No pneumonia or pulmonary edema. Linear airspace opacity in theleft lung base most consistent with atelectasis. Pleura: No pleural effusion. No pneumothorax Heart/Mediastinum: Heart size normal. Bones/Soft Tissues: No acute finding IMPRESSION: No acute findings. Karen Grady FROTHING MACHINE OPERATOR IMG XR CHEST Final Resul t documented in this encounter Visit Diagnoses Not on filedocumented in this encounter Additional Health Concerns Infection Onset Date Last Indicated Resolved Time CoV-Risk 12/27/2023 12/27/2023 01/07/2024 1:23 AM EDT documented as of this encounter Care Teams Appliance Sales Associate Relationship Specialty Start Date End Date Anil Luna MD [address] [place] [address] [place] [id number] PCP - General Internal Medicine 12/27/23 documented as of this encounter Additional Source Comments The information contained in this document represents components of the legal health record. It is not the complete legal health record.[facility]
[2024-12-03 10:56] VITALS: BP 110/72; PULSE 66; O2SAT 95; BMI 26.6
--- NOTE | 2024-12-03 10:56 | MHC.PC.OV ---
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 Accompanied by: Self / Same As Patient Allergies codeine (Codeine) Allergy (Severe, Verified 12/03/24 11:36) HIVES,GI UPSET Medication List - Last Reconciled 12/03/24 by Anil Luna MD atorvastatin 20 mg PO DAILY 90 days cholestyramine (with sugar) 4 gram (Questran) 4 grams PO DAILY cyanocobalamin (vitamin B-12) 1,000 mcg IM Q4W 90 days finasteride 5 mg PO DAILY 30 days sildenafil 50 mg PO DAILY PRN sumatriptan succinate take 1 tab at onset of headache; if no relief may repeat 1 tab after at least 2 hrs; max = 4 tabs/24 hr PO tamsulosin 0.4 mg PO BEDTIME 30 days Tobacco use date assessed: 12/03/24 Fall risk assessment: No Falls in past year Last assessed Fall Risk: 12/03/24 Dental Screening Dental Screen Date: 12/03/24 Did you have a dental visit in the last 12 months?: No Did you have a dental problem in the last 6 months where you did not have access to dental care?: No Was dental information given to patient?: No HPI 4 month f/u HPI Details Patient comes in today for his follow-up visit States that he has been experiencing increasing pain in his left knee for the past 6-7 weeks now Notes that the pain is mostly over the medial aspect of the knee and wakes him up in the middle of the night if he hits the medial aspect of his knee accidentally while he is asleep He also notes increasing knee pain with prolonged standing and states that he has a hard time going up stairs because of his knee pain He denies any recent injury or trauma to his knee States that he feels okay otherwise He denies any headaches or dizziness Denies any chest pains, no increased shortness of breath No nausea/vomiting, no abdominal pain No change in bowel habits noted He had his follow-up labs done last week - to discuss his results [facility] Medical History (Updated 12/04/24 @ 05:14 by Anil Luna MD) Pure hypercholesterolemia Benign prostatic hyperplasia with urinary frequency Bowel obstruction Anticoagulation adequate DVT (deep venous thrombosis) COVID-19 vaccine series completed Metastatic melanoma Bicuspid aortic valve Ascending aortic aneurysm Hyperbilirubinemia Impaired fasting glucose Overweight (BMI 25.0-29.9) History of nephrolithiasis History of rectal abscess Pernicious anemia Degenerative joint disease of cervical spine Lumbar degenerative disc disease Migraine Crohn's disease Surgical History History of lymph node excision History of esophagogastroduodenoscopy (EGD) H/O colonoscopy Hx of cardiac catheterization History of back surgery History of partial colectomy History of inguinal hernia repair Family History Father Medical history unknown Mother Hypertension Diabetes Social History Household Members: Spouse Housing: House Are you a primary home care coordinator to a significant other at home: No Do you presently have visiting nurse or other home services: No Alcohol intake: never Patient Tobacco Use Status: Former Tobacco user Tobacco use type: Cigarette e-Cigarette/Vaping Use: Currently Using Second Hand Smoke Exposure: No Substance Use Type: Marijuana Advance Directives Date on File: 01/08/19 service: No Current occupational status: retired Cognitive needs: No Hearing needs: No Vision needs: Yes Questionnaire PHQ-9 Over the last 2 weeks, how often have you been bothered by any of the following problems? Depression Screening Interpretation: Negative Depression Screening Done: Yes Source: Developed by Drs. Matt Vizcarra, Janet Chapman, Jose Braswell and colleagues, with an educational gustavo from [employer]. Thrive Questionnaire Date Thrive assessed: 07/30/24 I am a: Patient What is your living situation today?: I have a steady place to live Within the past 12 months, did the food you bought not last and you didn't have the money to get more?: Often true Within the past 12 months, did you worry whether your food would run out before you got money to buy more?: Often true Do you have trouble paying for medicines?: No Do you have trouble getting transportation to medical appointments?: No Do you have trouble paying your heating and electricity bill?: No Do you have trouble taking care of your child, family member or friend?: No Do you have trouble with day-to-day activities such as bathing, preparing meals, shopping, managing finances, etc.?: No Are you currently unemployed and looking for a job?: No Are you interested in more education?: No Please select the resources that you would like help with: None Currently or been in a relationship where the following occur: I choose not to answer THRIVE Score: 2 AUDIT C Alcohol Use Questionnaire (AUDIT-C) 1. How often do you have a drink containing alcohol?: 2-4 times a month 2. How many drinks containing alcohol do you have on a typical day when you are drinking?: 3 or 4 3. How often do you have six or more drinks on one occasion?: Never Total Score: 3 Score Reviewed/Action Taken: Yes DORIS-7 AMB Questionnaire DORIS-7 Date DORIS - 7 assessed: 07/30/24 (pt states due to work ) Trouble relaxin = Nearly every day Being so restless that it is hard to sit still: 2 = More than half the days Becoming easily annoyed or irritable: 2 = More than half the days Feeling afraid as if something awful might happen: 0 = Not at all Source: Developed by Drs. Matt Vizcarra, Janet Chapman, Jose Braswell and colleagues, with an educational gustavo from [employer]. Review of Systems Const Denies chills, Denies fatigue, Denies fever(s) and Denies headache(s) (better controlled) ENT Denies dysphagia, Denies dizziness, Denies otalgia, Denies headache(s) (better controlled), Denies neck pain, Denies odynophagia and Denies sore throat Card Denies chest pain, Denies palpitations and Denies dyspnea Resp Denies chest congestion, Denies cough and Denies dyspnea GI Denies abdominal pain, Denies hematochezia, Denies dysphagia, Denies heartburn, Reports diarrhea (improving), Reports loose stools (improving), Denies nausea, Denies odynophagia and Denies vomiting Denies difficulty urinating, Reports erectile dysfunction, Denies dysuria, Denies nocturia (better controlled on Tamsulosin) and Denies urinary frequency (better controlled on Tamsulosin) Musc Reports back pain (on and off), Reports arthralgias (especially over the medial aspect of the left knee - see HPI), Denies joint swelling and Denies neck pain Skin/Breast Denies rash Neuro Denies dizziness and Denies headache(s) (better controlled) Endo Denies fatigue and Denies palpitations Physical exam (Primary Care) Vital Signs: Last Vital Signs Pulse 66 12/03/24 10:56 BP 110/72 12/03/24 10:56 Pulse Ox 95 12/03/24 10:56 Oxygen Delivery Method Room Air 12/03/24 10:56 BMI result Body Mass Index 26.6 Tobacco/Smoking Status: Tobacco use Status Tobacco use date assessed 12/03/24 12/03/24 10:59 Patient Tobacco Use Status Former Tobacco user 12/03/24 10:59 Tobacco use type Cigarette 12/03/24 10:59 e-Cigarette/Vaping Use Currently Using 12/03/24 10:59 Depression Screening Interpretation: Negative Thrive Assessment: Date of Thrive Assessment Date Thrive assessed 07/30/24 12/03/24 10:59 Currently or been in a relationship where the following occur: I choose not to answer Const General: no acute distress and alert HENMT Ears: TM's normal bilaterally and EAC's normal Throat: Yes posterior oropharynx normal and Yes tonsils normal (no TP congestion noted) Neck Neck: Yes supple and No lymphadenopathy Thyroid: Thyroid normal Resp Auscultation: clear to auscultation bilaterally, no rales and no wheezes Cardio Rate: regular rate Rhythm: regular rhythm Heart sounds: no murmurs GI Palpation (GI): Soft to palpation and nontender Auscultation: normal bowel sounds General: Yes no CVA tenderness Back/Spine/Pelvis Back: no CVA tenderness Thoracic/Lumbar Spine: lumbar spinal tenderness Skin Rashes: no rashes Neuro Other: (+) weakness noted on the left leg - motor strength noted to be 4/5; is 5/5 on the right lower extremity Extrem General: Yes no clubbing, cyanosis or edema Left lower extremity: knee Details: tenderness Location: of the medial joint line; no swelling Results Reviewed Results Reviewed: Laboratory Tests 11/28/24 11/28/24 09:20 09:23 WBC 3.9 L Hgb 14.8 Hct 44.1 Plt Count 214 D Sodium 141 Potassium 4.5 Creatinine 0.97 Estimated GFR > 60 Fasting Glucose 101 H Hemoglobin A1c % 5.4 AST 25 ALT 23 Triglycerides 147 Cholesterol 150 LDL Cholesterol, Calc 74 HDL Cholesterol 47 Vitamin B12 510 25-OH Vitamin D Total 37.1 TSH 2.03 Ur Specific [place] 1.020 Urine Protein Negative Urine Glucose (UA) Negative Urine Blood Negative Urine Nitrite Negative Ur Leukocyte Esterase Trace H Coding Level of Care Code Est Pt Level 4 (90063) Diagnoses Acute pain of left knee M25.562 Chronicity: acute Pure hypercholesterolemia E78.00 Crohn's disease with complication, unspecified gastrointestinal tract location K50.919 Gastrointestinal tract location: unspecified location Digestive disease complication type: unspecified complication Metastatic melanoma C79.9 Aneurysm of ascending aorta without rupture I71.21 Presence of rupture: without rupture Acute deep vein thrombosis (DVT) of other vein of right upper extremity I82.621 DVT location: upper extremity Affected thrombotic vein of extremity: other upper extremity vein Chronicity: acute Laterality: right Migraine without status migrainosus, not intractable, unspecified migraine type G43.909 Migraine type: unspecified Status migrainosus presence: without status migrainosus Intractability: not intractable Impaired fasting glucose R73.01 Pernicious anemia D51.0 Left lumbosacral radiculopathy M54.17 Osteoarthritis of cervical spine, unspecified spinal osteoarthritis complication status M47.812 Spinal osteoarthritis complication: unspecified spinal osteoarthritis Eczema of both upper extremities L30.9 Benign prostatic hyperplasia with urinary frequency N40.1; R35.0 Erectile dysfunction, unspecified erectile dysfunction type N52.9 Erectile dysfunction type: unspecified Overweight (BMI 25.0-29.9) E66.3 Assessment & Plan Assessment & Plan (1) Left knee pain: Code(s): M25.562 - Pain in left knee Category: Medical Qualifiers: Chronicity: acute Qualified Code(s): M25.562 - Pain in left knee Plan: Patient most likely has anserine bursitis Will send patient for x-rays of the left knee for further evaluation Will also refer him to Orthopedics for further evaluation and management (2) Pure hypercholesterolemia: Code(s): E78.00 - Pure hypercholesterolemia, unspecified Category: Medical Plan: Results of his labs done last week reviewed and discussed with patient Reinforced low cholesterol diet Continue Atorvastatin 20 mg QD and Cholestyramine powder 4 gm/dose 1 packet BID Will recheck his labs and fasting lipids in 4 months for follow up (3) Crohn's disease: Code(s): K50.90 - Crohn's disease, unspecified, without complications Category: Medical Qualifiers: Gastrointestinal tract location: unspecified location Digestive disease complication type: unspecified complication Qualified Code(s): K50.919 - Crohn's disease, unspecified, with unspecified complications Plan: Patient had a flare up of his Crohn's earlier this year but his symptoms improved on oral Prednisone, which was slowly tapered off over a period of 8 weeks Colonoscopy done a couple of years ago (05/2022) revealed (+) active Crohn's colitis at the ileocolonic anastomosis and balloon dilatation was done Follow up with GI as scheduled (4) Metastatic melanoma: Code(s): C79.9 - Secondary malignant neoplasm of unspecified site Category: Medical Plan: S/P axillary lymph node dissection and adjuvant treatment with BRAF/MEK inhibition (Trametinib 2 mg QD and Tafinlar 150 mg BID) - treatment was started on 06/29/2021 and completed in June 2022 PET-CT done in June 2022 came out negative for disease recurrence Follow up chest CT done last week on 07/21/2024 also came back negative for disease recurrence Follow up with dermatology and oncology as scheduled for continuing surveillance (5) Ascending aortic aneurysm: Code(s): I71.2 - Thoracic aortic aneurysm, without rupture Category: Medical Qualifiers: Presence of rupture: without rupture Qualified Code(s): I71.21 - Aneurysm of the ascending aorta, without rupture Plan: Follow up CTA done in 02/2022 revealed (+) slight progression of his aortic aneurysm to 4.7 - 4.8 cm Repeat echo in February 2023 showed stable findings with no significant changes; repeat echocardiogram on 03/17/2024 showed similar findings with no significant change compared to prior study dated 03/15/2023; there is moderate dilatation of the ascending aorta measuring 4.70 cm, similar to measurement from a year ago His recent chest CT done last week (07/21/24) revealed stable 4.5 cm fusiform aneurysm of the ascending aorta, unchanged from PET CT on 07/10/2022 Of note, patient also has a bicuspid aortic valve with mild thickening and mild aortic valve regurgitation but with no aortic valve stenosis - this will require routine monitoring as well Follow up with vascular surgery/cardiology as scheduled for continuing surveillance and management (6) DVT (deep venous thrombosis): Comment: 10/2021 Code(s): I82.409 - Acute embolism and thrombosis of unspecified deep veins of unspecified lower extremity Category: Medical Qualifiers: DVT location: upper extremity Affected thrombotic vein of extremity: other upper extremity vein Chronicity: acute Laterality: right Qualified Code(s): I82.621 - Acute embolism and thrombosis of deep veins of right upper extremity Plan: Resolved - mostly involving his right hand and distal half of right forearm, with no recurrence since Doppler on 10/23/2021 revealed an acute partial right subclavian vein thrombus and he was subsequently started on Eliquis 5 mg BID Repeat Doppler a few weeks later showed a complete resolution of the clot; patient was continued on Eliquis until he completed his immunotherapy Tx, after which Rx was discontinued as well (7) Migraine: Code(s): G43.909 - Migraine, unspecified, not intractable, without status migrainosus Category: Medical Qualifiers: Migraine type: unspecified Status migrainosus presence: without status migrainosus Intractability: not intractable Qualified Code(s): G43.909 - Migraine, unspecified, not intractable, without status migrainosus Plan: Stable/controlled - he now realizes that his previous increased headaches were likely migraine headaches exacerbation by overuse of Aspirin States that his headaches have improved a lot since he started on Sumatriptan and stopped taking his Aspirin - notes that he now only has to take Sumatriptan a few times a month He did not get the previously ordered head CT done as he states that his headaches have improved a lot when he was contacted to schedule his procedure and he did not pursue it further Reinforced avoidance of migraine triggers Follow up with neurology as scheduled (8) Impaired fasting glucose: Code(s): R73.01 - Impaired fasting glucose Category: Medical Plan: His HgbA1c was normal again at 5.4% on his recent labs; HgbA1c was normal at 5.5%, 5.4% and 5.2% when previously checked Reinforced low calorie/low carb diet (9) Pernicious anemia: Code(s): D51.0 - Vitamin B12 deficiency anemia due to intrinsic factor deficiency Category: Medical Plan: Corrected - continue B12 injections monthly (10) Left lumbosacral radiculopathy: Code(s): M54.17 - Radiculopathy, lumbosacral region Category: Medical Plan: Reinforced activity and weight-lifting restrictions States that his previous lower back symptoms have subsided a lot with oral Prednisone Tx he had last year and his symptoms have been stable since (11) Degenerative joint disease of cervical spine: Code(s): M47.812 - Spondylosis without myelopathy or radiculopathy, cervical region Category: Medical Qualifiers: Spinal osteoarthritis complication: unspecified spinal osteoarthritis Qualified Code(s): M47.812 - Spondylosis without myelopathy or radiculopathy, cervical region Plan: States that his neck symptoms have been mostly manageable and he goes to physical therapy when needed (12) Eczema of both upper extremities: Code(s): L30.9 - Dermatitis, unspecified Category: Medical Plan: Continue Betamethasone valerate cream 0.1% apply to rash TID x 10 to 14 days, then PRN for any recurrence Patient is again reminded to NOT use this on his face (13) Benign prostatic hyperplasia with urinary frequency: Code(s): N40.1 - Benign prostatic hyperplasia with lower urinary tract symptoms; R35.0 - Frequency of micturition Category: Medical Plan: Continue Tamsulosin 0.4 mg Q HS and Finasteride 5 mg QD - states that his urinary symptoms have improved a lot with Rx He was also seen at Urology last month (February 2024) and reportedly had multiple prostate biopsies done and was advised that all of his biopsies came back negative for malignancy Follow up with urology as scheduled (14) Erectile dysfunction: Code(s): N52.9 - Male erectile dysfunction, unspecified Category: Medical Qualifiers: Erectile dysfunction type: unspecified Qualified Code(s): N52.9 - Male erectile dysfunction, unspecified Plan: Continue Sildenafil 50 mg PRN (15) Overweight (BMI 25.0-29.9): Code(s): E66.3 - Overweight Category: Medical Plan: Reinforced diet/exercise as tolerated/lose weight Plan Follow-up in 4 months Orders: Orders Complete Blood Count Auto Diff 4 Months D64.9 - Anemia, unspecified TSH reflex Free T4 4 Months E78.00 - Pure hypercholesterolemia, unspecified Vitamin B12 and Folate 4 Months E53.8 - Deficiency of other specified B group vitamins XR knee LT 4V 12/03/24 M25.562 - Pain in left knee Comprehensive [place]. Panel Fast 4 Months E78.00 - Pure hypercholesterolemia, unspecified Lipid Panel 4 Months E78.00 - Pure hypercholesterolemia, unspecified UA CC w/rflx Micro + Cult 4 Months R30.0 - Dysuria Vitamin D 25-OH Total 4 Months E55.9 - Vitamin D deficiency, unspecified Referrals Orthopedics Referral M25.562 - Pain in left knee
--- OUTSIDE RECORDS SUMMARY | 2024-12-03 12:56 | XMS_ITS | Clinical Summary ---
Author Organization [facility] Address [address] [place] [id number] Phone Care Team Providers Care Auto Claim Representative Name Role Phone Anil Luna MD Primary Care Provider [phone] Allergies Active Allergy Reactions Criticality Noted Date [...] topic Medical Devices Not on file Insurance [employer] SUPPLEMENT MEDICARE PART A & B [employer] SUPPLEMENT MEDICARE PART A & B [employer] SUPPLEMENT MEDICARE PART A & B [employer] SUPPLEMENT MEDICARE PART A & B [facility] MEDEX SUPPLEMENT MEDICARE PART A & B [place] [id number] [employer] SUPPLEMENT MEDICARE PART A & B Care Teams Auto Claim Representative Relationship Specialty Start Date End Date Anil Luna MD [address] [place] [address] Dr AngeloNYAELFEGO WOODS [id number] PCP - General Internal Medicine 12/27/23 Additional Source Comments The information contained in this document represents components of the legal health record. It is not the complete legal health record.[facility]
--- OUTSIDE RECORDS SUMMARY | 2024-12-03 12:56 | XMS_ITS | Encounter Summary ---
Author Organization [facility] Address [address] [place] [address] Care Team Providers Care Phthalic Acid Purifier Name Role Phone Unavailable Primary Care Provider Unavailabl e Encounter Details Date Type Department Care Team (Late st Contact Info) Description 02/20/2024 Lab Requisition [facility] - Main Lab [address] [facility] [place] [address] Reyes Carlson PA [address] [place] [phone] Benign essential microscopic hematuria Social History Tobacco [...] carcinoma. Acute inflammation. 03/06/2024 6:02 PM EST [facility] Clinical Information [id number] Cytology w/reflex UroVysion. 03/06/2024 6:02 PM EST [facility] Gross Description A. Urine, Voided, : [id number] RECD 1 TP SLIDE 03/06/2024 6:02 PM EST [facility] Disclaimer Technical pathology services provided by [facility] at [address], [place] [address] (CLIA #[id number]/S kayla Lei MD, Hot Wort Settler) Unless otherwise specified, all tissue is 10% NB formalin fixed and paraffin embedded. 03/06/2024 6:02 PM EST [facility] Tissue Urine specimen from urethra / Unknown 02/11/2024 02/20/2024 11:56 AM EST [facility] PATHOLOGY ORDERAB LES Final Result [facility] [address] [place] [address], documented in this encounter Visit Diagnoses Diagnosis Benign essential microscopic hematuria documented in this encounter
--- OUTSIDE RECORDS SUMMARY | 2024-12-03 12:56 | XMS_ITS | Encounter Summary ---
Author Organization [facility] Address [address] [place] [address] Care Team Providers Care Infection Control Specialist Name Role Phone Unavailable Primary Care Provider Unavailabl e Encounter Details Date Type Department Care Team (Late st Contact Info) Description 03/02/2024 Lab Requisition [facility] - Main Lab 299 [facility] [place] [address] Dickson Patton MD [address] [facility] [address] [place] [address] Elevated prostate specific antigen (PSA) Social History [...] (03/02/2024) Final Diagnosis A. Prostate, Left [place] (Core Biopsy): - Benign prostate tissue. B. Prostate, Left Lateral [place] (Core Biopsy): - Benign prostate tissue. C. Prostate, Left Middle Middle (Core Biopsy): - Benign prostate tissue. D. Prostate, Left Lateral Middle (Core Biopsy): - Benign prostate tissue. - PIN4 supports the diagnosis. E. Prostate, Left [place] (Core Biopsy): - Benign prostate tissue. F. Prostate, Left Lateral Base (Core Biopsy): - Benign prostate tissue. G. Prostate, Right [place] (Core Biopsy): - Benign prostate tissue. H. Prostate, Right Lateral [place] (Core Biopsy): - Benign prostate tissue. I. Prostate, Right Middle Middle (Core Biopsy): - Benign prostate tissue. J. Prostate, Right Lateral Middle (Core Biopsy): - Benign prostate tissue. K. Prostate, Right [place] (Core Biopsy): - Benign prostate tissue. L. Prostate, Right Lateral Base (Core Biopsy): - Few atypical glands. - PIN4 supports the diagnosis. 4 12:23 PM [facility] Comment PIN4 immunohistology supports the morphological diagnosis. - D, L PIN4 performed at [facility], [address], [place] [address], CLIA # [id number] 4 12:23 PM [facility] Clinical Information Elevated PSA = 9.2 (02/03/24) R97.20 [id number] 4 12:23 PM [facility] Gross Description A. Prostate, Left [place] Biopsy: Received, properly labeled, are two H and E stained slides and two unstained slides. B. Prostate, Left Lateral [place] Biopsy: Received, properly labeled, are two H [...] two unstained slides. G. Prostate, Right [place] Biopsy: Received, properly labeled, are two H and E stained slides and two unstained slides. H. Prostate, Left Lateral [place] Biopsy: Received, properly labeled, are two H [...] unstained slides. /al 4 12:23 PM EST [facility] Disclaimer NOTE: The immunohistochemical tests and in situ hybridization tests were developed and their performance characteristics were determined by [facility]. They have not [...] paraffin embedded. Technical pathology services provided by [facility] at [address] [place] [address] [address], [place] [address] (CLIA #[id number]/Adelina Lei MD, Work Car Operator) 4 12:23 PM EST [facility] Tissue Prostate / Unknown [...] MD LAB PATHOLOGY ORDERABLES Fi nal Result [facility] [address] [place] [address], documented in this encounter Visit Diagnoses Diagnosis Elevated prostate specific antigen (PSA) documented in this encounter
--- OUTSIDE RECORDS SUMMARY | 2024-12-03 12:56 | XMS_ITS | Clinical Summary ---
Author Organization [address] Address [address] [place] [address] Phone Care Team Providers Care Vp Information Technology Name Role Phone Unavailable Primary Care Provider [...] age to complete this topic Insurance MEDICARE [facility]
== END 2024-12-03 12:04 | disposition home or self-care (01) ==
LOC: HO.HMCH 10:49
PROVIDERS: PCP Internal Medicine; Visit Provider Internal Medicine
DX: M25.562 Pain in left knee (principal); K50.919 Crohn's disease, unspecified, with unspecified complications; C79.9 Secondary malignant neoplasm of unspecified site; I82.621 Acute embolism and thrombosis of deep veins of right upper extremity; E78.00 Pure hypercholesterolemia, unspecified; I71.21 Aneurysm of the ascending aorta, without rupture; G43.909 Migraine, unspecified, not intractable, without status migrainosus; R73.01 Impaired fasting glucose; D51.0 Vitamin B12 deficiency anemia due to intrinsic factor deficiency; M54.17 Radiculopathy, lumbosacral region; M47.812 Spondylosis without myelopathy or radiculopathy, cervical region; L30.9 Dermatitis, unspecified

== ENCOUNTER → 2024-12-03 12:15 | Outpatient (BNV) | payer MEDICARE, SELFPAY | PROVIDERS: PCP Internal Medicine; Visit Provider Radiology Diagnostic Radiology | DX: M17.12 Unilateral primary osteoarthritis, left knee (principal) | CPT/HCPCS: 73564 ==

== ENCOUNTER 2025-03-02 08:30 | Outpatient (AMB) | payer MEDICARE, SELFPAY ==
--- OUTSIDE RECORDS SUMMARY | 2023-12-27 16:18 | XMS_ITS | Encounter Summary ---
Author Organization [facility] Address [address] [place] [address] [place] [phone] Phone Care Team Providers Care Specification Writer Name Role Phone Anil Luna MD Primary Care Provider [phone] Encounter Details Date Type Department Care Team (Late st Contact Info) Description 12/27/2023 5:18 PM EDT Hospital Encounter [facility] [address] [place] [phone] Kraen Grady FNP [address] [place] [phone] [email or web address] Social History Tobacco Use Types Packs/Day [...] clinician's provided indication for this examination in [facility]: Cough; sob, chest pain, for 3 [...] clinician's provided indication for this examination in [facility]:Cough; sob, chest pain, for 3 days COMPARISON: None FINDINGS: Lungs: No pneumonia or pulmonary edema. Linear airspace opacity in theleft lung base most consistent with atelectasis. Pleura: No pleural effusion. No pneumothorax Heart/Mediastinum: Heart size normal. Bones/Soft Tissues: No acute finding IMPRESSION: No acute findings. Karen Grady COLLISION MECHANIC IMG XR CHEST Final Resul t documented in this encounter Visit Diagnoses Not on filedocumented in this encounter Additional Health Concerns Infection Onset Date Last Indicated Resolved Time CoV-Risk 12/27/2023 12/27/2023 01/07/2024 1:23 AM EDT documented as of this encounter Care Teams Specification Writer Relationship Specialty Start Date End Date Anil Luna MD [address] [place] [address] [place] [id number] PCP - General Internal Medicine 10/11/24 documented as of this encounter Additional Source Comments The information contained in this document represents components of the legal health record. It is not the complete legal health record.[facility]
--- NOTE | 2025-03-02 09:00 | A.OFFVIS_ITS ---
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 He states experiencing increased pain in his left knee for the past 3 -4 months. Patient mentions that his pain is on the medial aspect of the knee and wakes him up at night. He also notices that his knee pain is worse with standing and going up stairs. Patient rich[facility] tot same day care and he got better with there treatment, however he is still having pain. He states that they gave him an injection about 3 months ago. He mentions that he is at 90% of relief. IMPRESSION: Mild medial compartment osteoarthrosis/osteoarthritis. Mild enthesopathy, quadriceps tendon. Allergies codeine (Codeine) Allergy (Severe, Verified 03/02/25 09:05) HIVES,GI UPSET HPI Comments Details: History of Present Illness The patient is a 69 year old male presenting primarily to establish care for left knee pain. He recently experienced a severe flare-up of left knee pain, rated as more than a 10, which significantly disrupted his sleep, particularly when lying on his side. While waiting for orthopedic evaluation, he sought treatment at a walk-in clinic where he received an x-ray and a steroid injection. Following the injection, his symptoms have improved by 85-90%. Pain Description - Location: The patient reports pain in his left knee. - Severity: During a recent flare, the pain was described as killing him and was rated more than a 10. - Interference with Function: The pain was severe enough to prevent him from sleeping. - Exacerbating Factors: Pain was aggravated by lying on his side and any touch to the knee. - Relieving Factors: A steroid injection provided significant relief. - Current Status: The patient's pain is currently 85-90% improved. Results - Imaging: - Left Knee X-ray: Left knee osteoarthritis with no acute fracture or dislocation. [facility] Medical History (Updated 03/02/25 @ 10:21 by Aleja Schmitt PA-C) Pure hypercholesterolemia Benign prostatic hyperplasia with urinary frequency Bowel obstruction Anticoagulation adequate DVT (deep venous thrombosis) COVID-19 vaccine series completed Metastatic melanoma Bicuspid aortic valve Ascending aortic aneurysm Hyperbilirubinemia Impaired fasting glucose Overweight (BMI 25.0-29.9) History of nephrolithiasis History of rectal abscess Pernicious anemia Degenerative joint disease of cervical spine Lumbar degenerative disc disease Migraine Crohn's disease Surgical History History of lymph node excision History of esophagogastroduodenoscopy (EGD) H/O colonoscopy Hx of cardiac catheterization History of back surgery History of partial colectomy History of inguinal hernia repair Family History Father Medical history unknown Mother Hypertension Diabetes Social History Household Members: Spouse Housing: House Are you a primary body care manager to a significant other at home: No Do you presently have visiting nurse or other home services: No Alcohol intake: never Patient Tobacco Use Status: Former Tobacco user Tobacco use type: Cigarette e-Cigarette/Vaping Use: Currently Using Second Hand Smoke Exposure: No Substance Use Type: Marijuana Advance Directives Date on File: 01/08/19 service: No Current occupational status: retired Cognitive needs: No Hearing needs: No Vision needs: Yes Review of Systems Narrative Review of Systems - Musculoskeletal: Reports recent severe left knee pain that is now 85-90% improved. - Denies weakness. Physical Exam Exam Exam: Physical Exam - Left Lower Extremity: Full flexion and extension. No tenderness to palpation medial or lateral joint lines. NVI. Vital Signs: BMI result Body Mass Index 26.9 Assessment & Plan Assessment & Plan (1) Osteoarthritis of left knee: Code(s): M17.12 - Unilateral primary osteoarthritis, left knee Category: Medical Plan 1. Arthritis Of Left Knee The patient's recent severe pain flare-up is attributed to underlying arthritis, which is supported by x-ray findings of medial compartment and patellofemoral joint space narrowing with osteophyte formation. His symptoms responded well to a corticosteroid injection received at an outside facility, and he is currently 85-90% improved. Repeat cortisone injection was discussed during today's visit but was deferred by the patient, with the plan to reserve it for a future flare- up if needed. He will follow up PRN, sooner if needed. 2. Establishment Of Care The primary purpose of the visit was to establish care with the orthopedic service to allow for more timely access for future knee issues. The patient is now established and was advised to make contact for any new or worsening symptoms. No routine follow-up is scheduled at this time. Consent Patient was informed and verbally consented to the use of an ambient scribe for clinic note documentation during this visit. X-rays of the left knee which were obtained while in the office today and were reviewed by me, Aleja Schmitt PA-C, revealed osteoarthritis with no acute fracture or dislocation. Orders: Orders XR knee LT 3V Today M25.569 - Pain in unspecified knee Coding Level of Care Code New Pt Level 3 (37409) Add On Problem Visit Only Diagnoses Osteoarthritis of left knee M17.12
--- OUTSIDE RECORDS SUMMARY | 2025-03-02 09:00 | XMS_ITS | Clinical Summary ---
Author Organization [address] Address [address] [place] [address] Phone Care Team Providers Care Associate Professor Of Biology Name Role Phone Unavailable Primary Care Provider Unavailabl e Social History Tobacco Use Types Packs/Day Years Used Date Smoking Tobacco: Never Assessed Sex and Gender Information Value Date Recorded Sex Assigned at Not on file Legal Sex Male 11:51 AM EST Gender Identity Not on file Sexual Orientation Not on file Plan of Treatment Health Maintenance Due Date Last Done Comments Colorectal Cancer Screening: Colonoscopy 1955 DTaP,Tdap,and Td Vaccines (1 - Tdap) 1972 Pneumococcal Vaccine: 50+ Ye ars (1 of 1 - PCV) 10/07/2003 Zoster Vaccines (1 of 2) 10/07/2003 Abdominal Aortic Aneurysm (A AA) Screen 02/20/2024 Cholesterol Screening (Lipid Panel) 02/20/2024 Falls Risk Assessment 02/20/2024 Hepatitis C Screening 02/20/2024 Medicare Annual Wellness Visit 02/20/2024 Social Influencers of Health Screening 02/20/2024 Depression Screening 03/18/2024 COVID-19 Vaccine (1 - 2024-2 6 season) 2024 Influenza Vaccine (#1) 2024 RSV [...] age to complete this topic Insurance MEDICARE [facility]
--- OUTSIDE RECORDS SUMMARY | 2025-03-02 09:01 | XMS_ITS | Encounter Summary ---
Author Organization [facility] Address [address] [place] [address] Care Team Providers Care Records Clerk Name Role Phone Unavailable Primary Care Provider Unavailabl e Encounter Details Date Type Department Care Team (Late st Contact Info) Description 03/02/2024 Lab Requisition [facility] - Main Lab 299 [facility] [place] [address] Dickson Patton MD [address] [facility] [address] [place] [address] Elevated prostate specific antigen (PSA) Social History [...] (03/02/2024) Final Diagnosis A. Prostate, Left [place] (Core Biopsy): - Benign prostate tissue. B. Prostate, Left Lateral [place] (Core Biopsy): - Benign prostate tissue. C. Prostate, Left Middle [place] (Core Biopsy): - Benign prostate tissue. D. Prostate, Left Lateral [place] (Core Biopsy): - Benign prostate tissue. - PIN4 supports the diagnosis. E. Prostate, Left [place] (Core Biopsy): - Benign prostate tissue. F. Prostate, Left Lateral [place] (Core Biopsy): - Benign prostate tissue. G. Prostate, Right [place] (Core Biopsy): - Benign prostate tissue. H. Prostate, Right Lateral [place] (Core Biopsy): - Benign prostate tissue. I. Prostate, Right Middle [place] (Core Biopsy): - Benign prostate tissue. J. Prostate, Right Lateral Middle (Core Biopsy): - Benign prostate tissue. K. Prostate, Right Middle [place] (Core Biopsy): - Benign prostate tissue. L. Prostate, Right Lateral [place] (Core Biopsy): - Few atypical glands. - PIN4 supports the diagnosis. 4 12:[address] [facility] at 1223 EST Comment PIN4 immunohistology supports the morphological diagnosis. - D, L PIN4 performed at [facility], [address], [place] [address], CLIA # [id number] 4 12:23 PM [facility] Clinical Information Elevated PSA = 9.2 (02/03/24) R97.20 [id number] 4 12:23 PM [facility] Gross Description A. Prostate, Left [place] Biopsy: Received, properly labeled, are two H and E stained slides and two unstained slides. B. Prostate, Left Lateral [place] Biopsy: Received, properly labeled, are two H [...] two unstained slides. G. Prostate, Right [place] Biopsy: Received, properly labeled, are two H and E stained slides and two unstained slides. H. Prostate, Left Lateral [place] Biopsy: Received, properly labeled, are two H [...] and their performance characteristics were determined by [facility]. They have not been [...] paraffin embedded. Technical pathology services provided by [facility] at [address] [place] [address] [address], [place] [address] (CLIA #[id number]/Adelina Lei MD, Information Technology Account Manager) 4 12:[address] [facility] [...] us Dickson Patton MD LAB PATHOLOGY ORDERABLES nal Result [facility] [address] [place] [address], documented in this encounter Visit Diagnoses Diagnosis Elevated prostate specific antigen (PSA) documented in this encounter
--- OUTSIDE RECORDS SUMMARY | 2025-03-02 09:01 | XMS_ITS | Patient Health Record ---
Author Organization [facility] Address [address] [place] [address] Care Team Providers Care Patient Assistant Name Role Phone Jeremy YEN, [place] Primary Care Provider Yoel Butler Jr Unavailable Allergies Allergen (clinical drug ingredient) Drug/Non Drug Allergy documented on EMR Reaction Allergy Type Onset Date Status codeine codeine (uncoded) Unknown Allergy Ac tive Reason For Referral No Information Medications Medication SIG (Take, Route, Frequency, Duration) Notes Start Date End Date Status Cholestyramine 4 GM Packet 1 packet mixe d with water or non-carbonated drink Orally Twice a day/as directed Active Cyanocobalamin 1000 MCG/ML Solution INJECT 1000MCG IN THE MUSCLE EVERY 4 WEEKS Injection; Duration: 84 Active Lipitor 10 MG Tablet 1 tablet Orally Onc e a day Active Immunizations Vaccine Route Administration Date Status Comme nts Influenza Unknown 12/16/2017 Administered Influenza Unknown 12/16/2018 Administered Influenza Unknown 01/06/2020 Administered Influenza Unknown 12/19/2021 Administered Influenza Unknown 04/17/2023 Refused Social History Social History Additional Details Category Social Info Options Details Miscellaneous: Marital status: Occupation: Retired Problems Problem Type SNOMED Code ICD Code Onset Dates Problem Status W/U Status Risk Notes Problem Rectal bleeding (36448171) Rectal bleeding (K62.5) Active confirmed Problem Crohn's disease of small AND large intestines (10658578) Crohn's disease of both small and large intestine with other complication (K50.818) Active confirmed Problem Crohn's disease of small AND large intestines (76323746) Crohns disease of both small and large intestine without complication (K50.80) Active confirmed Problem Vitamin B12 deficiency (non anemic) (37156191) B12 deficiency (E53.8) Active confirmed Problem Duodenal ulcer (56677291) Duodenal ulcer (K26.9) Active confirmed Problem Intestinal obstruction due to Crohn's disease of small and large intestine (08847924204966 04) Crohn's disease of both small and large intestine with intestinal obstruction (K50.812) Active confirmed Problem Intestinal obstruction due to Crohn's disease of small and large intestine (disorder) (25085057107032 04) Crohn''s disease of both small and large intestine with intestinal obstruction (K50.812) Active confirmed Problem Crohn's disease of small AND large intestines (68469746) Crohn''s disease of both small and large intestine with rectal bleeding (K50.811) Active confirmed Vital Signs Temperature 97.5 degrees Fahrenheit 10/12/2024 Blood pressure diastolic 01 mm Hg 10/12/2024 Height 71 in 10/12/2024 Blood pressure systolic 001 mm Hg 10/12/2024 Weight 199.4 lbs 10/12/2024 BMI 27.81 kg/m2 10/12/2024 Encounters Encounter Location Date Provider Diagnosis [facility] [address] [place] [address] 04/07/2024 Yoel Watkins Jr B12 deficiency E53.8 [facility] [address] [place] [address] 05/05/2024 Yoel Watkins Jr B12 deficiency E53.8 [facility] [address] [place] [address] 06/02/2024 Yoel Watkins Jr B12 deficiency E53.8 [facility] [address] [place] [address] 07/01/2024 Yoel Watkins Jr B12 deficiency E53.8 [facility] [address] [place] [address] 08/05/2024 Yoel Watkins Jr B12 deficiency E53.8 [facility] [address] [place] [address] 09/03/2024 Yoel Watkins Jr [facility] [address] [place] [address] 10/05/2024 Yoel Watkins Jr B12 deficiency E53.8 [facility] [address] [place] [address] 10/12/2024 Yoel Watkins Jr Crohn's disease of both small and large intestine with other complication K50.818 [facility] [address] [place] [address] 11/09/2024 Yoel Watkins Jr [facility] [address] [place] [address] 12/07/2024 Yoel Watkins Jr [facility] [address] [place] [address] 01/05/2025 Yoel Watkins Jr [facility] [address] [facility] [place] [address] 02/03/2025 Yoel Watkins Jr [facility] [address] [place] [address] 07/21/2024 Yoel Watkins Jr [facility] [address] [place] [address] 07/21/2024 Yoel Watkins Jr [facility] [address] [facility] [place] [address] 10/05/2024 Yoel Watkins Jr [facility] [address] [place] [address] 11/03/2024 Yoel Watkins Jr [facility] [address] [place] [address] 11/09/2024 Yoel Watkins Jr [facility] [address] [place] [address] 12/07/2024 Yoel Watkins Jr Assessments Encounter Date Diagnosis (ICD Code) Assessment Notes Treatment Notes Treatment Clinical Notes Section Notes 04/07/2024 B12 deficiency (ICD-10 - E53.8) 05/05/2024 [...] Next Appt Details Provider Name:Yoel andrade , 10/13/2025 09:40:00 AM, [address] [place] [address], [address], [place], [address], Insurance Providers Payer Name Payer Address Payer Phone Subscriber Number Group Number Insured Name Patient Relationship to Insured Coverage Start Date Coverage End Date MEDICARE OF [place] [address] ALEJANDRINAAnne PAULINA PARVEEN [address] [id number] JASEN OWENS Self - patient is the insured [employer] ATT[employer] CLAIMS [address] [place] [address] [id number] JASEN OWENS Self - patient is the insured Medications Administered Medication Instructions Date of Administration Dosage Notes B-12 11/28/2022 1000 ug B-12 02/19/2023 1000 ug B-12 04/17/2023 1000 ug B-12 07/11/2023 1000 ug B-12 01/28/2024 1000 mL B-12 04/07/2024 1000 mL B-12 05/05/2024 1000 mL B-12 06/02/2024 1000 mL B-12 08/05/2024 1000 mL B12 05/31/2023 1000 ug B12 11/13/2023 1000 ug B12 12/19/2023 1000 mL B12 02/28/2024 1000 mL B12 07/01/2024 1000 mL Medical [...]
--- OUTSIDE RECORDS SUMMARY | 2025-03-02 09:01 | XMS_ITS | Clinical Summary ---
Author Organization [facility] Address [address] [place] [address] Phone Care Team Providers Care Golf Course Mechanic Name Role Phone Anil Luna MD Primary Care Provider [phone] Allergies Active Allergy Reactions Criticality Noted Date [...] 01/07/2021, 01/02/2019, Additional history exists COVID-19 VACCINE (4 - season) 2024 03/23/2022, 06/07/2020, 05/10/2020 RSV [...] topic Medical Devices Not on file Insurance [employer] SU[employer]LEMENT MEDICARE PART A & B [employer] SUPPLEMENT MEDICARE PART A & B [employer] SUPPLEMENT MEDICARE PART A & B [employer] SUPPLEMENT MEDICARE PART A & B [facility] MEDEX SUPPLEMENT MEDICARE PART A & B [place] [id number] [employer] MEDEX SUPPLEMENT MEDICARE PART A & B Care Teams Golf Course Mechanic Relationship Specialty Start Date End Date Anil Luna MD [address] [place] [address] [place] [address] PCP - General Internal Medicine 12/27/23 Additional Source Comments The information contained in this document represents components of the legal health record. It is not the complete legal health record.[facility]
--- OUTSIDE RECORDS SUMMARY | 2025-03-02 09:01 | XMS_ITS | Encounter Summary ---
Author Organization [facility] Address [address] [place] [address] Care Team Providers Care Financial Intern Name Role Phone Unavailable Primary Care Provider Unavailabl e Encounter Details Date Type Department Care Team (Late st Contact Info) Description 02/20/2024 Lab Requisition [facility] - Main Lab [address] [facility] [place] [address] Reyes Carlson PA [address] [facility] [address] [place] [phone] Benign essential microscopic hematuria Social History Tobacco [...] carcinoma. Acute inflammation. 03/06/2024 6:02 PM EST [facility] at 1802 EST Clinical Information [id number] Cytology w/reflex UroVysion. 03/06/2024 6:02 PM EST [facility] Gross Description A. Urine, Voided, : [id number] RECD 1 TP SLIDE 03/06/2024 6:02 PM EST [facility] Disclaimer Technical pathology services provided by [facility] at [address], [place] [address] (CLIA #[id number]/S kayla Lei MD, Thiokol Operator) Unless otherwise specified, all tissue is 10% NB formalin fixed and paraffin embedded. 03/06/2024 6:02 PM EST [facility] Tissue Urine specimen from urethra / Unknown 02/11/2024 02/20/2024 11:56 AM EST us [facility] PATHOLOGY ORDERAB LES Final Result [facility] [address] [place] [address], documented in this encounter Visit Diagnoses Diagnosis Benign essential microscopic hematuria documented in this encounter
[2025-03-02 09:06] VITALS: BMI 26.9
== END 2025-03-02 09:39 | disposition home or self-care (01) ==
LOC: HO.HOS 08:31
PROVIDERS: PCP Internal Medicine; Visit Provider Physician Assistant
DX: M17.12 Unilateral primary osteoarthritis, left knee (principal)
CPT/HCPCS: 99203; G2211

== ENCOUNTER → 2025-03-02 08:32 | Outpatient (BNV) | payer MEDICARE, SELFPAY | PROVIDERS: Visit Provider Radiology Diagnostic Radiology | DX: M25.562 Pain in left knee (principal) | CPT/HCPCS: 73562 ==

== ENCOUNTER 2025-03-02 10:17 | Outpatient (REF) | payer MEDICARE, SELFPAY ==
--- OUTSIDE RECORDS SUMMARY | 2023-12-27 16:18 | XMS_ITS | Encounter Summary ---
Author Organization [facility] Address [address] [place] [address] [place] [phone] Phone Care Team Providers Care Veterans' Counselor Name Role Phone Anil Luna MD Primary Care Provider [phone] Encounter Details Date Type Department Care Team (Late st Contact Info) Description 12/27/2023 5:18 PM EDT Hospital Encounter [facility] [address] [place] [id number] Karen Grady FNP [address] [place] [phone] [email or web address] History Tobacco Use Types Packs/Day Years Used Date Smoking Tobacco: Former Cigarettes Education Answer Date Recorded Are you interested in more education? Not on aubrey e 12/27/2023 Are you concerned about learning? Not on file 12/27/2023 No 12/27/2023 No 12/27/2023 Digital Access Answer Date Recorded No 12/27/2023 No 12/27/2023 Reliable internet access at home? Not on file 12/27/2023 Device with a working camera? Not on file Sex and Gender Information Value Date Recorded Sex Assigned at Not on file Legal Sex Male 4:09 PM EDT Gender Identity Not on file Sexual Orientation Not on file documented as of this encounter Plan of Treatment Not on file documented as of this encounter Procedures Procedure Name Priority Date/Time Associated Diagnosis Comments XR CHEST PA AND LATERAL 2 VIEWS Urgent/patient waiting 12/27/2023 5:24 PM EDT Viral upper respiratory tract infection with cough documented in this encounter Results * XR CHEST PA AND LATERAL 2 VIEWS (12/27/2023 5:24 PM EDT) Anatomical Region Laterality Modality Chest Computed Radiogr aphy 12/27/2023 5:28 PM EDT Impressions 12/27/2023 5:40 PM EDT No acute findings. Narrative 12/27/2023 5:40 PM EDT XR CHEST PA AND LATERAL 2 VIEWS Referring clinician's provided indication for this examination in [facility]: Cough; sob, chest pain, for 3 days COMPARISON: None FINDINGS: Lungs: No pneumonia or pulmonary edema. Linear airspace opacity in the left lung base most consistent with atelectasis. Pleura: No pleural effusion. No pneumothorax Heart/Mediastinum: Heart size normal. Bones/Soft Tissues: No acute finding Procedure Note Venkata Jara MD, THUY - 12/27/2023 XR CHEST PA AND LATERAL 2 VIEWS Referring clinician's provided indication for this examination in [facility]:Cough; sob, chest pain, for 3 days COMPARISON: None FINDINGS: Lungs: No pneumonia or pulmonary edema. Linear airspace opacity in theleft lung base most consistent with atelectasis. Pleura: No pleural effusion. No pneumothorax Heart/Mediastinum: Heart size normal. Bones/Soft Tissues: No acute finding IMPRESSION: No acute findings. Karen Grady CONTRACT NEGOTIATION MANAGER IMG XR CHEST Final Resul t documented in this encounter Visit Diagnoses Not on filedocumented in this encounter Additional Health Concerns Infection Onset Date Last Indicated Resolved Time CoV-Risk 12/27/2023 12/27/2023 01/07/2024 1:23 AM EDT documented as of this encounter Care Teams Veterans' Counselor Relationship Specialty Start Date End Date Anil Luna MD [address] [place] [address] [place] [id number] PCP - General Internal Medicine 10/11/24 documented as of this encounter Additional Source Comments The information contained in this document represents components of the legal health record. It is not the complete legal health record.[facility]
--- NOTE | ~2025-03-02 | XR_ITS ---
EXAMINATION: XR KNEE 3 VIEWS LEFT HISTORY: M25.569 - Pain in unspecified knee COMPARISON: Comparison is made with the prior examination dated 12/03/2024. FINDINGS: Standing AP views of both knees and additional lateral and sunrise patellar views of the left knee are submitted. Osseous mineralization is normal. There is no fracture or dislocation. The joint spaces are preserved. The soft tissues are unremarkable . Again seen is a small patellar spur at the insertion of the substandard. There is no significant joint effusion. XR/XR knee LT 3V IMPRESSION: No acute abnormality. Electronically signed by: Matt Robles MD 03/02/2025 08:44 AM [facility]
--- OUTSIDE RECORDS SUMMARY | 2025-03-03 13:13 | XMS_ITS | Patient Health Record ---
Author Organization [facility] Address [address] [place] [address] Care Team Providers Care Cycle Analyst Name Role Phone Jeremy YEN, [place] Primary Care Provider Yoel Butler Jr Unavailable [...] W/U Status Risk Notes Problem Rectal bleeding (36306561) Rectal bleeding (K62.5) Active confirmed Problem Crohn's disease of small AND large intestines (28004436) Crohn's disease of both small and large intestine with other complication (K50.818) Active confirmed Problem Crohn's disease of small AND large intestines (71921907) Crohns disease of both small and large intestine without complication (K50.80) Active confirmed Problem Vitamin B12 deficiency (non anemic) (25022528) B12 deficiency (E53.8) Active confirmed Problem Duodenal ulcer (73702084) Duodenal ulcer (K26.9) Active confirmed Problem Intestinal obstruction due to Crohn's disease of small and large intestine (35151840219793 04) Crohn's disease of both small and large intestine with intestinal obstruction (K50.812) Active confirmed Problem Intestinal obstruction due to Crohn's disease of small and large intestine (disorder) (17841738139777 04) Crohn''s disease of both small and large intestine with intestinal obstruction (K50.812) Active confirmed Problem Crohn's disease of small AND large intestines (37984977) Crohn''s disease of both small and large intestine with rectal bleeding (K50.811) Active confirmed Vital Signs Temperature 97.5 degrees Fahrenheit 10/12/2024 Blood pressure diastolic 01 mm Hg 10/12/2024 Height 71 in 10/12/2024 Blood pressure systolic 001 mm Hg 10/12/2024 Weight 199.4 lbs 10/12/2024 BMI 27.81 kg/m2 10/12/2024 Encounters Encounter Location Date Provider Diagnosis [facility] [address] [place] [phone] 04/07/2024 Yoel Watkins Jr B12 deficiency E53.8 [facility] [address] [place] [address] 05/05/2024 Yoel Watkins Jr B12 deficiency E53.8 [facility] [address] [place] [address] 06/02/2024 Yoel Watkins Jr B12 deficiency E53.8 [facility] [address] [place] [address] 07/01/2024 Yoel Watkins Jr B12 deficiency E53.8 [facility] [address] [place] [address] 08/05/2024 Yoel Watkins Jr B12 deficiency E53.8 [facility] [address] [place] [phone] 09/03/2024 Yoel Watkins Jr [facility] [address] [place] [address] 10/05/2024 Yoel Watkins Jr B12 deficiency E53.8 [facility] [address] [place] [address] 10/12/2024 Yoel Watkins Jr Crohn's disease of both small and large intestine with other complication K50.818 [facility] [address] [place] [address] 11/09/2024 Yoel Watkins Jr [facility] [address] [place] [address] 12/07/2024 Yoel Watkins Jr [facility] [address] [place] [address] 01/05/2025 Yoel Watkins Jr [facility] [address] [facility] [place] [address] 02/03/2025 Yoel Watkins Jr [facility] [address] [place] [address] 07/21/2024 Yoel Watkins Jr [facility] [address] [place] [address] 07/21/2024 Yoel Watkins Jr [facility] [address] [facility] [place] [address] 10/05/2024 Yoel Watkins Jr [facility] [address] [place] [address] 11/03/2024 Yoel Watkins Jr [facility] [address] [place] [address] 11/09/2024 Yoel Watkins Jr [facility] [address] [place] [address] 12/07/2024 Yoel Watkins Jr Assessments Encounter Date [...] Provider Name:Yoel andrade , 10/13/2025 09:40:00 AM, [address] [place] [address], [address], [place], [address], Insurance Providers Payer Name Payer Address Payer Phone Subscriber Number Group Number Insured Name Patient Relationship to Insured Coverage Start Date Coverage End Date MEDICARE OF [place] [address] ALEJANDRINAAnne PAULINA PARVEEN [address] [phone] [id number] JASEN OWENS Self - patient is the insured [employer] ATT[employer] CLAIMS [address] [place] [address] [id number] JASEN OWENS Self - patient is the [...]
--- OUTSIDE RECORDS SUMMARY | 2025-03-03 13:13 | XMS_ITS | Clinical Summary ---
Author Organization [address] Address [address] [place] [address] Phone Care Team Providers Care Shoe Cementer Name Role Phone Unavailable Primary Care Provider [...] age to complete this topic Insurance MEDICARE [facility]
--- OUTSIDE RECORDS SUMMARY | 2025-03-03 13:13 | XMS_ITS | Encounter Summary ---
Author Organization [facility] Address [address] [place] [address] Care Team Providers Care Blood Bank Coordinator Name Role Phone Unavailable Primary Care Provider Unavailabl e Encounter Details Date Type Department Care Team (Late st Contact Info) Description 02/20/[address] [facility] - Main Lab [address] [facility] [place] [address] Reyes Carlson PA [address] [facility] [address] [place] [phone] Benign essential microscopic hematuria Social History Tobacco [...] 03/06/2024 6:02 PM EST [facility] at 1802 EST Clinical Information [id number] Cytology w/reflex UroVysion. 03/06/2024 6:02 PM EST [facility] Gross Description A. Urine, Voided, : [id number] RECD 1 TP SLIDE 03/06/2024 6:02 PM EST [facility] Disclaimer Technical pathology services provided by [facility] at [address], [place] [address] (CLIA #[id number]/S kayla Lei MD, Supervisor Grips) Unless otherwise specified, all tissue is 10% NB formalin fixed and paraffin embedded. 03/06/2024 6:02 PM EST [facility] Tissue Urine specimen from urethra / Unknown 02/11/2024 02/20/2024 11:56 AM EST us [facility] PATHOLOGY ORDERAB LES Final Result [facility] [address] [place] [address], documented in this encounter Visit Diagnoses Diagnosis Benign essential microscopic hematuria documented in this encounter
--- OUTSIDE RECORDS SUMMARY | 2025-03-03 13:13 | XMS_ITS | Encounter Summary ---
Author Organization [facility] Address [address] [place] [address] Care Team Providers Care Barrelhead Inspector Name Role Phone Unavailable Primary Care Provider Unavailabl e Encounter Details Date Type Department Care Team (Late st Contact Info) Description 03/02/2024 Lab Requisition [facility] - Main Lab [address] [facility] [place] [address] Dickson Patton MD [address] [facility] [address] [place] [address] Elevated prostate specific antigen (PSA) Social History [...] (03/02/2024) Final Diagnosis A. Prostate, Left Middle [place] (Core Biopsy): - Benign prostate tissue. B. Prostate, Left Lateral [place] (Core Biopsy): - Benign prostate tissue. C. Prostate, Left Middle Middle (Core Biopsy): - Benign prostate tissue. D. Prostate, Left Lateral Middle (Core Biopsy): - Benign prostate tissue. - PIN4 supports the diagnosis. E. Prostate, Left Middle Base (Core Biopsy): - Benign prostate tissue. F. Prostate, Left Lateral Base (Core Biopsy): - Benign prostate tissue. G. Prostate, Right Middle [place] (Core Biopsy): - Benign prostate tissue. H. Prostate, Right Lateral [place] (Core Biopsy): - Benign prostate tissue. I. Prostate, Right Middle Middle (Core Biopsy): - Benign prostate tissue. J. Prostate, Right Lateral Middle (Core Biopsy): - Benign prostate tissue. K. Prostate, Right Middle Base (Core Biopsy): - Benign prostate tissue. L. Prostate, Right Lateral Base (Core Biopsy): - Few atypical glands. - PIN4 supports the diagnosis. 4 12:23 PM EST [facility] at 1223 EST Comment PIN4 immunohistology supports the morphological diagnosis. - D, L PIN4 performed at [facility], [address], [place] [address], CLIA # [id number] 4 12:23 PM [facility] Clinical Information Elevated PSA = 9.2 (02/03/24) R97.20 [id number] 4 12:23 PM [facility] Gross Description A. Prostate, Left Middle [place] Biopsy: Received, properly labeled, are two H and E stained slides and two unstained slides. B. Prostate, Left Lateral [place] Biopsy: Received, properly labeled, are two H [...] two unstained slides. G. Prostate, Right Middle [place] Biopsy: Received, properly labeled, are two H and E stained slides and two unstained slides. H. Prostate, Left Lateral [place] Biopsy: Received, properly labeled, are two H [...] and their performance characteristics were determined by [facility]. They have not [...] paraffin embedded. Technical pathology services provided by [facility] at [address] [place] [address] [address], [place] [address] (CLIA #[id number]/Adelina Lei MD, Hearing Specialist) 4 12:23 PM EST [facility] [...] Patton MD LAB PATHOLOGY ORDERABLES nal Result [facility] [address] [place] [address], documented in this encounter Visit Diagnoses Diagnosis Elevated prostate specific antigen (PSA) documented in this encounter
--- OUTSIDE RECORDS SUMMARY | 2025-03-03 13:14 | XMS_ITS | Clinical Summary ---
Author Organization [facility] Address [address] [place] [address] Phone Care Team Providers Care Senior Cyber Security Analyst Name Role Phone Anil Luna MD Primary Care Provider [phone] Allergies Active Allergy Reactions Criticality Noted Date [...] topic Medical Devices Not on file Insurance [employer] SUPPLEMENT MEDICARE PART A & B [employer] SUPPLEMENT MEDICARE PART A & B [employer] MED[employer] SUPPLEMENT MEDICARE PART A & B [employer] MED[employer] SUPPLEMENT MEDICARE PART A & B [facility] MEDEX SUPPLEMENT MEDICARE PART A & B [place] [phone] [employer] MEDEX SUPPLEMENT MEDICARE PART A & B Care Teams Senior Cyber Security Analyst Relationship Specialty Start Date End Date Anil Luna MD [address] [place] [address] [place] [address] PCP - General Internal Medicine 12/27/23 Additional Source Comments The information contained in this document represents components of the legal health record. It is not the complete legal health record.[facility]
== END 2025-03-02 10:18 | disposition home or self-care (01) ==
LOC: HO.HOSX 10:17
PROVIDERS: Visit Provider Physician Assistant
DX: M17.12 Unilateral primary osteoarthritis, left knee (principal)
CPT/HCPCS: 73562